=== PATIENT | male | born 1960 | race Caucasian/White ===

== ENCOUNTER 2020-10-07 09:35 | Outpatient (REF) | payer MEDICARE, SELFPAY ==
[2020-10-07 10:18] LABS: Eosinophils Absolute Auto 0.2 X10*3/uL (0.0-0.4); MANUAL DIFF FLAG SCAN; Mean Platelet Volume 11.5 fL (9.4-12.4); PLT CLUMP 1; SCAN SMEAR FLAG 1
[2020-10-07 10:20] LABS: Basophils Percent Auto 0.7 % (0-2); Eosinophils Percent Auto 5.6 % (0-4); Hematocrit 48.4 % (42-52); Hemoglobin 16.1 g/dl (14.0-18.0); Imm Gran Abs Auto 0.03 X10*3/uL (0.00-0.03); Imm Gran Pct Auto 0.7 % (0.0-0.4); Lymphocytes Absolute Auto 0.6 X10*3/uL (1.2-4.9); Lymphocytes Percent Auto 14.7 % (20-40); Mean Corpuscular HGB Conc 33.3 g/dl (31.0-36.0); Mean Corpuscular Hemoglobin 33.5 pg (27.0-33.0); Mean Corpuscular Volume 100.8 fL (80-98); Monocytes Absolute Auto 0.5 X10*3/uL (0.1-1.2); Monocytes Percent Auto 10.7 % (2-11); Neutrophils Absolute Auto 2.9 X10*3/uL (2.0-8.3); Neutrophils Percent Auto 67.6 % (45-73); Platelet Count 125 X10*3/uL (160-400); Red Cell Distribution Width 12.4 % (11.0-16.0); White Blood Count 4.3 X10*3/uL (4.8-10.8)
[2020-10-07 11:10] LABS: Alanine Aminotransferase 75 U/L (0-40); Albumin Level 4.3 g/dL (3.5-5.0); Alkaline Phosphatase 202 U/L (39-117); Anion Gap 15 (12-20); Aspartate Amino Transferase 62 U/L (5-37); Bilirubin Total 1.2 mg/dL (0.0-1.0); Blood Urea Nitrogen 9 mg/dL (9-16); Calcium 9.1 mg/dL (8.4-10.2); Carbon Dioxide 30 mmol/L (22-29); Chloride 95 mmol/L (96-108); Estimated Glomerular Filt Rate > 60; Glucose Random 303 mg/dL (60-115); Potassium 4.2 mmol/l (3.3-5.1); Sodium 136 mmol/L (135-145); Total Protein 7.3 g/dL (6.5-8.0)
[2020-10-07 11:29] LABS: Creatinine Urine 19.54 mg/dL; Microalbum/Creatinine Ratio Ur 235.4 ug/mg cr
[2020-10-07 11:35] LABS: SLIDE REVIEW VERIFIED
[2020-10-07 11:36] LABS: Prostate Specific Antigen Scr 0.27 ng/mL (<0.05-4.0)
[2020-10-07 12:11] LABS: Estimated Average Glucose 249 mg/dL; Hemoglobin A1c % 10.3 %
== END 2020-10-07 09:36 | disposition home or self-care (01) ==
LOC: HO.LAB 09:35
PROVIDERS: PCP Internal Medicine; Visit Provider Internal Medicine
DX: E11.9 Type 2 diabetes mellitus without complications (principal); I10 Essential (primary) hypertension; J44.9 Chronic obstructive pulmonary disease, unspecified; R35.1 Nocturia
CPT/HCPCS: 36415; 80053; 82043; 83036; 84153; 85025

== ENCOUNTER 2021-03-15 12:33 | Outpatient (REF) | payer MEDICARE, SELFPAY ==
[2021-03-15 13:31] LABS: Eosinophils Absolute Auto 0.2 X10*3/uL (0.0-0.4); Eosinophils Percent Auto 3.5 % (0-4); Hemoglobin 16.4 g/dl (14.0-18.0); MANUAL DIFF FLAG SCAN; PLT CLUMP 1; SCAN SMEAR FLAG 1
[2021-03-15 13:33] LABS: Basophils Percent Auto 0.6 % (0-2); Hematocrit 48.7 % (42-52); Imm Gran Abs Auto 0.02 X10*3/uL (0.00-0.03); Imm Gran Pct Auto 0.4 % (0.0-0.4); Lymphocytes Absolute Auto 0.7 X10*3/uL (1.2-4.9); Lymphocytes Percent Auto 12.6 % (20-40); Mean Corpuscular HGB Conc 33.7 g/dl (31.0-36.0); Mean Corpuscular Hemoglobin 33.9 pg (27.0-33.0); Mean Corpuscular Volume 100.6 fL (80-98); Mean Platelet Volume 11.3 fL (9.4-12.4); Monocytes Absolute Auto 0.5 X10*3/uL (0.1-1.2); Monocytes Percent Auto 9.6 % (2-11); Neutrophils Percent Auto 73.3 % (45-73); Platelet Count 135 X10*3/uL (160-400); Red Blood Count 4.84 X10*6/uL (4.60-5.80); Red Cell Distribution Width 12.7 % (11.0-16.0); White Blood Count 5.4 X10*3/uL (4.8-10.8)
[2021-03-15 13:38] LABS: Glucose Urine UA 500 MG/DL (NEG); Leukocyte Esterase Urine NEG (NEG); Nitrite Urine NEG (NEG); PH 7.5 (5.0-8.0); Specific Gravity - Urine 1.015 (1.005-1.025); Urine Blood NEG (NEG); Urine Ketones 5 MG/DL (NEG); Urine Protein 1+ MG/DL (NEG-TRACE)
[2021-03-15 13:39] LABS: Appearance Urine CLEAR; Color Urine DARK YELLOW
[2021-03-15 13:46] LABS: RBC Urine 0-2 /HPF (0); Squamous Epithelial Cell Urine TRACE /LPF; WBC Urine 0-2 /HPF (0-4)
[2021-03-15 13:47] LABS: Amorphous Sediment Urine TRACE /LPF
[2021-03-15 13:52] LABS: Estimated Average Glucose 235 mg/dL; Hemoglobin A1c % 9.8 %
[2021-03-15 13:56] LABS: SLIDE REVIEW VERIFIED
[2021-03-15 14:17] LABS: Creatinine Urine 95.66 mg/dL; Microalbum/Creatinine Ratio Ur 313.6 ug/mg cr
[2021-03-15 14:23] LABS: Alanine Aminotransferase 68 U/L (0-40); Albumin Level 4.3 g/dL (3.5-5.0); Alkaline Phosphatase 270 U/L (39-117); Anion Gap 17 (12-20); Aspartate Amino Transferase 68 U/L (5-37); Bilirubin Total 1.6 mg/dL (0.0-1.0); Blood Urea Nitrogen 10 mg/dL (9-16); Calcium 9.3 mg/dL (8.4-10.2); Carbon Dioxide 26 mmol/L (22-29); Chloride 97 mmol/L (96-108); Estimated Glomerular Filt Rate > 60; Glucose Random 287 mg/dL (60-115); Potassium 4.1 mmol/L (3.3-5.1); Sodium 136 mmol/L (135-145); Total Protein 7.5 g/dL (6.5-8.0)
== END 2021-03-15 12:34 | disposition home or self-care (01) ==
LOC: HO.WFDLDS 12:33
PROVIDERS: Visit Provider Internal Medicine
DX: E11.9 Type 2 diabetes mellitus without complications (principal); I10 Essential (primary) hypertension; J44.9 Chronic obstructive pulmonary disease, unspecified
CPT/HCPCS: 36415; 80053; 81001; 82043; 83036; 85025

== ENCOUNTER 2021-09-23 09:52 | Outpatient (REF) | payer MEDICARE, SELFPAY ==
[2021-09-23 10:47] LABS: MANUAL DIFF FLAG NO
[2021-09-23 10:52] LABS: Basophils Percent Auto 0.6 % (0-2); Eosinophils Absolute Auto 0.3 X10*3/uL (0.0-0.4); Eosinophils Percent Auto 4.6 % (0-4); Hematocrit 49.1 % (42-52); Hemoglobin 16.4 g/dl (14.0-18.0); Imm Gran Abs Auto 0.07 X10*3/uL (0.00-0.03); Lymphocytes Absolute Auto 0.6 X10*3/uL (1.2-4.9); Lymphocytes Percent Auto 9.2 % (20-40); Mean Corpuscular HGB Conc 33.4 g/dl (31.0-36.0); Mean Corpuscular Hemoglobin 33.3 pg (27.0-33.0); Mean Corpuscular Volume 99.8 fL (80-98); Mean Platelet Volume 10.9 fL (9.4-12.4); Monocytes Absolute Auto 0.6 X10*3/uL (0.1-1.2); Monocytes Percent Auto 9.3 % (2-11); Neutrophils Absolute Auto 5.1 X10*3/uL (2.0-8.3); Neutrophils Percent Auto 75.3 % (45-73); Platelet Count 160 X10*3/uL (160-400); Red Blood Count 4.92 X10*6/uL (4.60-5.80); Red Cell Distribution Width 12.4 % (11.0-16.0); White Blood Count 6.8 X10*3/uL (4.8-10.8)
[2021-09-23 10:58] LABS: Estimated Average Glucose 260 mg/dL; Hemoglobin A1c % 10.7 %
[2021-09-23 11:29] LABS: Alanine Aminotransferase 44 U/L (0-40); Albumin Level 4.1 g/dL (3.5-5.0); Alkaline Phosphatase 314 U/L (39-117); Anion Gap 15 (12-20); Aspartate Amino Transferase 49 U/L (5-37); Bilirubin Total 1.1 mg/dL (0.0-1.0); Blood Urea Nitrogen 11 mg/dL (9-16); Calcium 9.5 mg/dL (8.4-10.2); Carbon Dioxide 30 mmol/L (22-29); Chloride 96 mmol/L (96-108); Cholesterol 177 mg/dL; Creatinine Urine 64.67 mg/dL; Estimated Glomerular Filt Rate > 60; Glucose Fasting 306 mg/dL (60-99); HDL Cholesterol 62 mg/dL; LDL Cholesterol Calculated 84 mg/dl; Microalbum/Creatinine Ratio Ur 338.6 ug/mg cr; Potassium 4.5 mmol/L (3.3-5.1); Sodium 136 mmol/L (135-145); Total Protein 7.4 g/dL (6.5-8.0); Triglycerides 159 mg/dL
[2021-09-23 11:56] LABS: Vitamin B12 782 pg/mL (200-900)
== END 2021-09-23 09:53 | disposition home or self-care (01) ==
LOC: HO.WFDLDS 09:52
PROVIDERS: Visit Provider Internal Medicine
DX: E11.9 Type 2 diabetes mellitus without complications (principal); I10 Essential (primary) hypertension; D69.6 Thrombocytopenia, unspecified; K74.60 Unspecified cirrhosis of liver
CPT/HCPCS: 36415; 80053; 80061; 82043; 82607; 83036; 85025

== ENCOUNTER 2022-04-13 11:46 | Outpatient (REF) | payer MEDICARE, SELFPAY ==
[2022-04-13 14:02] LABS: MANUAL DIFF FLAG NO
[2022-04-13 14:06] LABS: Basophils Percent Auto 0.6 % (0-2); Eosinophils Absolute Auto 0.1 X10*3/uL (0.0-0.4); Eosinophils Percent Auto 2.1 % (0-4); Hematocrit 43.7 % (42.0-52.0); Hemoglobin 14.5 g/dl (14.0-18.0); Imm Gran Abs Auto 0.03 X10*3/uL (0.00-0.03); Imm Gran Pct Auto 0.4 % (0.0-0.4); Lymphocytes Absolute Auto 0.6 X10*3/uL (1.2-4.9); Lymphocytes Percent Auto 9.1 % (20-40); Mean Corpuscular HGB Conc 33.2 g/dl (31.0-36.0); Mean Corpuscular Hemoglobin 32.6 pg (27.0-33.0); Mean Corpuscular Volume 98.2 fL (80.0-98.0); Mean Platelet Volume 10.4 fL (9.4-12.4); Monocytes Absolute Auto 0.6 X10*3/uL (0.1-1.2); Monocytes Percent Auto 8.5 % (2-11); Neutrophils Absolute Auto 5.4 x10*3/uL (2.0-8.3); Neutrophils Percent Auto 79.3 % (45-73); Platelet Count 208 X10*3/uL (160-400); Red Blood Count 4.45 X10*6/uL (4.60-5.80); White Blood Count 6.8 X10*3/uL (4.8-10.8)
[2022-04-13 14:13] LABS: Estimated Average Glucose 157 mg/dL; Hemoglobin A1c % 7.1 %
[2022-04-13 14:26] LABS: Alanine Aminotransferase 31 U/L (0-40); Albumin Level 3.9 g/dL (3.5-5.0); Alkaline Phosphatase 371 U/L (39-117); Anion Gap 11 (12-20); Aspartate Amino Transferase 41 U/L (5-37); Bilirubin Total 0.9 mg/dL (0.0-1.0); Blood Urea Nitrogen 10 mg/dL (9-16); Calcium 9.8 mg/dL (8.4-10.2); Carbon Dioxide 30 mmol/L (22-29); Chloride 98 mmol/L (96-108); Estimated Glomerular Filt Rate > 60; Glucose Random 145 mg/dL (60-115); Potassium 4.3 mmol/L (3.3-5.1); Sodium 135 mmol/L (135-145); Total Protein 7.5 g/dL (6.5-8.0)
== END 2022-04-13 11:47 | disposition home or self-care (01) ==
LOC: HO.WFDLDS 11:46
PROVIDERS: Visit Provider Internal Medicine
DX: E11.9 Type 2 diabetes mellitus without complications (principal); I10 Essential (primary) hypertension; J44.9 Chronic obstructive pulmonary disease, unspecified; K74.60 Unspecified cirrhosis of liver
CPT/HCPCS: 36415; 80053; 83036; 85025

== ENCOUNTER 2022-07-14 12:21 | Outpatient (REF) | payer MEDICARE, SELFPAY ==
[2022-07-14 13:31] LABS: MANUAL DIFF FLAG NO
[2022-07-14 13:37] LABS: Basophils Absolute Auto 0.1 X10*3/uL (0.0-0.2); Basophils Percent Auto 0.9 % (0-2); Eosinophils Absolute Auto 0.1 X10*3/uL (0.0-0.4); Eosinophils Percent Auto 2.1 % (0-4); Hematocrit 42.1 % (42.0-52.0); Hemoglobin 13.9 g/dl (14.0-18.0); Imm Gran Abs Auto 0.03 X10*3/uL (0.00-0.03); Imm Gran Pct Auto 0.5 % (0.0-0.4); Lymphocytes Absolute Auto 0.5 X10*3/uL (1.2-4.9); Lymphocytes Percent Auto 8.7 % (20-40); Mean Corpuscular Hemoglobin 32.7 pg (27.0-33.0); Mean Corpuscular Volume 99.1 fL (80.0-98.0); Mean Platelet Volume 10.1 fL (9.4-12.4); Monocytes Absolute Auto 0.5 X10*3/uL (0.1-1.2); Monocytes Percent Auto 9.2 % (2-11); Neutrophils Absolute Auto 4.4 x10*3/uL (2.0-8.3); Neutrophils Percent Auto 78.6 % (45-73); Platelet Count 244 X10*3/uL (160-400); Red Blood Count 4.25 X10*6/uL (4.60-5.80); Red Cell Distribution Width 12.8 % (11.0-16.0); White Blood Count 5.7 X10*3/uL (4.8-10.8)
[2022-07-14 13:52] LABS: Estimated Average Glucose 126 mg/dL
[2022-07-14 14:00] LABS: Alanine Aminotransferase 39 U/L (0-40); Alkaline Phosphatase 475 U/L (39-117); Anion Gap 17 (12-20); Aspartate Amino Transferase 56 U/L (5-37); Bilirubin Total 1.2 mg/dL (0.0-1.0); Blood Urea Nitrogen 9 mg/dL (9-16); Calcium 9.8 mg/dL (8.4-10.2); Carbon Dioxide 26 mmol/L (22-29); Chloride 99 mmol/L (96-108); Estimated Glomerular Filt Rate > 60; Glucose Random 72 mg/dL (60-115); Potassium 4.3 mmol/L (3.3-5.1); Sodium 138 mmol/L (135-145); Total Protein 7.6 g/dL (6.5-8.0)
== END 2022-07-14 12:22 | disposition home or self-care (01) ==
LOC: HO.WFDLDS 12:21
PROVIDERS: Visit Provider Internal Medicine
DX: E11.9 Type 2 diabetes mellitus without complications (principal); J44.9 Chronic obstructive pulmonary disease, unspecified; K74.60 Unspecified cirrhosis of liver
CPT/HCPCS: 36415; 80053; 83036; 85025

== ENCOUNTER 2022-07-17 08:57 | Outpatient (REF) | payer MEDICARE, SELFPAY ==
[2022-07-17 12:26] LABS: Creatinine Urine 213.87 mg/dL; Microalbum/Creatinine Ratio Ur 40.6 ug/mg cr
== END 2022-07-17 08:58 | disposition home or self-care (01) ==
LOC: HO.WFDLNP 08:57
PROVIDERS: Visit Provider Internal Medicine
DX: R10.2 Pelvic and perineal pain (principal); E11.9 Type 2 diabetes mellitus without complications; J44.9 Chronic obstructive pulmonary disease, unspecified; K74.60 Unspecified cirrhosis of liver
CPT/HCPCS: 82043

== ENCOUNTER 2022-07-18 09:44 | Outpatient (REF) | payer MEDICARE, SELFPAY ==
[2022-07-18 10:18] LABS: MANUAL DIFF FLAG NO
[2022-07-18 10:54] LABS: Basophils Percent Auto 0.8 % (0-2); Eosinophils Absolute Auto 0.1 X10*3/uL (0.0-0.4); Eosinophils Percent Auto 2.2 % (0-4); Hematocrit 41.8 % (42.0-52.0); Hemoglobin 13.7 g/dl (14.0-18.0); Imm Gran Abs Auto 0.02 X10*3/uL (0.00-0.03); Imm Gran Pct Auto 0.4 % (0.0-0.4); Lymphocytes Absolute Auto 0.4 X10*3/uL (1.2-4.9); Lymphocytes Percent Auto 8.8 % (20-40); Mean Corpuscular HGB Conc 32.8 g/dl (31.0-36.0); Mean Corpuscular Hemoglobin 32.5 pg (27.0-33.0); Mean Corpuscular Volume 99.1 fL (80.0-98.0); Mean Platelet Volume 10.1 fL (9.4-12.4); Monocytes Absolute Auto 0.5 X10*3/uL (0.1-1.2); Monocytes Percent Auto 9.2 % (2-11); Neutrophils Absolute Auto 3.9 x10*3/uL (2.0-8.3); Neutrophils Percent Auto 78.6 % (45-73); Platelet Count 225 X10*3/uL (160-400); Red Blood Count 4.22 X10*6/uL (4.60-5.80); Red Cell Distribution Width 12.8 % (11.0-16.0)
[2022-07-18 10:56] LABS: INTERNATIONAL NORM RATIO 1.2 (0.9-1.1); Prothrombin Time 13.4 SEC (10.0-13.1)
[2022-07-18 10:58] LABS: Partial Thromboplastin Time 38.1 SEC (26.0-36.4)
[2022-07-18 15:00] LABS: Ammonia 30 umol/L (13-55)
== END 2022-07-18 09:45 | disposition home or self-care (01) ==
LOC: HO.LAB 09:44
PROVIDERS: PCP Internal Medicine; Visit Provider Internal Medicine
DX: K74.60 Unspecified cirrhosis of liver (principal); E11.9 Type 2 diabetes mellitus without complications; R18.8 Other ascites
CPT/HCPCS: 36415; 82140; 85025; 85610; 85730

== ENCOUNTER 2022-07-20 11:00 | Outpatient (REF) | payer MEDICARE, SELFPAY ==
--- NOTE | ~2022-07-20 | US_ITS ---
EXAMINATION: US ABDOMEN LIMITED CLINICAL INFORMATION: Ascites check. COMPARISON: Abdominal ultrasound dated 01/06/2014. TECHNIQUE: Real-time ultrasound imaging of the abdominal quadrants were obtained. US/US abdomen limited FINDINGS/IMPRESSION: Moderate to large peritoneal ascites is seen in all 4 quadrants. Limited images of the demonstrates chronic appearance.
== END 2022-07-20 11:01 | disposition home or self-care (01) ==
LOC: HO.US 11:00
PROVIDERS: Visit Provider Internal Medicine
DX: R18.8 Other ascites (principal)
CPT/HCPCS: 76705

== ENCOUNTER 2022-07-24 11:23 | Day surgery (SDC) | payer MEDICARE, OTHER, SELFPAY ==
--- NOTE | 2022-07-21 17:50 | HP_ITS ---
DATE OF SERVICE: 07/24/2022 HISTORY OF PRESENT ILLNESS: The patient is a 61-year-old male scheduled for paracentesis on Sunday at noon time. Patient has a history of cirrhosis and alcohol abuse, COPD. He was seen in the office last week and was referred for paracentesis, but an ultrasound was required first which confirmed ascites, so now he is going to have the procedure done on Sunday the . He continues to smoke, but has been cutting down. PRESENT MEDICATIONS: Lisinopril 5 mg, vitamin D 5000 units a day, folate 1 mg a day, metformin a 1000 twice a day, glipizide 5 mg to 10 mg once a day, Lasix 20 mg a day, Lorazepam 0.5 mg p.o. t.i.d., albuterol updraft and a ProAir inhaler as needed, Symbicort 2 puffs twice a day. PHYSICAL EXAMINATION: GENERAL: He is awake, alert, uncomfortable because of the fluid collection. VITAL SIGNS: Temperature is 98.4, pulse 80, respiration 16, blood pressure 122/88, oxygen 98% on room air. Weight is 212, up 8 pounds from last time. HEART: Sounds are regular. LUNGS: Distant. ABDOMEN: Distended with positive fluid wave. EXTREMITIES: No clubbing, cyanosis, or edema in the extremities. He is medically stable for the proposed procedure. I will be available if there are any medical issues. Labs are in [employer]. MD LUIS FERNANDO Peres/JORGE / [phone]
--- NOTE | ~2022-07-24 | US_ITS ---
EXAMINATION: ULTRASOUND GUIDED PARACENTESIS CLINICAL INFORMATION: Ascites COMPARISON: Previous ultrasound 07/20/2022 TECHNIQUE: Procedure and risks and benefits including bleeding, infection and low blood pressure were discussed with the patient and informed consent was obtained. Left lower quadrant was prepped and draped in the usual sterile fashion. The skin and soft tissues were anesthetized with 1% lidocaine plain. Using ultrasound guidance and a 4 Ukrainian rapid catheter, access to the ascitic fluid was obtained. 13.8 L of clear yellow fluid was removed. Diagnostic specimen was sent. FINDINGS: There is a large amount of ascites. US/US paracentesis abd w/image IMPRESSION: Ultrasound-guided paracentesis.
[2022-07-24 12:01] VITALS: BMI 29.8
[2022-07-24 12:05] LABS: Glucose, Whole Blood 85 mg/dL (60-115)
--- NOTE | 2022-07-24 13:37 | HO.RADPN ---
RADIOLOGY Narrative Narrative: LLQ paracentesis using 4 fr catheter. L clear yellow fluid removed. Specimen sent.
[2022-07-24] MEDS: Lidocaine HCl 1 % MPF 5 ML VIAL 4 ML SUBCUT (14:44)
[2022-07-24 14:45] VITALS: BP 122/65; PULSE 74; RESP 16; TEMP 36.9; O2SAT 96
[2022-07-24 15:00] VITALS: BP 122/66; PULSE 68; RESP 16; O2SAT 96
[2022-07-24 15:15] VITALS: BP 119/68; PULSE 64; RESP 18; O2SAT 95
[2022-07-24 15:30] VITALS: BP 113/59; PULSE 67; RESP 18; O2SAT 96
[2022-07-24 15:34] LABS: MN% 95.2 %; PMN% 4.8 %; WBC Peritoneal Fluid 0.503 X10*3/uL
[2022-07-24 15:36] LABS: RBC Peritoneal Fluid < 0.002 X10*6/uL
[2022-07-24 15:45] VITALS: BP 114/65; PULSE 75; RESP 20; TEMP 36.8; O2SAT 95
[2022-07-24 16:22] LABS: BF Shift QC OK YES
[2022-07-24 16:23] LABS: Lymphocyte Peritoneal Fl 29 %; Monocytes Peritoneal Fl 14 %; Neutrophils Peritoneal Fluid 6 %; Other Peritioneal Fl 51 %
[2022-07-25 06:27] LABS: Glucose Peritoneal Fluid 86 MG/DL; LDH Peritoneal Fluid 140 U/L; Total Protein Peritoneal Fluid 4.2 GM/DL
== END 2022-07-24 15:53 | disposition home or self-care (01) ==
LOC: HO.SSS 11:24
PROVIDERS: PCP Internal Medicine; Visit Provider Radiology Diagnostic Radiology
DX: R18.8 Other ascites (principal); K74.60 Unspecified cirrhosis of liver; J44.9 Chronic obstructive pulmonary disease, unspecified; I10 Essential (primary) hypertension; E11.9 Type 2 diabetes mellitus without complications; Z79.51 Long term (current) use of inhaled steroids; Z79.84 Long term (current) use of oral hypoglycemic drugs; Z79.899 Other long term (current) drug therapy
CPT/HCPCS: 49083; 82945; 82947; 83615; 84157; 87071; 87073; 87205; 88112; 89051

== ENCOUNTER 2022-08-21 11:25 | Day surgery (SDC) | payer MEDICARE, OTHER, SELFPAY ==
[2022-08-21] VITALS (7 sets, daily range): BP systolic 111–127; BP diastolic 57–75; PULSE 71–87; RESP 16–22; TEMP 36.1–36.4; O2SAT 95–96; BMI 30.1
--- NOTE | ~2022-08-21 | US_ITS ---
EXAMINATION: ULTRASOUND-GUIDED PARACENTESIS CLINICAL INFORMATION: Ascites COMPARISON: None TECHNIQUE: Procedure and risks and benefits including bleeding, infection and low blood pressure were discussed with the patient and informed consent was obtained. The right lower quadrant was prepped and draped in the usual sterile fashion. The skin and soft tissues were anesthetized with 1% lidocaine plain. Using ultrasound guidance and a 5 Indian rapid centesis catheter, access to the ascitic fluid was obtained. 15.2 L of clear yellow fluid was removed. No diagnostic specimen was sent. Patient received 3 bottles of intravenous albumin during the procedure. FINDINGS: There is a large amount of ascites. US/US paracentesis abd w/image IMPRESSION: Ultrasound-guided paracentesis.
[2022-08-21 12:44] LABS: Glucose, Whole Blood 84 mg/dL (60-115)
[2022-08-21 12:52] LABS: MANUAL DIFF FLAG NO
[2022-08-21 12:54] LABS: Basophils Percent Auto 0.6 % (0-2); Eosinophils Absolute Auto 0.1 X10*3/uL (0.0-0.4); Eosinophils Percent Auto 1.8 % (0-4); Hematocrit 40.5 % (42.0-52.0); Hemoglobin 13.2 g/dl (14.0-18.0); Imm Gran Abs Auto 0.02 X10*3/uL (0.00-0.03); Imm Gran Pct Auto 0.4 % (0.0-0.4); Lymphocytes Absolute Auto 0.5 X10*3/uL (1.2-4.9); Lymphocytes Percent Auto 9.1 % (20-40); Mean Corpuscular HGB Conc 32.6 g/dl (31.0-36.0); Mean Corpuscular Hemoglobin 32.1 pg (27.0-33.0); Mean Corpuscular Volume 98.5 fL (80.0-98.0); Mean Platelet Volume 9.2 fL (9.4-12.4); Monocytes Absolute Auto 0.5 X10*3/uL (0.1-1.2); Monocytes Percent Auto 9.7 % (2-11); Neutrophils Absolute Auto 3.9 x10*3/uL (2.0-8.3); Neutrophils Percent Auto 78.4 % (45-73); Platelet Count 204 X10*3/uL (160-400); Red Blood Count 4.11 X10*6/uL (4.60-5.80); Red Cell Distribution Width 13.2 % (11.0-16.0); White Blood Count 4.9 X10*3/uL (4.8-10.8)
[2022-08-21 12:59] LABS: INTERNATIONAL NORM RATIO 1.2 (0.9-1.1); Prothrombin Time 13.7 SEC (10.0-13.1)
[2022-08-21 13:01] LABS: Partial Thromboplastin Time 37.7 SEC (26.0-36.4)
--- NOTE | 2022-08-21 14:39 | HO.RADPN ---
RADIOLOGY Narrative Narrative: RLQ paracentesis. 15 L clear yellow fluid removed. Albumin given.
[2022-08-21] MEDS: Lidocaine HCl 1 % MPF 5 ML VIAL 4 ML SUBCUT (14:47)
[2022-08-21] MEDS: traMADoL HCL 50 MG TABLET PO (15:20)
[2022-08-21] MEDS: Albumin Human 25 % 100 ML IV (15:20)
== END 2022-08-21 16:24 | disposition home or self-care (01) ==
PROVIDERS: Radiology Diagnostic Radiology; PCP Internal Medicine; Visit Provider Radiology Diagnostic Radiology
DX: R18.8 Other ascites (principal); K74.60 Unspecified cirrhosis of liver; F10.10 Alcohol abuse, uncomplicated; J44.9 Chronic obstructive pulmonary disease, unspecified; I10 Essential (primary) hypertension; E11.9 Type 2 diabetes mellitus without complications; Z79.51 Long term (current) use of inhaled steroids; Z79.84 Long term (current) use of oral hypoglycemic drugs; Z79.899 Other long term (current) drug therapy; F17.210 Nicotine dependence, cigarettes, uncomplicated
CPT/HCPCS: 36415; 49083; 82947; 85025; 85610; 85730; P9047

== ENCOUNTER 2022-09-08 11:12 | Day surgery (SDC) | payer MEDICARE, OTHER, SELFPAY ==
--- NOTE | ~2022-09-08 | US_ITS ---
EXAMINATION: ULTRASOUND-GUIDED PARACENTESIS CLINICAL INFORMATION: Ascites. COMPARISON: Ultrasound-guided paracentesis 08/21/2022. TECHNIQUE: Following explaining ultrasound-guided paracentesis procedure, benefits and risks, a written consent was obtained. Patient was placed supine on ultrasound stretcher and preliminary ultrasound imaging was obtained. An optimal site was selected along the left lower quadrant and marked. The marked site was cleaned and draped in the usual sterile manner. 1% lidocaine was injected at the puncture site. Through a small skin incision a 4 [place] catheter was advanced into the left peritoneal cavity. After observing fluid return, stylet was withdrawn and catheter connected to vacuum bottle. After obtaining all fluid and observing no more fluid return, catheter was withdrawn and complete hemostasis was achieved at the puncture site. Sterile dressing applied at the puncture site. Patient tolerated the procedure extremely well. FINDINGS: On preliminary ultrasound imaging there is a large amount of free fluid. Approximately 12.3 L of clear yellowish fluid was drained. None of this fluid was sent to lab. IV albumin was administered during the exam. US/US paracentesis abd w/image IMPRESSION: Successful ultrasound-guided paracentesis performed without immediate complications.
[2022-09-08 11:12] LABS: MANUAL DIFF FLAG NO
[2022-09-08 11:47] LABS: Basophils Percent Auto 0.7 % (0-2); Eosinophils Absolute Auto 0.2 X10*3/uL (0.0-0.4); Hematocrit 41.6 % (42.0-52.0); Imm Gran Abs Auto 0.03 X10*3/uL (0.00-0.03); Imm Gran Pct Auto 0.5 % (0.0-0.4); Lymphocytes Absolute Auto 0.6 X10*3/uL (1.2-4.9); Mean Corpuscular HGB Conc 33.7 g/dl (31.0-36.0); Mean Corpuscular Hemoglobin 32.9 pg (27.0-33.0); Mean Corpuscular Volume 97.7 fL (80.0-98.0); Mean Platelet Volume 9.9 fL (9.4-12.4); Monocytes Absolute Auto 0.6 X10*3/uL (0.1-1.2); Neutrophils Absolute Auto 4.2 x10*3/uL (2.0-8.3); Neutrophils Percent Auto 75.8 % (45-73); Platelet Count 227 X10*3/uL (160-400); Red Blood Count 4.26 X10*6/uL (4.60-5.80); Red Cell Distribution Width 13.3 % (11.0-16.0); White Blood Count 5.6 X10*3/uL (4.8-10.8)
[2022-09-08 11:55] LABS: Estimated Average Glucose 117 mg/dL; Hemoglobin A1c % 5.7 %
[2022-09-08 12:03] LABS: Alanine Aminotransferase 29 U/L (0-40); Albumin Level 3.7 g/dL (3.5-5.0); Alkaline Phosphatase 439 U/L (39-117); Anion Gap 15 (12-20); Aspartate Amino Transferase 41 U/L (5-37); Bilirubin Total 1.2 mg/dL (0.0-1.0); Blood Urea Nitrogen 7 mg/dL (9-16); Calcium 9.4 mg/dL (8.4-10.2); Carbon Dioxide 29 mmol/L (22-29); Chloride 97 mmol/L (96-108); Estimated Glomerular Filt Rate > 60; Glucose Random 68 mg/dL (60-115); Potassium 4.3 mmol/L (3.3-5.1); Sodium 137 mmol/L (135-145); Total Protein 6.8 g/dL (6.5-8.0)
[2022-09-08 12:43] LABS: Glucose, Whole Blood 71 mg/dL (60-115)
[2022-09-08 14:16] LABS: Glucose, Whole Blood 92 mg/dL (60-115)
[2022-09-08] MEDS: Lidocaine HCl 1 % MPF 5 ML VIAL 4 ML SUBCUT (15:01)
[2022-09-08 16:16] VITALS: BP 104/47; PULSE 60; RESP 16; TEMP 37.3; O2SAT 98
[2022-09-08 16:31] VITALS: BP 114/60; PULSE 83; RESP 18; O2SAT 96
[2022-09-08 16:46] VITALS: BP 114/60; PULSE 86; RESP 18; TEMP 37.1; O2SAT 95
[2022-09-08 16:58] VITALS: BP 105/62; PULSE 81; RESP 18; O2SAT 96
== END 2022-09-08 17:04 | disposition home or self-care (01) ==
PROVIDERS: Absent Provider Internal Medicine; PCP Internal Medicine; Visit Provider Radiology Diagnostic Radiology
DX: R18.8 Other ascites (principal); K74.60 Unspecified cirrhosis of liver; E11.9 Type 2 diabetes mellitus without complications; J44.9 Chronic obstructive pulmonary disease, unspecified; Z79.899 Other long term (current) drug therapy; Z79.84 Long term (current) use of oral hypoglycemic drugs; F17.210 Nicotine dependence, cigarettes, uncomplicated
CPT/HCPCS: 36415; 49083; 80053; 82947; 83036; 85025; C1729

== ENCOUNTER 2022-09-25 06:52 | Day surgery (SDC) | payer MEDICARE, OTHER, SELFPAY ==
--- NOTE | ~2022-09-25 | US_ITS ---
PROCEDURE: US-GUIDED PARACENTESIS CLINICAL INFORMATION: Ascites. COMPARISON: Previous exams most recent 09/08/2022. TECHNIQUE: Procedure and recent benefits including bleeding, infection and low blood pressure were discussed with the patient and informed consent was obtained. The right lower quadrant was prepped and draped in the usual sterile fashion. The skin and soft tissues were anesthetized with 1% lidocaine plain. Using ultrasound guidance and a 5-Togolese Yueh needle, access to the ascitic fluid was obtained. 11.3 L of clear yellow fluid was removed. No diagnostic specimen was sent. Patient received 2 bottles of 25 grams of albumin. FINDINGS: There is a large amount of ascites. US/US paracentesis abd w/image IMPRESSION: Ultrasound-guided paracentesis.
[2022-09-25 07:19] VITALS: BMI 28.6
[2022-09-25 07:40] LABS: Glucose, Whole Blood 96 mg/dL (60-115)
[2022-09-25] MEDS: Lidocaine HCl 1 % MPF 5 ML VIAL 10 ML SUBCUT (10:04)
[2022-09-25 10:08] VITALS: BP 101/66; PULSE 75; RESP 16; TEMP 36.1; O2SAT 99
[2022-09-25 10:22] VITALS: BP 92/55; PULSE 60; RESP 16; O2SAT 99
[2022-09-25] MEDS: traMADoL HCL 50 MG TABLET PO (10:31)
[2022-09-25 10:37] VITALS: BP 91/55; PULSE 80; RESP 16; O2SAT 99
[2022-09-25 10:52] VITALS: BP 101/55; PULSE 76; RESP 16; TEMP 36.1; O2SAT 99
--- NOTE | 2022-09-25 11:25 | HO.RADPN ---
RADIOLOGY Narrative Narrative: RLQ paracentesis using 5 fr catheter. 11L clear yellow fluid removed. No specimen sent. Patient received 2 bottles of albumin.
== END 2022-09-25 10:56 | disposition home or self-care (01) ==
PROVIDERS: Radiology Diagnostic Radiology; PCP Internal Medicine; Visit Provider Internal Medicine
DX: R18.8 Other ascites (principal); K74.60 Unspecified cirrhosis of liver; E11.9 Type 2 diabetes mellitus without complications; I10 Essential (primary) hypertension; J44.9 Chronic obstructive pulmonary disease, unspecified; F41.1 Generalized anxiety disorder; Z79.84 Long term (current) use of oral hypoglycemic drugs; Z79.899 Other long term (current) drug therapy
CPT/HCPCS: 49083; 82947; P9047

== ENCOUNTER 2022-10-13 07:15 | Outpatient (REF) | payer MEDICARE, OTHER, SELFPAY ==
[2022-10-13 07:25] LABS: MANUAL DIFF FLAG NO
[2022-10-13 07:39] LABS: Basophils Percent Auto 0.7 % (0-2); Eosinophils Absolute Auto 0.2 X10*3/uL (0.0-0.4); Eosinophils Percent Auto 3.2 % (0-4); Hematocrit 44.3 % (42.0-52.0); Hemoglobin 14.5 g/dl (14.0-18.0); Imm Gran Abs Auto 0.03 X10*3/uL (0.00-0.03); Imm Gran Pct Auto 0.5 % (0.0-0.4); Lymphocytes Absolute Auto 0.6 X10*3/uL (1.2-4.9); Lymphocytes Percent Auto 9.5 % (20-40); Mean Corpuscular HGB Conc 32.7 g/dl (31.0-36.0); Mean Corpuscular Hemoglobin 31.7 pg (27.0-33.0); Mean Corpuscular Volume 96.7 fL (80.0-98.0); Mean Platelet Volume 9.7 fL (9.4-12.4); Monocytes Absolute Auto 0.7 X10*3/uL (0.1-1.2); Monocytes Percent Auto 11.4 % (2-11); Neutrophils Absolute Auto 4.4 x10*3/uL (2.0-8.3); Neutrophils Percent Auto 74.7 % (45-73); Platelet Count 220 X10*3/uL (160-400); Red Blood Count 4.58 X10*6/uL (4.60-5.80); Red Cell Distribution Width 13.4 % (11.0-16.0); White Blood Count 5.9 X10*3/uL (4.8-10.8)
[2022-10-13 07:43] LABS: Ammonia 25 umol/L (13-55); INTERNATIONAL NORM RATIO 1.2 (0.9-1.1); Prothrombin Time 13.7 SEC (10.0-13.1)
[2022-10-13 08:17] LABS: Estimated Average Glucose 117 mg/dL; Hemoglobin A1C 152.3414 umol/L; Hemoglobin A1c % 5.7 %
[2022-10-13 08:22] LABS: Alanine Aminotransferase 41 U/L (0-40); Alkaline Phosphatase 455 U/L (39-117); Anion Gap 16 (12-20); Aspartate Amino Transferase 45 U/L (5-37); Bilirubin Total 0.7 mg/dL (0.0-1.0); Blood Urea Nitrogen 9 mg/dL (9-16); Calcium 9.7 mg/dL (8.4-10.2); Carbon Dioxide 29 mmol/L (22-29); Chloride 98 mmol/L (96-108); Estimated Glomerular Filt Rate > 60; Glucose Random 67 mg/dL (60-115); Potassium 4.7 mmol/L (3.3-5.1); Sodium 138 mmol/L (135-145); Total Protein 6.8 g/dL (6.5-8.0)
[2022-10-13 10:01] LABS: Appearance Urine Clear; Color Urine Yellow; Glucose Urine UA Negative (Negative); Leukocyte Esterase Urine Negative (Negative); Nitrite Urine Negative (Negative); PH 6.5 (5.0-9.0); Urine Blood Negative (Negative); Urine Ketones Negative (Negative); Urine Protein Negative (Neg-Trace)
[2022-10-13 10:20] LABS: Creatinine Urine 48.31 mg/dL; Microalbum/Creatinine Ratio Ur 14.4 ug/mg cr
[2022-10-13 11:15] LABS: Albumin Level 3.6 g/dL (3.5-5.0)
== END 2022-10-13 07:16 | disposition home or self-care (01) ==
LOC: HO.LAB 07:15
PROVIDERS: PCP Internal Medicine; Visit Provider Internal Medicine
DX: K74.60 Unspecified cirrhosis of liver (principal); E11.9 Type 2 diabetes mellitus without complications; D64.9 Anemia, unspecified; R18.8 Other ascites
CPT/HCPCS: 36415; 80053; 81003; 82043; 82140; 83036; 85025; 85610

== ENCOUNTER 2022-10-16 11:25 | Day surgery (SDC) | payer MEDICARE, OTHER, SELFPAY ==
--- NOTE | ~2022-10-16 | US_ITS ---
EXAMINATION: ULTRASOUND GUIDED PARACENTESIS CLINICAL INFORMATION: Cirrhosis and ascites. COMPARISON: None TECHNIQUE: Following explaining ultrasound-guided paracentesis procedure, benefits and risk, a written consent was obtained. Patient was placed supine on ultrasound stretcher and preliminary ultrasound imaging was obtained. An optimal site was selected along the right mid quadrant laterally and marked. The marked site was cleaned and draped in the usual sterile manner with 2% chlorhexidine solution. 1% lidocaine was injected at the marked site. Through a small skin incision a 5 Russian [employer] catheter was advanced into the peritoneal space. After observing fluid return, stylet was withdrawn and catheter connected to vacuum bottle via connecting cannula. After obtaining all fluid and observing normal fluid draining and ultrasound confirming no fluid remaining, the catheter was removed and complete hemostasis achieved at puncture site. Patient tolerated procedure very well without immediate complications. FINDINGS: Sterile dressing applied postprocedure. On preliminary ultrasound imaging there is some moderate to large ascites seen. Approximately 12.4 L of clear yellowish fluid was drained from the right lower quadrant. None of this fluid was sent to lab. US/US paracentesis abd w/image IMPRESSION: Successful ultrasound-guided therapeutic paracentesis performed without immediate complications.
[2022-10-16 12:25] VITALS: BMI 27.1
[2022-10-16 14:25] VITALS: BP 99/60; PULSE 63; RESP 18; TEMP 36.6; O2SAT 98
[2022-10-16 14:40] VITALS: BP 102/60; PULSE 75; RESP 18; O2SAT 98
[2022-10-16] MEDS: Lidocaine HCl 1 % MPF 5 ML VIAL 10 ML SUBCUT (14:47)
[2022-10-16 14:55] VITALS: BP 110/56; PULSE 79; RESP 18; O2SAT 98
[2022-10-16 15:10] VITALS: BP 114/65; PULSE 66; RESP 18; O2SAT 98
[2022-10-16 15:25] VITALS: BP 95/54; PULSE 75; RESP 18; O2SAT 98
[2022-10-16 15:40] VITALS: BP 106/42; PULSE 78; RESP 18; TEMP 36.8; O2SAT 98
== END 2022-10-16 15:45 | disposition home or self-care (01) ==
PROVIDERS: PCP Internal Medicine; Visit Provider Radiology Diagnostic Radiology
DX: R18.8 Other ascites (principal); K74.60 Unspecified cirrhosis of liver
CPT/HCPCS: 49083

== ENCOUNTER 2022-11-06 11:09 | Day surgery (SDC) | payer MEDICARE, OTHER, SELFPAY ==
--- NOTE | ~2022-11-06 | US_ITS ---
EXAMINATION: ULTRASOUND-GUIDED PARACENTESIS CLINICAL INFORMATION: Ascites COMPARISON: Previous exam most recent 10/16/2022 TECHNIQUE: Procedure and risks and benefits including bleeding, infection and low blood pressure were discussed with the patient and informed consent was obtained. The right lower quadrant was prepped and draped in the usual sterile fashion. The skin and soft tissues were anesthetized with 1% lidocaine plain. Using ultrasound guidance and a 5 [place] one-step catheter, access to the ascitic fluid was obtained. 13.7 L of clear yellow fluid was removed. No diagnostic specimen was sent. Patient received 50 g of intravenous albumin during the procedure. FINDINGS: There is a large amount of ascites. US/US paracentesis abd w/image IMPRESSION: Ultrasound-guided paracentesis.
[2022-11-06 11:30] VITALS: BMI 27.4
[2022-11-06 11:49] LABS: Glucose, Whole Blood 95 mg/dL (60-115)
--- NOTE | 2022-11-06 13:17 | HO.RADPN ---
RADIOLOGY Narrative Narrative: RLQ large volume paracentesis. 13.7 L clear yellow fluid removed. Albumin given. No specimen sent.
[2022-11-06] MEDS: Lidocaine HCl 1 % MPF 5 ML VIAL 10 ML SUBCUT (14:21)
[2022-11-06 14:25] VITALS: BP 96/67; PULSE 64; RESP 14; TEMP 36.4; O2SAT 97
[2022-11-06] MEDS: traMADoL HCL 50 MG TABLET PO (14:34)
[2022-11-06 14:55] VITALS: BP 106/66; PULSE 66; RESP 16; TEMP 36.9; O2SAT 100
== END 2022-11-06 15:32 | disposition home or self-care (01) ==
PROVIDERS: PCP Internal Medicine; Visit Provider Radiology Diagnostic Radiology
DX: R18.8 Other ascites (principal); K74.60 Unspecified cirrhosis of liver; E11.9 Type 2 diabetes mellitus without complications; J44.9 Chronic obstructive pulmonary disease, unspecified; Z79.4 Long term (current) use of insulin; Z79.51 Long term (current) use of inhaled steroids; Z79.899 Other long term (current) drug therapy; Z87.891 Personal history of nicotine dependence
CPT/HCPCS: 49083; 82947; P9047

== ENCOUNTER 2022-11-06 17:56 | Inpatient (IN) | payer MEDICARE, OTHER, SELFPAY ==
--- NOTE | ~2022-11-06 | CT_ITS ---
EXAMINATION: CT ABDOMEN AND PELVIS WITHOUT CONTRAST CLINICAL INFORMATION: Liver cirrhosis. Status post paracentesis. Severe abdominal pain. COMPARISON: CT abdomen and pelvis 12/12/2012 TECHNIQUE: Multidetector volumetric imaging was performed from the superior aspect of the liver through the pubic symphysis. Sagittal and coronal reformatted images were obtained on the technologist's workstation. This CT examination was performed using dose optimization techniques as appropriate, variously including the following: *Automated exposure control *Adjustment of mA and/or kV according to patient size (this includes techniques or standardized protocols for targeted exams where dose is matched to indication/reason for exam; i.e. extremities or head) *Use of iterative reconstruction technique DLP: 569 mGy-cm FINDINGS: LUNG BASES: Normal aeration of lung bases. LIVER, GALLBLADDER, AND BILIARY TREE: Cirrhotic liver. No focal liver lesion or intrahepatic bile duct dilatation. The gallbladder is unremarkable with no evidence of radiopaque gallstones, gallbladder wall thickening, or obvious pericholecystic inflammatory changes. PANCREAS: Unremarkable. SPLEEN: Splenomegaly. Spleen measures 14 cm superior inferior. ADRENAL GLANDS: Unremarkable. KIDNEYS AND URETERS: The kidneys are normal in size, shape, and attenuation. No hydronephrosis, hydroureter, or calculi seen. No perinephric stranding. BLADDER: Unremarkable. ABDOMINAL WALL./ GASTROINTESTINAL TRACT: There is a large ventral wall hernia. This measures about 11 cm transverse by 7 cm AP. There is a small bowel loop and mesenteric fat and ascitic fluid within the hernia sac. The small bowel loops proximal to this hernia are mildly dilated. The small bowel loops distal to this hernia are decompressed. Bowel pattern suggests a mild small bowel obstruction at the level of the central hernia. There are numerous diverticula of the sigmoid and descending colon. Scattered diverticula in the right colon There is no diverticulitis. Moderate volume of stool in the colon. The appendix is normal. Stomach is unremarkable. Mesentery: Moderate to large volume of abdominal ascites. LYMPH NODES: Normal. VASCULAR: Gastritis spine ligament varices in the upper abdomen consistent with portal hypertension. Vascular calcifications of the wall of aorta without aneurysm. PELVIC VISCERA: Prostate measures 5 cm transverse. OSSEOUS STRUCTURES: No acute osseous abnormality. Multilevel degenerative spondylosis spine. CT/CT abdomen pelvis wo IV con IMPRESSION: 1. Cirrhosis of liver. Splenomegaly. Abdominal ascites. 2. Large ventral wall hernia containing a small bowel loop. Mild dilatation of small bowel loops proximal to the hernia suggesting a mild small bowel obstruction. 3. Diverticulosis of colon. No acute change of the bowel. Fleischner guidelines were followed.
--- NOTE | ~2022-11-06 | XR_ITS ---
EXAMINATION: XR ABDOMEN KUB CLINICAL INDICATION: Abdominal pain. COMPARISON: CT abdomen/pelvis 11/06/2022. TECHNIQUE: AP view of the abdomen. 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 There is air in the colon and rectum. No acute osseous abnormalities. No significant soft tissue finding. XR/XR KUB IMPRESSION: No significant change compared to 11/06/2022 with similar degree of small bowel dilatation suggesting a partial small bowel obstruction.
[2022-11-06 18:16] VITALS: BP 135/84; BP 140/80; PULSE 80; PULSE 89; RESP 20; O2SAT 100; O2SAT 98; BMI 25.1
--- NOTE | 2022-11-06 19:04 | ED.ABDPAIN ---
HPI - Abdominal Pain General Chief Complaint: Abdominal Pain Stated Complaint: ABD PAIN AND DISTENTION, DRAINED TODAY PER EMS Time Seen by Provider: 11/06/22 18:34 Source: patient and EMS Mode of arrival: EMS Limitations: no limitations History of Present Illness HPI narrative: 61-year-old male with history of alcoholic cirrhosis patient require abdominal paracentesis regularly last paracentesis was today, patient status post 14 L removed from the abdominal cavity today patient been experiencing abdominal pain after the procedure which is very unusual for the patient to feel, no fever, no chills. No abdominal distension patient stated his abdominal distention is better After the paracentesis just generalized intra-abdominal aching pain. Related Data Home Medications Medication Instructions Recorded Confirmed albuterol sulfate 2.5 mg/3 mL 1 amp inhalation Q6H PRN wheezing 07/24/22 07/24/22 (0.083 %) solution for nebulization albuterol sulfate 90 mcg/actuation inhalation 07/24/22 07/24/22 aerosol inhaler (Ventolin HFA) budesonide-formoterol HFA 160 inhalation 07/24/22 mcg-4.5 mcg/actuation aerosol inhaler (Symbicort) cholecalciferol (vitamin D3) 125 1 cap PO DAILY 07/24/22 07/24/22 mcg (5,000 unit) capsule duloxetine 30 mg capsule,delayed 1 cap PO DAILY 07/24/22 07/24/22 release folic acid 1 mg tablet 07/24/22 furosemide 20 mg tablet mg 07/24/22 gabapentin 300 mg capsule mg 07/24/22 glipizide 5 mg tablet mg 07/24/22 lisinopril 5 mg tablet mg 07/24/22 lorazepam 0.5 mg tablet 1 tab PO TID PRN Anxiety 07/24/22 07/24/22 lorazepam 1 mg tablet mg 07/24/22 metformin 1,000 mg tablet 1 tab PO BID 07/24/22 10/16/22 tramadol 50 mg disintegrating 50 mg PO 10/16/22 tablet Allergies Allergy/AdvReac Type Severity Reaction Status Date / Time No Known Allergies Allergy Unverified 08/12/20 16:01 Review of Systems Review of Systems All other systems are reviewed and are negative Constitutional: Reports as per HPI and Reports no additional constitutional complaints Eyes: Reports as per HPI and Reports no additional eye complaints Reports system reviewed and no additional complaints, except as documented Cardiovascular: Reports as per HPI and Reports no additional cardiovascular complaints Respiratory: Reports as per HPI and Reports no additional respiratory complaints Gastrointestinal: Reports as per HPI and Reports no additional gastrointestinal complaints Genitourinary: Reports no additional female genitourinary complaints Musculoskeletal: Reports no additional musculoskeletal complaints Skin/Breast: Reports system reviewed and no additional complaints, except as docu Psychiatric: Reports no additional psychiatric complaints Endocrine: Reports no additional endocrine complaints Hematologic/Lymphatic: Reports no additional hematologic/lymphatic complaints Allergic/Immunologic: Reports no additional allergic/immunologic complaints Reports system reviewed and no additional complaints, except as documented and Reports Abnormal speech present [facility] Social History Social History Advance Directives: No Advance Directives Information Provided: Yes Physical Exam ED Vital Signs: Vital Signs - 24 hr 11/06/22 18:16 11/06/22 20:00 11/06/22 20:18 Temperature 98.2 F Pulse Rate 89 60 Respiratory Rate 20 16 16 Blood Pressure 135/84 116/65 Pulse Oximetry 100 95 Oxygen Delivery Method Room Air Room Air BMI result Body Mass Index 25.1 vital signs have been reviewed as appeared to be correct. Blood pressure normal. Heart rate normal. Respiration rate normal. Temperature normal. Oxygen saturation normal. Appearance: Alert. Oriented X3. No acute distress. Head: Normal external exam. Normocephalic. Atraumatic. No Marquez signs noted. No raccoon eyes noted Eyes: PERRLA. EOMI. Conjunctiva and sclera normal. Eyelids normal. ENT: TM's Normal. Pharynx normal. Uvula midline. Moist mucous membranes. No trismus noted. No drooling noted. No muffled voice noted. Neck: Normal inspection. Neck supple. FROM. No adenopathy. Thyroid Normal. No meningeal signs. No neck mass noted. CVS: Normal heart rate and rhythm. Heart sound normal. No murmurs noted. Pulses normal throughout. Respiratory: No respiratory distress. Painless inspiration. Breath sounds normal. No wheezes/rales/rhonchi noted. Chest nontender. No accessory muscle usage noted or decreased air movement noted. Abdomen: Soft , diffuse abdominal tenderness, no guarding, no rebound tenderness. Umbilical hernia with tenderness over the hernia with a mild redness on the skin . Bowel sounds normal in all 4 quadrants. No distention noted. No organomegaly noted. No visible injury noted. Back: No CVA tenderness. Full range of motion noted. Skin: Skin warm and dry. Normal skin color. Normal skin turgor. No rashes/lesions/lacerations noted. Extremities: No lower extremity edema. Extremities exhibit normal range of motion. Extremities nontender. Neuro: Oriented X 3. Cranial nerve exam: II-XII are grossly intact No motor deficit. No sensory deficit. Reflexes normal. Course Course Course Narrative: 61-year-old male status post therapeutic paracentesis today with 14 L ascitic fluid removed as reported by the patient presented today with diffuse abdominal pain no nausea, no vomiting, no fever, no chills, had a normal bowel movement, no wbc's, normal lactic acid, CT is raising a concern of umbilical hernia with mild small-bowel obstruction the case discussed with Dr. Reeves who recommended to admit the patient to medical service and he will see him in the morning. Patient also at risk for SBP using the ultrasound on the patient abdomen no intra-abdominal fluid that can be drained at this point after he was drained 14 L today patient will receive empirical ceftriaxone IV to cover for possible SBP and will admit the patient for further evaluation. Patient overall feels better with less abdominal pain patient received Dilaudid for pain in the emergency department. Medical Decision Making Differential Diagnosis Differential Diagnoses: The differential diagnosis associated with the presentation includes SBP / incarcerated hernia / abdominal pain after paracentesis. Admission/Observation Consideration of admission/observation: Escalation of care including admission/observation considered Consult Healthcare Provider Management of the patient was discussed with: Hospitalist ( Dr. Lutz) and Dining Server (Dr. Reeves ( surgery)) Lab Data MDM Lab Attestation statement: I reviewed the patient's lab results. Result Diagrams: 11/06/22 19:46 11/06/22 19:46 Labs: Lab Results 11/06/22 11/06/22 11/06/22 Range/Units 19:46 19:46 19:46 WBC 7.6 (4.8-10.8) X10*3/uL RBC 4.75 (4.60-5.80) X10*6/uL Hgb 15.1 (14.0-18.0) g/dl Hct 44.2 (42.0-52.0) % MCV 93.1 (80.0-98.0) fL MCH 31.8 (27.0-33.0) pg MCHC 34.2 (31.0-36.0) g/dl RDW 13.2 (11.0-16.0) % Plt Count 193 (160-400) X10*3/uL MPV 9.6 (9.4-12.4) fL Immature Gran % (Auto) 0.7 H (0.0-0.4) % Neut % (Auto) 87.3 H (45-73) % Lymph % (Auto) 4.1 L (20-40) % Cook % (Auto) 7.1 (2-11) % Eos % (Auto) 0.5 (0-4) % Baso % (Auto) 0.3 (0-2) % Lymph # (Auto) 0.3 L (1.2-4.9) X10*3/uL Cook # (Auto) 0.5 (0.1-1.2) X10*3/uL Eos # (Auto) 0.0 (0.0-0.4) X10*3/uL Baso # (Auto) 0.0 (0.0-0.2) X10*3/uL Abs Immat Gran (auto) 0.05 H (0.00-0.03) X10*3/uL Absolute Neuts (auto) 6.7 (2.0-8.3) x10*3/uL Absolute Nucleated RBC 0.000 (0.0-0.012) X10*3/uL Nucleated RBC % (auto) 0.0 (0.0-0.2) /100WBC Sodium 135 (135-145) mmol/L Potassium 3.4 D (3.3-5.1) mmol/L Chloride 99 (96-108) mmol/L Carbon Dioxide 25 (22-29) mmol/L Anion Gap 14 (12-20) BUN 6 L (9-16) mg/dL Creatinine 0.57 (0.5-1.4) mg/dL Estim Creat Clear Calc 134.3 Estimated GFR > 60 Random Glucose 133 H (60-115) mg/dL Lactic Acid 1.1 (0.5-2.0) mmol/L Calcium 8.9 D (8.4-10.2) mg/dL Total Bilirubin 1.3 H (0.0-1.0) mg/dL Direct Bilirubin 0.7 H (0.0-0.5) mg/dL AST 40 H (5-37) U/L ALT 31 (0-40) U/L Alkaline Phosphatase 368 H (39-117) U/L Total Protein 6.2 L (6.5-8.0) g/dL Albumin 3.6 (3.5-5.0) g/dL Lipase 30 (8-78) U/L Radiology Impression Discussion of test interpretation with radiology: I have reviewed the radiologist's reading. Radiologist Impression: abdominal CT:.? Cirrhosis of liver. Splenomegaly. Abdominal ascites. 2.? Large ventral wall hernia containing a small bowel loop. Mild dilatation of small bowel loops proximal to the hernia suggesting a mild small bowel obstruction. 3.? Diverticulosis of colon. No acute change of the bowel. ? Medications Administered Discontinued Medications Generic Name Dose Route Start Last Admin Trade Name Freq PRN Reason Stop Dose Admin Hydromorphone HCl 1 mg 11/06/22 19:58 11/06/22 20:18 Hydromorphone Hcl 1 Mg/Ml Syringe IVPUSH 11/06/22 19:59 1 mg ONCE ONE Administration Protocol Albumin Human 100 mls @ 100 mls/hr 11/06/22 19:03 11/06/22 19:57 Kedbumin 25 % IV 11/06/22 20:02 100 mls/hr ONCE ONE Administration Ceftriaxone Sodium 1 gm/ 50 mls @ 100 mls/hr 11/06/22 20:00 11/06/22 20:18 Sodium Chloride IV 11/06/22 20:29 100 mls/hr ONCE ONE Administration Discharge Plan Discharge Clinical Impression: Abdominal pain, SBP (spontaneous bacterial peritonitis), Umbilical hernia Patient Disposition: Admitted As Inpatient Prescriptions: No Action albuterol sulfate 2.5 mg /3 mL (0.083 %) solution for nebulization 1 amp inhalation Q6H PRN (Reason: wheezing) lorazepam 0.5 mg tablet 1 tab PO TID PRN (Reason: Anxiety) metformin 1,000 mg tablet 1 tab PO BID gabapentin 300 mg capsule folic acid 1 mg tablet lisinopril 5 mg tablet furosemide 20 mg tablet lorazepam 1 mg tablet albuterol sulfate [Ventolin HFA] 90 mcg/actuation HFA aerosol inhaler inhalation cholecalciferol (vitamin D3) 125 mcg (5,000 unit) capsule 1 cap PO DAILY glipizide 5 mg tablet duloxetine 30 mg capsule,delayed release(DR/EC) 1 cap PO DAILY budesonide-formoterol [Symbicort] 160-4.5 mcg/actuation HFA aerosol inhaler inhalation tramadol 50 mg Tablet,Disintegrating 50 mg PO
[2022-11-06] MEDS: Albumin Human 25 % 100 ML IV (19:57)
[2022-11-06 19:58] LABS: Basophils Percent Auto 0.3 % (0-2); Imm Gran Abs Auto 0.05 X10*3/uL (0.00-0.03); Imm Gran Pct Auto 0.7 % (0.0-0.4); Mean Platelet Volume 9.6 fL (9.4-12.4); Neutrophils Absolute Auto 6.7 x10*3/uL (2.0-8.3); PLT CLUMP 1; SCAN SMEAR FLAG 1
[2022-11-06 20:00] VITALS: BP 116/65; PULSE 60; RESP 16; TEMP 36.8; O2SAT 95
[2022-11-06 20:00] LABS: Eosinophils Percent Auto 0.5 % (0-4); Hematocrit 44.2 % (42.0-52.0); Hemoglobin 15.1 g/dl (14.0-18.0); Lymphocytes Absolute Auto 0.3 X10*3/uL (1.2-4.9); Lymphocytes Percent Auto 4.1 % (20-40); Mean Corpuscular HGB Conc 34.2 g/dl (31.0-36.0); Mean Corpuscular Hemoglobin 31.8 pg (27.0-33.0); Mean Corpuscular Volume 93.1 fL (80.0-98.0); Monocytes Absolute Auto 0.5 X10*3/uL (0.1-1.2); Monocytes Percent Auto 7.1 % (2-11); Neutrophils Percent Auto 87.3 % (45-73); Red Blood Count 4.75 X10*6/uL (4.60-5.80); Red Cell Distribution Width 13.2 % (11.0-16.0)
[2022-11-06 20:06] LABS: Lactic Acid 1.1 mmol/L (0.5-2.0)
[2022-11-06 20:08] LABS: MANUAL DIFF FLAG NO; Platelet Count 193 X10*3/uL (160-400); White Blood Count 7.6 X10*3/uL (4.8-10.8)
[2022-11-06 20:12] LABS: Alanine Aminotransferase 31 U/L (0-40); Albumin Level 3.6 g/dL (3.5-5.0); Alkaline Phosphatase 368 U/L (39-117); Anion Gap 14 (12-20); Aspartate Amino Transferase 40 U/L (5-37); Bilirubin Direct 0.7 mg/dL (0.0-0.5); Bilirubin Total 1.3 mg/dL (0.0-1.0); Blood Urea Nitrogen 6 mg/dL (9-16); Calcium 8.9 mg/dL (8.4-10.2); Carbon Dioxide 25 mmol/L (22-29); Chloride 99 mmol/L (96-108); Creatinine Clr Calc Pharmacy 134.3; Estimated Glomerular Filt Rate > 60; Glucose Random 133 mg/dL (60-115); Lipase 30 U/L (8-78); Potassium 3.4 mmol/L (3.3-5.1); Sodium 135 mmol/L (135-145); Total Protein 6.2 g/dL (6.5-8.0)
[2022-11-06 20:18] VITALS: RESP 16
[2022-11-06] MEDS: HYDROmorphone HCl 1 MG/ML SYRINGE IVPUSH (20:18)
[2022-11-06] MEDS: cefTRIAXone sodium 1 GM in 0.9 % Sodium Chloride 50 ML IV (20:18)
[2022-11-06 22:00] VITALS: BP 105/61; PULSE 61; RESP 16; TEMP 36.9; O2SAT 97
--- NOTE | 2022-11-06 22:51 | PM.IMHP ---
History of Present Illness Date of Service: 11/06/22 Chief Complaint: abd pain This is a 61-year-old male with past medical history of liver cirrhosis secondary to alcohol abuse, diabetes, COPD presents the hospital with complaints of abdominal pain. Patient reports that he usually undergoes paracentesis for his ascites every 3 weeks. He underwent paracentesis this a.m., 14 L of fluid was drawn which is very typical for him, few hours later he developed significant 10/10 pain mostly in the lower abdomen , constant, nonradiating, gradually worsening. Reports that this is his 6th paracentesis and no complications previously. Associated with nausea with no vomiting. His last bowel movement was a day presentation in the a.m.. He is not passing gas at this time. He reports no fever or chills, no urinary symptoms and no lower extremity edema. He reports no weakness numbness or tingling. patient denies any new cough, no increased shortness of breath, and no worsening sputum production. No chest pain. On arrival to the ED patient hemodynamically stable with no significant abnormal vitals Labs are significant for WBC count of 7.6 sodium of 133, total bili of 1.3, AST of 40 which is around his baseline, alk-phos of 368, Abdomen pelvic CT shows cirrhosis of the liver, large ventral wall hernia containing a small bowel loop, mild dilatation of small-bowel loops proximal to the hernia suggesting a small bowel obstruction. Case was discussed with surgery, they will consult in a.m.. Patient will be admitted further management Review of Systems Review of Systems: Yes all other systems are reviewed and are negative [facility] Medical History (Updated 11/07/22 @ 05:13 by Anamaria Lutz MD) COPD (chronic obstructive pulmonary disease) Diabetes Liver cirrhosis Family History (Updated 11/07/22 @ 05:13 by Anamaria Lutz MD) Other No family history of coronary artery disease Surgical History (Updated 11/07/22 @ 05:13 by Anamaria Lutz MD) History of appendectomy Social History Household Members: None Housing: Other Housing Other:: mobile home Do you presently have visiting nurse or other home services: No Alcohol intake: former Patient Tobacco Use Status: Former Tobacco user Quit Date: 2010 Tobacco use type: Cigarette Smoked in Last 30 Days: Yes Patient Interested in Nicotine Replacement: No Patient Given Instructions on How to Stop Smoking: No Second Hand Smoke Exposure: Yes Use of substances other than those prescribed or required for medical reasons: No Have you been hit, kicked, punched, or otherwise hurt by someone within the past year? If so, by whom?: No Do you feel safe in your current relationship?: No Current Relationship Is there a partner from a previous relationship who is making you feel unsafe now?: No Are you made to feel afraid or neglected: No Advance Directives: No Advance Directives Information Provided: Yes Do you have thoughts of harming others: None Do you have a plan to hurt others: No Plan Recently lost weight without trying: No How much weight loss: Not applicable Eating poorly because of decreased appetite: No Nutrition screen score: 0 Nutrition Risks: No Nutritional Risk Poor oral hygiene: No Meds Allergies Allergy/AdvReac Type Severity Reaction Status Date / Time No Known Allergies Allergy Unverified 08/12/20 16:01 Home Medications Medication Instructions Recorded Confirmed Last Taken Type albuterol sulfate 90 mcg/actuation 2 inh inhalation NEEDED 11/07/22 11/07/22 Unknown History aerosol inhaler (Ventolin HFA) budesonide-formoterol HFA 160 1 inh inhalation BID 11/07/22 11/07/22 Unknown History mcg-4.5 mcg/actuation aerosol inhaler (Symbicort) folic acid 1 mg tablet 1 tab PO DAILY 11/07/22 11/07/22 Unknown History furosemide 20 mg tablet 20 mg PO BID 11/07/22 11/07/22 Unknown History glipizide 5 mg tablet 2 tab PO BID 11/07/22 11/07/22 Unknown History lisinopril 5 mg tablet 5 mg PO DAILY 11/07/22 11/07/22 Unknown History lorazepam 1 mg tablet 1 tab PO NEEDED PRN Anxiety 11/07/22 11/07/22 Unknown History metformin 1,000 mg tablet 1,000 mg PO BID 11/07/22 11/07/22 Unknown History tramadol 50 mg tablet 1 tab PO TID PRN pain 11/07/22 11/07/22 Unknown History Physical Exam Vital Signs and Narrative: Vital Signs: Last Vital Signs Temp 98.4 F 11/06/22 22:00 Pulse 61 11/06/22 22:00 Resp 16 11/06/22 22:00 BP 105/61 11/06/22 22:00 Pulse Ox 97 11/06/22 22:00 O2 Del Method 11/06/22 22:00 O2 Flow Rate 1 11/06/22 22:00 BMI result Body Mass Index 25.1 Const: General: cooperative and no acute distress Orientation/consciousness: patient oriented x3 Eyes: General: appearance normal, both eyes and all related structures Resp: Effort & Inspection: normal respiratory effort Auscultation: clear to auscultation bilaterally Cardio: Rate: regular rate Rhythm: regular rhythm GI: Other: abdomen is soft, tender to palpation in the lower abdomen, guarding, Palpation (GI): Soft to palpation Auscultation: normal bowel sounds Skin: General skin exam: no rashes or lesions noted Neuro: General: patient oriented x3 Cognition (Neuro): normal cognition Extrem: General: Yes normal to inspection and Yes no pedal edema Results Labs CBC and Chem 7: 11/06/22 19:46 11/06/22 19:46 Labs: Laboratory Results - last 24 hr 11/06/22 11/06/22 11/06/22 19:46 19:46 19:46 MCV 93.1 MCH 31.8 MCHC 34.2 RDW 13.2 Plt Count 193 MPV 9.6 Immature Gran % (Auto) 0.7 H Neut % (Auto) 87.3 H Lymph % (Auto) 4.1 L [place] % (Auto) 7.1 Eos % (Auto) 0.5 Baso % (Auto) 0.3 Lymph # (Auto) 0.3 L [place] # (Auto) 0.5 Eos # (Auto) 0.0 Baso # (Auto) 0.0 Abs Immat Gran (auto) 0.05 H Absolute Neuts (auto) 6.7 Absolute Nucleated RBC 0.000 Nucleated RBC % (auto) 0.0 Anion Gap 14 Estim Creat Clear Calc 134.3 Estimated GFR > 60 Random Glucose 133 H Lactic Acid 1.1 Calcium 8.9 D Total Bilirubin 1.3 H Direct Bilirubin 0.7 H AST 40 H ALT 31 Alkaline Phosphatase 368 H Total Protein 6.2 L Albumin 3.6 Lipase 30 Imaging Radiologist's Impressions: Impressions Abdomen/Pelvis CT 11/06/22 19:20 IMPRESSION: 1. Cirrhosis of liver. Splenomegaly. Abdominal ascites. 2. Large ventral wall hernia containing a small bowel loop. Mild dilatation of small bowel loops proximal to the hernia suggesting a mild small bowel obstruction. 3. Diverticulosis of colon. No acute change of the bowel. Fleischner guidelines were followed. Assessment and Plan (1) Abdominal hernia: Status: Acute (2) Small bowel obstruction: Status: Acute (3) Abdominal pain: Status: Acute Plan this is a 61-year-old male with past medical history of liver cirrhosis secondary to alcohol abuse presents to the hospital with complaints of abdominal pain post paracentesis found to have small-bowel obstruction # ABDOMINAL PAIN - likely secondary to small-bowel obstruction versus SBP less likely - evidence of small-bowel obstruction on CT abdomen - has history of appendectomy, as well as frequent therapeutic paracentesis - will keep NPO - pain control # small-bowel obstruction - in the setting of history of appendectomy, and frequent paracentesis - will make patient NPO - general surgery consulted - bowel rest, Pain control # abdominal wall hernia - no evidence of small-bowel strangulation - general surgery consulted # diabetes - hold oral anti hyperglycemics - will start low-dose sliding scale insulin - diabetic diet # COPD - not in exacerbation - continue home inhalers DVT prophylaxis: Lovenox given patient's small-bowel obstruction and need for observation for resolution of small-bowel obstruction patient will require minimum 2 night inpatient hospital stay for further management and monitoring Time Spent With Patient Time: Total time managing care of this patient today ____ minutes. Quality Stroke Does the patient have a stroke diagnosis?: No VTE Prior VTE?: No VTE Risk Level:: Medical - moderate - high VTE Device Contraindication: Treatment Not Indicated VTE Drug Contraindication: N/A - Med Ordered
[2022-11-06 23:29] VITALS: BP 105/68; PULSE 63; RESP 16; TEMP 36.6; O2SAT 97
[2022-11-06 23:46] VITALS: RESP 16
[2022-11-06] MEDS: Morphine Sulfate 4 MG/ML CARTRIDGE IVPUSH (23:46)
[2022-11-06] MEDS: Lactated Ringers 1,000 ML 100 ML IVCONT (23:46)
[2022-11-06] MEDS: 0.9 % Sodium Chloride Flush 3 ML SYRINGE IVFLUSH (23:48)
[2022-11-07] VITALS (14 sets, daily range): BP systolic 103–143; BP diastolic 61–80; PULSE 53–89; RESP 14–20; TEMP 36.3–37.1; O2SAT 90–100; BMI 23.0
--- NOTE | 2022-11-07 02:08 | PC.NURSE ---
Pt complaining that his hernia feels like it is increasing in size with increased pain. Provider made aware. Plan to order KUB to evaluate hernia.
[2022-11-07] MEDS: HYDROmorphone HCl 0.5 MG/0.5 ML SYRINGE IVPUSH ×3 (02:16→13:34)
[2022-11-07 03:47] LABS: Glucose, Whole Blood 129 mg/dL (60-115)
[2022-11-07] MEDS: Morphine Sulfate 4 MG/ML CARTRIDGE IVPUSH ×4 (03:48→22:44)
[2022-11-07 06:02] LABS: MANUAL DIFF FLAG NO
[2022-11-07 06:12] LABS: Influenza A PCR NEGATIVE (Negative); Influenza B PCR NEGATIVE (Negative); Resp Syncy Virus RNA Qual PCR NEGATIVE (Negative); SARS COV2 PCR INHOUSE POSITIVE (Negative)
[2022-11-07 06:13] LABS: Basophils Percent Auto 0.1 % (0-2); Eosinophils Percent Auto 0.4 % (0-4); Hematocrit 40.6 % (42.0-52.0); Hemoglobin 13.7 g/dl (14.0-18.0); Imm Gran Abs Auto 0.04 X10*3/uL (0.00-0.03); Imm Gran Pct Auto 0.6 % (0.0-0.4); Lymphocytes Absolute Auto 0.4 X10*3/uL (1.2-4.9); Mean Corpuscular HGB Conc 33.7 g/dl (31.0-36.0); Mean Corpuscular Hemoglobin 31.4 pg (27.0-33.0); Mean Corpuscular Volume 93.1 fL (80.0-98.0); Monocytes Absolute Auto 0.6 X10*3/uL (0.1-1.2); Monocytes Percent Auto 8.5 % (2-11); Neutrophils Absolute Auto 5.9 x10*3/uL (2.0-8.3); Neutrophils Percent Auto 85.4 % (45-73); Platelet Count 184 X10*3/uL (160-400); Red Blood Count 4.36 X10*6/uL (4.60-5.80); Red Cell Distribution Width 13.2 % (11.0-16.0)
[2022-11-07 06:32] LABS: Appearance Urine Clear; Color Urine DK YELLOW; Glucose Urine UA Negative (Negative); Leukocyte Esterase Urine Negative (Negative); Nitrite Urine Negative (Negative); Specific Gravity - Urine 1.025 (1.005-1.025); Urine Blood Negative (Negative); Urine Ketones 40 mg/dL (Negative); Urine Protein Negative (Neg-Trace)
[2022-11-07 06:41] LABS: Anion Gap 14 (12-20); Blood Urea Nitrogen 6 mg/dL (9-16); Calcium 8.5 mg/dL (8.4-10.2); Carbon Dioxide 23 mmol/L (22-29); Chloride 104 mmol/L (96-108); Creatinine Clr Calc Pharmacy 156.3; Estimated Glomerular Filt Rate > 60; Glucose Random 129 mg/dL (60-115); Potassium 3.8 mmol/L (3.3-5.1); Sodium 137 mmol/L (135-145)
--- NOTE | 2022-11-07 07:16 | PHA.MEDREC ---
Pharmacy Consult ? Medication Reconciliation Pharmacy has reviewed the medication reconciliation completed by Wood. There are no remarkable issues for provider's attention. Veronica Cordero, RosendoD
--- NOTE | 2022-11-07 07:43 | P.CONGS_ITS ---
History of Present Illness Consult details Consult date: 11/07/22 Narrative: 61M admitted last night in the ED for abdominal pain. He has a long hx of cirrhosis with ascites and undergoes paracentesis every few weeks or so. Yesterday, he underwent paracentesis again, with 14L removed. He says he seemed to have a different kind of pain after that. He says the pain involved mostly the right side of his abdomen and his umbilical hernia. He therefore went to the ER and was admitted. He denies any nausea or vomitting. He has had a chronic umbilical hernia for many years as well. He says that this usually would be much softer after paracentesis, but he says last night this seems to be firm. Review of Systems Constitutional: Constitutional: Denies chills and Denies fever(s) Cardiovascular: Cardiovascular: Denies chest pain, Denies dyspnea and Denies dyspnea on exertion Respiratory: Respiratory: Denies cough, Denies dyspnea and Denies dyspnea on exertion Gastrointestinal: Gastrointestinal: Denies hematochezia and Denies change in bowel habits Genitourinary: Genitourinary: Denies hematuria and Denies difficulty urinating Musculoskeletal: Musculoskeletal: Denies back pain and Denies limited range of motion Neurologic: Denies focal weakness and Denies convulsions Psychiatric: Psychiatric: Denies depression and Denies mood swings PMFSH Past Medical History Medical History (Updated 11/08/22 @ 15:08 by Rm Burrows DO) COPD (chronic obstructive pulmonary disease) Diabetes Incarcerated umbilical hernia Liver cirrhosis Family History Family History (Updated 11/07/22 @ 05:13 by Anamaria Lutz MD) Other No family history of coronary artery disease Surgical History Surgical History (Updated 11/07/22 @ 05:13 by Anamaria Lutz MD) History of appendectomy Social History Social History Household Members: None Housing: Other Housing Other:: mobile home Do you presently have visiting nurse or other home services: No Alcohol intake: former Patient Tobacco Use Status: Former Tobacco user Quit Date: 2010 Tobacco use type: Cigarette Smoked in Last 30 Days: Yes Patient Interested in Nicotine Replacement: No Patient Given Instructions on How to Stop Smoking: No Second Hand Smoke Exposure: Yes Use of substances other than those prescribed or required for medical reasons: No Currently Displaying Signs/Symptoms of Drug Intoxication Withdrawal: No Have you been hit, kicked, punched, or otherwise hurt by someone within the past year? If so, by whom?: No Do you feel safe in your current relationship?: No Current Relationship Is there a partner from a previous relationship who is making you feel unsafe now?: No Are you made to feel afraid or neglected: No Advance Directives: No Advance Directives Information Provided: Yes Do you have thoughts of harming others: None Do you have a plan to hurt others: No Plan Recently lost weight without trying: No How much weight loss: Not applicable Eating poorly because of decreased appetite: No Nutrition screen score: 0 Nutrition Risks: No Nutritional Risk Poor oral hygiene: No service: No 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 Enoxaparin Sodium (Enoxaparin Sodium 40 Mg/0.4 Ml Syringe) 40 mg SUBCUT Q24H [facility] Fluticasone/Vilanterol (Fluticasone/Vilanterol 200/25 Blst.W.Dev) 1 puff INHALE RDAILY [facility] Folic Acid (Folic Acid 1 Mg Tablet) 1 mg PO DAILY [facility] Furosemide (Furosemide 20 Mg Tablet) 20 mg PO BID@0800,1700 [facility]; Protocol Glucose (Glucose Gel 15 Gm Gel..Gram.) 15 gm PO Q15M PRN; Protocol PRN Reason: per Hypoglycemia Standing Ord. Hydromorphone HCl (Hydromorphone Hcl 0.5 Mg/0.5 Ml Syringe) 0.5 mg IVPUSH Q4H PRN; Protocol PRN Reason: Pain, Severe (Pain Scale 7-10) Last Admin: 11/07/22 06:15 Dose: 0.5 mg Lactated Ringer's (Lr) 1,000 mls @ 100 mls/hr IVCONT .Q10H [facility] Last Admin: 11/06/22 23:46 Dose: 100 mls/hr Insulin Human Lispro (Insulin Lispro 100 Unit/Ml 3 Ml Vial) 0 unit SUBCUT QIDACHS [facility]; Protocol Lisinopril (Lisinopril 5 Mg Tablet) 5 mg PO DAILY [facility]; Protocol Lorazepam (Lorazepam 0.5 Mg Tablet) 0.5 mg PO Q8H PRN PRN Reason: Anxiety Morphine Sulfate (Morphine Sulfate 4 Mg/Ml Cartridge) 4 mg IVPUSH Q4H PRN; Protocol PRN Reason: Pain, Moderate (Pain Scale 4-6 Last Admin: 11/07/22 03:48 Dose: 4 mg Ondansetron HCl (Ondansetron Hcl 4 Mg/2 Ml Vial) 4 mg IVPUSH Q8H PRN PRN Reason: Nausea and Vomiting Sodium Chloride (0.9 % Sodium Chloride Flush 3 Ml Syringe) 3 ml IVFLUSH QSHIFT [facility] Last Admin: 11/06/22 23:48 Dose: 3 ml Home Medications Medication Instructions Recorded Confirmed Last Taken Type albuterol sulfate 90 mcg/actuation 2 inh inhalation NEEDED 11/07/22 11/07/22 Unknown History aerosol inhaler (Ventolin HFA) budesonide-formoterol HFA 160 1 inh inhalation BID 11/07/22 11/07/22 Unknown History mcg-4.5 mcg/actuation aerosol inhaler (Symbicort) cholecalciferol (vitamin D3) 125 1 cap PO DAILY 11/07/22 11/07/22 Unknown Histo ry mcg (5,000 unit) capsule folic acid 1 mg tablet 1 tab PO DAILY 11/07/22 11/07/22 Unknown History furosemide 20 mg tablet 20 mg PO BID 11/07/22 11/07/22 Unknown History glipizide 5 mg tablet 2 tab PO BID 11/07/22 11/07/22 Unknown History lisinopril 5 mg tablet 5 mg PO DAILY 11/07/22 11/07/22 Unknown History lorazepam 1 mg tablet 1 tab PO NEEDED PRN Anxiety 11/07/22 11/07/22 Unknown History metformin 1,000 mg tablet 1,000 mg PO BID 11/07/22 11/07/22 Unknown History tramadol 50 mg tablet 1 tab PO TID PRN pain 11/07/22 11/07/22 Unknown History Physical Exam Vital Signs: Vital Signs: Last Vital Signs Temp 97.9 F 11/07/22 03:35 Pulse 56 11/07/22 03:35 Resp 16 11/07/22 03:35 BP 131/72 11/07/22 03:35 Pulse Ox 97 11/07/22 03:35 O2 Del Method 11/07/22 03:35 O2 Flow Rate 1 11/07/22 03:35 BMI result Body Mass Index 23.0 Const: General: comfortable and no acute distress Orientation/consciousness: patient oriented x3 Neck: Neck: Yes no lymphadenopathy Resp: Auscultation: clear to auscultation bilaterally Cardio: Rhythm: regular rhythm GI: Other: umbilical hernia, large, some tenderness, Palpation (GI): Soft to palpation, nontender and no guarding Neuro: General: patient oriented x3 Results Labs Result diagrams: 11/08/22 06:05 11/08/22 06:05 Labs: Abnormal lab results 11/06/22 11/06/22 11/07/22 Range/Units 19:46 19:46 03:42 RBC (4.60-5.80) X10*6/uL Hgb (14.0-18.0) g/dl Hct (42.0-52.0) % Immature Gran % (Auto) 0.7 H (0.0-0.4) % Neut % (Auto) 87.3 H (45-73) % Lymph % (Auto) 4.1 L (20-40) % Lymph # (Auto) 0.3 L (1.2-4.9) X10*3/uL Abs Immat Gran (auto) 0.05 H (0.00-0.03) X10*3/uL BUN 6 L (9-16) mg/dL Creatinine (0.5-1.4) mg/dL POC Glucose 129 H (60-115) mg/dL Random Glucose 133 H (60-115) mg/dL Total Bilirubin 1.3 H (0.0-1.0) mg/dL Direct Bilirubin 0.7 H (0.0-0.5) mg/dL AST 40 H (5-37) U/L Alkaline Phosphatase 368 H (39-117) U/L Total Protein 6.2 L (6.5-8.0) g/dL SARS-CoV-2 RNA (RT-PCR) (Negative) 11/07/22 11/07/22 11/07/22 Range/Units 05:20 05:53 05:53 RBC 4.36 L (4.60-5.80) X10*6/uL Hgb 13.7 L (14.0-18.0) g/dl Hct 40.6 L (42.0-52.0) % Immature Gran % (Auto) 0.6 H (0.0-0.4) % Neut % (Auto) 85.4 H (45-73) % Lymph % (Auto) 5.0 L (20-40) % Lymph # (Auto) 0.4 L (1.2-4.9) X10*3/uL Abs Immat Gran (auto) 0.04 H (0.00-0.03) X10*3/uL BUN 6 L (9-16) mg/dL Creatinine 0.49 L (0.5-1.4) mg/dL POC Glucose (60-115) mg/dL Random Glucose 129 H D (60-115) mg/dL Total Bilirubin (0.0-1.0) mg/dL Direct Bilirubin (0.0-0.5) mg/dL AST (5-37) U/L Alkaline Phosphatase (39-117) U/L Total Protein (6.5-8.0) g/dL SARS-CoV-2 RNA (RT-PCR) POSITIVE A (Negative) Short CBC 11/06/22 11/07/22 Range/Units 19:46 05:53 WBC 7.6 7.0 (4.8-10.8) X10*3/uL Hgb 15.1 13.7 L (14.0-18.0) g/dl Hct 44.2 40.6 L (42.0-52.0) % Plt Count 193 184 (160-400) X10*3/uL BMP 11/06/22 11/07/22 19:46 05:53 Sodium 135 137 Potassium 3.4 D 3.8 Chloride 99 104 Carbon Dioxide 25 23 BUN 6 L 6 L Creatinine 0.57 0.49 L Calcium 8.9 D 8.5 Liver Function 12/12/22 Range/Units 19:46 Total Bilirubin 1.3 H (0.0-1.0) mg/dL Direct Bilirubin 0.7 H (0.0-0.5) mg/dL AST 40 H (5-37) U/L ALT 31 (0-40) U/L Alkaline Phosphatase 368 H (39-117) U/L Albumin 3.6 (3.5-5.0) g/dL Urine 11/07/22 Range/Units 06:21 Urine Color DK YELLOW Urine Appearance Clear Urine pH 6.0 (5.0-9.0) Ur Specific [place] 1.025 (1.005-1.025) Urine Protein Negative (Neg-Trace) mg/dL Urine Glucose (UA) Negative (Negative) mg/dL All other labs normal. Assessment and Plan (1) Umbilical hernia: Status: Acute Review of his CT shows there are bowel loops within his hernia. He does state he has had a hernia for many years. However, he says that since paracentesis yesterday, he has had some pain mostly on the right side of his abdomen and on the umbilicus. He thinks that the hernia is somewhat firmer than usual, especially after paracentesis. He denies any vomitting. He is passing flatus. He does not have leukocytosis nor lactic acid elevation. However, in view of his persistent tenderness, I explained to him it may be best to proceed with repair and reduction of this hernia. I reviewed with him the technqiue of this procedure. I reviewed the risks including but not limited to bleeding, infections, need for bowel resection, anastomotic leak, bowel injury, recurrent hernia,poor healing, chronic drainage, inherent anesthesia risks, as well as the beneftis and alternatives. He understands that his perioperative risks are higher than average in view of his cirrhosis. His INR is normal. His platelet count is also within normal Time Spent With Patient Time: Total time managing care of this patient today ____ minutes. Procedures Date of Service Date of Service: 11/07/22
[2022-11-07 08:34] LABS: Glucose, Whole Blood 132 mg/dL (60-115)
--- NOTE | 2022-11-07 08:57 | MHC.CM.PN ---
Patient is Covid (+); CM spoke with Patient over the phone at [phone] and addressed IMM verbally with him. Patient lives alone in a mobile/modular home and he required no services nor DME [employer]. Home/self care is the goal and CM has initiated and will follow for dc planning. Patient has received covid vax x2 and his PCP is Dr. Ronnie Mcclellan.
[2022-11-07] MEDS: 0.9 % Sodium Chloride Flush 3 ML SYRINGE IVFLUSH ×2 (09:00→17:43)
[2022-11-07] MEDS: lisinopriL 5 MG TABLET PO (09:01)
[2022-11-07] MEDS: Folic Acid 1 MG TABLET PO (09:01)
[2022-11-07] MEDS: Furosemide 20 MG TABLET PO ×2 (09:01→17:43)
[2022-11-07] MEDS: Lactated Ringers 1,000 ML 100 ML IVCONT ×2 (09:03→17:47)
[2022-11-07] MEDS: LORazepam 0.5 MG TABLET PO (09:05)
--- NOTE | 2022-11-07 10:17 | HO.PM.IMPN ---
Subjective Subjective Date of Service: 11/07/22 Review of Systems Follow-up small bowel obstruction, ascites Status post paracentesis Still with abdominal pain Denies nausea, vomiting, diarrhea, passing flatus Physical Exam Vital Signs: Vital Signs: Last Vital Signs Temp 98.2 F 11/07/22 08:00 Pulse 56 11/07/22 08:00 Resp 20 11/07/22 08:00 BP 127/77 11/07/22 08:00 Pulse Ox 97 11/07/22 08:00 O2 Del Method 11/07/22 08:00 O2 Flow Rate 1 11/07/22 08:00 BMI result Body Mass Index 23.0 Appearing in no acute distress lung sounds are clear to auscultation heart regular rate rhythm, clear S1, S2 positive bowel sounds, diffuse tenderness, large abdomen neuro patient is alert x3, no focal deficits Objective Data Active Medications Acetaminophen (Acetaminophen Supp 650 Mg Supp.Rect) 650 mg [place] Q6H PRN PRN Reason: Pain, Mild (Pain Scale 1-3) Albuterol Sulfate (Albuterol Sulfate 90 Mcg 8 Gm Inhaler) 2 puff INHALE RQ4H PRN PRN Reason: Wheezing Dextrose (Dextrose 50 % 25 Gm/50 Ml Syringe) 25 gm IVPUSH Q15M PRN; Protocol PRN Reason: per Hypoglycemia Standing Ord. Enoxaparin Sodium (Enoxaparin Sodium 40 Mg/0.4 Ml Syringe) 40 mg SUBCUT Q24H [facility] Last Admin: 11/07/22 09:00 Dose: Not Given Documented By: RACHEL Non-Admin Reason: Hold per Dr. navarrete Fluticasone/Vilanterol (Fluticasone/Vilanterol 200/25 Blst.W.Dev) 1 puff INHALE RDAILY [facility] Folic Acid (Folic Acid 1 Mg Tablet) 1 mg PO DAILY [facility] Last Admin: 11/07/22 09:01 Dose: 1 mg Documented By: RACHEL Furosemide (Furosemide 20 Mg Tablet) 20 mg PO BID@0800,1700 [facility]; Protocol Last Admin: 11/07/22 09:01 Dose: 20 mg Documented By: RACHEL Glucose (Glucose Gel 15 Gm Gel..Gram.) 15 gm PO Q15M PRN; Protocol PRN Reason: per Hypoglycemia Standing Ord. Hydromorphone HCl (Hydromorphone Hcl 0.5 Mg/0.5 Ml Syringe) 0.5 mg IVPUSH Q4H PRN; Protocol PRN Reason: Pain, Severe (Pain Scale 7-10) Last Admin: 11/07/22 06:15 Dose: 0.5 mg Documented By: RAFFY Lactated Ringer's (Lr) 1,000 mls @ 100 mls/hr IVCONT .Q10H [facility] Last Admin: 11/07/22 09:03 Dose: 100 mls/hr Documented By: RACHEL Insulin Human Lispro (Insulin Lispro 100 Unit/Ml 3 Ml Vial) 0 unit SUBCUT QIDACHS [facility]; Protocol Last Admin: 11/07/22 08:45 Dose: Not Given Documented By: RACHEL Non-Admin Reason: No Insulin Coverage Lisinopril (Lisinopril 5 Mg Tablet) 5 mg PO DAILY [facility]; Protocol Last Admin: 11/07/22 09:01 Dose: 5 mg Documented By: RACHEL Lorazepam (Lorazepam 0.5 Mg Tablet) 0.5 mg PO Q8H PRN PRN Reason: Anxiety Last Admin: 11/07/22 09:05 Dose: 0.5 mg Documented By: RACHEL Morphine Sulfate (Morphine Sulfate 4 Mg/Ml Cartridge) 4 mg IVPUSH Q4H PRN; Protocol PRN Reason: Pain, Moderate (Pain Scale 4-6 Last Admin: 11/07/22 09:01 Dose: 4 mg Documented By: RACHEL Ondansetron HCl (Ondansetron Hcl 4 Mg/2 Ml Vial) 4 mg IVPUSH Q8H PRN PRN Reason: Nausea and Vomiting Sodium Chloride (0.9 % Sodium Chloride Flush 3 Ml Syringe) [address] [facility] Last Admin: 11/07/22 09:00 Dose: 3 ml Documented By: RACHEL Labs CBC & Chem 7: 11/07/22 05:53 11/07/22 05:53 Labs: Laboratory Results - last 24 hr 11/06/22 11/06/22 11/06/22 19:46 19:46 19:46 MCV 93.1 MCH 31.8 MCHC 34.2 RDW 13.2 Plt Count 193 MPV 9.6 Immature Gran % (Auto) 0.7 H Neut % (Auto) 87.3 H Lymph % (Auto) 4.1 L [place] % (Auto) 7.1 Eos % (Auto) 0.5 Baso % (Auto) 0.3 Lymph # (Auto) 0.3 L [place] # (Auto) 0.5 Eos # (Auto) 0.0 Baso # (Auto) 0.0 Abs Immat Gran (auto) 0.05 H Absolute Neuts (auto) 6.7 Absolute Nucleated RBC 0.000 Nucleated RBC % (auto) 0.0 Anion Gap 14 Estim Creat Clear Calc 134.3 Estimated GFR > 60 POC Glucose Random Glucose 133 H Lactic Acid 1.1 Calcium 8.9 D Total Bilirubin 1.3 H Direct Bilirubin 0.7 H AST 40 H ALT 31 Alkaline Phosphatase 368 H Total Protein 6.2 L Albumin 3.6 Lipase 30 Urine Color Urine Appearance Urine pH Ur Specific [place] Urine Protein Urine Glucose (UA) Urine Ketones Urine Blood Urine Nitrite Ur Leukocyte Esterase Influenza Type A (PCR) Influenza Type B (PCR) RSV RNA Qual (PCR) SARS-CoV-2 RNA (RT-PCR) 11/07/22 11/07/22 11/07/22 03:42 05:20 05:53 MCV 93.1 MCH 31.4 MCHC 33.7 RDW 13.2 Plt Count 184 MPV 10.0 Immature Gran % (Auto) 0.6 H Neut % (Auto) 85.4 H Lymph % (Auto) 5.0 L [place] % (Auto) 8.5 Eos % (Auto) 0.4 Baso % (Auto) 0.1 Lymph # (Auto) 0.4 L [place] # (Auto) 0.6 Eos # (Auto) 0.0 Baso # (Auto) 0.0 Abs Immat Gran (auto) 0.04 H Absolute Neuts (auto) 5.9 Absolute Nucleated RBC 0.000 Nucleated RBC % (auto) 0.0 Anion Gap Estim Creat Clear Calc Estimated GFR POC Glucose 129 H Random Glucose Lactic Acid Calcium Total Bilirubin Direct Bilirubin AST ALT Alkaline Phosphatase Total Protein Albumin Lipase Urine Color Urine Appearance Urine pH Ur Specific [place] Urine Protein Urine Glucose (UA) Urine Ketones Urine Blood Urine Nitrite Ur Leukocyte Esterase Influenza Type A (PCR) NEGATIVE Influenza Type B (PCR) NEGATIVE RSV RNA Qual (PCR) NEGATIVE SARS-CoV-2 RNA (RT-PCR) POSITIVE A 11/07/22 11/07/22 11/07/22 05:53 06:21 08:13 MCV MCH MCHC RDW Plt Count MPV Immature Gran % (Auto) Neut % (Auto) Lymph % (Auto) [place] % (Auto) Eos % (Auto) Baso % (Auto) Lymph # (Auto) [place] # (Auto) Eos # (Auto) Baso # (Auto) Abs Immat Gran (auto) Absolute Neuts (auto) Absolute Nucleated RBC Nucleated RBC % (auto) Anion Gap 14 Estim Creat Clear Calc 156.3 Estimated GFR > 60 POC Glucose 132 H Random Glucose 129 H D Lactic Acid Calcium 8.5 Total Bilirubin Direct Bilirubin AST ALT Alkaline Phosphatase Total Protein Albumin Lipase Urine Color DK YELLOW Urine Appearance Clear Urine pH 6.0 Ur Specific [place] 1.025 Urine Protein Negative Urine Glucose (UA) Negative Urine Ketones 40 Urine Blood Negative Urine Nitrite Negative Ur Leukocyte Esterase Negative Influenza Type A (PCR) Influenza Type B (PCR) RSV RNA Qual (PCR) SARS-CoV-2 RNA (RT-PCR) Assessment and Plan (1) Abdominal hernia: Status: Acute Plan This is a 61-year-old male with past medical history of liver cirrhosis secondary to alcohol abuse presents to the hospital with complaints of abdominal pain post paracentesis found to have small-bowel obstruction Abdominal pain Secondary to small-bowel obstruction, hernia, appendectomy, frequent paracentesis Discussed with general surgery, plan for hernia repair today Keep NPO Pain control COVID positive Essentially asymptomatic Hold off on steroids at this time Alcoholic liver cirrhosis Status post paracentesis with 13.7 L removed patient reports 4 previous paracentesis since June Denies any alcohol intake Chronic transaminitis Diabetes mellitus Sliding scale, ADA diet COPD No exacerbation Albuterol as needed DVT prophylaxis:? Lovenox Attending Dr. Poon Full code Continue hospitalization for treatment of small-bowel obstruction Time Spent With Patient Time: Total time managing care of this patient today ____ minutes. Quality Stroke Does the patient have a stroke diagnosis?: No VTE Prior VTE?: No VTE Risk Level:: Medical - moderate - high VTE Device Contraindication: Treatment Not Indicated VTE Drug Contraindication: N/A - Med Ordered
[2022-11-07 11:27] LABS: Glucose, Whole Blood 132 mg/dL (60-115)
--- NOTE | 2022-11-07 15:36 | P.CONAN_ITS ---
[facility] Active Problems Active Problems: All Active Problems (Updated 11/07/22 @ 05:13 by Anamaria Lutz MD) Abdominal hernia (Acute) Small bowel obstruction (Acute) Abdominal pain (Acute) SBP (spontaneous bacterial peritonitis) (Acute) Umbilical hernia (Acute) Past Medical History Medical History (Updated 11/07/22 @ 05:13 by Anamaria Lutz MD) COPD (chronic obstructive pulmonary disease) Diabetes Liver cirrhosis Family History Family History (Updated 11/07/22 @ 05:13 by Anamaria Lutz MD) Other No family history of coronary artery disease Family history of problems with anesthesia: No Surgical History Surgical History (Updated 11/07/22 @ 05:13 by Anamaria Lutz MD) History of appendectomy History of Problems with Anesthesia: No Social History Social History Household Members: None Housing: Other Housing Other:: mobile home Do you presently have visiting nurse or other home services: No Alcohol intake: former Patient Tobacco Use Status: Former Tobacco user Quit Date: 2010 Tobacco use type: Cigarette Smoked in Last 30 Days: Yes Patient Interested in Nicotine Replacement: No Patient Given Instructions on How to Stop Smoking: No Second Hand Smoke Exposure: Yes Use of substances other than those prescribed or required for medical reasons: No Have you been hit, kicked, punched, or otherwise hurt by someone within the past year? If so, by whom?: No Do you feel safe in your current relationship?: No Current Relationship Is there a partner from a previous relationship who is making you feel unsafe now?: No Are you made to feel afraid or neglected: No Advance Directives: No Advance Directives Information Provided: Yes Do you have thoughts of harming others: None Do you have a plan to hurt others: No Plan Recently lost weight without trying: No How much weight loss: Not applicable Eating poorly because of decreased appetite: No Nutrition screen score: 0 Nutrition Risks: No Nutritional Risk Poor oral hygiene: No service: No Current occupational status: disabled Meds Allergies Allergy/AdvReac Type Severity Reaction Status Date / Time No Known Allergies Allergy Unverified 08/12/20 16:01 Active Medications: Current Medications Acetaminophen (Acetaminophen Supp 650 Mg Supp.Rect) 650 mg [place] Q6H PRN PRN Reason: Pain, Mild (Pain Scale 1-3) Albuterol Sulfate (Albuterol Sulfate 90 Mcg 8 Gm Inhaler) 2 puff INHALE RQ4H P RN PRN Reason: Wheezing Dextrose (Dextrose 50 % 25 Gm/50 Ml Syringe) 25 gm IVPUSH Q15M PRN; Protocol PRN Reason: per Hypoglycemia Standing Ord. Enoxaparin Sodium (Enoxaparin Sodium 40 Mg/0.4 Ml Syringe) 40 mg SUBCUT Q24H [facility] Last Admin: 11/07/22 09:00 Dose: Not Given Fluticasone/Vilanterol (Fluticasone/Vilanterol 200/25 Blst.W.Dev) 1 puff INHALE RDAILY [facility] Folic Acid (Folic Acid 1 Mg Tablet) 1 mg PO DAILY [facility] Last Admin: 11/07/22 09:01 Dose: 1 mg Furosemide (Furosemide 20 Mg Tablet) 20 mg PO BID@0800,1700 [facility]; Protocol Last Admin: 11/07/22 09:01 Dose: 20 mg Glucose (Glucose Gel 15 Gm Gel..Gram.) 15 gm PO Q15M PRN; Protocol PRN Reason: per Hypoglycemia Standing Ord. Hydromorphone HCl (Hydromorphone Hcl 0.5 Mg/0.5 Ml Syringe) 0.5 mg IVPUSH Q4H PRN; Protocol PRN Reason: Pain, Severe (Pain Scale 7-10) Last Admin: 11/07/22 13:34 Dose: 0.5 mg Lactated Ringer's (Lr) 1,000 mls @ 100 mls/hr IVCONT .Q10H [facility] Last Admin: 11/07/22 09:03 Dose: 100 mls/hr Insulin Human Lispro (Insulin Lispro 100 Unit/Ml 3 Ml Vial) 0 unit SUBCUT QIDACHS [facility]; Protocol Last Admin: 11/07/22 11:44 Dose: Not Given Lisinopril (Lisinopril 5 Mg Tablet) 5 mg PO DAILY [facility]; Protocol Last Admin: 11/07/22 09:01 Dose: 5 mg Lorazepam (Lorazepam 0.5 Mg Tablet) 0.5 mg PO Q8H PRN PRN Reason: Anxiety Last Admin: 11/07/22 09:05 Dose: 0.5 mg Morphine Sulfate (Morphine Sulfate 4 Mg/Ml Cartridge) 4 mg IVPUSH Q4H PRN; Protocol PRN Reason: Pain, Moderate (Pain Scale 4-6 Last Admin: 11/07/22 09:01 Dose: 4 mg Ondansetron HCl (Ondansetron Hcl 4 Mg/2 Ml Vial) 4 mg IVPUSH Q8H PRN PRN Reason: Nausea and Vomiting Sodium Chloride (0.9 % Sodium Chloride Flush 3 Ml Syringe) 3 ml IVFLUSH QSHIFT [facility] Last Admin: 11/07/22 09:00 Dose: 3 ml Home Medications Medication Instructions Recorded Confirmed Last Taken Type albuterol sulfate 90 mcg/actuation 2 inh inhalation NEEDED 11/07/22 11/07/22 Unknown History aerosol inhaler (Ventolin HFA) budesonide-formoterol HFA 160 1 inh inhalation BID 11/07/22 11/07/22 Unknown History mcg-4.5 mcg/actuation aerosol inhaler (Symbicort) cholecalciferol (vitamin D3) 125 1 cap PO DAILY 11/07/22 11/07/22 Unknown Hi story mcg (5,000 unit) capsule folic acid 1 mg tablet 1 tab PO DAILY 11/07/22 11/07/22 Unknown History furosemide 20 mg tablet 20 mg PO BID 11/07/22 11/07/22 Unknown History glipizide 5 mg tablet 2 tab PO BID 11/07/22 11/07/22 Unknown History lisinopril 5 mg tablet 5 mg PO DAILY 11/07/22 11/07/22 Unknown History lorazepam 1 mg tablet 1 tab PO NEEDED PRN Anxiety 11/07/22 11/07/22 Unknown History metformin 1,000 mg tablet 1,000 mg PO BID 11/07/22 11/07/22 Unknown History tramadol 50 mg tablet 1 tab PO TID PRN pain 11/07/22 11/07/22 Unknown History Exam Exam Date and Time: November 07, 2022 1536 Height,Weight and Vital Signs: Height 5 ft 9 in Weight 70.7 kg Last Vital Signs Temp 97.4 F 11/07/22 11:26 Pulse 53 11/07/22 11:26 Resp 20 11/07/22 11:26 BP 123/73 11/07/22 11:26 Pulse Ox 96 11/07/22 11:26 O2 Del Method 11/07/22 11:26 O2 Flow Rate 1 11/07/22 11:26 Pertinent Lab Results Pertinent Lab Results: Laboratory Tests 11/06/22 11/06/22 11/06/22 19:46 19:46 19:46 WBC 7.6 RBC 4.75 Hgb 15.1 Hct 44.2 MCV 93.1 MCH 31.8 MCHC 34.2 RDW 13.2 Plt Count 193 MPV 9.6 Immature Gran % (Auto) 0.7 H Neut % (Auto) 87.3 H Lymph % (Auto) 4.1 L [place] % (Auto) 7.1 Eos % (Auto) 0.5 Baso % (Auto) 0.3 Lymph # (Auto) 0.3 L [place] # (Auto) 0.5 Eos # (Auto) 0.0 Baso # (Auto) 0.0 Abs Immat Gran (auto) 0.05 H Absolute Neuts (auto) 6.7 Absolute Nucleated RBC 0.000 Nucleated RBC % (auto) 0.0 Sodium 135 Potassium 3.4 D Chloride 99 Carbon Dioxide 25 Anion Gap 14 BUN 6 L Creatinine 0.57 Estim Creat Clear Calc 134.3 Estimated GFR > 60 POC Glucose Random Glucose 133 H Lactic Acid 1.1 Calcium 8.9 D Total Bilirubin 1.3 H Direct Bilirubin 0.7 H AST 40 H ALT 31 Alkaline Phosphatase 368 H Total Protein 6.2 L Albumin 3.6 Lipase 30 Urine Color Urine Appearance Urine pH Ur Specific [employer] Urine Protein Urine Glucose (UA) Urine Ketones Urine Blood Urine Nitrite Ur Leukocyte Esterase Influenza Type A (PCR) Influenza Type B (PCR) RSV RNA Qual (PCR) SARS-CoV-2 RNA (RT-PCR) 11/07/22 11/07/22 11/07/22 03:42 05:20 05:53 WBC 7.0 RBC 4.36 L Hgb 13.7 L Hct 40.6 L MCV 93.1 MCH 31.4 MCHC 33.7 RDW 13.2 Plt Count 184 MPV 10.0 Immature Gran % (Auto) 0.6 H Neut % (Auto) 85.4 H Lymph % (Auto) 5.0 L [place] % (Auto) 8.5 Eos % (Auto) 0.4 Baso % (Auto) 0.1 Lymph # (Auto) 0.4 L [place] # (Auto) 0.6 Eos # (Auto) 0.0 Baso # (Auto) 0.0 Abs Immat Gran (auto) 0.04 H Absolute Neuts (auto) 5.9 Absolute Nucleated RBC 0.000 Nucleated RBC % (auto) 0.0 Sodium Potassium Chloride Carbon Dioxide Anion Gap BUN Creatinine Estim Creat Clear Calc Estimated GFR POC Glucose 129 H Random Glucose Lactic Acid Calcium Total Bilirubin Direct Bilirubin AST ALT Alkaline Phosphatase Total Protein Albumin Lipase Urine Color Urine Appearance Urine pH Ur Specific [employer] Mdl Urine Protein Urine Glucose (UA) Urine Ketones Urine Blood Urine Nitrite Ur Leukocyte Esterase Influenza Type A (PCR) NEGATIVE Influenza Type B (PCR) NEGATIVE RSV RNA Qual (PCR) NEGATIVE SARS-CoV-2 RNA (RT-PCR) POSITIVE A 11/07/22 11/07/22 11/07/22 05:53 06:21 08:13 WBC RBC Hgb Hct MCV MCH MCHC RDW Plt Count MPV Immature Gran % (Auto) Neut % (Auto) Lymph % (Auto) [place] % (Auto) Eos % (Auto) Baso % (Auto) Lymph # (Auto) [place] # (Auto) Eos # (Auto) Baso # (Auto) Abs Immat Gran (auto) Absolute Neuts (auto) Absolute Nucleated RBC Nucleated RBC % (auto) Sodium 137 Potassium 3.8 Chloride 104 Carbon Dioxide 23 Anion Gap 14 BUN 6 L Creatinine 0.49 L Estim Creat Clear Calc 156.3 Estimated GFR > 60 POC Glucose 132 H Random Glucose 129 H D Lactic Acid Calcium 8.5 Total Bilirubin Direct Bilirubin AST ALT Alkaline Phosphatase Total Protein Albumin Lipase Urine Color DK YELLOW Urine Appearance Clear Urine pH 6.0 Ur Specific [employer] 1.025 Urine Protein Negative Urine Glucose (UA) Negative Urine Ketones 40 Urine Blood Negative Urine Nitrite Negative Ur Leukocyte Esterase Negative Influenza Type A (PCR) Influenza Type B (PCR) RSV RNA Qual (PCR) SARS-CoV-2 RNA (RT-PCR) 11/07/22 11:23 WBC RBC Hgb Hct MCV MCH MCHC RDW Plt Count MPV Immature Gran % (Auto) Neut % (Auto) Lymph % (Auto) [place] % (Auto) Eos % (Auto) Baso % (Auto) Lymph # (Auto) [place] # (Auto) Eos # (Auto) Baso # (Auto) Abs Immat Gran (auto) Absolute Neuts (auto) Absolute Nucleated RBC Nucleated RBC % (auto) Sodium Potassium Chloride Carbon Dioxide Anion Gap BUN Creatinine Estim Creat Clear Calc Estimated GFR POC Glucose 132 H Random Glucose Lactic Acid Calcium Total Bilirubin Direct Bilirubin AST ALT Alkaline Phosphatase Total Protein Albumin Lipase Urine Color Urine Appearance Urine pH Ur Specific [employer] Mdl Urine Protein Urine Glucose (UA) Urine Ketones Urine Blood Urine Nitrite Ur Leukocyte Esterase Influenza Type A (PCR) Influenza Type B (PCR) RSV RNA Qual (PCR) SARS-CoV-2 RNA (RT-PCR) Airway Mallampati Class: II TM Dist: >3cm Heart: rr Lungs: cta Assessment and Plan Assessment Anesthesia Assessment: Anesthesia Plan Discussed Final Anesthetic Review Family History of Problems with Anesthesia: No History of Problems with Anesthesia: No NPO: Yes ASA Class: II Final Preanesthetic Review: No Changes in Pt Med Stat, Consent Obtained/Reviewed and Anes Risks/Benef Reviewed Patient Risk: Intermediate Procedure Risk: Intermediate Anesthetic Plan Anesthetic Plan: GA Disposition: Inp. Admit - Standard Bed
--- NOTE | 2022-11-07 15:52 | P.OP_ITS ---
Operative Note Operative Note Date of Service: 11/07/22 Narrative: Preop diagnosis: Umbilical hernia, incarcerated with cirrhosis Postop diagnosis: Umbilical hernia, incarcerated, with small bowel loops, viable although hyperemic Procedure: Repair and reduction of incarcerated umbilical hernia Surgeon: Ronnie Reeves MD [employer] Tender: CALEB Ellington The patient is a 61-year-old male, with liver cirrhosis from EtOH, who had undergone continues yesterday of 14 years of fluid, had complained of abdominal pain. He had an umbilical hernia which he says is chronic but seemed to be firmer than usual. He complained of tenderness on this area as well which he says was ?different?. I therefore told him it will be best to she had with repair of this umbilical hernia to be certain that there is no vascular compromise all the bowel loops. He understood the technique of the procedure as well as the risks, benefits, and alternatives. Was brought to the operating room. He was placed supine under general anesthesia via endotracheal tube. He had tested COVID prior to admission so COVID precautions were taken. The abdomen is prepped and draped in the usual sterile fashion. A surgical time-out was done. The patient received cefazolin 2 g IV preoperatively The large hernia was seen in the umbilicus next. The but this was about 5 cm in size at least. I made an incision on the skin overlying this hernia using blade 15. And this carried down with electrocautery through the full-thickness of skin and part of subcutaneous fat. I then gently dissected the hernia layer by layer until was able to define the sac. I opened the sac. I extended the incision optimize the length of the skin incision. The hernia contents were visualized. This contained a lot of bowel small bowel loops. I continued to separate the the bowel loops. There was note of a small fascial defect relative to the hernia contents so this did this not allow reduction. I therefore had to lengthen the the defect a little bit. We observed the small bowel loops about 3 minutes. Initially I had questioned the viability of a short segment which was discolored, but this started to pink up despite being her appearing hyperemic. There was note of good to peristalsis. Further observa tion showed that this was actually viable so I did not proceed with any resection. I reduced the hernia completely back into the peritoneal cavity. Large amount of ascites was also drained. This is in line with his chronic liver disease cirrhosis. I defined the fascial defect. I closed the fascial defect with a running Maxon 1 stitch. The incision was about 4 cm in length. I excised redundant skin and subcutaneous fat, along with the hernia sac. I cauterized residual surfaces of the sac within subcutaneous layer. I then reapposed the subcutaneous layer with Dexon 3-0 interrupted sutures. Skin closure was achieved with flynn. The area of incision was infiltrated with Marcaine 0.5% for postop analgesia. Dressings were applied and the procedure was completed The patient tolerated procedure well. There were no immediate complications. Initial final counts of sponges and instruments were correct. Estimated blood loss about 5 cc Large amount of ascites was also Patient was then extubated without difficulty and transferred to the recovery room with stable vital signs.
--- NOTE | 2022-11-07 15:56 | PM.GICN ---
History of Present Illness Data of Consult Service Date: 11/07/22 Requesting physician: Keisha Millan Primary Care Provider: Ronnie Mcclellan MD HPI Reason for consult: cirrhosis ?61-year-old male with hx of liver cirrhosis secondary to alcohol abuse, diabetes, COPD who I am seeing for assessment He had paracentesis (therapeutic) arranged by PCP, and usu he is OK, but afterwards he noted a non radiating, dull aching pain, 10/10 in severity, in the mid abdoemn over the umbilical hernia he has had for a while since ysterday. Also he is usu able push his umbilical hernia down this time he couldn;t. Associated with nausea with no vomiting.?Has been ubale to pass stool or gas. No fever. He has been sen by surgery and plan for urgent surgery due to imaging revealing bowel loops in the hernia and SBO He has been a life long alcoholic and has known about liver damage for a 'while'. He stopped drinking June this year. He denies cocaine, heroin or other drug use. Labs: WBC count of 7.6 sodium of 133, total bili of 1.3, AST of 40 which is around his baseline, alk-phos of 368, INR- 1.2-- COVID POSITIVE Ascitic fluid 06/2022--neg for SBP, no albumin so SAAG unable to be calculated. No hep serologies or other liver serologies on file. Child Murri[place] score 7 (B---with 30% felipa op mortality) MELD-NA: 15 (<2% 3 month mortality) Review of Systems Review of Systems: Constitutional : No Weight loss, No Fever, No Chills ENT/Mouth : No sore throat, No Rhinorrhea Eyes: No Swelling, No Redness Cardiovascular : No Chest Pain, No SOB, No Edema Respiratory : No Cough, No Sputum, No Wheezing Gastrointestinal : see HPI Genitourinary : NO Dysuria, No Urinary Frequency, No Hematuria, No Urgency Musculoskeletal : No joint pain, No Myalgias, No Joint Swelling Skin : No Skin Lesions, No rash Neuro : No Weakness, No Numbness, No Dizziness, No Headache Psych : No Anxiety/Panic, No Depression Heme/Lymph: No Bruising, No Lymphadenopathy Endocrine : No Polyuria, No Polydipsia All other systems reviewed and are negative. [facility] Past Medical History Medical History (Updated 11/07/22 @ 16:32 by Sherine Arreola MD) COPD (chronic obstructive pulmonary disease) Diabetes Liver cirrhosis Family History Family History (Updated 11/07/22 @ 05:13 by Anamaria Lutz MD) Other No family history of coronary artery disease Pertinent family history: no FH of liver disease Surgical History Surgical History (Updated 11/07/22 @ 05:13 by Anamaria Lutz MD) History of appendectomy Social History Social History Household Members: None Housing: Other Housing Other:: mobile home Do you presently have visiting nurse or other home services: No Alcohol intake: former Patient Tobacco Use Status: Former Tobacco user Quit Date: 2010 Tobacco use type: Cigarette Smoked in Last 30 Days: Yes Patient Interested in Nicotine Replacement: No Patient Given Instructions on How to Stop Smoking: No Second Hand Smoke Exposure: Yes Use of substances other than those prescribed or required for medical reasons: No Have you been hit, kicked, punched, or otherwise hurt by someone within the past year? If so, by whom?: No Do you feel safe in your current relationship?: No Current Relationship Is there a partner from a previous relationship who is making you feel unsafe now?: No Are you made to feel afraid or neglected: No Advance Directives: No Advance Directives Information Provided: Yes Do you have thoughts of harming others: None Do you have a plan to hurt others: No Plan Recently lost weight without trying: No How much weight loss: Not applicable Eating poorly because of decreased appetite: No Nutrition screen score: 0 Nutrition Risks: No Nutritional Risk Poor oral hygiene: No service: No Current occupational status: disabled Meds Allergies Allergy/AdvReac Type Severity Reaction Status Date / Time No Known Allergies Allergy Unverified 08/12/20 16:01 Active Medications: Current Medications Acetaminophen (Acetaminophen Supp 650 Mg Supp.Rect) 650 mg [place] Q6H PRN PRN Reason: Pain, Mild (Pain Scale 1-3) Albuterol Sulfate (Albuterol Sulfate 90 Mcg 8 Gm Inhaler) 2 puff INHALE RQ4H PRN PRN Reason: Wheezing Dextrose (Dextrose 50 % 25 Gm/50 Ml Syringe) 25 gm IVPUSH Q15M PRN; Protocol PRN Reason: per Hypoglycemia Standing Ord. Enoxaparin Sodium (Enoxaparin Sodium 40 Mg/0.4 Ml Syringe) 40 mg SUBCUT Q24H [facility] Last Admin: 11/07/22 09:00 Dose: Not Given Fluticasone/Vilanterol (Fluticasone/Vilanterol 200/25 Blst.W.Dev) 1 puff INHALE RDAILY [facility] Folic Acid (Folic Acid 1 Mg Tablet) 1 mg PO DAILY [facility] Last Admin: 11/07/22 09:01 Dose: 1 mg Furosemide (Furosemide 20 Mg Tablet) 20 mg PO BID@0800,1700 [facility]; Protocol Last Admin: 11/07/22 09:01 Dose: 20 mg Glucose (Glucose Gel 15 Gm Gel..Gram.) 15 gm PO Q15M PRN; Protocol PRN Reason: per Hypoglycemia Standing Ord. Hydromorphone HCl (Hydromorphone Hcl 0.5 Mg/0.5 Ml Syringe) 0.5 mg IVPUSH Q4H PRN; Protocol PRN Reason: Pain, Severe (Pain Scale 7-10) Last Admin: 11/07/22 13:34 Dose: 0.5 mg Lactated Ringer's (Lr) 1,000 mls @ 100 mls/hr IVCONT .Q10H [facility] Last Admin: 11/07/22 09:03 Dose: 100 mls/hr Insulin Human Lispro (Insulin Lispro 100 Unit/Ml 3 Ml Vial) 0 unit SUBCUT QIDACHS [facility]; Protocol Last Admin: 11/07/22 11:44 Dose: Not Given Lisinopril (Lisinopril 5 Mg Tablet) 5 mg PO DAILY [facility]; Protocol Last Admin: 11/07/22 09:01 Dose: 5 mg Lorazepam (Lorazepam 0.5 Mg Tablet) 0.5 mg PO Q8H PRN PRN Reason: Anxiety Last Admin: 11/07/22 09:05 Dose: 0.5 mg Morphine Sulfate (Morphine Sulfate 4 Mg/Ml Cartridge) 4 mg IVPUSH Q4H PRN; Protocol PRN Reason: Pain, Moderate (Pain Scale 4-6 Last Admin: 11/07/22 09:01 Dose: 4 mg Ondansetron HCl (Ondansetron Hcl 4 Mg/2 Ml Vial) 4 mg IVPUSH Q8H PRN PRN Reason: Nausea and Vomiting Sodium Chloride (0.9 % Sodium Chloride Flush 3 Ml Syringe) 3 ml IVFLUSH QSHIFT [facility] Last Admin: 11/07/22 09:00 Dose: 3 ml Home Medications Medication Instructions Recorded Confirmed Last Taken Type albuterol sulfate 90 mcg/actuation 2 inh inhalation NEEDED 11/07/22 11/07/22 Unknown History aerosol inhaler (Ventolin HFA) budesonide-formoterol HFA 160 1 inh inhalation BID 11/07/22 11/07/22 Unknown History mcg-4.5 mcg/actuation aerosol inhaler (Symbicort) cholecalciferol (vitamin D3) 125 1 cap PO DAILY 11/07/22 11/07/22 Unknown History mcg (5,000 unit) capsule folic acid 1 mg tablet 1 tab PO DAILY 11/07/22 11/07/22 Unknown History furosemide 20 mg tablet 20 mg PO BID 11/07/22 11/07/22 Unknown History glipizide 5 mg tablet 2 tab PO BID 11/07/22 11/07/22 Unknown History lisinopril 5 mg tablet 5 mg PO DAILY 11/07/22 11/07/22 Unknown History lorazepam 1 mg tablet 1 tab PO NEEDED PRN Anxiety 11/07/22 11/07/22 Unknown History metformin 1,000 mg tablet 1,000 mg PO BID 11/07/22 11/07/22 Unknown History tramadol 50 mg tablet 1 tab PO TID PRN pain 11/07/22 11/07/22 Unknown History Physical Exam Vital Signs: Vital Signs: Last Vital Signs Temp 97.4 F 11/07/22 11:26 Pulse 53 11/07/22 11:26 Resp 20 11/07/22 11:26 BP 123/73 11/07/22 11:26 Pulse Ox 96 11/07/22 11:26 O2 Del Method 11/07/22 11:26 O2 Flow Rate 1 11/07/22 11:26 BMI result Body Mass Index 23.0 Const: Orientation/consciousness: patient oriented x3 Eyes: General: appearance normal, both eyes and all related structures Neck: Neck: Yes no lymphadenopathy Resp: Effort & Inspection: normal respiratory effort Auscultation: clear to auscultation bilaterally Cardio: Rate: regular rate Rhythm: regular rhythm GI: Other: umbilical hernia, large, very tender and appears incarcerated with husky hue to the skin Palpation (GI): Soft to palpation, Tenderness to palpation present (GI) and no guarding Auscultation: normal bowel sounds Skin: General skin exam: no rashes or lesions noted Neuro: General: patient oriented x3 Cognition (Neuro): normal cognition Extrem: General: Yes normal to inspection and Yes no pedal edema Psych: Appearance: grossly normal and disheveled Results Labs CBC & Chem 7: 11/07/22 05:53 11/07/22 05:53 Labs: Short CBC 11/06/22 11/07/22 Range/Units 19:46 05:53 WBC 7.6 7.0 (4.8-10.8) X10*3/uL Hgb 15.1 13.7 L (14.0-18.0) g/dl Hct 44.2 40.6 L (42.0-52.0) % Plt Count 193 184 (160-400) X10*3/uL BMP 11/06/22 11/07/22 19:46 05:53 Sodium 135 137 Potassium 3.4 D 3.8 Chloride 99 104 Carbon Dioxide 25 23 BUN 6 L 6 L Creatinine 0.57 0.49 L Calcium 8.9 D 8.5 Liver Function 11/06/22 Range/Units 19:46 Total Bilirubin 1.3 H (0.0-1.0) mg/dL Direct Bilirubin 0.7 H (0.0-0.5) mg/dL AST 40 H (5-37) U/L ALT 31 (0-40) U/L Alkaline Phosphatase 368 H (39-117) U/L Albumin 3.6 (3.5-5.0) g/dL Urine 11/07/22 Range/Units 06:21 Urine Color DK YELLOW Urine Appearance Clear Urine pH 6.0 (5.0-9.0) Ur Specific [place] 1.025 (1.005-1.025) Urine Protein Negative (Neg-Trace) mg/dL Urine Glucose (UA) Negative (Negative) mg/dL Imaging CT scan - abdomen: Attestation: I personally reviewed and interpreted this imaging study as follows: (cirrhotic liver, incarcerated loop of small bowel in umbilical hernia, mod ascitic fluid, and stranding, atherosclerosis, ) Assessment and Plan (1) Abdominal hernia: Qualifiers: Hernia type: umbilical Obstruction and gangrene presence: with obstruction but without gangrene Qualified Code(s): K42.0 - Umbilical hernia with obstruction, without gangrene Status: Acute (2) Small bowel obstruction: Status: Acute (3) Cirrhosis of liver: Qualifiers: Hepatic cirrhosis type: alcoholic cirrhosis Ascites presence: with ascites Qualified Code(s): K70.31 - Alcoholic cirrhosis of liver with ascites Status: Acute Plan 1/ Decompensated alcohol related liver cirrhosis with ascites, now complicated by incarcerated umbilical hernia, moderate risk with CP score B7. 2/ malnutrition related to 1/ above with sarcopenia PLAN: 1/ Surgery is high risk but is emergent 2/ plts are normal, INR only mildly elevated, can give Vit K 10 mg IV daily for 3 days if needed 3/ avoid nsaids, OFELIA-i post recovery, can resume diuretics if needed, lower doses intitially and titrate up as needed, 4/ diet; High protein with 1.2 g/kg protien daily, Low salt< 2 g 5/o/p will need EGD< liver serologies incl for Hep B,C and autoimmune, hemochromatosi markers, 6/ not encephalopathic at this time, but risk for HE after surgery, limit opiates and sedatives as able, and laxatives post op either miralax or lactulose aiming for 2-3 soft stools daily, optimize lytes, fransico Mag, K, Ca, PO4, 7/ check b12, folate, b1, and zinc, replace as needed Time Spent With Patient Time: Total time managing care of this patient today __40__ minutes. Procedures Date of Service Date of Service: 11/07/22
--- NOTE | 2022-11-07 16:47 | PM.EVENT ---
Event Note Date of Service: 11/07/22 Event Note: seen postop underwent reduction and repair of incarcerated umb hernia appears comfortable awake and conversant stable dressings dry continue pain mgt ok for clear liquids, advance diet as tolerated doing well postop Time Spent With Patient Time: Total time managing care of this patient today ____ minutes.
[2022-11-07 17:32] LABS: Glucose, Whole Blood 132 mg/dL (60-115)
--- NOTE | 2022-11-07 19:19 | PC.NURSE ---
Alert and oriented. C/O abd pain, prn dilaudid and morphine given with good effect. VSS, afebrile, no acute resp. distress noted. NPO for hernia repair. Procedure completed without any complications. ABD incision dressing CDI. Medicated for post procedure with good effect. Tolerated clear liquid diet well. Will continue to monitor and treat per plan of care.
[2022-11-07] MEDS: oxyCODONE HCl Immed Release 5 MG TABLET 10 MG PO (20:08)
[2022-11-07 22:35] LABS: Glucose, Whole Blood 120 mg/dL (60-115)
[2022-11-08] VITALS (8 sets, daily range): BP systolic 84–128; BP diastolic 52–89; PULSE 71–89; RESP 12–18; TEMP 36.6–37.3; O2SAT 91–97
[2022-11-08] MEDS: oxyCODONE HCl Immed Release 5 MG TABLET 10 MG PO ×3 (03:15→22:09)
[2022-11-08] MEDS: Lactated Ringers 1,000 ML 100 ML IVCONT ×2 (03:17→15:01)
[2022-11-08 06:21] LABS: MANUAL DIFF FLAG NO
[2022-11-08 06:28] LABS: Basophils Percent Auto 0.4 % (0-2); Eosinophils Absolute Auto 0.2 X10*3/uL (0.0-0.4); Eosinophils Percent Auto 1.5 % (0-4); Hematocrit 41.5 % (42.0-52.0); Hemoglobin 13.8 g/dl (14.0-18.0); Imm Gran Abs Auto 0.06 X10*3/uL (0.00-0.03); Imm Gran Pct Auto 0.6 % (0.0-0.4); Lymphocytes Absolute Auto 0.6 X10*3/uL (1.2-4.9); Lymphocytes Percent Auto 5.5 % (20-40); Mean Corpuscular HGB Conc 33.3 g/dl (31.0-36.0); Mean Corpuscular Volume 96.3 fL (80.0-98.0); Mean Platelet Volume 10.1 fL (9.4-12.4); Neutrophils Absolute Auto 8.3 x10*3/uL (2.0-8.3); Platelet Count 208 X10*3/uL (160-400); Red Blood Count 4.31 X10*6/uL (4.60-5.80); Red Cell Distribution Width 13.6 % (11.0-16.0); White Blood Count 10.1 X10*3/uL (4.8-10.8)
[2022-11-08 06:41] LABS: INTERNATIONAL NORM RATIO 1.3 (0.9-1.1); Prothrombin Time 14.7 SEC (10.0-13.1)
[2022-11-08 06:59] LABS: Anion Gap 15 (12-20); Blood Urea Nitrogen 7 mg/dL (9-16); Calcium 8.3 mg/dL (8.4-10.2); Carbon Dioxide 24 mmol/L (22-29); Chloride 101 mmol/L (96-108); Creatinine Clr Calc Pharmacy 144.5; Estimated Glomerular Filt Rate > 60; Glucose Random 113 mg/dL (60-115); Potassium 3.9 mmol/L (3.3-5.1); Sodium 136 mmol/L (135-145)
[2022-11-08 07:31] LABS: Magnesium 1.2 mg/dL (1.6-2.6)
[2022-11-08 07:51] LABS: Glucose, Whole Blood 190 mg/dL (60-115)
[2022-11-08] MEDS: 0.9 % Sodium Chloride Flush 3 ML SYRINGE IVFLUSH (07:58)
[2022-11-08] MEDS: Insulin Lispro 100 UNIT/ML 3 ML VIAL SUBCUT ×2 (07:58→11:59)
[2022-11-08] MEDS: lisinopriL 5 MG TABLET PO (07:59)
[2022-11-08] MEDS: Furosemide 20 MG TABLET PO ×2 (07:59→16:28)
[2022-11-08] MEDS: Folic Acid 1 MG TABLET PO (07:59)
[2022-11-08] MEDS: HYDROmorphone HCl 0.5 MG/0.5 ML SYRINGE IVPUSH ×3 (08:08→19:47)
--- NOTE | 2022-11-08 08:10 | P.PNGS_ITS ---
Subjective Subjective Date of Service: 11/08/22 Interval history: says he is sore but otherwise feels well night uneventful Physical Exam Vital Signs: Vital Signs: Last Vital Signs Temp 99.1 F 11/08/22 07:00 Pulse 80 11/08/22 07:00 Resp 12 11/08/22 07:00 BP 108/61 11/08/22 07:00 Pulse Ox 92 11/08/22 07:00 O2 Del Method 11/08/22 07:00 O2 Flow Rate 2 11/07/22 17:31 Oxygen Flow Rate 2 11/07/22 16:13 BMI result Body Mass Index 23.0 Const: General: comfortable and no acute distress Resp: Effort & Inspection: normal respiratory effort Cardio: Rate: regular rate GI: Other: dressings dry Palpation (GI): not soft and not firm Objective Data Active Medications Acetaminophen (Acetaminophen Supp 650 Mg Supp.Rect) 650 mg [place] Q6H PRN PRN Reason: Pain, Mild (Pain Scale 1-3) Albuterol Sulfate (Albuterol Sulfate 90 Mcg 8 Gm Inhaler) 2 puff INHALE RQ4H PRN PRN Reason: Wheezing Dextrose (Dextrose 50 % 25 Gm/50 Ml Syringe) 25 gm IVPUSH Q15M PRN; Protocol PRN Reason: per Hypoglycemia Standing Ord. Enoxaparin Sodium (Enoxaparin Sodium 40 Mg/0.4 Ml Syringe) 40 mg SUBCUT Q24H [facility] Last Admin: 11/07/22 09:00 Dose: Not Given Documented By: RACHEL Non-Admin Reason: Hold per Dr. navarrete Fentanyl (Fentanyl Citrate/Pf 100 Mcg/2 Ml Vial) 50 mcg IVPUSH Q5M PRN; Protocol PRN Reason: Pain, Severe (Pain Scale 7-10) Fluticasone/Vilanterol (Fluticasone/Vilanterol 200/25 Blst.W.Dev) 1 puff INHALE RDAILY [facility] Last Admin: 11/07/22 21:23 Dose: Not Given Documented By: NAREN Non-Admin Reason: Not In Room Folic Acid (Folic Acid 1 Mg Tablet) 1 mg PO DAILY [facility] Last Admin: 11/08/22 07:59 Dose: 1 mg Documented By: CTORRChi Furosemide (Furosemide 20 Mg Tablet) 20 mg PO BID@0800,1700 [facility]; Protocol Last Admin: 11/08/22 07:59 Dose: 20 mg Documented By: SAWYER Glucose (Glucose Gel 15 Gm Gel..Gram.) 15 gm PO Q15M PRN; Protocol PRN Reason: per Hypoglycemia Standing Ord. Hydromorphone HCl (Hydromorphone Hcl 0.5 Mg/0.5 Ml Syringe) 0.5 mg IVPUSH Q4H PRN; Protocol PRN Reason: Pain, Severe (Pain Scale 7-10) Last Admin: 11/08/22 08:08 Dose: 0.5 mg Documented By: SAWYER Lactated Ringer's (Lr) 1,000 mls @ 100 mls/hr IVCONT .Q10H [facility] Last Admin: 11/08/22 03:17 Dose: 100 mls/hr Documented By: NAREN Insulin Human Lispro (Insulin Lispro 100 Unit/Ml 3 Ml Vial) 0 unit SUBCUT QIDACHS [facility]; Protocol Last Admin: 11/08/22 07:58 Dose: 2 unit Documented By: SAWYER Lisinopril (Lisinopril 5 Mg Tablet) 5 mg PO DAILY [facility]; Protocol Last Admin: 11/08/22 07:59 Dose: 5 mg Documented By: SAWYER Lorazepam (Lorazepam 0.5 Mg Tablet) 0.5 mg PO Q8H PRN PRN Reason: Anxiety Last Admin: 11/07/22 09:05 Dose: 0.5 mg Documented By: RACHEL Morphine Sulfate (Morphine Sulfate 4 Mg/Ml Cartridge) 4 mg IVPUSH Q4H PRN; Protocol PRN Reason: Pain, Moderate (Pain Scale 4-6 Last Admin: 11/07/22 22:44 Dose: 4 mg Documented By: NAREN Ondansetron HCl (Ondansetron Hcl 4 Mg/2 Ml Vial) 4 mg IVPUSH Q8H PRN PRN Reason: Nausea and Vomiting Ondansetron HCl (Ondansetron Hcl 4 Mg/2 Ml Vial) 4 mg IVPUSH ONCE PRN PRN Reason: Nausea and Vomiting Oxycodone HCl (Oxycodone Hcl Immed Release 5 Mg Tablet) 10 mg PO Q4H PRN PRN Reason: Pain, Moderate (Pain Scale 4-6 Last Admin: 11/08/22 03:15 Dose: 10 mg Documented By: NAREN Sodium Chloride (0.9 % Sodium Chloride Flush 3 Ml Syringe) 3 ml IVFLUSH QSHIFT [facility] Last Admin: 11/08/22 07:58 Dose: 3 ml Documented By: SAWYER Labs CBC & Chem 7: 11/08/22 06:05 11/08/22 06:05 Labs: Laboratory Results - last 24 hr 11/07/22 11/07/22 11/07/22 08:13 11:23 17:25 MCV MCH MCHC RDW Plt Count MPV Immature Gran % (Auto) Neut % (Auto) Lymph % (Auto) Hill % (Auto) Eos % (Auto) Baso % (Auto) Lymph # (Auto) Hill # (Auto) Eos # (Auto) Baso # (Auto) Abs Immat Gran (auto) Absolute Neuts (auto) Absolute Nucleated RBC Nucleated RBC % (auto) PT INR Anion Gap Estim Creat Clear Calc Estimated GFR POC Glucose 132 H 132 H 132 H Random Glucose Calcium Magnesium 11/07/22 11/08/22 11/08/22 19:52 06:05 06:05 MCV 96.3 MCH 32.0 MCHC 33.3 RDW 13.6 Plt Count 208 MPV 10.1 Immature Gran % (Auto) 0.6 H Neut % (Auto) 82.0 H Lymph % (Auto) 5.5 L Hill % (Auto) 10.0 Eos % (Auto) 1.5 Baso % (Auto) 0.4 Lymph # (Auto) 0.6 L Hill # (Auto) 1.0 Eos # (Auto) 0.2 Baso # (Auto) 0.0 Abs Immat Gran (auto) 0.06 H Absolute Neuts (auto) 8.3 Absolute Nucleated RBC 0.000 Nucleated RBC % (auto) 0.0 PT 14.7 H INR 1.3 H Anion Gap Estim Creat Clear Calc Estimated GFR POC Glucose 120 H Random Glucose Calcium Magnesium 11/08/22 11/08/22 11/08/22 06:05 06:05 07:44 MCV MCH MCHC RDW Plt Count MPV Immature Gran % (Auto) Neut % (Auto) Lymph % (Auto) Hill % (Auto) Eos % (Auto) Baso % (Auto) Lymph # (Auto) Hill # (Auto) Eos # (Auto) Baso # (Auto) Abs Immat Gran (auto) Absolute Neuts (auto) Absolute Nucleated RBC Nucleated RBC % (auto) PT INR Anion Gap 15 Estim Creat Clear Calc 144.5 Estimated GFR > 60 POC Glucose 190 H Random Glucose 113 Calcium 8.3 L Magnesium 1.2 L* Microbiology Microbiology Results: Microbiology 11/06/22 19:46 Blood Culture - Preliminary Blood - Venous No growth after 24 hours. 11/06/22 19:46 Blood Culture - Preliminary Blood - Venous No growth after 24 hours. Procedures Date of Service Date of Service: 11/08/22 Progress Note: A&P Assessment and plan (1) Incarcerated umbilical hernia: Status: Acute Assessment and Plan: s/p reduction and repair looks well involved small bowel loops edeamtous but viable pain mgt advance diet as tolerated doing well postop Time Spent With Patient Time: Total time managing care of this patient today ____ minutes. Quality Stroke Does the patient have a stroke diagnosis?: No VTE Prior VTE?: No VTE Risk Level:: Medical - moderate - high VTE Device Contraindication: Treatment Not Indicated VTE Drug Contraindication: N/A - Med Ordered
[2022-11-08] MEDS: Magnesium Sulfate/H2O 2 GM/50 ML PIGGYBACK IV (08:43)
--- NOTE | 2022-11-08 11:25 | MHC.CM.PN ---
Per ROUNDS discussion, Patient is only post op day 1 and not yet medically cleared for dc. Home is the goal and CM will continue to follow.
[2022-11-08 11:31] LABS: Glucose, Whole Blood 181 mg/dL (60-115)
[2022-11-08] MEDS: Enoxaparin Sodium 40 MG/0.4 ML SYRINGE SUBCUT (11:59)
--- NOTE | 2022-11-08 15:05 | HO.PM.IMPN ---
Subjective Subjective Date of Service: 11/08/22 Interval History: Doing well postop Review of Systems Denies chest pain Denies shortness of breath Denies nausea vomiting diarrhea Denies fever chills Physical Exam Vital Signs: Vital Signs: Last Vital Signs Temp 98.5 F 11/08/22 10:00 Pulse 80 11/08/22 10:00 Resp 12 11/08/22 10:00 BP 84/52 L 11/08/22 10:00 Pulse Ox 91 L 11/08/22 10:00 O2 Del Method 11/08/22 10:00 O2 Flow Rate 2 11/07/22 17:31 Oxygen Flow Rate 2 11/07/22 16:13 BMI result Body Mass Index 23.0 Const: Other: No acute issues Resp: Other: Clear to auscultation bilaterally no rales rhonchi wheezes Cardio: Other: No S4; positive S1-S2; no S3 murmurs rubs or gallops GI: Other: Soft minimally tender diffusely Extrem: Other: No edema bilaterally Objective Data Active Medications Acetaminophen (Acetaminophen Supp 650 Mg Supp.Rect) 650 mg SD Q6H PRN PRN Reason: Pain, Mild (Pain Scale 1-3) Albuterol Sulfate (Albuterol Sulfate 90 Mcg 8 Gm Inhaler) 2 puff INHALE RQ4H PRN PRN Reason: Wheezing Dextrose (Dextrose 50 % 25 Gm/50 Ml Syringe) 25 gm IVPUSH Q15M PRN; Protocol PRN Reason: per Hypoglycemia Standing Ord. Enoxaparin Sodium (Enoxaparin Sodium 40 Mg/0.4 Ml Syringe) 40 mg SUBCUT Q24H [facility] Last Admin: 11/08/22 11:59 Dose: 40 mg Documented By: SAWYER Fentanyl (Fentanyl Citrate/Pf 100 Mcg/2 Ml Vial) 50 mcg IVPUSH Q5M PRN; Protocol PRN Reason: Pain, Severe (Pain Scale 7-10) Fluticasone/Vilanterol (Fluticasone/Vilanterol 200/25 Blst.W.Dev) 1 puff INHALE RDAILY [facility] Last Admin: 11/08/22 11:00 Dose: Not Given Documented By: SAWYER Non-Admin Reason: Med Not Available Folic Acid (Folic Acid 1 Mg Tablet) 1 mg PO DAILY [facility] Last Admin: 11/08/22 07:59 Dose: 1 mg Documented By: SAWYER Furosemide (Furosemide 20 Mg Tablet) 20 mg PO BID@0800,1700 [facility]; Protocol Last Admin: 11/08/22 07:59 Dose: 20 mg Documented By: SAWYER Glucose (Glucose Gel 15 Gm Gel..Gram.) 15 gm PO Q15M PRN; Protocol PRN Reason: per Hypoglycemia Standing Ord. Hydromorphone HCl (Hydromorphone Hcl 0.5 Mg/0.5 Ml Syringe) 0.5 mg IVPUSH Q4H PRN; Protocol PRN Reason: Pain, Severe (Pain Scale 7-10) Last Admin: 11/08/22 08:08 Dose: 0.5 mg Documented By: SAWYER Lactated Ringer's (Lr) 1,000 mls @ 100 mls/hr IVCONT .Q10H [facility] Last Admin: 11/08/22 03:17 Dose: 100 mls/hr Documented By: NAREN Insulin Human Lispro (Insulin Lispro 100 Unit/Ml 3 Ml Vial) 0 unit SUBCUT QIDACHS [facility]; Protocol Last Admin: 11/08/22 11:59 Dose: 2 unit Documented By: SAWYER Lisinopril (Lisinopril 5 Mg Tablet) 5 mg PO DAILY [facility]; Protocol Last Admin: 11/08/22 07:59 Dose: 5 mg Documented By: SAWYER Lorazepam (Lorazepam 0.5 Mg Tablet) 0.5 mg PO Q8H PRN PRN Reason: Anxiety Last Admin: 11/07/22 09:05 Dose: 0.5 mg Documented By: RACHEL Morphine Sulfate (Morphine Sulfate 4 Mg/Ml Cartridge) 4 mg IVPUSH Q4H PRN; Protocol PRN Reason: Pain, Moderate (Pain Scale 4-6 Last Admin: 11/07/22 22:44 Dose: 4 mg Documented By: NAREN Ondansetron HCl (Ondansetron Hcl 4 Mg/2 Ml Vial) 4 mg IVPUSH Q8H PRN PRN Reason: Nausea and Vomiting Ondansetron HCl (Ondansetron Hcl 4 Mg/2 Ml Vial) 4 mg IVPUSH ONCE PRN PRN Reason: Nausea and Vomiting Oxycodone HCl (Oxycodone Hcl Immed Release 5 Mg Tablet) 10 mg PO Q4H PRN PRN Reason: Pain, Moderate (Pain Scale 4-6 Last Admin: 11/08/22 03:15 Dose: 10 mg Documented By: NAREN Sodium Chloride (0.9 % Sodium Chloride Flush 3 Ml Sy[facility]) [facility] Admin: 11/08/22 07:58 Dose: 3 ml Documented By: CTORRZ Labs CBC & Chem 7: 11/08/22 06:05 11/08/22 06:05 Labs: Laboratory Results - last 24 hr 11/07/22 11/07/22 11/08/22 17:25 19:52 06:05 MCV 96.3 MCH 32.0 MCHC 33.3 RDW 13.6 Plt Count 208 MPV 10.1 Immature Gran % (Auto) 0.6 H Neut % (Auto) 82.0 H Lymph % (Auto) 5.5 L Schle[place] % (Auto) 10.0 Eos % (Auto) 1.5 Baso % (Auto) 0.4 Lymph # (Auto) 0.6 L [place] # (Auto) 1.0 Eos # (Auto) 0.2 Baso # (Auto) 0.0 Abs Immat Gran (auto) 0.06 H Absolute Neuts (auto) 8.3 Absolute Nucleated RBC 0.000 Nucleated RBC % (auto) 0.0 PT INR Anion Gap Estim Creat Clear Calc Estimated GFR POC Glucose 132 H 120 H Random Glucose Calcium Magnesium 11/08/22 11/08/22 11/08/22 06:05 06:05 06:05 MCV MCH MCHC RDW Plt Count MPV Immature Gran % (Auto) Neut % (Auto) Lymph % (Auto) Schleicher % (Auto) Eos % (Auto) Baso % (Auto) Lymph # (Auto) [place]le[place] # (Auto) Eos # (Auto) Baso # (Auto) Abs Immat Gran (auto) Absolute Neuts (auto) Absolute Nucleated RBC Nucleated RBC % (auto) PT 14.7 H INR 1.3 H Anion Gap 15 Estim Creat Clear Calc 144.5 Estimated GFR > 60 POC Glucose Random Glucose 113 Calcium 8.3 L Magnesium 1.2 L* 11/08/22 11/08/22 07:44 10:57 MCV MCH MCHC RDW Plt Count MPV Immature Gran % (Auto) Neut % (Auto) Lymph % (Auto) Schleicher % (Auto) Eos % (Auto) Baso % (Auto) Lymph # (Auto) Schle[place] # (Auto) Eos # (Auto) Baso # (Auto) Abs Immat Gran (auto) Absolute Neuts (auto) Absolute Nucleated RBC Nucleated RBC % (auto) PT INR Anion Gap Estim Creat Clear Calc Estimated GFR POC Glucose 190 H 181 H Random Glucose Calcium Magnesium Microbiology Microbiology Results: Microbiology 11/06/22 19:46 Blood Culture - Preliminary Blood - Venous No growth after 24 hours. 11/06/22 19:46 Blood Culture - Preliminary Blood - Venous No growth after 24 hours. Assessment and Plan (1) Umbilical hernia: Status: Acute (2) Abdominal hernia: Status: Acute Plan This is a 61-year-old male with past medical history of liver cirrhosis secondary to alcohol abuse presents to the hospital with complaints of abdominal pain post paracentesis found to have small-bowel obstruction secondary to incarcerated umbilical hernia 1. Status post umbilical hernia repair -pain control adequate -as per surgery 2.Alcoholic liver cirrhosis -Status post paracentesis with 13.7 L removed patient reports 4 previous paracentesis since June -well compensated 3.Diabetes mellitus -lispro correctional scale -adjust as indicated DVT prophylaxis:? Lovenox Full code Continue hospitalization for treatment of small-bowel obstruction Time Spent With Patient Time: Total time managing care of this patient today ____ minutes. Quality Stroke Does the patient have a stroke diagnosis?: No VTE Prior VTE?: No VTE Risk Level:: Medical - moderate - high VTE Device Contraindication: Treatment Not Indicated VTE Drug Contraindication: N/A - Med Ordered
[2022-11-08 16:08] LABS: Glucose, Whole Blood 150 mg/dL (60-115)
[2022-11-08 19:40] LABS: Glucose, Whole Blood 142 mg/dL (60-115)
[2022-11-09] VITALS (9 sets, daily range): BP systolic 90–108; BP diastolic 51–66; PULSE 71–84; RESP 15–18; TEMP 36–37; O2SAT 92–97
[2022-11-09] MEDS: HYDROmorphone HCl 0.5 MG/0.5 ML SYRINGE IVPUSH ×4 (00:26→15:49)
[2022-11-09 07:58] LABS: Glucose, Whole Blood 181 mg/dL (60-115)
[2022-11-09] MEDS: oxyCODONE HCl Immed Release 5 MG TABLET 10 MG PO ×2 (08:03→22:03)
[2022-11-09] MEDS: lisinopriL 5 MG TABLET PO (08:04)
[2022-11-09] MEDS: Folic Acid 1 MG TABLET PO (08:04)
[2022-11-09] MEDS: Furosemide 20 MG TABLET PO ×2 (08:04→18:13)
[2022-11-09] MEDS: Insulin Lispro 100 UNIT/ML 3 ML VIAL SUBCUT ×3 (08:04→21:03)
[2022-11-09] MEDS: 0.9 % Sodium Chloride Flush 3 ML SYRINGE IVFLUSH ×3 (08:05→22:05)
--- NOTE | 2022-11-09 08:08 | P.PNGS_ITS ---
Subjective Subjective Date of Service: 11/09/22 Interval history: Complaints of incisional pain otherwise says he has been doing well good flatus wants to eat Physical Exam Vital Signs: Vital Signs: Last Vital Signs Temp 98.2 F 11/09/22 04:00 Pulse 71 11/09/22 04:00 Resp 15 11/09/22 04:00 BP 90/51 L 11/09/22 04:00 Pulse Ox 93 11/09/22 04:00 O2 Del Method 11/09/22 04:00 O2 Flow Rate 2 11/07/22 17:31 Oxygen Flow Rate 2 11/07/22 16:13 BMI result Body Mass Index 23.0 Const: General: comfortable and no acute distress Resp: Effort & Inspection: normal respiratory effort Cardio: Rate: regular rate GI: Other: incision clean and dry, flynn intact Palpation (GI): Soft to palpation, nontender and not rigid Objective Data Active Medications Acetaminophen (Acetaminophen Supp 650 Mg Supp.Rect) 650 mg [place] Q6H PRN PRN Reason: Pain, Mild (Pain Scale 1-3) Albuterol Sulfate (Albuterol Sulfate 90 Mcg 8 Gm Inhaler) 2 puff INHALE RQ4H PRN PRN Reason: Wheezing Dextrose (Dextrose 50 % 25 Gm/50 Ml Syringe) 25 gm IVPUSH Q15M PRN; Protocol PRN Reason: per Hypoglycemia Standing Ord. Enoxaparin Sodium (Enoxaparin Sodium 40 Mg/0.4 Ml Syringe) 40 mg SUBCUT Q24H [facility] Last Admin: 11/08/22 11:59 Dose: 40 mg Documented By: SAWYER Fentanyl (Fentanyl Citrate/Pf 100 Mcg/2 Ml Vial) 50 mcg IVPUSH Q5M PRN; Protocol PRN Reason: Pain, Severe (Pain Scale 7-10) Fluticasone/Vilanterol (Fluticasone/Vilanterol 200/25 Blst.W.Dev) 1 puff INHALE RDAILY [facility] Last Admin: 11/08/22 11:00 Dose: Not Given Documented By: SAWYER Non-Admin Reason: Med Not Available Folic Acid (Folic Acid 1 Mg Tablet) 1 mg PO DAILY [facility] Last Admin: 11/08/22 07:59 Dose: 1 mg Documented By: SAWYER Furosemide (Furosemide 20 Mg Tablet) 20 mg PO BID@0800,1700 [facility]; Protocol Last Admin: 11/08/22 16:28 Dose: 20 mg Documented By: SAWYER Glucose (Glucose Gel 15 Gm Gel..Gram.) 15 gm PO Q15M PRN; Protocol PRN Reason: per Hypoglycemia Standing Ord. Hydromorphone HCl (Hydromorphone Hcl 0.5 Mg/0.5 Ml Syringe) 0.5 mg IVPUSH Q4H PRN; Protocol PRN Reason: Pain, Severe (Pain Scale 7-10) Last Admin: 11/09/22 05:47 Dose: 0.5 mg Documented By: NAREN Insulin Human Lispro (Insulin Lispro 100 Unit/Ml 3 Ml Vial) 0 unit SUBCUT QIDACHS [facility]; Protocol Last Admin: 11/08/22 20:26 Dose: Not Given Documented By: NAREN Non-Admin Reason: No Insulin Coverage Lisinopril (Lisinopril 5 Mg Tablet) 5 mg PO DAILY [facility]; Protocol Last Admin: 11/08/22 07:59 Dose: 5 mg Documented By: SAWYER Lorazepam (Lorazepam 0.5 Mg Tablet) 0.5 mg PO Q8H PRN PRN Reason: Anxiety Last Admin: 11/07/22 09:05 Dose: 0.5 mg Documented By: RACHEL Morphine Sulfate (Morphine Sulfate 4 Mg/Ml Cartridge) 4 mg IVPUSH Q4H PRN; Protocol PRN Reason: Pain, Moderate (Pain Scale 4-6 Last Admin: 11/07/22 22:44 Dose: 4 mg Documented By: NAREN Ondansetron HCl (Ondansetron Hcl 4 Mg/2 Ml Vial) 4 mg IVPUSH Q8H PRN PRN Reason: Nausea and Vomiting Ondansetron HCl (Ondansetron Hcl 4 Mg/2 Ml Vial) 4 mg IVPUSH ONCE PRN PRN Reason: Nausea and Vomiting Oxycodone HCl (Oxycodone Hcl Immed Release 5 Mg Tablet) 10 mg PO Q4H PRN PRN Reason: Pain, Moderate (Pain Scale 4-6 Last Admin: 11/08/22 22:09 Dose: 10 mg Documented By: NAREN Sodium Chloride (0.9 % Sodium Chloride Flush 3 Ml Syringe) 3 ml IVFLUSH QSHIFT [facility] Last Admin: 11/08/22 23:46 Dose: Not Given Documented By: NAREN Non-Admin Reason: IV Running Labs CBC & Chem 7: 11/08/22 06:05 11/08/22 06:05 Labs: Laboratory Results - last 24 hr 11/08/22 11/08/22 11/08/22 10:57 16:05 19:18 POC Glucose 181 H 150 H 142 H 11/09/22 07:51 POC Glucose 181 H Microbiology Microbiology Results: Microbiology 11/06/22 19:46 Blood Culture - Preliminary Blood - Venous No growth after 48 hours. 11/06/22 19:46 Blood Culture - Preliminary Blood - Venous No growth after 48 hours. Procedures Date of Service Date of Service: 11/09/22 Progress Note: A&P Assessment and plan (1) Incarcerated umbilical hernia: Status: Acute Assessment and Plan: status post repair with mesh doing well diet as tolerated pain management no lifting allowed, no strenuous activities rest of management as per the hospitalist service Time Spent With Patient Time: Total time managing care of this patient today ____ minutes. Quality Stroke Does the patient have a stroke diagnosis?: No VTE Prior VTE?: No VTE Risk Level:: Medical - moderate - high VTE Device Contraindication: Treatment Not Indicated VTE Drug Contraindication: N/A - Med Ordered
[2022-11-09] MEDS: Fluticasone/Vilanterol 200/25 BLST.W.DEV 1 PUFF INHALE (08:18)
--- NOTE | 2022-11-09 09:16 | HO.POSTANES ---
Post Anesthesia Evaluation Post Anesthesia Evaluation Vital Signs: Vital Signs Temp Pulse Resp BP Pulse Ox O2 Del Method 11/09/22 08:19 75 18 11/09/22 08:00 98.6 F 75 18 108/66 95 Room Air 11/09/22 04:00 98.2 F 71 15 90/51 L 93 Room Air 11/09/22 00:00 98.2 F 84 16 92/63 95 Room Air Anesthesia: General Mental Status: Awake Pain Control: Satisfactory Nausea/Vomiting: None Hydration: Adequate Anesthesia-Related Issues: No Anes. Related Issues
[2022-11-09] MEDS: Enoxaparin Sodium 40 MG/0.4 ML SYRINGE SUBCUT (10:44)
[2022-11-09 11:36] LABS: Glucose, Whole Blood 270 mg/dL (60-115)
--- NOTE | 2022-11-09 12:05 | HO.PM.IMPN ---
Subjective Subjective Date of Service: 11/09/22 Interval History: Postop day 2 umbilical hernia repair. Mild pain but otherwise doing well. Tolerating diet Review of Systems Denies chest pain Denies shortness of breath Denies nausea vomiting diarrhea Denies fever chills Physical Exam Vital Signs: Vital Signs: Last Vital Signs Temp 97.6 F 11/09/22 11:57 Pulse 80 11/09/22 11:57 Resp 18 11/09/22 11:57 BP 100/58 L 11/09/22 11:57 Pulse Ox 94 11/09/22 11:57 O2 Del Method 11/09/22 11:57 O2 Flow Rate 2 11/07/22 17:31 Oxygen Flow Rate 2 11/07/22 16:13 BMI result Body Mass Index 23.0 Const: Other: No acute issues Resp: Other: Clear to auscultation bilaterally no rales rhonchi wheezes Cardio: Other: No S4; positive S1-S2; no S3 murmurs rubs or gallops GI: Other: Soft minimally tender diffusely Extrem: Other: No edema bilaterally Objective Data Active Medications Acetaminophen (Acetaminophen Supp 650 Mg Supp.Rect) 650 mg [place] Q6H PRN PRN Reason: Pain, Mild (Pain Scale 1-3) Albuterol Sulfate (Albuterol Sulfate 90 Mcg 8 Gm Inhaler) 2 puff INHALE RQ4H PRN PRN Reason: Wheezing Dextrose (Dextrose 50 % 25 Gm/50 Ml Syringe) 25 gm IVPUSH Q15M PRN; Protocol PRN Reason: per Hypoglycemia Standing Ord. Enoxaparin Sodium (Enoxaparin Sodium 40 Mg/0.4 Ml Syringe) 40 mg SUBCUT Q24H [facility] Last Admin: 11/09/22 10:44 Dose: 40 mg Documented By: MECHELLE Fentanyl (Fentanyl Citrate/Pf 100 Mcg/2 Ml Vial) 50 mcg IVPUSH Q5M PRN; Protocol PRN Reason: Pain, Severe (Pain Scale 7-10) Fluticasone/Vilanterol (Fluticasone/Vilanterol 200/25 Blst.W.Dev) 1 puff INHALE RDAILY [facility] Last Admin: 11/09/22 08:18 Dose: 1 puff Documented By: CAMERON Folic Acid (Folic Acid 1 Mg Tablet) 1 mg PO DAILY [facility] Last Admin: 11/09/22 08:04 Dose: 1 mg Documented By: MECHELLE Furosemide (Furosemide 20 Mg Tablet) 20 mg PO BID@0800,1700 [facility]; Protocol Last Admin: 11/09/22 08:04 Dose: 20 mg Documented By: MECHELLE Glucose (Glucose Gel 15 Gm Gel..Gram.) 15 gm PO Q15M PRN; Protocol PRN Reason: per Hypoglycemia Standing Ord. Hydromorphone HCl (Hydromorphone Hcl 0.5 Mg/0.5 Ml Syringe) 0.5 mg IVPUSH Q4H PRN; Protocol PRN Reason: Pain, Severe (Pain Scale 7-10) Last Admin: 11/09/22 11:36 Dose: 0.5 mg Documented By: MECHELLE Insulin Human Lispro (Insulin Lispro 100 Unit/Ml 3 Ml Vial) 0 unit SUBCUT QIDACHS [facility]; Protocol Last Admin: 11/09/22 11:50 Dose: 6 unit Documented By: MECHELLE Lisinopril (Lisinopril 5 Mg Tablet) 5 mg PO DAILY [facility]; Protocol Last Admin: 11/09/22 08:04 Dose: 5 mg Documented By: MECHELLE Lorazepam (Lorazepam 0.5 Mg Tablet) 0.5 mg PO Q8H PRN PRN Reason: Anxiety Last Admin: 11/07/22 09:05 Dose: 0.5 mg Documented By: RACHEL Morphine Sulfate (Morphine Sulfate 4 Mg/Ml Cartridge) 4 mg IVPUSH Q4H PRN; Protocol PRN Reason: Pain, Moderate (Pain Scale 4-6 Last Admin: 11/07/22 22:44 Dose: 4 mg Documented By: NAREN Ondansetron HCl (Ondansetron Hcl 4 Mg/2 Ml Vial) 4 mg IVPUSH Q8H PRN PRN Reason: Nausea and Vomiting Ondansetron HCl (Ondansetron Hcl 4 Mg/2 Ml Vial) 4 mg IVPUSH ONCE PRN PRN Reason: Nausea and Vomiting Oxycodone HCl (Oxycodone Hcl Immed Release 5 Mg Tablet) 10 mg PO Q4H PRN PRN Reason: Pain, Moderate (Pain Scale 4-6 Last Admin: 11/09/22 08:03 Dose: 10 mg Documented By: MECHELLE Sodium Chloride (0.9 % Sodium Chloride Flush 3 Ml Syringe) 3 ml IVFLUSH QSHIFT [facility] Last Admin: 11/09/22 08:05 Dose: 3 ml Documented By: MECHELLE Labs CBC & Chem 7: 11/08/22 06:05 11/08/22 06:05 Labs: Laboratory Results - last 24 hr 11/08/22 11/08/22 11/09/22 16:05 19:18 07:51 POC Glucose 150 H 142 H 181 H 11/09/22 11:27 POC Glucose 270 H Microbiology Microbiology Results: Microbiology 11/06/22 19:46 Blood Culture - Preliminary Blood - Venous No growth after 48 hours. 11/06/22 19:46 Blood Culture - Preliminary Blood - Venous No growth after 48 hours. Assessment and Plan (1) Incarcerated umbilical hernia: Status: Acute (2) Cirrhosis of liver: Status: Acute (3) SBP (spontaneous bacterial peritonitis): Status: Acute Plan This is a 61-year-old male with past medical history of liver cirrhosis secondary to alcohol abuse presents to the hospital with complaints of abdominal pain post paracentesis found to have small-bowel obstruction secondary to incarcerated umbilical hernia 1. Status post umbilical hernia repair(POD2) -pain control adequate -as per surgery;ADAT 2.Alcoholic liver cirrhosis -Status post paracentesis with 13.7 L removed patient reports 4 previous paracentesis since June -well compensated 3.Diabetes mellitus -lispro correctional scale -adjust as indicated DVT prophylaxis:? Lovenox Full code Continue hospitalization for treatment of small-bowel obstruction Time Spent With Patient Time: Total time managing care of this patient today ____ minutes. Quality Stroke Does the patient have a stroke diagnosis?: No VTE Prior VTE?: No VTE Risk Level:: Medical - moderate - high VTE Device Contraindication: Treatment Not Indicated VTE Drug Contraindication: N/A - Med Ordered
[2022-11-09 15:38] LABS: Glucose, Whole Blood 99 mg/dL (60-115)
[2022-11-09] MEDS: Morphine Sulfate 4 MG/ML CARTRIDGE IVPUSH ×2 (18:14→23:57)
[2022-11-09 20:29] LABS: Glucose, Whole Blood 172 mg/dL (60-115)
[2022-11-10 04:00] VITALS: BP 97/58; PULSE 75; RESP 18; TEMP 36.6; O2SAT 95
[2022-11-10] MEDS: HYDROmorphone HCl 0.5 MG/0.5 ML SYRINGE IVPUSH ×4 (05:48→21:44)
[2022-11-10 07:00] LABS: MANUAL DIFF FLAG NO
[2022-11-10 07:03] LABS: Basophils Percent Auto 0.4 % (0-2); Eosinophils Absolute Auto 0.2 X10*3/uL (0.0-0.4); Eosinophils Percent Auto 2.8 % (0-4); Hematocrit 37.3 % (42.0-52.0); Hemoglobin 12.7 g/dl (14.0-18.0); Imm Gran Abs Auto 0.06 X10*3/uL (0.00-0.03); Imm Gran Pct Auto 0.7 % (0.0-0.4); Lymphocytes Absolute Auto 0.5 X10*3/uL (1.2-4.9); Lymphocytes Percent Auto 5.6 % (20-40); Mean Corpuscular Hemoglobin 32.3 pg (27.0-33.0); Mean Corpuscular Volume 94.9 fL (80.0-98.0); Mean Platelet Volume 10.2 fL (9.4-12.4); Monocytes Percent Auto 12.3 % (2-11); Neutrophils Absolute Auto 6.4 x10*3/uL (2.0-8.3); Neutrophils Percent Auto 78.2 % (45-73); Platelet Count 205 X10*3/uL (160-400); Red Blood Count 3.93 X10*6/uL (4.60-5.80); Red Cell Distribution Width 13.6 % (11.0-16.0); White Blood Count 8.2 X10*3/uL (4.8-10.8)
[2022-11-10 07:20] VITALS: BP 88/60; PULSE 68; RESP 12; TEMP 36.4; O2SAT 95
[2022-11-10 07:20] LABS: Alanine Aminotransferase 14 U/L (0-40); Albumin Level 2.5 g/dL (3.5-5.0); Alkaline Phosphatase 208 U/L (39-117); Anion Gap 11 (12-20); Aspartate Amino Transferase 17 U/L (5-37); Bilirubin Total 1.5 mg/dL (0.0-1.0); Blood Urea Nitrogen 13 mg/dL (9-16); Calcium 8.2 mg/dL (8.4-10.2); Carbon Dioxide 28 mmol/L (22-29); Chloride 99 mmol/L (96-108); Creatinine Clr Calc Pharmacy 134.3; Estimated Glomerular Filt Rate > 60; Glucose Fasting 132 mg/dL (60-99); Potassium 3.9 mmol/L (3.3-5.1); Sodium 134 mmol/L (135-145); Total Protein 4.7 g/dL (6.5-8.0)
[2022-11-10 07:31] LABS: Glucose, Whole Blood 142 mg/dL (60-115)
[2022-11-10] MEDS: Enoxaparin Sodium 40 MG/0.4 ML SYRINGE SUBCUT (08:40)
[2022-11-10] MEDS: Folic Acid 1 MG TABLET PO (08:40)
[2022-11-10] MEDS: 0.9 % Sodium Chloride Flush 3 ML SYRINGE IVFLUSH ×3 (08:40→21:44)
[2022-11-10] MEDS: oxyCODONE HCl Immed Release 5 MG TABLET 10 MG PO ×2 (09:32→23:59)
[2022-11-10] MEDS: Fluticasone/Vilanterol 200/25 BLST.W.DEV 1 PUFF INHALE (09:35)
--- NOTE | 2022-11-10 09:43 | P.PNGS_ITS ---
Subjective Subjective Date of Service: 11/10/22 Interval history: feels well has BMs tolerating diet Physical Exam Vital Signs: Vital Signs: Last Vital Signs Temp 97.5 F 11/10/22 07:20 Pulse 68 11/10/22 07:20 Resp 12 11/10/22 07:20 BP 88/60 L 11/10/22 07:20 Pulse Ox 95 11/10/22 07:20 O2 Del Method 11/10/22 07:20 O2 Flow Rate 2 11/07/22 17:31 Oxygen Flow Rate 2 11/07/22 16:13 BMI result Body Mass Index 23.0 Const: General: comfortable and no acute distress Cardio: Rate: regular rate GI: Other: soft, protruberant, incision clean Objective Data Active Medications Acetaminophen (Acetaminophen Supp 650 Mg Supp.Rect) 650 mg [place] Q6H PRN PRN Reason: Pain, Mild (Pain Scale 1-3) Albuterol Sulfate (Albuterol Sulfate 90 Mcg 8 Gm Inhaler) 2 puff INHALE RQ4H PRN PRN Reason: Wheezing Dextrose (Dextrose 50 % 25 Gm/50 Ml Syringe) 25 gm IVPUSH Q15M PRN; Protocol PRN Reason: per Hypoglycemia Standing Ord. Enoxaparin Sodium (Enoxaparin Sodium 40 Mg/0.4 Ml Syringe) 40 mg SUBCUT Q24H [facility] Last Admin: 11/10/22 08:40 Dose: 40 mg Documented By: SAWYER Fentanyl (Fentanyl Citrate/Pf 100 Mcg/2 Ml Vial) 50 mcg IVPUSH Q5M PRN; Protocol PRN Reason: Pain, Severe (Pain Scale 7-10) Fluticasone/Vilanterol (Fluticasone/Vilanterol 200/25 Blst.W.Dev) 1 puff INHALE RDAILY [facility] Last Admin: 11/10/22 09:35 Dose: 1 puff Documented By: SAWYER Folic Acid (Folic Acid 1 Mg Tablet) 1 mg PO DAILY [facility] Last Admin: 11/10/22 08:40 Dose: 1 mg Documented By: SAWYER Furosemide (Furosemide 20 Mg Tablet) 20 mg PO BID@0800,1700 [facility]; Protocol Last Admin: 11/10/22 09:34 Dose: Not Given Documented By: SAWYER Non-Admin Reason: LOW BP Glucose (Glucose Gel 15 Gm Gel..Gram.) 15 gm PO Q15M PRN; Protocol PRN Reason: per Hypoglycemia Standing Ord. Hydromorphone HCl (Hydromorphone Hcl 0.5 Mg/0.5 Ml Syringe) 0.5 mg IVPUSH Q4H PRN; Protocol PRN Reason: Pain, Severe (Pain Scale 7-10) Last Admin: 11/10/22 05:48 Dose: 0.5 mg Documented By: GEMMA Insulin Human Lispro (Insulin Lispro 100 Unit/Ml 3 Ml Vial) 0 unit SUBCUT QIDACHS [facility]; Protocol Last Admin: 11/10/22 09:33 Dose: Not Given Documented By: SAWYER Non-Admin Reason: No Insulin Coverage Lisinopril (Lisinopril 5 Mg Tablet) 5 mg PO DAILY [facility]; Protocol Last Admin: 11/10/22 09:34 Dose: Not Given Documented By: SAWYER Non-Admin Reason: LOW BP Lorazepam (Lorazepam 0.5 Mg Tablet) 0.5 mg PO Q8H PRN PRN Reason: Anxiety Last Admin: 11/07/22 09:05 Dose: 0.5 mg Documented By: RACHEL Morphine Sulfate (Morphine Sulfate 4 Mg/Ml Cartridge) 4 mg IVPUSH Q4H PRN; Protocol PRN Reason: Pain, Moderate (Pain Scale 4-6 Last Admin: 11/09/22 23:57 Dose: 4 mg Documented By: GEMMA Ondansetron HCl (Ondansetron Hcl 4 Mg/2 Ml Vial) 4 mg IVPUSH Q8H PRN PRN Reason: Nausea and Vomiting Ondansetron HCl (Ondansetron Hcl 4 Mg/2 Ml Vial) 4 mg IVPUSH ONCE PRN PRN Reason: Nausea and Vomiting Oxycodone HCl (Oxycodone Hcl Immed Release 5 Mg Tablet) 10 mg PO Q4H PRN PRN Reason: Pain, Moderate (Pain Scale 4-6 Last Admin: 11/10/22 09:32 Dose: 10 mg Documented By: SAWYER Sodium Chloride (0.9 % Sodium Chloride Flush 3 Ml Syringe) 3 ml IVFSH [facility] Last Admin: 11/10/22 08:40 Dose: 3 ml Documented By: HO.[email or web address] Labs CBC & Chem 7: 11/10/22 06:26 11/10/22 06:26 Labs: Laboratory Results - last 24 hr 11/09/22 11/09/22 11/09/22 11:27 15:33 20:23 MCV MCH MCHC RDW Plt Count MPV Immature Gran % (Auto) Neut % (Auto) Lymph % (Auto) [place] % (Auto) Eos % (Auto) Baso % (Auto) Lymph # (Auto) [place] # (Auto) Eos # (Auto) Baso # (Auto) Abs Immat Gran (auto) Absolute Neuts (auto) Absolute Nucleated RBC Nucleated RBC % (auto) Anion Gap Estim Creat Clear Calc Estimated GFR POC Glucose 270 H 99 172 H Fasting Glucose Calcium Total Bilirubin AST ALT Alkaline Phosphatase Total Protein Albumin 11/10/22 11/10/22 11/10/22 06:26 06:26 07:19 MCV 94.9 MCH 32.3 MCHC 34.0 RDW 13.6 Plt Count 205 MPV 10.2 Immature Gran % (Auto) 0.7 H Neut % (Auto) 78.2 H Lymph % (Auto) 5.6 L [place] % (Auto) 12.3 H Eos % (Auto) 2.8 Baso % (Auto) 0.4 Lymph # (Auto) 0.5 L [place] # (Auto) 1.0 Eos # (Auto) 0.2 Baso # (Auto) 0.0 Abs Immat Gran (auto) 0.06 H Absolute Neuts (auto) 6.4 Absolute Nucleated RBC 0.000 Nucleated RBC % (auto) 0.0 Anion Gap 11 L Estim Creat Clear Calc 134.3 Estimated GFR > 60 POC Glucose 142 H Fasting Glucose 132 H Calcium 8.2 L Total Bilirubin 1.5 H AST 17 ALT 14 Alkaline Phosphatase 208 H Total Protein 4.7 L Albumin 2.5 L Procedures Date of Service Date of Service: 11/10/22 Progress Note: A&P Assessment and plan (1) Incarcerated umbilical hernia: Status: Acute Assessment and Plan: S/P repair doing well no lifting pain mgt ok for office ffup after discharge Time Spent With Patient Time: Total time managing care of this patient today ____ minutes. Quality Stroke Does the patient have a stroke diagnosis?: No VTE Prior VTE?: No VTE Risk Level:: Medical - moderate - high VTE Device Contraindication: Treatment Not Indicated VTE Drug Contraindication: N/A - Med Ordered
[2022-11-10 10:56] VITALS: BP 108/69; PULSE 85; RESP 12; TEMP 36.1; O2SAT 97
--- NOTE | 2022-11-10 11:01 | MHC.CM.PN ---
Per ROUNDS discussion, Patient is experiencing some discomfort and fluid accumulation in his belly and therefor not yet medically cleared for dc. Home is the goal and CM will continue to follow.
--- NOTE | 2022-11-10 11:17 | HO.PM.IMPN ---
Subjective Subjective Date of Service: 11/10/22 Interval History: Doing well status post umbilical hernia repair. Feels like ascites is reaccumulating Review of Systems Denies chest pain Denies shortness of breath Denies nausea vomiting diarrhea Denies fever chills Physical Exam Vital Signs: Vital Signs: Last Vital Signs Temp 96.9 F 11/10/22 10:56 Pulse 85 11/10/22 10:56 Resp 12 11/10/22 10:56 BP 108/69 11/10/22 10:56 Pulse Ox 97 11/10/22 10:56 O2 Del Method 11/10/22 10:56 O2 Flow Rate 2 11/07/22 17:31 Oxygen Flow Rate 2 11/07/22 16:13 BMI result Body Mass Index 23.0 Const: Other: No acute issues Resp: Other: Clear to auscultation bilaterally no rales rhonchi wheezes Cardio: Other: No S4; positive S1-S2; no S3 murmurs rubs or gallops GI: Other: Soft minimally tender diffusely Extrem: Other: No edema bilaterally Objective Data Active Medications Acetaminophen (Acetaminophen Supp 650 Mg Supp.Rect) 650 mg NM Q6H PRN PRN Reason: Pain, Mild (Pain Scale 1-3) Albuterol Sulfate (Albuterol Sulfate 90 Mcg 8 Gm Inhaler) 2 puff INHALE RQ4H PRN PRN Reason: Wheezing Dextrose (Dextrose 50 % 25 Gm/50 Ml Syringe) 25 gm IVPUSH Q15M PRN; Protocol PRN Reason: per Hypoglycemia Standing Ord. Enoxaparin Sodium (Enoxaparin Sodium 40 Mg/0.4 Ml Syringe) 40 mg SUBCUT Q24H [facility] Last Admin: 11/10/22 08:40 Dose: 40 mg Documented By: SAWYER Fentanyl (Fentanyl Citrate/Pf 100 Mcg/2 Ml Vial) 50 mcg IVPUSH Q5M PRN; Protocol PRN Reason: Pain, Severe (Pain Scale 7-10) Fluticasone/Vilanterol (Fluticasone/Vilanterol 200/25 Blst.W.Dev) 1 puff INHALE RDAILY [facility] Last Admin: 11/10/22 09:35 Dose: 1 puff Documented By: SAWYER Folic Acid (Folic Acid 1 Mg Tablet) 1 mg PO DAILY [facility] Last Admin: 11/10/22 08:40 Dose: 1 mg Documented By: SAWYER Furosemide (Furosemide 20 Mg Tablet) 20 mg PO BID@0800,1700 [facility]; Protocol Last Admin: 11/10/22 09:34 Dose: Not Given Documented By: SAWYER Non-Admin Reason: LOW BP Glucose (Glucose Gel 15 Gm Gel..Gram.) 15 gm PO Q15M PRN; Protocol PRN Reason: per Hypoglycemia Standing Ord. Hydromorphone HCl (Hydromorphone Hcl 0.5 Mg/0.5 Ml Syringe) 0.5 mg IVPUSH Q4H PRN; Protocol PRN Reason: Pain, Severe (Pain Scale 7-10) Last Admin: 11/10/22 05:48 Dose: 0.5 mg Documented By: GEMMA Insulin Human Lispro (Insulin Lispro 100 Unit/Ml 3 Ml Vial) 0 unit SUBCUT QIDACHS [facility]; Protocol Last Admin: 11/10/22 09:33 Dose: Not Given Documented By: SAWYER Non-Admin Reason: No Insulin Coverage Lisinopril (Lisinopril 5 Mg Tablet) 5 mg PO DAILY [facility]; Protocol Last Admin: 11/10/22 09:34 Dose: Not Given Documented By: SAWYER Non-Admin Reason: LOW BP Lorazepam (Lorazepam 0.5 Mg Tablet) 0.5 mg PO Q8H PRN PRN Reason: Anxiety Last Admin: 11/07/22 09:05 Dose: 0.5 mg Documented By: RACHEL Morphine Sulfate (Morphine Sulfate 4 Mg/Ml Cartridge) 4 mg IVPUSH Q4H PRN; Protocol PRN Reason: Pain, Moderate (Pain Scale 4-6 Last Admin: 11/09/22 23:57 Dose: 4 mg Documented By: GEMMA Ondansetron HCl (Ondansetron Hcl 4 Mg/2 Ml Vial) 4 mg IVPUSH Q8H PRN PRN Reason: Nausea and Vomiting Ondansetron HCl (Ondansetron Hcl 4 Mg/2 Ml Vial) 4 mg IVPUSH ONCE PRN PRN Reason: Nausea and Vomiting Oxycodone HCl (Oxycodone Hcl Immed Release 5 Mg Tablet) 10 mg PO Q4H PRN PRN Reason: Pain, Moderate (Pain Scale 4-6 Last Admin: 11/10/22 09:32 Dose: 10 mg Documented By: SAWYER Sodium Chloride (0.9 % Sodium Chloride Flush 3 Ml Syringe) 3 ml IVFLUSH QSHIFT [facility] Last Admin: 11/10/22 08:40 Dose: 3 ml Documented By: SAWYER Labs CBC & Chem 7: 11/10/22 06:26 11/10/22 06:26 Labs: Laboratory Results - last 24 hr 11/09/22 11/09/22 11/09/22 11:27 15:33 20:23 MCV MCH MCHC RDW Plt Count MPV Immature Gran % (Auto) Neut % (Auto) Lymph % (Auto) Sherman % (Auto) Eos % (Auto) Baso % (Auto) Lymph # (Auto) Sherman # (Auto) Eos # (Auto) Baso # (Auto) Abs Immat Gran (auto) Absolute Neuts (auto) Absolute Nucleated RBC Nucleated RBC % (auto) Anion Gap Estim Creat Clear Calc Estimated GFR POC Glucose 270 H 99 172 H Fasting Glucose Calcium Total Bilirubin AST ALT Alkaline Phosphatase Total Protein Albumin 11/10/22 11/10/22 11/10/22 06:26 06:26 07:19 MCV 94.9 MCH 32.3 MCHC 34.0 RDW 13.6 Plt Count 205 MPV 10.2 Immature Gran % (Auto) 0.7 H Neut % (Auto) 78.2 H Lymph % (Auto) 5.6 L Sherman % (Auto) 12.3 H Eos % (Auto) 2.8 Baso % (Auto) 0.4 Lymph # (Auto) 0.5 L Sherman # (Auto) 1.0 Eos # (Auto) 0.2 Baso # (Auto) 0.0 Abs Immat Gran (auto) 0.06 H Absolute Neuts (auto) 6.4 Absolute Nucleated RBC 0.000 Nucleated RBC % (auto) 0.0 Anion Gap 11 L Estim Creat Clear Calc 134.3 Estimated GFR > 60 POC Glucose 142 H Fasting Glucose 132 H Calcium 8.2 L Total Bilirubin 1.5 H AST 17 ALT 14 Alkaline Phosphatase 208 H Total Protein 4.7 L Albumin 2.5 L Assessment and Plan (1) Incarcerated umbilical hernia: Status: Acute (2) Cirrhosis of liver: Status: Acute (3) Diabetes: Status: Acute Plan This is a 61-year-old male with past medical history of liver cirrhosis secondary to alcohol abuse presents to the hospital with complaints of abdominal pain post paracentesis found to have small-bowel obstruction secondary to incarcerated umbilical hernia 1. Status post umbilical hernia repair(POD3) -pain control adequate -as per surgery;ADAT 2.Alcoholic liver cirrhosis -Status post paracentesis with 13.7 L removed patient reports 4 previous paracentesis since June -feels reaccumulating and by exam -ask GI to re eval 3.Diabetes mellitus -lispro correctional scale -adjust as indicated DVT prophylaxis:? Lovenox Full code Continue hospitalization for treatment of small-bowel obstruction Time Spent With Patient Time: Total time managing care of this patient today ____ minutes. Quality Stroke Does the patient have a stroke diagnosis?: No VTE Prior VTE?: No VTE Risk Level:: Medical - moderate - high VTE Device Contraindication: Treatment Not Indicated VTE Drug Contraindication: N/A - Med Ordered
[2022-11-10 11:25] LABS: Glucose, Whole Blood 196 mg/dL (60-115)
[2022-11-10] MEDS: Insulin Lispro 100 UNIT/ML 3 ML VIAL SUBCUT ×3 (12:27→21:44)
--- NOTE | 2022-11-10 12:46 | MHC.CDI.CONC ---
CDI Concurrent Query Documentation Clarification: PHYSICIAN'S DOCUMENTATION REQUEST Date of Query: 11/10/22 1240 Patient Name: Cruz Meza Admit Date: 11/06/22 Dear Doctor, A review of the medical record indicates additional documentation may be needed. Please review below and update the documentation accordingly. Is there a diagnosis that correlates to the lab findings below: Risk Factors/Clinical Indicators/Treatments LAB FINDINGS: Albumin 2.5 L Based on the above, could you clarify in the Progress Notes the appropriate diagnosis, if significant, that supports the above abnormalities and additional evaluation, monitoring, and/or treatment rendered: Hypoalbuminemia or other etiology Labs indicate a diagnosis of (please specify) Other (please specify) Unable to determine Use of terms such as suspected, likely, concern for, or probable (associated with a specific diagnosis that is being evaluated, monitored, or treated as if it exists) are acceptable and can be coded in the inpatient setting, when documented at the time of discharge. Thank you, Yesenia Cummins [facility], CDIS Extension: [phone] Please use your independent medical judgment in providing your response. 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
[2022-11-10 16:00] VITALS: BP 110/73; PULSE 89; RESP 18; TEMP 37.1; O2SAT 98
[2022-11-10 16:20] LABS: Glucose, Whole Blood 185 mg/dL (60-115)
[2022-11-10] MEDS: Furosemide 20 MG TABLET PO (16:24)
--- NOTE | 2022-11-10 17:38 | P.PNGI_ITS ---
Subjective Subjective Date of Service: 11/10/22 Interval History: asked to see patient, reaccumulation of ascitic fluid he is otherwise recovering well from surgery no confusion no melena appetite is v good, passing stools and gas Critical Care Time (minutes): 0 Physical Exam Vital Signs: Vital Signs: Last Vital Signs Temp 98.7 F 11/10/22 16:00 Pulse 89 11/10/22 16:00 Resp 18 11/10/22 16:00 BP 110/73 11/10/22 16:00 Pulse Ox 98 11/10/22 16:00 O2 Del Method 11/10/22 16:00 O2 Flow Rate 2 11/07/22 17:31 Oxygen Flow Rate 2 11/07/22 16:13 BMI result Body Mass Index 23.0 EXAM: GENERAL: The patient is sarcopenic, disheveled VITAL SIGNS:see workflow HEENT: Nonicteric sclerae, PERRLA, EOMI. Oropharynx clear. Moist mucous membranes. Conjunctivae appear well perfused. No thyroid mass. CHEST: Chest wall is nontender. HEART: Regular rate and rhythm without murmurs. LUNGS: Clear to auscultation bilaterally. ABDOMEN: tense wih pos fluid thrill and dullness, positive bowel sounds, midlyl tender, no organomegaly.no flank tenderness, scar and flynn noted SKIN: No rash, no excessive bruising, petechiae, or purpura. NEUROLOGIC: Cranial nerves II-XII intact without motor/sensory deficit. psych- nml affect Objective Data Labs CBC & Chem 7: 11/10/22 06:26 11/10/22 06:26 Labs: Laboratory Results - last 24 hr 11/09/22 11/10/22 11/10/22 20:23 06:26 06:26 WBC 8.2 RBC 3.93 L Hgb 12.7 L Hct 37.3 L MCV 94.9 MCH 32.3 MCHC 34.0 RDW 13.6 Plt Count 205 MPV 10.2 Immature Gran % (Auto) 0.7 H Neut % (Auto) 78.2 H Lymph % (Auto) 5.6 L [place]ombs % (Auto) 12.3 H Eos % (Auto) 2.8 Baso % (Auto) 0.4 Lymph # (Auto) 0.5 L [place] # (Auto) 1.0 Eos # (Auto) 0.2 Baso # (Auto) 0.0 Abs Immat Gran (auto) 0.06 H Absolute Neuts (auto) 6.4 Absolute Nucleated RBC 0.000 Nucleated RBC % (auto) 0.0 Sodium 134 L Potassium 3.9 Chloride 99 Carbon Dioxide 28 Anion Gap 11 L BUN 13 Creatinine 0.57 Estim Creat Clear Calc 134.3 Estimated GFR > 60 POC Glucose 172 H Fasting Glucose 132 H Calcium 8.2 L Total Bilirubin 1.5 H AST 17 ALT 14 Alkaline Phosphatase 208 H Total Protein 4.7 L Albumin 2.5 L 11/10/22 11/10/22 11/10/22 07:19 10:55 16:03 WBC RBC Hgb Hct MCV MCH MCHC RDW Plt Count MPV Immature Gran % (Auto) Neut % (Auto) Lymph % (Auto) [place] % (Auto) Eos % (Auto) Baso % (Auto) Lymph # (Auto) [place] # (Auto) Eos # (Auto) Baso # (Auto) Abs Immat Gran (auto) Absolute Neuts (auto) Absolute Nucleated RBC Nucleated RBC % (auto) Sodium Potassium Chloride Carbon Dioxide Anion Gap BUN Creatinine Estim Creat Clear Calc Estimated GFR POC Glucose 142 H 196 H 185 H Fasting Glucose Calcium Total Bilirubin AST ALT Alkaline Phosphatase Total Protein Albumin Microbiology Microbiology Results: Microbiology 11/06/22 19:46 Blood - Venous Blood Culture - Preliminary No growth after 48 hours. 11/06/22 19:46 Blood - Venous Blood Culture - Preliminary No growth after 48 hours. Procedures Date of Service Date of Service: 11/10/22 Progress Note: A&P Assessment and plan (1) Incarcerated umbilical hernia: Status: Acute (2) Cirrhosis of liver: Status: Acute Plan 1/ Ascites; can commence and gradually uptitrate diuretics, already on lasxi 20 mg bid, can add aldactone 50 mg keep on lo salt diet ok to repeat therapeutic paracentesis avoid nsaids, limit sedatives and opiates as able, ok to use tylenol 2 g in 24 hr and no more can give albumin 25% 1g/kg to reduced intravascular leakage watch out for HE--if constipation develops then add lactulose 10 ml BID high protein diet Time Spent With Patient Time: Total time managing care of this patient today ____ minutes. Quality Stroke Does the patient have a stroke diagnosis?: No VTE Prior VTE?: No VTE Risk Level:: Medical - moderate - high VTE Device Contraindication: Treatment Not Indicated VTE Drug Contraindication: N/A - Med Ordered
[2022-11-10 19:21] VITALS: BP 110/86; PULSE 78; RESP 17; TEMP 37; O2SAT 98
[2022-11-10 19:43] LABS: Glucose, Whole Blood 220 mg/dL (60-115)
[2022-11-10 23:31] VITALS: BP 106/66; PULSE 73; RESP 16; TEMP 36.4; O2SAT 96
--- NOTE | 2022-11-11 | PM.EVENT ---
Event Note Date of Service: 11/11/22 Event Note: pt complaining of worsening redness at the surgical site. has pictures to compare. surgical region appears erythmatous and warm and slightly more swollen as compared to rest of abdomen,. \ Otherwise HDS will start pt on Cefazolin Time Spent With Patient Time: Total time managing care of this patient today ____ minutes.
[2022-11-11] MEDS: ceFAZolin Sodium/Dextrose,Iso 2 GM/50 ML PIGGYBACK IV ×3 (00:24→16:17)
[2022-11-11] MEDS: HYDROmorphone HCl 0.5 MG/0.5 ML SYRINGE IVPUSH ×2 (02:13→16:17)
[2022-11-11 03:13] VITALS: BP 102/67; PULSE 74; RESP 16; TEMP 36.4; O2SAT 96
--- NOTE | 2022-11-11 04:28 | PC.NURSE ---
Pt mid abd incision looked red and inflamed. I let Dr. Lutz know and she ordered antibiotics for him.
[2022-11-11] MEDS: Morphine Sulfate 4 MG/ML CARTRIDGE IVPUSH (05:50)
[2022-11-11 07:28] LABS: MANUAL DIFF FLAG NO
[2022-11-11 07:34] LABS: Basophils Percent Auto 0.2 % (0-2); Eosinophils Absolute Auto 0.2 X10*3/uL (0.0-0.4); Eosinophils Percent Auto 4.2 % (0-4); Hematocrit 39.1 % (42.0-52.0); Hemoglobin 13.5 g/dl (14.0-18.0); Imm Gran Abs Auto 0.03 X10*3/uL (0.00-0.03); Imm Gran Pct Auto 0.5 % (0.0-0.4); Lymphocytes Absolute Auto 0.5 X10*3/uL (1.2-4.9); Lymphocytes Percent Auto 8.3 % (20-40); Mean Corpuscular HGB Conc 34.5 g/dl (31.0-36.0); Mean Corpuscular Hemoglobin 32.4 pg (27.0-33.0); Mean Corpuscular Volume 93.8 fL (80.0-98.0); Mean Platelet Volume 9.9 fL (9.4-12.4); Monocytes Absolute Auto 0.7 X10*3/uL (0.1-1.2); Monocytes Percent Auto 12.1 % (2-11); Neutrophils Absolute Auto 4.3 x10*3/uL (2.0-8.3); Neutrophils Percent Auto 74.7 % (45-73); Platelet Count 206 X10*3/uL (160-400); Red Blood Count 4.17 X10*6/uL (4.60-5.80); Red Cell Distribution Width 13.5 % (11.0-16.0); White Blood Count 5.8 X10*3/uL (4.8-10.8)
[2022-11-11 07:40] VITALS: BP 97/65; PULSE 66; RESP 20; TEMP 36.8; O2SAT 96
[2022-11-11 07:54] LABS: Alanine Aminotransferase 26 U/L (0-40); Albumin Level 2.7 g/dL (3.5-5.0); Alkaline Phosphatase 436 U/L (39-117); Anion Gap 12 (12-20); Aspartate Amino Transferase 37 U/L (5-37); Bilirubin Total 1.4 mg/dL (0.0-1.0); Blood Urea Nitrogen 10 mg/dL (9-16); Calcium 8.3 mg/dL (8.4-10.2); Carbon Dioxide 29 mmol/L (22-29); Chloride 98 mmol/L (96-108); Creatinine Clr Calc Pharmacy 144.5; Estimated Glomerular Filt Rate > 60; Glucose Fasting 131 mg/dL (60-99); Potassium 3.8 mmol/L (3.3-5.1); Sodium 135 mmol/L (135-145); Total Protein 5.1 g/dL (6.5-8.0)
[2022-11-11] MEDS: Spironolactone 25 MG TABLET PO (07:54)
[2022-11-11] MEDS: Folic Acid 1 MG TABLET PO (07:54)
[2022-11-11] MEDS: 0.9 % Sodium Chloride Flush 3 ML SYRINGE IVFLUSH ×3 (07:54→21:08)
[2022-11-11] MEDS: Furosemide 20 MG TABLET PO ×2 (07:54→16:16)
[2022-11-11] MEDS: oxyCODONE HCl Immed Release 5 MG TABLET 10 MG PO ×3 (07:55→21:04)
[2022-11-11] MEDS: Fluticasone/Vilanterol 200/25 BLST.W.DEV 1 PUFF INHALE (07:56)
[2022-11-11 08:18] LABS: Glucose, Whole Blood 123 mg/dL (60-115)
[2022-11-11] MEDS: Enoxaparin Sodium 40 MG/0.4 ML SYRINGE SUBCUT (08:52)
[2022-11-11] MEDS: Albumin Human 25 % 100 ML IV ×3 (08:53→21:07)
--- NOTE | 2022-11-11 10:44 | PM.EVENT ---
Event Note Date of Service: 11/11/22 Event Note: feels well says he might undergo paracentesis good PO intake abd soft doing postop ffup in office after discharge Time Spent With Patient Time: Total time managing care of this patient today ____ minutes.
[2022-11-11 11:59] LABS: Glucose, Whole Blood 201 mg/dL (60-115)
[2022-11-11 12:00] VITALS: BP 105/71; PULSE 91; RESP 20; TEMP 36.7; O2SAT 98
[2022-11-11] MEDS: Insulin Lispro 100 UNIT/ML 3 ML VIAL SUBCUT ×2 (12:05→21:08)
--- NOTE | 2022-11-11 13:19 | P.PNIM_ITS ---
Subjective Subjective Date of Service: 11/11/22 Interval History: Admitted for umbilical hernia repair; uneventful postop. Feels ascites is reaccumulating. No acute issues overnight Review of Systems Denies chest pain Denies shortness of breath Denies nausea vomiting diarrhea Denies fever chills Physical Exam Vital Signs: Vital Signs: Last Vital Signs Temp 98.0 F 11/11/22 12:00 Pulse 91 11/11/22 12:00 Resp 20 11/11/22 12:00 BP 105/71 11/11/22 12:00 Pulse Ox 98 11/11/22 12:00 O2 Del Method 11/11/22 12:00 O2 Flow Rate 2 11/07/22 17:31 Oxygen Flow Rate 2 11/07/22 16:13 BMI result Body Mass Index 23.0 Const: Other: No acute issues Resp: Other: Clear to auscultation bilaterally no rales rhonchi wheezes Cardio: Other: No S4; positive S1-S2; no S3 murmurs rubs or gallops GI: Other: Soft minimally tender diffusely; moderate fluid wave Extrem: Other: No edema bilaterally Objective Data Active Medications Acetaminophen (Acetaminophen Supp 650 Mg Supp.Rect) 650 mg NC Q6H PRN PRN Reason: Pain, Mild (Pain Scale 1-3) Albuterol Sulfate (Albuterol Sulfate 90 Mcg 8 Gm Inhaler) 2 puff INHALE RQ4H PRN PRN Reason: Wheezing Dextrose (Dextrose 50 % 25 Gm/50 Ml Syringe) 25 gm IVPUSH Q15M PRN; Protocol PRN Reason: per Hypoglycemia Standing Ord. Enoxaparin Sodium (Enoxaparin Sodium 40 Mg/0.4 Ml Syringe) 40 mg SUBCUT Q24H [facility] Last Admin: 11/11/22 08:52 Dose: 40 mg Documented By: SAWYER Fentanyl (Fentanyl Citrate/Pf 100 Mcg/2 Ml Vial) 50 mcg IVPUSH Q5M PRN; Protocol PRN Reason: Pain, Severe (Pain Scale 7-10) Fluticasone/Vilanterol (Fluticasone/Vilanterol 200/25 Blst.W.Dev) 1 puff INHALE RDAILY [facility] Last Admin: 11/11/22 07:56 Dose: 1 puff Documented By: SAWYER Folic Acid (Folic Acid 1 Mg Tablet) 1 mg PO DAILY [facility] Last Admin: 11/11/22 07:54 Dose: 1 mg Documented By: SAWYER Furosemide (Furosemide 20 Mg Tablet) 20 mg PO BID@0800,1700 [facility]; Protocol Last Admin: 11/11/22 07:54 Dose: 20 mg Documented By: SAWYER Glucose (Glucose Gel 15 Gm Gel..Gram.) 15 gm PO Q15M PRN; Protocol PRN Reason: per Hypoglycemia Standing Ord. Hydromorphone HCl (Hydromorphone Hcl 0.5 Mg/0.5 Ml Syringe) 0.5 mg IVPUSH Q4H PRN; Protocol PRN Reason: Pain, Severe (Pain Scale 7-10) Last Admin: 11/11/22 02:13 Dose: 0.5 mg Documented By: MANISH Cefazolin Sodium/Dextrose (Ancef) 2 gm in 50 mls @ 100 mls/hr IV Q8H [facility] Last Infusion: 11/11/22 09:03 Dose: 0 mls/hr Documented By: SAWYER Albumin Human (Kedbumin 25 %) 100 mls @ 100 mls/hr IV Q6H [facility] Stop: 11/12/22 02:59 Last Infusion: 11/11/22 11:53 Dose: 0 mls/hr Documented By: SAWYER Insulin Human Lispro (Insulin Lispro 100 Unit/Ml 3 Ml Vial) 0 unit SUBCUT QIDAC [facility]; Protocol Last Admin: 11/11/22 12:05 Dose: 4 unit Documented By: SAWYER Lisinopril (Lisinopril 5 Mg Tablet) 5 mg PO DAILY [facility]; Protocol Last Admin: 11/11/22 09:19 Dose: Not Given Documented By: SAWYER Non-Admin Reason: Physician Held Med Lorazepam (Lorazepam 0.5 Mg Tablet) 0.5 mg PO Q8H PRN PRN Reason: Anxiety Last Admin: 11/07/22 09:05 Dose: 0.5 mg Documented By: RACHEL Morphine Sulfate (Morphine Sulfate 4 Mg/Ml Cartridge) 4 mg IVPUSH Q4H PRN; Protocol PRN Reason: Pain, Moderate (Pain Scale 4-6 Last Admin: 11/11/22 05:50 Dose: 4 mg Documented By: MANISH Ondansetron HCl (Ondansetron Hcl 4 Mg/2 Ml Vial) 4 mg IVPUSH Q8H PRN PRN Reason: Nausea and Vomiting Ondansetron HCl (Ondansetron Hcl 4 Mg/2 Ml Vial) 4 mg IVPUSH ONCE PRN PRN Reason: Nausea and Vomiting Oxycodone HCl (Oxycodone Hcl Immed Release 5 Mg Tablet) 10 mg PO Q4H PRN PRN Reason: Pain, Moderate (Pain Scale 4-6 Last Admin: 11/11/22 12:04 Dose: 10 mg Documented By: SAWYER Sodium Chloride (0.9 % Sodium Chloride Flush 3 Ml Syringe) [facility] Last Admin: 11/11/22 07:54 Dose: 3 ml Documented By: SAWYER Spironolactone (Spironolactone 25 Mg Tablet) 25 mg PO DAILY [facility]; Protocol Last Admin: 11/11/22 07:54 Dose: 25 mg Documented By: SAWYER Labs CBC & Chem 7: 11/11/22 07:16 11/11/22 07:16 Labs: Laboratory Results - last 24 hr 11/10/22 11/10/22 11/11/22 16:03 19:37 07:16 MCV 93.8 MCH 32.4 MCHC 34.5 RDW 13.5 Plt Count 206 MPV 9.9 Immature Gran % (Auto) 0.5 H Neut % (Auto) 74.7 H Lymph % (Auto) 8.3 L Harris % (Auto) 12.1 H Eos % (Auto) 4.2 H Baso % (Auto) 0.2 Lymph # (Auto) 0.5 L Harris # (Auto) 0.7 Eos # (Auto) 0.2 Baso # (Auto) 0.0 Abs Immat Gran (auto) 0.03 Absolute Neuts (auto) 4.3 Absolute Nucleated RBC 0.000 Nucleated RBC % (auto) 0.0 Anion Gap Estim Creat Clear Calc Estimated GFR POC Glucose 185 H 220 H Fasting Glucose Calcium Total Bilirubin AST ALT Alkaline Phosphatase Total Protein Albumin 11/11/22 11/11/22 11/11/22 07:16 07:39 11:54 MCV MCH MCHC RDW Plt Count MPV Immature Gran % (Auto) Neut % (Auto) Lymph % (Auto) Harris % (Auto) Eos % (Auto) Baso % (Auto) Lymph # (Auto) Harris # (Auto) Eos # (Auto) Baso # (Auto) Abs Immat Gran (auto) Absolute Neuts (auto) Absolute Nucleated RBC Nucleated RBC % (auto) Anion Gap 12 Estim Creat Clear Calc 144.5 Estimated GFR > 60 POC Glucose 123 H 201 H Fasting Glucose 131 H Calcium 8.3 L Total Bilirubin 1.4 H AST 37 ALT 26 Alkaline Phosphatase 436 H Total Protein 5.1 L Albumin 2.7 L Assessment and Plan (1) Incarcerated umbilical hernia: Status: Acute (2) Cirrhosis of liver: Status: Acute Plan This is a 61-year-old male with past medical history of liver cirrhosis secondary to alcohol abuse presents to the hospital with complaints of abdominal pain post paracentesis found to have small-bowel obstruction secondary to incarcerated umbilical hernia 1. Status post umbilical hernia repair(POD4) -pain control adequate -as per surgery;ADAT 2.Alcoholic liver cirrhosis -Status post paracentesis with 13.7 L removed -resume Lasix and Aldactone. Albumin x4 bottles. Follow clinically -hope to avoid additional paracentesis 3.Diabetes mellitus -lispro correctional scale -adjust as indicated DVT prophylaxis:? Lovenox Full code Continue hospitalization for treatment of small-bowel obstruction Time Spent With Patient Time: Total time managing care of this patient today ____ minutes. Quality Stroke Does the patient have a stroke diagnosis?: No VTE Prior VTE?: No VTE Risk Level:: Medical - moderate - high VTE Device Contraindication: Treatment Not Indicated VTE Drug Contraindication: N/A - Med Ordered
[2022-11-11 15:44] VITALS: BP 122/76; PULSE 94; RESP 18; TEMP 37.1; O2SAT 97
[2022-11-11 15:59] LABS: Glucose, Whole Blood 129 mg/dL (60-115)
[2022-11-11 19:43] VITALS: BP 120/75; PULSE 81; RESP 18; TEMP 36.6; O2SAT 97
[2022-11-11 19:49] LABS: Glucose, Whole Blood 181 mg/dL (60-115)
[2022-11-11 23:22] VITALS: BP 115/61; PULSE 77; RESP 18; TEMP 36.5; O2SAT 97
[2022-11-12] MEDS: ceFAZolin Sodium/Dextrose,Iso 2 GM/50 ML PIGGYBACK IV ×2 (00:18→07:39)
[2022-11-12] MEDS: HYDROmorphone HCl 0.5 MG/0.5 ML SYRINGE IVPUSH ×2 (00:18→12:03)
[2022-11-12] MEDS: Albumin Human 25 % 100 ML IV (02:06)
[2022-11-12 03:08] VITALS: BP 111/67; PULSE 65; RESP 14; TEMP 36.7; O2SAT 94
[2022-11-12 07:19] LABS: MANUAL DIFF FLAG NO
[2022-11-12 07:20] VITALS: BP 108/72; PULSE 72; RESP 20; TEMP 36.3; O2SAT 96
[2022-11-12 07:24] LABS: Basophils Percent Auto 0.2 % (0-2); Eosinophils Absolute Auto 0.2 X10*3/uL (0.0-0.4); Eosinophils Percent Auto 3.6 % (0-4); Hematocrit 36.4 % (42.0-52.0); Hemoglobin 12.4 g/dl (14.0-18.0); Imm Gran Abs Auto 0.04 X10*3/uL (0.00-0.03); Imm Gran Pct Auto 0.7 % (0.0-0.4); Lymphocytes Absolute Auto 0.4 X10*3/uL (1.2-4.9); Lymphocytes Percent Auto 6.9 % (20-40); Mean Corpuscular HGB Conc 34.1 g/dl (31.0-36.0); Mean Corpuscular Hemoglobin 31.7 pg (27.0-33.0); Mean Corpuscular Volume 93.1 fL (80.0-98.0); Mean Platelet Volume 9.7 fL (9.4-12.4); Monocytes Absolute Auto 0.7 X10*3/uL (0.1-1.2); Monocytes Percent Auto 12.3 % (2-11); Neutrophils Absolute Auto 4.2 x10*3/uL (2.0-8.3); Neutrophils Percent Auto 76.3 % (45-73); Platelet Count 189 X10*3/uL (160-400); Red Blood Count 3.91 X10*6/uL (4.60-5.80); Red Cell Distribution Width 13.6 % (11.0-16.0); White Blood Count 5.5 X10*3/uL (4.8-10.8)
[2022-11-12] MEDS: Folic Acid 1 MG TABLET PO (07:39)
[2022-11-12] MEDS: Furosemide 20 MG TABLET PO (07:39)
[2022-11-12] MEDS: 0.9 % Sodium Chloride Flush 3 ML SYRINGE IVFLUSH (07:39)
[2022-11-12] MEDS: Spironolactone 25 MG TABLET PO (07:39)
[2022-11-12] MEDS: oxyCODONE HCl Immed Release 5 MG TABLET 10 MG PO (07:39)
[2022-11-12 07:46] LABS: Glucose, Whole Blood 140 mg/dL (60-115)
[2022-11-12 07:49] LABS: Alanine Aminotransferase 17 U/L (0-40); Albumin Level 3.3 g/dL (3.5-5.0); Alkaline Phosphatase 385 U/L (39-117); Anion Gap 12 (12-20); Aspartate Amino Transferase 24 U/L (5-37); Bilirubin Total 1.3 mg/dL (0.0-1.0); Blood Urea Nitrogen 8 mg/dL (9-16); Calcium 8.7 mg/dL (8.4-10.2); Carbon Dioxide 29 mmol/L (22-29); Chloride 98 mmol/L (96-108); Creatinine Clr Calc Pharmacy 144.5; Estimated Glomerular Filt Rate > 60; Glucose Fasting 145 mg/dL (60-99); Potassium 4.3 mmol/L (3.3-5.1); Sodium 135 mmol/L (135-145); Total Protein 5.3 g/dL (6.5-8.0)
[2022-11-12] MEDS: Fluticasone/Vilanterol 200/25 BLST.W.DEV 1 PUFF INHALE (07:49)
--- NOTE | 2022-11-12 10:17 | P.DS_ITS ---
DS: Providers Provider Date of Service: 11/12/22 Date of admission: 11/06/22 22:48 Date of discharge: 11/12/22 Primary care physician: Ronnie Mcclellan MD Consults: 11/07/22 13:17 Consult to Gastroenterology Routine Consulting Provider: Sherine Arreola Reason for consultation: etoh cirrhosis Consult to General Surgery Routine Consulting Provider: Ronnie Reeves Reason for consultation: hernia DS: Diagnosis Discharge Diagnosis (1) Incarcerated umbilical hernia: Status: Acute (2) Cirrhosis of liver: Status: Acute DS: Summary Hospital Course Hospital Course: 61-year-old male with past medical history of liver cirrhosis secondary to alcohol abuse, diabetes, COPD presents the hospital with complaints of abdominal pain.? Patient reports that he usually undergoes paracentesis for his ascites every 3 weeks.? He underwent paracentesis this a.m., 14 L of fluid was drawn which is very typical for him, few hours later he developed significant 10/10 pain mostly in the lower abdomen , constant, nonradiating,? gradually worsening.? Reports that this is his 6th paracentesis and no complications previously.? Associated with nausea with no vomiting.? His last bowel movement was a day presentation in the a.m..? He is not passing gas at this time.? He reports no fever or chills, no urinary symptoms and no lower extremity edema.? He reports no weakness numbness or tingling.? ?patient denies any new cough, no increased shortness of breath, and no worsening sputum production.? No chest pain. On arrival to the ED patient hemodynamically stable with no significant abnormal vitals Labs are significant for WBC count of 7.6 sodium of 133, total bili of 1.3, AST of 40 which is around his baseline, alk-phos of 368, Abdomen pelvic CT shows cirrhosis of the liver, large ventral wall hernia containing a small bowel loop, mild dilatation of small-bowel loops proximal to the hernia suggesting a small bowel obstruction. Hospital Course Admitted to general medical floor. Was seen in consultation by General surgery and on 11/07/22 underwent repair reduction of incarcerated umbilical hernia without issue. His postoperative course was uncomplicated save a minor incisional infection for which he was placed on Keflex. He was seen in consultation by GI as he felt his ascites was returning despite large volume paracentesis earlier this month. GI felt that a medical regimen would be appropriate at this time postoperatively and he was continued on Lasix 20 b.i.d. and Aldactone 50 was added. Given his propensity to low blood pressures postoperatively his lisinopril was DCd. This can be added back at the discretion of his primary care. Time Spent with Patient Time attestation: Total time managing care of this patient today ____ minutes. Discharge coordination time: Greater than 30 minutes Quality: Safe Use of Opioids Does Pt have an Active Cancer Diagnosis on the Problem List?: No Quality: Stroke Does the patient have a stroke diagnosis?: No Physical Exam Vital Signs: Vital Signs: Last Vital Signs Temp 97.4 F 11/12/22 07:20 Pulse 72 11/12/22 07:20 Resp 20 11/12/22 07:20 BP 108/72 11/12/22 07:20 Pulse Ox 96 11/12/22 07:20 O2 Del Method 11/12/22 07:20 O2 Flow Rate 2 11/07/22 17:31 Oxygen Flow Rate 2 11/07/22 16:13 BMI result Body Mass Index 23.0 Const: Other: No acute issues Resp: Other: Clear to auscultation bilaterally no rales rhonchi wheezes Cardio: Other: No S4; positive S1-S2; no S3 murmurs rubs or gallops GI: Other: Soft minimally tender diffusely; moderate fluid wave Extrem: Other: No edema bilaterally DS: Data Data Completed and Pending Completed studies during hospitalization [Text1]: Pending at discharge 11/07/22 15:46 Surgical [PTH] Routine Labs on day of discharge: Laboratory Results - last 24 hr 11/11/22 11/11/22 11/11/22 11:54 15:43 19:41 WBC RBC Hgb Hct MCV MCH MCHC RDW Plt Count MPV Immature Gran % (Auto) Neut % (Auto) Lymph % (Auto) [place] % (Auto) Eos % (Auto) Baso % (Auto) Lymph # (Auto) [place] # (Auto) Eos # (Auto) Baso # (Auto) Abs Immat Gran (auto) Absolute Neuts (auto) Absolute Nucleated RBC Nucleated RBC % (auto) Sodium Potassium Chloride Carbon Dioxide Anion Gap BUN Creatinine Estim Creat Clear Calc Estimated GFR POC Glucose 201 H 129 H 181 H Fasting Glucose Calcium Total Bilirubin AST ALT Alkaline Phosphatase Total Protein Albumin 1211/12/22 11/12/22 07:02 07:02 07:22 WBC 5.5 RBC 3.91 L Hgb 12.4 L Hct 36.4 L MCV 93.1 MCH 31.7 MCHC 34.1 RDW 13.6 Plt Count 189 MPV 9.7 Immature Gran % (Auto) 0.7 H Neut % (Auto) 76.3 H Lymph % (Auto) 6.9 L [place] % (Auto) 12.3 H Eos % (Auto) 3.6 Baso % (Auto) 0.2 Lymph # (Auto) 0.4 L [place] # (Auto) 0.7 Eos # (Auto) 0.2 Baso # (Auto) 0.0 Abs Immat Gran (auto) 0.04 H Absolute Neuts (auto) 4.2 Absolute Nucleated RBC 0.000 Nucleated RBC % (auto) 0.0 Sodium 135 Potassium 4.3 Chloride 98 Carbon Dioxide 29 Anion Gap 12 BUN 8 L Creatinine 0.53 Estim Creat Clear Calc 144.5 Estimated GFR > 60 POC Glucose 140 H Fasting Glucose 145 H Calcium 8.7 Total Bilirubin 1.3 H AST 24 ALT 17 Alkaline Phosphatase 385 H Total Protein 5.3 L Albumin 3.3 L Discharge Plan Discharge Anticipated Discharge Date/Time: 11/12/22 10:08 Patient Disposition: Home, Self-Care Discharge Diagnosis: Incarcerated umbilical hernia Referrals: Ronnie Mcclellan MD [Primary Care Provider] - 1 Week Discharge Medications: New spironolactone 25 mg Tablet 50 mg PO DAILY Qty: 30 0RF Protocol: Hold for SBP< HOLD for SBP < : 90 oxycodone 5 mg tablet 5 mg PO Q6H PRN (Reason: pain) Qty: 10 0RF Rx Instructions: Partial Fill upon patient request. cephalexin 500 mg capsule 500 mg PO QID 7 Days Qty: 28 0RF Continued tramadol 50 mg tablet 1 tab PO TID PRN (Reason: pain) budesonide-formoterol [Symbicort] 160-4.5 mcg/actuation HFA aerosol inhaler 1 inh INHALATION BID metformin 1,000 mg tablet 1,000 mg PO BID folic acid 1 mg tablet 1 tab PO DAILY furosemide 20 mg tablet 20 mg PO BID lorazepam 1 mg tablet 1 tab PO NEEDED PRN (Reason: Anxiety) Rx Instructions: No more than 4 a day albuterol sulfate [Ventolin HFA] 90 mcg/actuation HFA aerosol inhaler 2 inh inhalation NEEDED glipizide 5 mg tablet 2 tab PO BID cholecalciferol (vitamin D3) 125 mcg (5,000 unit) capsule 1 cap PO DAILY Discontinued lisinopril 5 mg tablet 5 mg PO DAILY Discharge Orders: Discharge Order (Routine); Ordered 11/12/22 Ordered By: Rm Burrows Diet: Advance to usual diet Activity on Discharge: As tolerated Stand Alone Forms: Patient Portal Discharge page Care Plan Goals: Continue with Lasix 20 mg twice daily and add Aldactone 50 mg daily to your regimen. Stop lisinopril until seen by PCP Health Concerns: Complete course of Keflex for your incisional infection Plan of Treatment: Oxycodone p.r.n. for breakthrough pain 10. Given Assessment: See discharge plan
--- NOTE | 2022-11-12 10:22 | MHC.CM.PN ---
Patient has been medically cleared for dc to home today, self care. Patient is Covid (+); CM spoke with Patient over the phone at his listed cell # and verbally addressed IMM with him. Patient expressed his agreement with the dc plan and he is very pleased to be returning home today. IMM form placed on chart.
[2022-11-12 10:56] VITALS: BP 101/68; PULSE 88; RESP 20; TEMP 36.8; O2SAT 95
[2022-11-12 11:14] LABS: Glucose, Whole Blood 201 mg/dL (60-115)
[2022-11-12] MEDS: Enoxaparin Sodium 40 MG/0.4 ML SYRINGE SUBCUT (12:03)
[2022-11-12] MEDS: Insulin Lispro 100 UNIT/ML 3 ML VIAL SUBCUT (12:06)
== END 2022-11-12 14:03 | disposition home or self-care (01) | DRG 353 ==
LOC: HO.ED 22:21 → HO.EDOVER 22:53 → HO.IMC 11-07 01:52
PROVIDERS: Nurse Practitioner Acute Care; Surgery; Admitting Provider Internal Medicine; Emergency Provider Emergency Medicine; PCP Internal Medicine; Visit Provider Hospitalist
PROC: 0WQF0ZZ Repair Abdominal Wall, Open Approach (ICD-10-PCS; principal; 2022-11-07 14:40)
DX: K42.0 Umbilical hernia with obstruction, without gangrene (principal); U07.1 COVID-19; T81.41XA Infection following a procedure, superficial incisional surgical site, initial encounter; K70.31 Alcoholic cirrhosis of liver with ascites; E88.09 Other disorders of plasma-protein metabolism, not elsewhere classified; E11.9 Type 2 diabetes mellitus without complications; J44.9 Chronic obstructive pulmonary disease, unspecified; Z87.891 Personal history of nicotine dependence; Z79.84 Long term (current) use of oral hypoglycemic drugs; Z79.899 Other long term (current) drug therapy
CPT/HCPCS: 0241U; 36415; 49083; 74018; 74176; 80048; 80053; 80076; 81003; 82947; 83605; 83690; 83735; 85025; 85610; 87040; 88302; 94640; 96365; 96375; 99285; J0330; J0690; J0696; J1170; J1650; J2250; J2270; J2405; J2795; J3010; J3475; P9047

== ENCOUNTER → 2022-11-16 08:47 | Outpatient (BNVA) | payer MEDICARE, SELFPAY | PROVIDERS: PCP Internal Medicine; Visit Provider Physician Assistant Surgical | DX: Z48.02 Encounter for removal of sutures (principal); K46.0 Unspecified abdominal hernia with obstruction, without gangrene; L53.8 Other specified erythematous conditions; Z87.891 Personal history of nicotine dependence; Z77.22 Contact with and (suspected) exposure to environmental tobacco smoke (acute) (chronic) | CPT/HCPCS: 99212 ==

== ENCOUNTER 2022-11-23 13:09 | Day surgery (SDC) | payer MEDICARE, OTHER, SELFPAY ==
--- NOTE | ~2022-11-23 | US_ITS ---
EXAMINATION: ULTRASOUND-GUIDED PARACENTESIS PERFORMED. CLINICAL INFORMATION: Ascites. COMPARISON: Previous ultrasound guided paracentesis 11/06/2022. TECHNIQUE: Following explaining ultrasound-guided paracentesis procedure, benefits and risk, a written consent was obtained. Patient was placed supine on ultrasound stretcher and pulmonary ultrasound imaging was obtained. An optimal site was selected along the mid abdomen and marked. The marked site was cleaned and draped in usual sterile manner. 1% lidocaine was injected puncture site. Through a small skin incision a 5 Latvian [employer] catheter was advanced into the peritoneal space. After observing fluid return the catheter was withdrawn and complete hemostasis achieved at puncture site. Sterile dressing applied postprocedure. Patient tolerated procedure extremely well. FINDINGS: On preliminary ultrasound imaging there is moderate ascites seen. Approximately 8.4 L of dark yellowish fluid was drained. None of this fluid was sent to lab. US/US paracentesis abd w/image IMPRESSION: Successful ultrasound-guided therapeutic paracentesis performed with 8.4 L of fluid drained. On the last ultrasound exam 13.7 L of fluid was drained.
[2022-11-23 13:16] VITALS: BMI 24.6
[2022-11-23 13:45] LABS: Glucose, Whole Blood 125 mg/dL (60-115)
[2022-11-23 15:24] VITALS: BP 93/58; PULSE 58; RESP 15; TEMP 37; O2SAT 95
[2022-11-23] MEDS: Lidocaine HCl 1 % MPF 5 ML VIAL 10 ML SUBCUT (15:36)
[2022-11-23 15:39] VITALS: BP 105/62; PULSE 59; RESP 17; O2SAT 97
[2022-11-23 15:54] VITALS: BP 109/69; PULSE 55; RESP 16; O2SAT 98
[2022-11-23 16:09] VITALS: BP 92/53; PULSE 67; RESP 16; TEMP 36.6; O2SAT 98
== END 2022-11-23 16:24 | disposition home or self-care (01) ==
PROVIDERS: PCP Internal Medicine; Visit Provider Radiology Diagnostic Radiology
DX: R18.8 Other ascites (principal); K74.60 Unspecified cirrhosis of liver; Z98.890 Other specified postprocedural states
CPT/HCPCS: 49083; 82947

== ENCOUNTER → 2022-11-30 09:50 | Outpatient (BNVA) | payer MEDICARE, OTHER, SELFPAY | PROVIDERS: PCP Internal Medicine; Visit Provider Physician Assistant Surgical | DX: K42.0 Umbilical hernia with obstruction, without gangrene (principal); E11.9 Type 2 diabetes mellitus without complications; K74.60 Unspecified cirrhosis of liver; Z09 Encounter for follow-up examination after completed treatment for conditions other than malignant neoplasm | CPT/HCPCS: 99212 ==

== ENCOUNTER 2022-12-04 09:00 | Outpatient (REF) | payer MEDICARE, OTHER, SELFPAY ==
[2022-12-04 11:16] LABS: MANUAL DIFF FLAG NO
[2022-12-04 11:28] LABS: Basophils Percent Auto 0.8 % (0-2); Eosinophils Absolute Auto 0.4 X10*3/uL (0.0-0.4); Eosinophils Percent Auto 7.7 % (0-4); Hematocrit 40.2 % (42.0-52.0); Hemoglobin 13.2 g/dl (14.0-18.0); Imm Gran Abs Auto 0.02 X10*3/uL (0.00-0.03); Imm Gran Pct Auto 0.4 % (0.0-0.4); Lymphocytes Absolute Auto 0.5 X10*3/uL (1.2-4.9); Lymphocytes Percent Auto 10.2 % (20-40); Mean Corpuscular HGB Conc 32.8 g/dl (31.0-36.0); Mean Corpuscular Hemoglobin 31.5 pg (27.0-33.0); Mean Corpuscular Volume 95.9 fL (80.0-98.0); Mean Platelet Volume 10.3 fL (9.4-12.4); Monocytes Absolute Auto 0.5 X10*3/uL (0.1-1.2); Monocytes Percent Auto 10.2 % (2-11); Neutrophils Absolute Auto 3.7 x10*3/uL (2.0-8.3); Neutrophils Percent Auto 70.7 % (45-73); Platelet Count 210 X10*3/uL (160-400); Red Blood Count 4.19 X10*6/uL (4.60-5.80); Red Cell Distribution Width 13.7 % (11.0-16.0); White Blood Count 5.2 X10*3/uL (4.8-10.8)
[2022-12-04 11:41] LABS: Estimated Average Glucose 114 mg/dL; Hemoglobin A1c % 5.6 %
[2022-12-04 11:52] LABS: Alanine Aminotransferase 34 U/L (0-40); Albumin Level 3.5 g/dL (3.5-5.0); Alkaline Phosphatase 386 U/L (39-117); Anion Gap 12 (12-20); Aspartate Amino Transferase 44 U/L (5-37); Bilirubin Total 0.7 mg/dL (0.0-1.0); Blood Urea Nitrogen 14 mg/dL (9-16); Calcium 8.8 mg/dL (8.4-10.2); Carbon Dioxide 29 mmol/L (22-29); Chloride 98 mmol/L (96-108); Estimated Glomerular Filt Rate > 60; Glucose Random 95 mg/dL (60-115); Potassium 3.4 mmol/L (3.3-5.1); Sodium 136 mmol/L (135-145); Total Protein 6.2 g/dL (6.5-8.0)
== END 2022-12-04 09:01 | disposition home or self-care (01) ==
LOC: HO.WFDLDS 09:00
PROVIDERS: Visit Provider Internal Medicine
DX: E11.9 Type 2 diabetes mellitus without complications (principal); J44.9 Chronic obstructive pulmonary disease, unspecified; K74.60 Unspecified cirrhosis of liver
CPT/HCPCS: 36415; 80053; 83036; 85025

== ENCOUNTER → 2022-12-07 14:37 | Outpatient (BNVA) | payer MEDICARE, OTHER, SELFPAY | PROVIDERS: PCP Internal Medicine; Visit Provider Surgery | DX: Z13.89 Encounter for screening for other disorder (principal) | CPT/HCPCS: 99212 ==

== ENCOUNTER 2022-12-13 11:07 | Day surgery (SDC) | payer MEDICARE, OTHER, SELFPAY ==
--- NOTE | ~2022-12-13 | US_ITS ---
EXAMINATION: ULTRASOUND-GUIDED PARACENTESIS CLINICAL INFORMATION: Ascites COMPARISON: None TECHNIQUE: Following explaining ultrasound-guided paracentesis procedure, benefits and risk, a written consent was obtained. Patient was placed supine on ultrasound stretcher and preliminary ultrasound imaging was obtained through the abdomen. An optimal site was selected along the right lower quadrant and marked. The marked site was cleaned and draped in usual sterile manner. 1% lidocaine was administered at puncture site. Through a small skin incision a 5 Solomon Islander [employer] catheter was advanced into the peritoneal space. After observing fluid return, stylet was withdrawn and catheter connected to vacuum bottle via connecting cannula. After obtaining all fluid and observing normal fluid return, catheter was withdrawn and complete hemostasis achieved at puncture site. Simple Band-Aid applied postprocedure Patient tolerated procedure extremely well. FINDINGS: On preliminary ultrasound imaging there is [id number] amount of free fluid in the pelvis. Approximately 11.5 Liters of cloudy brownish/orange fluid was drained. None of this fluid was sent to lab. US/US paracentesis abd w/image IMPRESSION: Successful ultrasound-guided therapeutic paracentesis performed without immediate complications.
[2022-12-13 11:53] VITALS: BMI 25.4
[2022-12-13 12:14] LABS: Glucose, Whole Blood 82 mg/dL (60-115)
[2022-12-13 12:31] LABS: MANUAL DIFF FLAG NO
[2022-12-13 12:34] LABS: Basophils Percent Auto 0.8 % (0-2); Eosinophils Absolute Auto 0.1 X10*3/uL (0.0-0.4); Eosinophils Percent Auto 2.8 % (0-4); Hematocrit 39.2 % (42.0-52.0); Hemoglobin 13.2 g/dl (14.0-18.0); Imm Gran Abs Auto 0.02 X10*3/uL (0.00-0.03); Imm Gran Pct Auto 0.4 % (0.0-0.4); Lymphocytes Absolute Auto 0.4 X10*3/uL (1.2-4.9); Lymphocytes Percent Auto 8.4 % (20-40); Mean Corpuscular HGB Conc 33.7 g/dl (31.0-36.0); Mean Corpuscular Hemoglobin 31.7 pg (27.0-33.0); Mean Corpuscular Volume 94.2 fL (80.0-98.0); Mean Platelet Volume 9.9 fL (9.4-12.4); Monocytes Absolute Auto 0.6 X10*3/uL (0.1-1.2); Monocytes Percent Auto 12.7 % (2-11); Neutrophils Absolute Auto 3.8 x10*3/uL (2.0-8.3); Neutrophils Percent Auto 74.9 % (45-73); Platelet Count 191 X10*3/uL (160-400); Red Blood Count 4.16 X10*6/uL (4.60-5.80); Red Cell Distribution Width 14.4 % (11.0-16.0)
[2022-12-13 12:42] LABS: INTERNATIONAL NORM RATIO 1.1 (0.9-1.1); Prothrombin Time 12.9 SEC (10.0-13.1)
[2022-12-13 12:44] LABS: Partial Thromboplastin Time 35.9 SEC (26.0-36.4)
[2022-12-13 12:53] LABS: Anion Gap 15 (12-20); Blood Urea Nitrogen 11 mg/dL (9-16); Carbon Dioxide 24 mmol/L (22-29); Chloride 101 mmol/L (96-108); Estimated Glomerular Filt Rate > 60; Potassium 3.7 mmol/L (3.3-5.1); Sodium 136 mmol/L (135-145)
[2022-12-13 14:31] VITALS: BP 99/57; PULSE 65; RESP 16; TEMP 36.4; O2SAT 98
[2022-12-13] MEDS: Lidocaine HCl 1 % MPF 5 ML VIAL 10 ML SUBCUT (14:36)
[2022-12-13 14:51] VITALS: BP 104/67; PULSE 76; RESP 16; O2SAT 98
== END 2022-12-13 15:03 | disposition home or self-care (01) ==
PROVIDERS: PCP Internal Medicine; Visit Provider Radiology Diagnostic Radiology
DX: R18.8 Other ascites (principal); K74.60 Unspecified cirrhosis of liver; J44.9 Chronic obstructive pulmonary disease, unspecified; E11.40 Type 2 diabetes mellitus with diabetic neuropathy, unspecified; Z79.84 Long term (current) use of oral hypoglycemic drugs; Z87.891 Personal history of nicotine dependence
CPT/HCPCS: 36415; 49083; 80051; 82565; 82947; 84520; 85025; 85610; 85730

== ENCOUNTER 2022-12-21 12:38 | Day surgery (SDC) | payer MEDICARE, OTHER, SELFPAY ==
--- NOTE | ~2022-12-21 | US_ITS ---
EXAMINATION: ULTRASOUND-GUIDED PARACENTESIS CLINICAL INFORMATION: Ascites. COMPARISON: Ultrasound-guided paracentesis 12/21/2022. TECHNIQUE: Following explaining ultrasound-guided paracentesis procedure, benefits and risks, a written consent was obtained. Patient was placed supine on ultrasound stretcher and preliminary ultrasound imaging was obtained. An optimal site was selected along the right lower quadrant and marked. The marked site was cleaned and draped in usual sterile manner. 1% lidocaine was injected at puncture site. Through a small skin incision, a 5 Burkinan [employer] catheter was advanced into the peritoneal space. After observing fluid return, stylet was withdrawn and catheter connected to vacuum bottle via connecting cannula. After obtaining all fluid and observing normal fluid return, catheter was withdrawn and complete hemostasis achieved at puncture site. Sterile Band-Aid applied postprocedure. Patient tolerated procedure extremely well. None of this fluid was sent to lab. FINDINGS: On preliminary ultrasound imaging there is moderate fluid seen in the abdomen. Approximately 8.4 L of cloudy miguelito-colored fluid was drained from the right lower quadrant. US/US paracentesis abd w/image IMPRESSION: Successful ultrasound-guided therapeutic paracentesis performed with approximately 8.4 L of fluid removed.
--- NOTE | ~2022-12-21 | CT_ITS ---
EXAMINATION: CT ABDOMEN AND PELVIS WITHOUT CONTRAST CLINICAL INFORMATION: Ascites, intra-abdominal and pelvic swelling with mass and lump. COMPARISON: None TECHNIQUE: Multidetector volumetric imaging was performed from the superior aspect of the liver through the pubic symphysis. Sagittal and coronal reformatted images were obtained on the technologist's workstation. This CT examination was performed using dose optimization techniques as appropriate, variously including the following: *Automated exposure control *Adjustment of mA and/or kV according to patient size (this includes techniques or standardized protocols for targeted exams where dose is matched to indication/reason for exam; i.e. extremities or head) *Use of iterative reconstruction technique DLP: 533 mGy-cm FINDINGS: LUNG BASES: The lung bases are clear. Heart size is normal. LIVER, GALLBLADDER, AND BILIARY TREE: The liver is small in size with lobulated contour and slightly heterogeneous density. On this nonenhanced CT no focal lesion or intrahepatic ductal dilatation seen. There are numerous varicose vessels seen in the splenic hilum and the gastrohepatic space. The gallbladder is unremarkable with no evidence of radiopaque gallstones, gallbladder wall thickening, or obvious pericholecystic inflammatory changes. PANCREAS: Unremarkable. SPLEEN: 4 mm splenic calcification is seen. The spleen is otherwise unremarkable. ADRENAL GLANDS: Unremarkable. KIDNEYS AND URETERS: The kidneys are normal in size, shape, and attenuation. There is a 3 mm midpole and a 1 mm lower pole calculus left kidney without caliectasis. No radiopaque calculi seen in the right kidney. There is no hydronephrosis. BLADDER: Unremarkable. GASTROINTESTINAL TRACT: There is scattered stool, gas and diverticula seen throughout the colon without any mural thickening or obstruction. The small bowel loops are normal caliber. ABDOMINAL WALL: There is small umbilical hernia containing ascitic fluid. LYMPH NODES: No abnormal retroperitoneal or mesenteric lymph nodes seen. VASCULAR: The abdominal aorta is of normal caliber. PELVIC VISCERA: Unremarkable. OSSEOUS STRUCTURES: Unremarkable. CT/CT abdomen pelvis wo IV con IMPRESSION: Cirrhosis with portal hypertension and varices. Diffuse ascites. Small umbilical hernia containing ascitic fluid. Colonic diverticulosis with mild constipation. No diverticulitis. Fleischner guidelines were followed.
[2022-12-21 13:05] VITALS: BP 103/69; PULSE 71; RESP 18; TEMP 36.8; O2SAT 96
[2022-12-21 13:38] LABS: Glucose, Whole Blood 87 mg/dL (60-115)
[2022-12-21 13:44] VITALS: BMI 24.3
[2022-12-21] MEDS: Lidocaine HCl 1 % MPF 5 ML VIAL 10 ML SUBCUT (15:19)
[2022-12-21 15:23] VITALS: BP 106/51; PULSE 85; RESP 18; TEMP 37; O2SAT 95
[2022-12-21 15:38] VITALS: BP 100/60; PULSE 60; RESP 18; TEMP 36.7; O2SAT 97
== END 2022-12-21 16:00 | disposition home or self-care (01) ==
PROVIDERS: PCP Internal Medicine; Visit Provider Radiology Diagnostic Radiology
DX: R18.8 Other ascites (principal); K74.60 Unspecified cirrhosis of liver; K76.6 Portal hypertension; I85.10 Secondary esophageal varices without bleeding; K57.30 Diverticulosis of large intestine without perforation or abscess without bleeding; K59.00 Constipation, unspecified; K42.9 Umbilical hernia without obstruction or gangrene; J44.9 Chronic obstructive pulmonary disease, unspecified; E11.9 Type 2 diabetes mellitus without complications; Z79.84 Long term (current) use of oral hypoglycemic drugs; Z79.899 Other long term (current) drug therapy
CPT/HCPCS: 49083; 74176; 82947

== ENCOUNTER → 2022-12-27 09:34 | Outpatient (BNVA) | payer MEDICARE, OTHER, SELFPAY | PROVIDERS: PCP Internal Medicine; Visit Provider Surgery | DX: R22.2 Localized swelling, mass and lump, trunk (principal) | CPT/HCPCS: 99212 ==

== ENCOUNTER 2023-01-02 12:29 | Day surgery (SDC) | payer MEDICARE, OTHER, SELFPAY ==
--- NOTE | ~2023-01-02 | US_ITS ---
EXAMINATION: ULTRASOUND-GUIDED PARACENTESIS CLINICAL INFORMATION: Ascites. COMPARISON: None. TECHNIQUE: Following explaining ultrasound-guided paracentesis procedure, benefits and risk, a written consent was obtained. Patient was placed supine on ultrasound table and preliminary ultrasound imaging was obtained. An optimal site was selected in right lower quadrant and marked. The marked site was cleaned and draped in usual sterile manner. 1% lidocaine was administered at puncture site. Through a small skin incision a 5 Guinean [employer] catheter was advanced into the peritoneal space in the right lower quadrant. After observing fluid return, stylet was withdrawn and catheter connected to vacuum bottle via connecting cannula. After obtaining all fluid and observing normal fluid return, the catheter was removed and complete hemostasis achieved at puncture site. Sterile Band-Aid applied postprocedure. Patient tolerated procedure extremely well. FINDINGS: On preliminary ultrasound imaging, there is a large amount of ascites. Approximately 10.2 L of cloudy yellowish fluid was drained. None of this fluid was sent to lab. US/US paracentesis abd w/image IMPRESSION: Successful ultrasound-guided therapeutic paracentesis performed. None of this fluid was sent to lab.
[2023-01-02 13:00] LABS: MANUAL DIFF FLAG NO
[2023-01-02 13:08] VITALS: BMI 25.8
[2023-01-02 13:09] LABS: Basophils Percent Auto 0.6 % (0-2); Eosinophils Absolute Auto 0.1 X10*3/uL (0.0-0.4); Eosinophils Percent Auto 2.7 % (0-4); Hematocrit 40.2 % (42.0-52.0); Hemoglobin 13.6 g/dl (14.0-18.0); Imm Gran Abs Auto 0.02 X10*3/uL (0.00-0.03); Imm Gran Pct Auto 0.4 % (0.0-0.4); Lymphocytes Absolute Auto 0.5 X10*3/uL (1.2-4.9); Lymphocytes Percent Auto 8.7 % (20-40); Mean Corpuscular HGB Conc 33.8 g/dl (31.0-36.0); Mean Corpuscular Hemoglobin 31.6 pg (27.0-33.0); Mean Corpuscular Volume 93.5 fL (80.0-98.0); Mean Platelet Volume 9.7 fL (9.4-12.4); Monocytes Absolute Auto 0.4 X10*3/uL (0.1-1.2); Monocytes Percent Auto 7.6 % (2-11); Neutrophils Absolute Auto 4.2 x10*3/uL (2.0-8.3); Platelet Count 183 X10*3/uL (160-400); Red Cell Distribution Width 14.5 % (11.0-16.0); White Blood Count 5.3 X10*3/uL (4.8-10.8)
[2023-01-02 13:10] LABS: INTERNATIONAL NORM RATIO 1.1 (0.9-1.1); Prothrombin Time 12.8 SEC (10.0-13.1)
[2023-01-02 13:12] LABS: Partial Thromboplastin Time 36.3 SEC (26.0-36.4)
[2023-01-02 13:17] LABS: Glucose, Whole Blood 131 mg/dL (60-115)
[2023-01-02 13:32] LABS: Anion Gap 17 (12-20); Blood Urea Nitrogen 9 mg/dL (9-16); Carbon Dioxide 23 mmol/L (22-29); Chloride 103 mmol/L (96-108); Creatinine Clr Calc Pharmacy 119.9; Estimated Glomerular Filt Rate > 60; Potassium 3.8 mmol/L (3.3-5.1); Sodium 139 mmol/L (135-145)
[2023-01-02] MEDS: Lidocaine HCl 1 % MPF 5 ML VIAL SUBCUT (14:22)
[2023-01-02 15:08] VITALS: BP 105/55; O2SAT 97
[2023-01-02 15:23] VITALS: BP 95/57; O2SAT 98
[2023-01-02 15:53] VITALS: BP 97/62; TEMP 36.4; O2SAT 99
== END 2023-01-02 16:10 | disposition home or self-care (01) ==
PROVIDERS: PCP Internal Medicine; Visit Provider Radiology Diagnostic Radiology
DX: R18.8 Other ascites (principal); K74.60 Unspecified cirrhosis of liver; J44.9 Chronic obstructive pulmonary disease, unspecified; E11.40 Type 2 diabetes mellitus with diabetic neuropathy, unspecified; D69.6 Thrombocytopenia, unspecified; Z79.84 Long term (current) use of oral hypoglycemic drugs; Z79.899 Other long term (current) drug therapy; Z87.891 Personal history of nicotine dependence
CPT/HCPCS: 36415; 49083; 80051; 82565; 82947; 84520; 85025; 85610; 85730

== ENCOUNTER 2023-01-17 11:29 | Day surgery (SDC) | payer MEDICARE, OTHER, SELFPAY ==
--- NOTE | ~2023-01-17 | US_ITS ---
EXAMINATION: ULTRASOUND-GUIDED PARACENTESIS CLINICAL INFORMATION: Ascites COMPARISON: Previous exams most recent 01/02/2023 TECHNIQUE: Procedure, risks and benefits including bleeding, infection and low blood pressure were discussed with the patient and informed consent was obtained. The right lower quadrant was prepped and draped in the usual sterile fashion. The skin and soft tissues were anesthetized with 1% lidocaine plain. Using ultrasound guidance and a 5 Amharic catheter, access to the ascitic fluid was obtained. 11 L of matthew-colored slightly cloudy fluid was removed. No diagnostic specimen was sent. FINDINGS: Large amount of ascites. US/US paracentesis abd w/image IMPRESSION: Ultrasound-guided paracentesis.
[2023-01-17 12:06] VITALS: BP 102/61; PULSE 75; RESP 18; TEMP 36.1; O2SAT 97; BMI 25.8
--- NOTE | 2023-01-17 13:34 | HO.RADPN ---
RADIOLOGY Narrative Narrative: Large volume RLQ paracentesis using 5 fr catheter. 11 L turbid matthew colored fluid removed. No specimen sent.
[2023-01-17 15:00] VITALS: BP 96/59; PULSE 57; RESP 20; TEMP 36.1; O2SAT 99
[2023-01-17] MEDS: Lidocaine HCl 1 % MPF 5 ML VIAL SUBCUT (15:00)
[2023-01-17 15:15] VITALS: BP 96/59; PULSE 50; RESP 20; O2SAT 99
[2023-01-17 15:30] VITALS: BP 109/61; PULSE 74; RESP 20; O2SAT 99
[2023-01-17 15:45] VITALS: BP 98/63; PULSE 79; RESP 20; TEMP 36.1; O2SAT 100
== END 2023-01-17 16:06 | disposition home or self-care (01) ==
PROVIDERS: Radiology Diagnostic Radiology; PCP Internal Medicine; Visit Provider Internal Medicine
DX: R18.8 Other ascites (principal); K74.60 Unspecified cirrhosis of liver; J44.9 Chronic obstructive pulmonary disease, unspecified; E11.9 Type 2 diabetes mellitus without complications; Z79.84 Long term (current) use of oral hypoglycemic drugs; Z79.899 Other long term (current) drug therapy; Z87.891 Personal history of nicotine dependence
CPT/HCPCS: 49083

== ENCOUNTER 2023-01-25 08:41 | Outpatient (REF) | payer MEDICARE, OTHER, SELFPAY ==
[2023-01-25 08:58] LABS: MANUAL DIFF FLAG NO
[2023-01-25 09:10] LABS: Ammonia 44 umol/L (13-55)
[2023-01-25 09:58] LABS: Basophils Absolute Auto 0.1 X10*3/uL (0.0-0.2); Eosinophils Absolute Auto 0.2 X10*3/uL (0.0-0.4); Eosinophils Percent Auto 3.3 % (0-4); Hematocrit 43.1 % (42.0-52.0); Hemoglobin 14.4 g/dl (14.0-18.0); Imm Gran Abs Auto 0.03 X10*3/uL (0.00-0.03); Imm Gran Pct Auto 0.5 % (0.0-0.4); Lymphocytes Absolute Auto 0.5 X10*3/uL (1.2-4.9); Mean Corpuscular HGB Conc 33.4 g/dl (31.0-36.0); Mean Corpuscular Hemoglobin 31.8 pg (27.0-33.0); Mean Corpuscular Volume 95.1 fL (80.0-98.0); Mean Platelet Volume 10.2 fL (9.4-12.4); Monocytes Absolute Auto 0.5 X10*3/uL (0.1-1.2); Monocytes Percent Auto 8.6 % (2-11); Neutrophils Absolute Auto 4.8 x10*3/uL (2.0-8.3); Neutrophils Percent Auto 78.6 % (45-73); Platelet Count 243 X10*3/uL (160-400); Red Blood Count 4.53 X10*6/uL (4.60-5.80); Red Cell Distribution Width 13.9 % (11.0-16.0); White Blood Count 6.2 X10*3/uL (4.8-10.8)
[2023-01-25 10:05] LABS: INTERNATIONAL NORM RATIO 1.1 (0.9-1.1); Prothrombin Time 12.8 SEC (10.0-13.1)
[2023-01-25 11:13] LABS: Alanine Aminotransferase 23 U/L (0-40); Albumin Level 2.9 g/dL (3.5-5.0); Alkaline Phosphatase 343 U/L (39-117); Anion Gap 15 (12-20); Aspartate Amino Transferase 31 U/L (5-37); Bilirubin Direct 0.3 mg/dL (0.0-0.5); Bilirubin Total 0.8 mg/dL (0.0-1.0); Blood Urea Nitrogen 13 mg/dL (9-16); Carbon Dioxide 27 mmol/L (22-29); Chloride 99 mmol/L (96-108); Estimated Glomerular Filt Rate > 60; Iron 57 mcg/dL (45-160); Percent Iron Saturation 25 % (15-50); Potassium 3.5 mmol/L (3.3-5.1); Sodium 137 mmol/L (135-145); Total Iron Binding Capacity 225 mcg/dL (228-428); Total Protein 5.7 g/dL (6.5-8.0); Unsaturated Iron Binding 168 ug/dL
[2023-01-25 11:19] LABS: Ferritin 474 ng/mL (20-250)
[2023-01-26 09:22] LABS: ~HepC Num1 0.41 S/CO (0.00-0.79); ~Hepatitis C Antibody Nonreactive (Nonreactive)
[2023-01-26 09:34] LABS: Hepatitis A Antibody IgG Nonreactive (Nonreactive); ~Hepatitis A Antibody IgG 0.46 S/CO (0.00-0.99)
[2023-01-27 15:53] LABS: Anti Nuclear Antibody Screen NEGATIVE (NEGATIVE)
[2023-01-29 13:58] LABS: Smooth Muscle Antibody <20 U (<20)
[2023-01-29 14:02] LABS: Alpha Fetoprotein 1.9 ng/mL (<6.1)
[2023-01-30 13:19] LABS: Mitochondrial Antibodies NEGATIVE (NEGATIVE)
== END 2023-01-25 08:42 | disposition home or self-care (01) ==
LOC: HO.LAB 08:41
PROVIDERS: PCP Internal Medicine; Referring Provider Internal Medicine; Visit Provider Internal Medicine
DX: K70.31 Alcoholic cirrhosis of liver with ascites (principal)
CPT/HCPCS: 36415; 80051; 80076; 82105; 82140; 82565; 82728; 83540; 84520; 85025; 85610; 86015; 86038; 86039; 86255; 86256; 86708; 86803

== ENCOUNTER 2023-01-30 09:06 | Day surgery (SDC) | payer MEDICARE, OTHER, SELFPAY ==
--- NOTE | ~2023-01-30 | US_ITS ---
EXAMINATION: ULTRASOUND-GUIDED PARACENTESIS CLINICAL INFORMATION: Ascites. COMPARISON: None TECHNIQUE: Following explaining ultrasound-guided paracentesis procedure, benefits and risk, consent was obtained. Patient was placed supine on ultrasound stretcher and preliminary ultrasound imaging was obtained through the abdomen. An optimal site was selected, marked on skin and cleaned and draped in usual sterile manner. 1% lidocaine was injected at puncture site. Through a small skin incision a 5 Arabic Yueh catheter was advanced into the peritoneal space. After observing fluid return, stylet was withdrawn and catheter connected to vacuum bottle. After obtaining all fluid and observing normal fluid return, catheter was withdrawn and complete hemostasis achieved at puncture site. Sterile Band-Aid applied postprocedure. Patient tolerated procedure extremely well. FINDINGS: On preliminary ultrasound imaging there is a large amount of free fluid seen. Approximately 10.6 L of cloudy yellowish fluid was drained from the right lower quadrant. Patient refused anymore drainage. US/US paracentesis abd w/image IMPRESSION: Successful diagnostic paracentesis performed without immediate complications.
[2023-01-30 08:51] VITALS: BP 94/64; PULSE 74; RESP 20; TEMP 36.1; O2SAT 97; BMI 25.8
[2023-01-30 09:30] LABS: Glucose, Whole Blood 117 mg/dL (60-115)
[2023-01-30] MEDS: Lidocaine HCl 1 % MPF 5 ML VIAL SUBCUT (11:49)
[2023-01-30 11:52] VITALS: BP 97/60; PULSE 67; RESP 13; TEMP 36.8; O2SAT 94
[2023-01-30 12:05] VITALS: BP 89/50; PULSE 57; RESP 18; O2SAT 96
[2023-01-30 12:20] VITALS: BP 85/57; PULSE 74; RESP 18; TEMP 36.8; O2SAT 96
[2023-01-30 12:35] VITALS: BP 81/49; PULSE 82; RESP 18; O2SAT 96
[2023-01-30 12:50] VITALS: BP 85/55; PULSE 87; RESP 18; O2SAT 96
== END 2023-01-30 13:12 | disposition home or self-care (01) ==
PROVIDERS: PCP Internal Medicine; Visit Provider Radiology Diagnostic Radiology
DX: R18.8 Other ascites (principal); E11.9 Type 2 diabetes mellitus without complications
CPT/HCPCS: 49083; 82947

== ENCOUNTER 2023-02-14 08:05 | Outpatient (REF) | payer MEDICARE, OTHER, SELFPAY ==
[2023-02-14 08:23] LABS: MANUAL DIFF FLAG NO
[2023-02-14 08:39] LABS: Basophils Absolute Auto 0.1 X10*3/uL (0.0-0.2); Eosinophils Absolute Auto 0.2 X10*3/uL (0.0-0.4); Eosinophils Percent Auto 4.8 % (0-4); Hematocrit 41.4 % (42.0-52.0); Hemoglobin 13.6 g/dl (14.0-18.0); Imm Gran Abs Auto 0.01 X10*3/uL (0.00-0.03); Imm Gran Pct Auto 0.2 % (0.0-0.4); Lymphocytes Absolute Auto 0.5 X10*3/uL (1.2-4.9); Lymphocytes Percent Auto 9.4 % (20-40); Mean Corpuscular HGB Conc 32.9 g/dl (31.0-36.0); Mean Corpuscular Hemoglobin 31.6 pg (27.0-33.0); Mean Corpuscular Volume 96.3 fL (80.0-98.0); Monocytes Absolute Auto 0.6 X10*3/uL (0.1-1.2); Monocytes Percent Auto 13.2 % (2-11); Neutrophils Absolute Auto 3.4 x10*3/uL (2.0-8.3); Neutrophils Percent Auto 71.4 % (45-73); Platelet Count 197 X10*3/uL (160-400); Red Cell Distribution Width 13.6 % (11.0-16.0); White Blood Count 4.8 X10*3/uL (4.8-10.8)
[2023-02-14 08:47] LABS: Estimated Average Glucose 126 mg/dL
[2023-02-14 09:11] LABS: Alanine Aminotransferase 30 U/L (0-40); Albumin Level 2.9 g/dL (3.5-5.0); Alkaline Phosphatase 351 U/L (39-117); Anion Gap 13 (12-20); Aspartate Amino Transferase 44 U/L (5-37); Bilirubin Total 0.7 mg/dL (0.0-1.0); Blood Urea Nitrogen 10 mg/dL (9-16); Calcium 8.3 mg/dL (8.4-10.2); Carbon Dioxide 33 mmol/L (22-29); Chloride 97 mmol/L (96-108); Estimated Glomerular Filt Rate > 60; Glucose Random 106 mg/dL (60-115); Potassium 3.2 mmol/L (3.3-5.1); Sodium 140 mmol/L (135-145); Total Protein 5.8 g/dL (6.5-8.0)
== END 2023-02-14 08:06 | disposition home or self-care (01) ==
LOC: HO.LAB 08:05
PROVIDERS: Absent Provider Internal Medicine; PCP Internal Medicine; Visit Provider Internal Medicine
DX: E11.9 Type 2 diabetes mellitus without complications (principal); J44.9 Chronic obstructive pulmonary disease, unspecified; R60.0 Localized edema
CPT/HCPCS: 36415; 80053; 83036; 85025

== ENCOUNTER 2023-02-15 12:51 | Day surgery (SDC) | payer MEDICARE, OTHER, SELFPAY ==
--- NOTE | ~2023-02-15 | US_ITS ---
EXAMINATION: Complete duplex ultrasound of the abdomen CLINICAL INDICATION: Alcoholic cirrhosis with ascites; question portal vein thrombosis. COMPARISON: Abdominal ultrasound dated to 1114; CT abdomen and pelvis dated 12/21/2022. TECHNIQUE: Real-time abdominal ultrasound performed. Duplex Doppler ultrasound and pulse wave Doppler with spectral analysis were also performed. FINDINGS: There is mild to moderate ascites. The liver is enlarged, with minimal a longitudinal span of 18.6 cm. The liver shows increased echotexture and a nodular contour. No focal liver lesions are seen. No evidence for intrahepatic biliary ductal dilatation. The main, right, and left portal veins demonstrate normal corrected hepato-petal venous waveforms. The main portal vein measures 1.8 cm. The right, middle, and left hepatic veins demonstrates normal hepatofugal venous waveforms. The splenic vein demonstrates normal direction of flow. No evidence for venous thrombosis. The hepatic artery demonstrates normal arterial waveforms. There is gallbladder wall thickening to 1.0 cm, consistent with ascites. The gallbladder appears unremarkable without stones or cholecystitis. The common bile duct is of normal size, measuring 0.8 cm. The visualized portion of the pancreas appear within normal limits, although the tail of the pancreas is poorly visualized secondary to bowel gas. Both kidneys are visualized and are normal in size, echogenicity, and cortical thickness. The right kidney measures 12.6 cm in the sagittal plane, the left kidney measures 10.6 cm in sagittal plane. At the interpolar aspect, a 5 mm nonobstructing calculus is seen. There is no mass or hydronephrosis seen. The spleen appears unremarkable and measures 14.1 cm. The proximal abdominal aorta and IVC are normal in appearance. US/US duplex arterial venous comp IMPRESSION: 1. There are ultrasound features consistent with hepatosplenomegaly, cirrhosis and ascites. 2. There is hepatopedal portal venous flow.
--- NOTE | ~2023-02-15 | US_ITS ---
EXAMINATION: Complete duplex ultrasound of the abdomen CLINICAL INDICATION: Alcoholic cirrhosis with ascites; question portal vein thrombosis. COMPARISON: Abdominal ultrasound dated to 1114; CT abdomen and pelvis dated 12/21/2022. TECHNIQUE: Real-time abdominal ultrasound performed. Duplex Doppler ultrasound and pulse wave Doppler with spectral analysis were also performed. FINDINGS: There is mild to moderate ascites. The liver is enlarged, with minimal a longitudinal span of 18.6 cm. The liver shows increased echotexture and a nodular contour. No focal liver lesions are seen. No evidence for intrahepatic biliary ductal dilatation. The main, right, and left portal veins demonstrate normal corrected hepato-petal venous waveforms. The main portal vein measures 1.8 cm. The right, middle, and left hepatic veins demonstrates normal hepatofugal venous waveforms. The splenic vein demonstrates normal direction of flow. No evidence for venous thrombosis. The hepatic artery demonstrates normal arterial waveforms. There is gallbladder wall thickening to 1.0 cm, consistent with ascites. The gallbladder appears unremarkable without stones or cholecystitis. The common bile duct is of normal size, measuring 0.8 cm. The visualized portion of the pancreas appear within normal limits, although the tail of the pancreas is poorly visualized secondary to bowel gas. Both kidneys are visualized and are normal in size, echogenicity, and cortical thickness. The right kidney measures 12.6 cm in the sagittal plane, the left kidney measures 10.6 cm in sagittal plane. At the interpolar aspect, a 5 mm nonobstructing calculus is seen. There is no mass or hydronephrosis seen. The spleen appears unremarkable and measures 14.1 cm. The proximal abdominal aorta and IVC are normal in appearance. US/US abdomen complete IMPRESSION: 1. There are ultrasound features consistent with hepatosplenomegaly, cirrhosis and ascites. 2. There is hepatopedal portal venous flow.
--- NOTE | ~2023-02-15 | US_ITS ---
EXAMINATION: ULTRASOUND-GUIDED PARACENTESIS CLINICAL INFORMATION: Ascites. COMPARISON: 04/01/2023. TECHNIQUE: Ultrasound-guided paracentesis. FINDINGS: Informed consent was obtained from the patient prior to the procedure. During this process, the procedure and potential alternatives were explained, along with the intended outcome and benefits. The risks of the procedure, as well as the risk of not doing the procedure, were discussed. The patient was given the opportunity to ask questions regarding the procedure and appeared competent to make medical decisions. A signed consent form which documents this discussion was placed in the medical record. Using sterile technique and ultrasound guidance a 5 Sami Yueh needle was directed into the right peritoneal cavity with removal of approximately 12 L of cloudy yellow fluid. Patient tolerated procedure without difficulty. US/US paracentesis abd w/image IMPRESSION: Ultrasound-guided paracentesis with removal of 12 L of cloudy yellow fluid.
[2023-02-15 13:00] VITALS: BMI 26.3
[2023-02-15 13:07] LABS: Glucose, Whole Blood 140 mg/dL (60-115)
[2023-02-15 15:45] VITALS: BP 98/65; PULSE 62; RESP 17; TEMP 37.1; O2SAT 95
[2023-02-15] MEDS: Lidocaine HCl 1 % MPF 5 ML VIAL SUBCUT (15:53)
[2023-02-15 16:00] VITALS: BP 97/72; PULSE 66; RESP 18; O2SAT 94
[2023-02-15 16:14] VITALS: BP 97/56; PULSE 67; RESP 18; O2SAT 95
[2023-02-15 16:29] VITALS: BP 103/65; PULSE 66; RESP 18; O2SAT 96
== END 2023-02-15 17:00 | disposition home or self-care (01) ==
PROVIDERS: Radiology Diagnostic Radiology; PCP Internal Medicine; Visit Provider Internal Medicine
DX: R18.8 Other ascites (principal); K74.60 Unspecified cirrhosis of liver; J44.9 Chronic obstructive pulmonary disease, unspecified; E11.9 Type 2 diabetes mellitus without complications
CPT/HCPCS: 49083; 76700; 82947; 93975; P9047

== ENCOUNTER 2023-03-02 07:19 | Day surgery (SDC) | payer MEDICARE, OTHER, SELFPAY ==
--- NOTE | ~2023-03-02 | US_ITS ---
EXAMINATION: US ULTRASOUND-GUIDED PARACENTESIS CLINICAL INDICATION: Cirrhosis and ascites. COMPARISON: Ultrasound guided paracentesis 02/15/2023. TECHNIQUE: Following explaining ultrasound-guided paracentesis procedure, benefits and risks, a written consent was obtained. Patient was placed supine on ultrasound fluoroscopy table and preliminary ultrasound imaging was obtained through the abdomen. An optimal site was selected and marked on the skin in the right lower quadrant. The marked site was cleaned and draped in usual sterile manner. 1% lidocaine was injected at puncture site. Through a small skin incision a 5 [place] Islander [employer] catheter was advanced into the peritoneal space. After observing fluid return, the stylet was withdrawn and catheter connected to vacuum bottle via connecting cannula. After obtaining 11.7 L of fluid, patient asked the paracentesis procedure to be stopped. The catheter was removed and complete hemostasis achieved at puncture site. Sterile dressing applied postprocedure. FINDINGS: There is moderate to large ascites seen on the preliminary ultrasound imaging. Approximately 11.7 L of cloudy yellowish fluid was drained from the right lower quadrant. None of this fluid was sent to lab. US/US paracentesis abd w/image IMPRESSION: Successful ultrasound-guided therapeutic paracentesis performed.
[2023-03-02 07:26] VITALS: BMI 26.1
[2023-03-02 07:37] LABS: MANUAL DIFF FLAG NO
[2023-03-02 07:39] LABS: Basophils Absolute Auto 0.1 X10*3/uL (0.0-0.2); Basophils Percent Auto 0.9 % (0-2); Eosinophils Absolute Auto 0.3 X10*3/uL (0.0-0.4); Eosinophils Percent Auto 5.2 % (0-4); Hematocrit 40.9 % (42.0-52.0); Hemoglobin 13.5 g/dl (14.0-18.0); Imm Gran Abs Auto 0.03 X10*3/uL (0.00-0.03); Imm Gran Pct Auto 0.5 % (0.0-0.4); Lymphocytes Absolute Auto 0.5 X10*3/uL (1.2-4.9); Lymphocytes Percent Auto 8.2 % (20-40); Mean Corpuscular Hemoglobin 31.5 pg (27.0-33.0); Mean Corpuscular Volume 95.3 fL (80.0-98.0); Mean Platelet Volume 9.6 fL (9.4-12.4); Monocytes Absolute Auto 0.5 X10*3/uL (0.1-1.2); Monocytes Percent Auto 9.5 % (2-11); Neutrophils Absolute Auto 4.2 x10*3/uL (2.0-8.3); Neutrophils Percent Auto 75.7 % (45-73); Platelet Count 208 X10*3/uL (160-400); Red Blood Count 4.29 X10*6/uL (4.60-5.80); Red Cell Distribution Width 13.4 % (11.0-16.0); White Blood Count 5.6 X10*3/uL (4.8-10.8)
[2023-03-02 07:44] LABS: INTERNATIONAL NORM RATIO 1.2 (0.9-1.1); Prothrombin Time 13.6 SEC (10.0-13.1)
[2023-03-02 07:47] LABS: Partial Thromboplastin Time 37.2 SEC (26.0-36.4)
[2023-03-02 07:58] LABS: Glucose, Whole Blood 110 mg/dL (60-115)
[2023-03-02] MEDS: Lidocaine HCl 1 % MPF 5 ML VIAL SUBCUT (10:00)
[2023-03-02 10:32] VITALS: BP 100/62; PULSE 69; RESP 13; TEMP 36.6; O2SAT 98
[2023-03-02 11:05] VITALS: BP 102/64; PULSE 66; RESP 13; O2SAT 98
[2023-03-02 11:20] VITALS: BP 102/64; PULSE 65; RESP 14; O2SAT 90
== END 2023-03-02 11:34 | disposition home or self-care (01) ==
PROVIDERS: Radiology Diagnostic Radiology; PCP Internal Medicine; Visit Provider Radiology Diagnostic Radiology
DX: R18.8 Other ascites (principal); K74.60 Unspecified cirrhosis of liver; J44.9 Chronic obstructive pulmonary disease, unspecified; E11.40 Type 2 diabetes mellitus with diabetic neuropathy, unspecified; Z79.84 Long term (current) use of oral hypoglycemic drugs; Z79.899 Other long term (current) drug therapy; Z87.891 Personal history of nicotine dependence
CPT/HCPCS: 36415; 49083; 82947; 85025; 85610; 85730; P9047

== ENCOUNTER 2023-03-16 11:41 | Day surgery (SDC) | payer MEDICARE, OTHER, SELFPAY ==
--- NOTE | ~2023-03-16 | US_ITS ---
EXAMINATION: Ultrasound-guided paracentesis CLINICAL INFORMATION: Ascites COMPARISON: Previous exam 03/02/2023 TECHNIQUE: Procedure and risks and benefits including bleeding, infection and low blood pressure were discussed with the patient and informed consent was obtained. The right lower quadrant was prepped and draped in the usual sterile fashion. The skin and soft tissues were anesthetized with 1% lidocaine plain. Using ultrasound guidance and a 5 Danish one-step catheter, access to the ascitic fluid was obtained. 10.1 L of yellow fluid was removed. No diagnostic specimen was sent. FINDINGS: There is a large amount of ascites. US/US paracentesis abd w/image IMPRESSION: Ultrasound-guided paracentesis.
[2023-03-16 12:17] VITALS: BMI 25.8
[2023-03-16 12:18] LABS: MANUAL DIFF FLAG NO
[2023-03-16 12:20] LABS: Basophils Percent Auto 0.5 % (0-2); Eosinophils Absolute Auto 0.3 X10*3/uL (0.0-0.4); Eosinophils Percent Auto 4.2 % (0-4); Hematocrit 37.2 % (42.0-52.0); Hemoglobin 12.5 g/dl (14.0-18.0); Imm Gran Abs Auto 0.02 X10*3/uL (0.00-0.03); Imm Gran Pct Auto 0.3 % (0.0-0.4); Lymphocytes Absolute Auto 0.4 X10*3/uL (1.2-4.9); Lymphocytes Percent Auto 6.8 % (20-40); Mean Corpuscular HGB Conc 33.6 g/dl (31.0-36.0); Mean Corpuscular Volume 95.1 fL (80.0-98.0); Mean Platelet Volume 9.4 fL (9.4-12.4); Monocytes Absolute Auto 0.6 X10*3/uL (0.1-1.2); Neutrophils Absolute Auto 4.8 x10*3/uL (2.0-8.3); Neutrophils Percent Auto 78.2 % (45-73); Platelet Count 182 X10*3/uL (160-400); Red Blood Count 3.91 X10*6/uL (4.60-5.80); Red Cell Distribution Width 13.7 % (11.0-16.0); White Blood Count 6.2 X10*3/uL (4.8-10.8)
[2023-03-16 14:15] VITALS: BP 100/64; PULSE 60; RESP 16; TEMP 37.2; O2SAT 97
[2023-03-16] MEDS: Lidocaine HCl 1 % MPF 5 ML VIAL 10 ML SUBCUT (14:16)
[2023-03-16 14:30] VITALS: BP 103/63; PULSE 66; RESP 17; O2SAT 99
[2023-03-16 14:45] VITALS: BP 94/57; PULSE 74; RESP 15; O2SAT 95
[2023-03-16 15:00] VITALS: BP 103/54; PULSE 84; RESP 16; O2SAT 98
--- NOTE | 2023-03-16 15:07 | HO.RADPN ---
RADIOLOGY Narrative Narrative: RLQ paracentesis using 5 fr catheter. Large volume 10 L clear yellow fluid removed. No specimen sent.
[2023-03-16 15:11] VITALS: BP 107/66; PULSE 78; RESP 14; TEMP 36.6; O2SAT 98
== END 2023-03-16 15:20 | disposition home or self-care (01) ==
PROVIDERS: PCP Internal Medicine; Visit Provider Radiology Diagnostic Radiology
DX: R18.8 Other ascites (principal); K74.60 Unspecified cirrhosis of liver; Z79.899 Other long term (current) drug therapy; Z87.891 Personal history of nicotine dependence
CPT/HCPCS: 36415; 49083; 85025; 85730; P9047

== ENCOUNTER 2023-03-26 08:29 | Day surgery (SDC) | payer MEDICARE, OTHER, SELFPAY ==
--- NOTE | ~2023-03-26 | US_ITS ---
EXAMINATION: Ultrasound-guided paracentesis CLINICAL INFORMATION: Ascites COMPARISON: Previous exam February 2023 TECHNIQUE: Procedure and risks and benefits including bleeding, infection and low blood pressure were discussed with the patient and informed consent was obtained. The left lower quadrant was prepped and draped in usual sterile fashion. The skin and soft tissues were anesthetized with 1% lidocaine plain. Using ultrasound guidance and a 5 Amharic one-step system, access to the ascitic fluid was obtained. 7.5 L of slightly cloudy yellow fluid was removed. No diagnostic specimen was sent. The patient received 50 g of intravenous albumin. FINDINGS: There is a large amount of ascites. US/US paracentesis abd w/image IMPRESSION: Ultrasound-guided paracentesis.
[2023-03-26 09:09] LABS: Glucose, Whole Blood 100 mg/dL (60-115)
[2023-03-26 09:11] VITALS: BMI 24.6
[2023-03-26 11:15] VITALS: BP 99/81; PULSE 60; RESP 16; TEMP 36.2; O2SAT 94
[2023-03-26] MEDS: Lidocaine HCl 1 % MPF 5 ML VIAL 10 ML SUBCUT (11:17)
[2023-03-26 11:30] VITALS: BP 93/58; PULSE 60; RESP 16; O2SAT 97
[2023-03-26 11:45] VITALS: BP 99/51; PULSE 60; RESP 16; O2SAT 97
[2023-03-26 12:00] VITALS: BP 92/59; PULSE 69; RESP 16; O2SAT 93
[2023-03-26 12:15] VITALS: BP 100/61; PULSE 78; RESP 16; TEMP 36.6; O2SAT 95
== END 2023-03-26 12:20 | disposition home or self-care (01) ==
PROVIDERS: PCP Internal Medicine; Visit Provider Radiology Diagnostic Radiology
DX: R18.8 Other ascites (principal)
CPT/HCPCS: 49083; 82947; P9047

== ENCOUNTER 2023-04-05 12:48 | Day surgery (SDC) | payer MEDICARE, OTHER, SELFPAY ==
--- NOTE | ~2023-04-05 | US_ITS ---
PROCEDURE: ULTRASOUND-GUIDED PARACENTESIS CLINICAL HISTORY: Ascites. COMPARISON: Ultrasound-guided paracentesis 03/26/2023. TECHNIQUE: Following explaining ultrasound-guided paracentesis procedure, benefits and risk, a written consent was obtained. Patient was placed supine on ultrasound stretcher and preliminary ultrasound imaging was obtained. An optimal site was selected in left lower quadrant, marked, cleaned and draped in the usual sterile manner. 1% lidocaine was injected at puncture site. Through a small skin incision a 5 [employer] catheter was advanced into the peritoneal space. After observing fluid return the stylet was withdrawn and catheter connected to vacuum bottle via connecting cannula. After obtaining all fluid and observing normal fluid return, catheter was withdrawn and complete hemostasis achieved at puncture site. Sterile dressing applied postprocedure. US/US paracentesis abd w/image FINDINGS/IMPRESSION: Successful ultrasound-guided therapeutic paracentesis performed with approximately 9.9 L of cloudy yellowish fluid was drained. None of this fluid was sent to lab.
[2023-04-05 13:04] VITALS: BMI 26.0
[2023-04-05 13:20] LABS: MANUAL DIFF FLAG NO
[2023-04-05 13:26] LABS: Basophils Absolute Auto 0.1 X10*3/uL (0.0-0.2); Eosinophils Absolute Auto 0.1 X10*3/uL (0.0-0.4); Eosinophils Percent Auto 1.6 % (0-4); Hematocrit 34.5 % (42.0-52.0); Hemoglobin 11.5 g/dl (14.0-18.0); Imm Gran Abs Auto 0.04 X10*3/uL (0.00-0.03); Imm Gran Pct Auto 0.6 % (0.0-0.4); Lymphocytes Absolute Auto 0.4 X10*3/uL (1.2-4.9); Lymphocytes Percent Auto 6.4 % (20-40); Mean Corpuscular HGB Conc 33.3 g/dl (31.0-36.0); Mean Corpuscular Hemoglobin 32.1 pg (27.0-33.0); Mean Corpuscular Volume 96.4 fL (80.0-98.0); Mean Platelet Volume 9.6 fL (9.4-12.4); Monocytes Absolute Auto 0.5 X10*3/uL (0.1-1.2); Monocytes Percent Auto 7.9 % (2-11); Neutrophils Absolute Auto 5.2 x10*3/uL (2.0-8.3); Neutrophils Percent Auto 82.5 % (45-73); Platelet Count 187 X10*3/uL (160-400); Red Blood Count 3.58 X10*6/uL (4.60-5.80); Red Cell Distribution Width 14.3 % (11.0-16.0); White Blood Count 6.3 X10*3/uL (4.8-10.8)
[2023-04-05 13:34] LABS: INTERNATIONAL NORM RATIO 1.2 (0.9-1.1); Prothrombin Time 13.5 SEC (10.0-13.1)
[2023-04-05 13:35] LABS: Glucose, Whole Blood 168 mg/dL (60-115)
[2023-04-05 13:37] LABS: Partial Thromboplastin Time 34.5 SEC (26.0-36.4)
[2023-04-05 14:55] VITALS: BP 94/57; PULSE 60; RESP 15; TEMP 37.1; O2SAT 98
[2023-04-05] MEDS: Lidocaine HCl 1 % MPF 5 ML VIAL 10 ML SUBCUT (14:57)
[2023-04-05 15:10] VITALS: BP 107/56; PULSE 63; RESP 14; O2SAT 98
--- NOTE | 2023-04-05 15:17 | PC.NURSE ---
Patient can leave at 3:[address] Miller
[2023-04-05 15:25] VITALS: BP 109/86; PULSE 64; RESP 17; TEMP 37.1; O2SAT 97
--- NOTE | 2023-04-06 11:06 | HP_ITS ---
DATE OF SERVICE: 04/05/2023 ADDENDUM: The patient is scheduled for paracentesis. The patient has ongoing cirrhosis and accumulation of ascites and has continued need for paracentesis every 10 days. If additional information is needed, please contact my office. MD LUIS FERNANDO Peres/JORGE / [phone]
== END 2023-04-05 15:30 | disposition home or self-care (01) ==
PROVIDERS: Radiology Diagnostic Radiology; PCP Internal Medicine; Visit Provider Radiology Diagnostic Radiology
DX: R18.8 Other ascites (principal); K74.60 Unspecified cirrhosis of liver; J44.9 Chronic obstructive pulmonary disease, unspecified; Z99.81 Dependence on supplemental oxygen; R26.9 Unspecified abnormalities of gait and mobility; Z87.891 Personal history of nicotine dependence
CPT/HCPCS: 36415; 49083; 82947; 85025; 85610; 85730

== ENCOUNTER 2023-04-16 09:24 | Day surgery (SDC) | payer MEDICARE, OTHER, SELFPAY ==
--- NOTE | ~2023-04-16 | US_ITS ---
EXAMINATION: Ultrasound-guided paracentesis CLINICAL INFORMATION: Ascites COMPARISON: Previous exam most recent 04/05/2023 TECHNIQUE: Procedure and risk and benefits including bleeding, infection and low blood pressure were discussed with the patient and informed consent was obtained. The left lower quadrant was prepped and draped in the usual sterile fashion. The skin and soft tissues were anesthetized with 1% lidocaine plain. Using a 5 Faroese one-step system, access to the ascitic fluid was obtained. 8.8 L of cloudy yellow fluid was removed. The patient requested to stop after 8 bottles. No diagnostic specimen was sent. FINDINGS: There is a large amount of ascites. US/US paracentesis abd w/image IMPRESSION: Ultrasound-guided paracentesis.
[2023-04-16 09:27] VITALS: BMI 25.8
[2023-04-16 10:12] LABS: Glucose, Whole Blood 121 mg/dL (60-115)
[2023-04-16 11:30] VITALS: BP 92/59; PULSE 57; RESP 16; TEMP 36.8; O2SAT 98
[2023-04-16] MEDS: Lidocaine HCl 1 % MPF 5 ML VIAL SUBCUT (11:38)
[2023-04-16 11:45] VITALS: BP 99/60; PULSE 70; RESP 20; O2SAT 100
[2023-04-16 12:00] VITALS: BP 93/46; PULSE 71; RESP 18; O2SAT 100
[2023-04-16 12:20] VITALS: BP 91/52; PULSE 71; RESP 18; TEMP 36.7; O2SAT 100
== END 2023-04-16 12:23 | disposition home or self-care (01) ==
LOC: HO.SSS 09:24
PROVIDERS: PCP Internal Medicine; Visit Provider Radiology Diagnostic Radiology
DX: R18.8 Other ascites (principal); J44.9 Chronic obstructive pulmonary disease, unspecified; E11.9 Type 2 diabetes mellitus without complications; Z79.84 Long term (current) use of oral hypoglycemic drugs; Z79.899 Other long term (current) drug therapy
CPT/HCPCS: 49083; 82947

== ENCOUNTER 2023-04-27 08:58 | Day surgery (SDC) | payer MEDICARE, OTHER, SELFPAY ==
--- NOTE | ~2023-04-27 | US_ITS ---
EXAMINATION: Ultrasound-guided paracentesis CLINICAL INFORMATION: Ascites COMPARISON: Previous exam most recent 04/16/2023 TECHNIQUE: Procedure and risks and benefits including bleeding, infection and low blood pressure were discussed with the patient and informed consent was obtained. The right lower quadrant was prepped and draped in the usual sterile fashion. The skin and soft tissues were anesthetized with 1% lidocaine plain. Using ultrasound guidance and a 5 Ghanaian one-step system, access to the ascitic fluid was obtained. 10 L of slightly cloudy yellow fluid was removed. No diagnostic specimen was sent. The patient received 2 bottles of albumin. FINDINGS: There is a large amount of ascites. US/US paracentesis abd w/image IMPRESSION: Ultrasound-guided paracentesis.
[2023-04-27 09:16] LABS: MANUAL DIFF FLAG NO
[2023-04-27 09:22] LABS: Basophils Absolute Auto 0.1 X10*3/uL (0.0-0.2); Basophils Percent Auto 0.8 % (0-2); Eosinophils Absolute Auto 0.1 X10*3/uL (0.0-0.4); Hematocrit 36.1 % (42.0-52.0); Hemoglobin 11.9 g/dl (14.0-18.0); Imm Gran Abs Auto 0.04 X10*3/uL (0.00-0.03); Imm Gran Pct Auto 0.6 % (0.0-0.4); Lymphocytes Absolute Auto 0.5 X10*3/uL (1.2-4.9); Mean Corpuscular Hemoglobin 31.7 pg (27.0-33.0); Mean Corpuscular Volume 96.3 fL (80.0-98.0); Mean Platelet Volume 9.7 fL (9.4-12.4); Monocytes Absolute Auto 0.7 X10*3/uL (0.1-1.2); Monocytes Percent Auto 10.2 % (2-11); Neutrophils Absolute Auto 5.2 x10*3/uL (2.0-8.3); Neutrophils Percent Auto 79.4 % (45-73); Platelet Count 202 X10*3/uL (160-400); Red Blood Count 3.75 X10*6/uL (4.60-5.80); Red Cell Distribution Width 14.2 % (11.0-16.0); White Blood Count 6.6 X10*3/uL (4.8-10.8)
[2023-04-27 09:31] LABS: INTERNATIONAL NORM RATIO 1.2 (0.9-1.1); Prothrombin Time 13.6 SEC (10.0-13.1)
[2023-04-27 09:34] LABS: Partial Thromboplastin Time 35.7 SEC (26.0-36.4)
[2023-04-27 09:42] LABS: Glucose, Whole Blood 163 mg/dL (60-115)
[2023-04-27 09:53] VITALS: BMI 25.7
[2023-04-27 11:50] VITALS: BP 94/62; PULSE 66; RESP 13; TEMP 36.8; O2SAT 99
[2023-04-27 12:05] VITALS: BP 91/56; PULSE 65; RESP 14; O2SAT 99
[2023-04-27 12:20] VITALS: BP 102/59; PULSE 70; RESP 12; O2SAT 97
[2023-04-27 12:35] VITALS: BP 85/51; PULSE 68; RESP 15; O2SAT 96
[2023-04-27 12:50] VITALS: BP 94/60; PULSE 74; RESP 14; TEMP 36.6; O2SAT 98
[2023-04-27] MEDS: Lidocaine HCl 1 % MPF 5 ML VIAL SUBCUT (14:54)
== END 2023-04-27 12:55 | disposition home or self-care (01) ==
PROVIDERS: Radiology Diagnostic Radiology; PCP Internal Medicine; Visit Provider Radiology Diagnostic Radiology
DX: R18.8 Other ascites (principal); R10.9 Unspecified abdominal pain; E11.9 Type 2 diabetes mellitus without complications; R06.00 Dyspnea, unspecified; Z99.81 Dependence on supplemental oxygen; K21.9 Gastro-esophageal reflux disease without esophagitis; Z79.51 Long term (current) use of inhaled steroids; Z79.899 Other long term (current) drug therapy; Z87.891 Personal history of nicotine dependence
CPT/HCPCS: 36415; 49083; 82947; 85025; 85610; 85730; P9047

== ENCOUNTER 2023-04-30 11:05 | Outpatient (REF) | payer MEDICARE, OTHER, SELFPAY ==
[2023-04-30 13:54] LABS: MANUAL DIFF FLAG NO
[2023-04-30 14:08] LABS: Basophils Absolute Auto 0.1 X10*3/uL (0.0-0.2); Basophils Percent Auto 0.9 % (0-2); Eosinophils Absolute Auto 0.1 X10*3/uL (0.0-0.4); Eosinophils Percent Auto 1.9 % (0-4); Hematocrit 36.9 % (42.0-52.0); Hemoglobin 12.1 g/dl (14.0-18.0); Imm Gran Abs Auto 0.05 X10*3/uL (0.00-0.03); Imm Gran Pct Auto 0.9 % (0.0-0.4); Lymphocytes Absolute Auto 0.4 X10*3/uL (1.2-4.9); Lymphocytes Percent Auto 6.5 % (20-40); Mean Corpuscular HGB Conc 32.8 g/dl (31.0-36.0); Mean Corpuscular Hemoglobin 31.3 pg (27.0-33.0); Mean Corpuscular Volume 95.6 fL (80.0-98.0); Mean Platelet Volume 10.1 fL (9.4-12.4); Monocytes Absolute Auto 0.6 X10*3/uL (0.1-1.2); Monocytes Percent Auto 10.1 % (2-11); Neutrophils Absolute Auto 4.7 x10*3/uL (2.0-8.3); Neutrophils Percent Auto 79.7 % (45-73); Platelet Count 250 X10*3/uL (160-400); Red Blood Count 3.86 X10*6/uL (4.60-5.80); Red Cell Distribution Width 14.5 % (11.0-16.0); White Blood Count 5.8 X10*3/uL (4.8-10.8)
[2023-04-30 14:31] LABS: Estimated Average Glucose 123 mg/dL; Hemoglobin A1c % 5.9 %
[2023-04-30 14:36] LABS: Alanine Aminotransferase 18 U/L (0-40); Albumin Level 2.7 g/dL (3.5-5.0); Alkaline Phosphatase 357 U/L (39-117); Anion Gap 13 (12-20); Aspartate Amino Transferase 26 U/L (5-37); Bilirubin Total 0.7 mg/dL (0.0-1.0); Blood Urea Nitrogen 13 mg/dL (9-16); Calcium 8.1 mg/dL (8.4-10.2); Carbon Dioxide 32 mmol/L (22-29); Chloride 96 mmol/L (96-108); Estimated Glomerular Filt Rate > 60; Glucose Random 121 mg/dL (60-115); Potassium 3.7 mmol/L (3.3-5.1); Sodium 137 mmol/L (135-145); Total Protein 5.5 g/dL (6.5-8.0)
== END 2023-04-30 11:06 | disposition home or self-care (01) ==
LOC: HO.WFDLDS 11:05
PROVIDERS: Absent Provider Internal Medicine; PCP Internal Medicine; Visit Provider Internal Medicine
DX: R60.9 Edema, unspecified (principal); E11.9 Type 2 diabetes mellitus without complications; D64.9 Anemia, unspecified; K74.60 Unspecified cirrhosis of liver
CPT/HCPCS: 36415; 80053; 83036; 85025

== ENCOUNTER 2023-05-01 15:00 | Outpatient (REF) | payer MEDICARE, OTHER, SELFPAY ==
[2023-05-01 15:32] LABS: Ammonia 35 umol/L (13-55)
[2023-05-01 17:50] LABS: Creatinine Urine 20.45 mg/dL; Microalbum/Creatinine Ratio Ur 34.2 ug/mg cr
== END 2023-05-01 15:01 | disposition home or self-care (01) ==
LOC: HO.LAB 15:00
PROVIDERS: PCP Internal Medicine; Visit Provider Internal Medicine
DX: Z13.89 Encounter for screening for other disorder (principal)
CPT/HCPCS: 36415; 82043; 82140

== ENCOUNTER 2023-05-07 09:03 | Day surgery (SDC) | payer MEDICARE, OTHER, SELFPAY ==
--- NOTE | ~2023-05-07 | US_ITS ---
EXAMINATION: Ultrasound-guided paracentesis CLINICAL INFORMATION: Ascites COMPARISON: Previous exam most recent 04/27/2023 TECHNIQUE: Procedure and risks and benefits including bleeding, infection and low blood pressure were discussed with the patient and informed consent was obtained. The right lower quadrant was prepped and draped in the usual sterile fashion. The skin and soft tissues were anesthetized with 1% lidocaine plain. Using ultrasound guidance and a 5 Kenyan one-step system, access to the ascitic fluid was obtained. 8 L of slightly cloudy yellow fluid was removed. No diagnostic specimen was sent. FINDINGS: There is a large amount of ascites. US/US paracentesis abd w/image IMPRESSION: Ultrasound-guided paracentesis.
[2023-05-07 09:24] VITALS: BP 97/68; PULSE 68; RESP 22; TEMP 36.1; O2SAT 98; BMI 25.4
[2023-05-07 09:43] LABS: Glucose, Whole Blood 109 mg/dL (60-115)
[2023-05-07] MEDS: Lidocaine HCl 1 % MPF 5 ML VIAL SUBCUT (12:04)
[2023-05-07 12:10] VITALS: BP 88/58; PULSE 58; RESP 16; TEMP 36.8; O2SAT 98
[2023-05-07 12:25] VITALS: BP 100/61; PULSE 66; RESP 17; TEMP 36.9; O2SAT 96
== END 2023-05-07 12:34 | disposition home or self-care (01) ==
LOC: HO.SSS 09:03
PROVIDERS: PCP Internal Medicine; Visit Provider Radiology Diagnostic Radiology
DX: R18.8 Other ascites (principal); K74.60 Unspecified cirrhosis of liver; E11.9 Type 2 diabetes mellitus without complications; J45.909 Unspecified asthma, uncomplicated
CPT/HCPCS: 49083; 82947

== ENCOUNTER 2023-05-18 09:03 | Day surgery (SDC) | payer MEDICARE, OTHER, SELFPAY ==
--- NOTE | ~2023-05-18 | US_ITS ---
EXAMINATION: Ultrasound-guided paracentesis CLINICAL INFORMATION: Ascites COMPARISON: Previous exam most recent 05/07/2023 TECHNIQUE: Procedure and recent benefits including bleeding, infection and low blood pressure were discussed with the patient and informed consent was obtained. Left lower quadrant was prepped and draped in the usual sterile fashion. The skin and soft tissues were anesthetized with 1% lidocaine plain. Using ultrasound guidance and a 5 Latvian system, access to the ascitic fluid was obtained. 9.1 L of yellow fluid was removed. No diagnostic specimen was sent. Patient received 25 g of IV albumin during the procedure. FINDINGS: There is a large amount of ascites. US/US paracentesis abd w/image IMPRESSION: Ultrasound-guided paracentesis.
[2023-05-18 09:28] VITALS: BMI 24.8
[2023-05-18 09:29] LABS: MANUAL DIFF FLAG NO
[2023-05-18 09:31] LABS: Basophils Absolute Auto 0.1 X10*3/uL (0.0-0.2); Eosinophils Absolute Auto 0.2 X10*3/uL (0.0-0.4); Eosinophils Percent Auto 3.1 % (0-4); Hematocrit 34.5 % (42.0-52.0); Hemoglobin 11.5 g/dl (14.0-18.0); Imm Gran Abs Auto 0.05 X10*3/uL (0.00-0.03); Lymphocytes Absolute Auto 0.4 X10*3/uL (1.2-4.9); Lymphocytes Percent Auto 7.3 % (20-40); Mean Corpuscular HGB Conc 33.3 g/dl (31.0-36.0); Mean Corpuscular Hemoglobin 32.2 pg (27.0-33.0); Mean Corpuscular Volume 96.6 fL (80.0-98.0); Mean Platelet Volume 9.2 fL (9.4-12.4); Monocytes Absolute Auto 0.6 X10*3/uL (0.1-1.2); Monocytes Percent Auto 12.2 % (2-11); Neutrophils Percent Auto 75.4 % (45-73); Platelet Count 186 X10*3/uL (160-400); Red Blood Count 3.57 X10*6/uL (4.60-5.80); Red Cell Distribution Width 14.4 % (11.0-16.0); White Blood Count 5.2 X10*3/uL (4.8-10.8)
[2023-05-18 09:36] LABS: INTERNATIONAL NORM RATIO 1.2 (0.9-1.1); Prothrombin Time 13.5 SEC (10.0-13.1)
[2023-05-18 09:38] LABS: Partial Thromboplastin Time 36.3 SEC (26.0-36.4)
[2023-05-18 09:40] LABS: Anion Gap 11 (12-20); Carbon Dioxide 31 mmol/L (22-29); Chloride 97 mmol/L (96-108); Potassium 3.4 mmol/L (3.3-5.1); Sodium 136 mmol/L (135-145)
[2023-05-18 09:48] LABS: Glucose, Whole Blood 107 mg/dL (60-115)
[2023-05-18] MEDS: Lidocaine HCl 1 % MPF 5 ML VIAL SUBCUT (11:41)
[2023-05-18 12:06] VITALS: BP 97/59; PULSE 54; RESP 18; TEMP 37.2; O2SAT 96
[2023-05-18 12:21] VITALS: BP 93/59; PULSE 64; RESP 18; O2SAT 99
[2023-05-18 12:40] VITALS: BP 96/52; PULSE 79; RESP 18; TEMP 36.1; O2SAT 97
== END 2023-05-18 12:43 | disposition home or self-care (01) ==
PROVIDERS: Radiology Diagnostic Radiology; PCP Internal Medicine; Visit Provider Radiology Diagnostic Radiology
DX: R18.8 Other ascites (principal); K74.60 Unspecified cirrhosis of liver; E11.9 Type 2 diabetes mellitus without complications
CPT/HCPCS: 36415; 49083; 80051; 82947; 85025; 85610; 85730; P9047

== ENCOUNTER 2023-05-28 10:19 | Day surgery (SDC) | payer MEDICARE, OTHER, SELFPAY ==
[2023-05-28 10:19] VITALS: BMI 24.3
[2023-05-28 13:05] VITALS: BP 99/56; PULSE 57; RESP 14; TEMP 37.1; O2SAT 98
[2023-05-28 13:20] VITALS: BP 96/64; PULSE 56; RESP 14; O2SAT 98
[2023-05-28 13:45] VITALS: BP 93/62; PULSE 70; RESP 16; TEMP 36.4; O2SAT 98
[2023-05-28 13:56] VITALS: BP 93/58; PULSE 66; RESP 16; O2SAT 98
[2023-05-28 14:03] VITALS: BP 115/45; PULSE 67; RESP 16; TEMP 36.2; O2SAT 98
== END 2023-05-28 14:05 | disposition home or self-care (01) ==
LOC: HO.SSS 10:19
PROVIDERS: PCP Internal Medicine; Visit Provider Radiology Diagnostic Radiology
DX: R18.8 Other ascites (principal); K74.60 Unspecified cirrhosis of liver; E11.9 Type 2 diabetes mellitus without complications; D64.9 Anemia, unspecified
CPT/HCPCS: 49083; 82947

== ENCOUNTER 2023-06-04 09:09 | Outpatient (REF) | payer MEDICARE, OTHER, SELFPAY ==
[2023-06-04 13:05] LABS: Alanine Aminotransferase 17 U/L (0-40); Albumin Level 2.8 g/dL (3.5-5.0); Alkaline Phosphatase 308 U/L (39-117); Anion Gap 14 (12-20); Aspartate Amino Transferase 27 U/L (5-37); Bilirubin Direct 0.4 mg/dL (0.0-0.5); Bilirubin Total 0.8 mg/dL (0.0-1.0); Blood Urea Nitrogen 14 mg/dL (9-16); Carbon Dioxide 28 mmol/L (22-29); Chloride 96 mmol/L (96-108); Estimated Glomerular Filt Rate > 60; Potassium 3.1 mmol/L (3.3-5.1); Sodium 135 mmol/L (135-145); Total Protein 6.4 g/dL (6.5-8.0)
== END 2023-06-04 09:10 | disposition home or self-care (01) ==
LOC: HO.WFDLDS 09:09
PROVIDERS: Visit Provider Internal Medicine
DX: K42.9 Umbilical hernia without obstruction or gangrene (principal); K70.31 Alcoholic cirrhosis of liver with ascites
CPT/HCPCS: 36415; 80051; 80076; 82565; 84520; 99212

== ENCOUNTER 2023-06-04 14:47 | Outpatient (AMB) | payer MEDICARE, SELFPAY ==
--- NOTE | 2023-06-04 14:54 | MHC.OFFVIS ---
Intake Vital Signs 06/04/23 14:56 Weight 161 lb BP 102/62 Blood Pressure Location Rt brachial Position Sitting Pulse 62 Intake Visit Reasons: ? hernia Intake Note: This patient presents for an assessment for question of a hernia. Patient c/o; bulge, denies loss of appetite, denies changes in bowel movements, Hx paracentesis. Hydro Operator Required: No Accompanied by: Self / Same As Patient Allergies No Known Allergies Allergy (Verified 06/04/23 14:56) Medication List - Last Reconciled 06/04/23 by Ronnie Reeves MD albuterol sulfate 90 mcg/actuation (Ventolin HFA) 2 inhalations inhalation NEEDED budesonide-formoterol 160-4.5 mcg/actuation (Symbicort) 1 inh inhalation BID cholecalciferol (vitamin D3) 1 cap PO DAILY folic acid 1 tab PO DAILY furosemide 40 mg PO BID lorazepam 1 tab PO NEEDED PRN metformin 1,000 mg PO BID tramadol 1 tab PO QID PRN HPI ? hernia HPI Details He is here for follow-up because of his umbilical hernia. He has known chronic liver disease with cirrhosis, and has large volume ascites. He undergoes paracentesis every 2 weeks now. I had done an urgent repair of an incarcerated umbilical hernia last October, and he has a recurrence. He wants to discuss his options with regards to this. He does state that the hernia itself seems to be last whenever he has paracenteses. He denies GI complaints. He states that he used to go to [facility] a transplant program but he says he stopped going there. [facility] Medical History (Updated 06/04/23 @ 15:30 by Ronnie Reeves MD) Abdominal wall mass COPD (chronic obstructive pulmonary disease) Diabetes Incarcerated umbilical hernia Liver cirrhosis Recurrent umbilical hernia Surgical History History of appendectomy History of umbilical hernia repair (11/07/22) Family History Other No family history of coronary artery disease Social History Household Members: None Housing: Other Housing Other:: mobile home Do you presently have visiting nurse or other home services: No Alcohol intake: former Patient Tobacco Use Status: Former Tobacco user Quit Date: 2010 Tobacco use type: Cigarette Second Hand Smoke Exposure: Yes service: No Current occupational status: disabled Review of Systems Const Denies chills and Denies fever(s) Card Denies chest pain, Reports dyspnea and Reports dyspnea on exertion Resp Denies cough, Reports dyspnea and Reports dyspnea on exertion GI Denies hematochezia and Denies change in bowel habits Denies hematuria and Denies difficulty urinating Musc Denies back pain and Denies limited range of motion Neuro Denies focal weakness and Denies convulsions Psych Denies depression and Denies mood swings Physical Exam Vital Signs: Last Vital Signs Pulse 62 06/04/23 14:56 BP 102/62 06/04/23 14:56 Const Other: Appears cachectic, has O2 by nasal cannula General: comfortable and no acute distress Resp Other: Has O2 by nasal cannula Effort & Inspection: normal respiratory effort Cardio Rate: regular rate GI Other: Protuberant with ascites, with note of fluid-filled umbilical hernia, difficult to palpate the hernia defect itself but this seems reducible; Multiple large spider angiomas on the abdominal wall consistent with his liver disease/cirrhosis Assessment & Plan Assessment & Plan (1) Recurrent umbilical hernia: Code(s): K42.9 - Umbilical hernia without obstruction or gangrene Plan: He has large volume ascites with a recurrent umbilical hernia. I explained to him that in view of the status of his liver, he is at risk for perioperative problems including recurrent hernia, bleeding, anesthesia risks including respiratory failure. He has poor baseline level of function as well. I told him that ideally, control of his ascites is an important step. This may require him being re-evaluated by a liver transplant program. In the meantime, I will order for a CAT scan to find the hernia defect itself. I will see him in the office thereafter. (2) Cirrhosis of liver: Code(s): K74.60 - Unspecified cirrhosis of liver Qualifiers: Hepatic cirrhosis type: alcoholic cirrhosis Ascites presence: with ascites Qualified Code(s): K70.31 - Alcoholic cirrhosis of liver with ascites Plan: He has large volume ascites and requires paracentesis every 2 weeks. He has more prominent spider angiomas on his abdominal wall as well suggestive of worsening liver function. Orders: Orders CT abdomen pelvis wo IV con Today K42.9 - Umbilical hernia without obstruction or gangrene Coding Level of Care Code Est Pt Level 4 (98162) Diagnoses Recurrent umbilical hernia K42.9 Cirrhosis of liver K70.31 Hepatic cirrhosis type: alcoholic cirrhosis Ascites presence: with ascites
[2023-06-04 14:56] VITALS: BP 102/62; PULSE 62
== END 2023-06-04 15:14 | disposition home or self-care (01) ==
PROVIDERS: PCP Internal Medicine; Visit Provider Surgery
DX: K42.9 Umbilical hernia without obstruction or gangrene (principal); K70.31 Alcoholic cirrhosis of liver with ascites
CPT/HCPCS: 99214

== ENCOUNTER 2023-06-08 09:36 | Day surgery (SDC) | payer MEDICARE, OTHER, SELFPAY ==
--- NOTE | ~2023-06-08 | US_ITS ---
Examination: Ultrasound-guided paracentesis clinical indication: Ascites. COMPARISON: Ultrasound-guided paracentesis 05/28/2023. TECHNIQUE: Following explaining ultrasound-guided paracentesis procedure, benefits and risk, a written consent was obtained. Patient was placed supine on ultrasound stretcher and preliminary ultrasound imaging was obtained through the abdomen. An optimal site was selected, marked, cleaned and draped along the right mid abdomen. 2% chlorhexidine solution was used during cleaning for antisepsis. 1% lidocaine was injected puncture site. Through a small skin incision a 5 Norwegian Marblar catheter was advanced into the peritoneal space. After observing fluid return, stylet was withdrawn and catheter connected to vacuum bottle via connecting cannula. After obtaining all fluid and observing no more fluid return, catheter was withdrawn and complete hemostasis achieved at puncture site. Sterile dressing applied postprocedure. FINDINGS:: On preliminary ultrasound imaging 8.8 L of cloudy yellowish fluid was drained from the right lower quadrant. None of this fluid was sent to lab. US/US paracentesis abd w/image IMPRESSION: Successful ultrasound-guided therapeutic paracentesis performed with approximately 8.8 L of cloudy yellowish fluid drained from the right lower quadrant.
[2023-06-08 09:50] VITALS: BMI 23.3
[2023-06-08 10:02] LABS: Glucose, Whole Blood 171 mg/dL (60-115)
[2023-06-08 12:52] VITALS: BP 99/52; PULSE 61; RESP 18; TEMP 36.4; O2SAT 97
[2023-06-08] MEDS: Lidocaine HCl 1 % MPF 5 ML VIAL SUBCUT (12:58)
[2023-06-08 13:22] VITALS: BP 100/61; PULSE 60; RESP 18; O2SAT 97
[2023-06-08 13:52] VITALS: BP 97/59; PULSE 58; RESP 14; O2SAT 97
[2023-06-08 14:10] VITALS: BP 96/60; PULSE 64; RESP 16; TEMP 36.4; O2SAT 94
== END 2023-06-08 14:13 | disposition home or self-care (01) ==
LOC: HO.SSS 09:37
PROVIDERS: PCP Internal Medicine; Visit Provider Radiology Diagnostic Radiology
DX: R18.8 Other ascites (principal); K74.60 Unspecified cirrhosis of liver; J44.9 Chronic obstructive pulmonary disease, unspecified; E11.9 Type 2 diabetes mellitus without complications; D64.9 Anemia, unspecified
CPT/HCPCS: 49083; 82947; P9047

== ENCOUNTER → 2023-06-08 11:20 | Outpatient (BNV) | payer MEDICARE, SELFPAY | PROVIDERS: PCP Internal Medicine; Visit Provider Radiology Diagnostic Radiology | DX: R18.8 Other ascites (principal) | CPT/HCPCS: 49083 ==

== ENCOUNTER 2023-06-19 07:59 | Outpatient (REF) | payer MEDICARE, SELFPAY ==
[2023-06-19 13:19] LABS: Anion Gap 9 (12-20); Blood Urea Nitrogen 9 mg/dL (9-16); Carbon Dioxide 30 mmol/L (22-29); Chloride 101 mmol/L (96-108); Estimated Glomerular Filt Rate > 60; Potassium 3.2 mmol/L (3.3-5.1); Sodium 137 mmol/L (135-145)
== END 2023-06-19 08:00 | disposition home or self-care (01) ==
LOC: HO.WFDLDS 07:59
PROVIDERS: Visit Provider Internal Medicine
DX: K70.31 Alcoholic cirrhosis of liver with ascites (principal)
CPT/HCPCS: 36415; 80051; 82565; 84520

== ENCOUNTER → 2023-06-22 13:00 | Day surgery (SDC) | payer MEDICARE, OTHER, SELFPAY ==
[2023-06-22 13:34] LABS: MANUAL DIFF FLAG NO
[2023-06-22 13:38] LABS: Basophils Percent Auto 0.8 % (0-2); Eosinophils Absolute Auto 0.1 X10*3/uL (0.0-0.4); Eosinophils Percent Auto 2.6 % (0-4); Hemoglobin 11.4 g/dl (14.0-18.0); Imm Gran Abs Auto 0.03 X10*3/uL (0.00-0.03); Imm Gran Pct Auto 0.6 % (0.0-0.4); Lymphocytes Absolute Auto 0.4 X10*3/uL (1.2-4.9); Lymphocytes Percent Auto 8.6 % (20-40); Mean Corpuscular HGB Conc 32.6 g/dl (31.0-36.0); Mean Corpuscular Hemoglobin 31.7 pg (27.0-33.0); Mean Corpuscular Volume 97.2 fL (80.0-98.0); Mean Platelet Volume 9.1 fL (9.4-12.4); Monocytes Absolute Auto 0.5 X10*3/uL (0.1-1.2); Monocytes Percent Auto 9.8 % (2-11); Neutrophils Absolute Auto 3.8 x10*3/uL (2.0-8.3); Neutrophils Percent Auto 77.6 % (45-73); Platelet Count 175 X10*3/uL (160-400); Red Cell Distribution Width 13.4 % (11.0-16.0); White Blood Count 4.9 X10*3/uL (4.8-10.8)
[2023-06-22 13:46] LABS: INTERNATIONAL NORM RATIO 1.2 (0.9-1.1); Prothrombin Time 14.4 SEC (11.1-13.3)
[2023-06-22 13:48] LABS: Partial Thromboplastin Time 37.6 SEC (26.0-36.4)
[2023-06-22 13:50] LABS: Anion Gap 18 (12-20); Carbon Dioxide 26 mmol/L (22-29); Chloride 97 mmol/L (96-108); Estimated Glomerular Filt Rate > 60; Potassium 3.8 mmol/L (3.3-5.1); Sodium 137 mmol/L (135-145)
[2023-06-22 13:52] LABS: Glucose, Whole Blood 129 mg/dL (60-115)
[2023-06-22 14:03] VITALS: BMI 24.1
== END ==
PROVIDERS: Radiology Diagnostic Radiology; PCP Internal Medicine; Visit Provider Internal Medicine
DX: K70.31 Alcoholic cirrhosis of liver with ascites (principal); Z53.29 Procedure and treatment not carried out because of patient's decision for other reasons; J44.9 Chronic obstructive pulmonary disease, unspecified; E11.9 Type 2 diabetes mellitus without complications; K42.9 Umbilical hernia without obstruction or gangrene; Z79.84 Long term (current) use of oral hypoglycemic drugs; Z79.899 Other long term (current) drug therapy; Z87.891 Personal history of nicotine dependence
CPT/HCPCS: 36415; 80051; 82565; 82947; 85025; 85610; 85730

== ENCOUNTER 2023-06-26 08:13 | Day surgery (SDC) | payer MEDICARE, MEDICAID, SELFPAY ==
--- NOTE | ~2023-06-26 | US_ITS ---
Examination: Ultrasound-guided paracentesis INDICATIONS: Ascites TECHNIQUE: After informed written consent was obtained an official timeout was performed immediately prior to the procedure. The patient was placed in a supine position. Initial ultrasound examination demonstrated a large amount of ascites. The skin was then prepped and draped in usual fashion in the right lower quadrant. 1% lidocaine was utilized. A 5 Tamazight Yueh catheter was then placed into the fluid in the right lower quadrant. A total of 8500 mL of clear yellow fluid was drained. The patient tolerated the procedure well. The catheter was then removed and a sterile dressing applied. US/US paracentesis abd w/image IMPRESSION: Paracentesis with 8500 mL of fluid drained.
[2023-06-26 08:42] VITALS: BMI 25.7
[2023-06-26 08:42] LABS: Glucose, Whole Blood 101 mg/dL (60-115)
[2023-06-26 09:01] VITALS: BP 103/69; PULSE 71; RESP 18; TEMP 36.4; O2SAT 99
[2023-06-26] MEDS: Lidocaine HCl 1 % MPF 5 ML VIAL SUBCUT (10:33)
[2023-06-26 10:45] VITALS: BP 107/60; PULSE 64; RESP 20; TEMP 36.3; O2SAT 95
[2023-06-26 10:50] VITALS: BP 85/49; PULSE 70; RESP 20; O2SAT 95
[2023-06-26 11:05] VITALS: BP 83/49; PULSE 72; RESP 20; O2SAT 94
[2023-06-26 11:20] VITALS: BP 86/54; PULSE 73; RESP 20; TEMP 36.2; O2SAT 95
== END 2023-06-26 11:37 | disposition home or self-care (01) ==
PROVIDERS: Radiology Diagnostic Radiology; PCP Internal Medicine; Visit Provider Internal Medicine
DX: K70.31 Alcoholic cirrhosis of liver with ascites (principal); E11.9 Type 2 diabetes mellitus without complications; K42.9 Umbilical hernia without obstruction or gangrene; J44.9 Chronic obstructive pulmonary disease, unspecified; Z79.84 Long term (current) use of oral hypoglycemic drugs; Z79.899 Other long term (current) drug therapy; Z98.890 Other specified postprocedural states; Z87.891 Personal history of nicotine dependence
CPT/HCPCS: 49083; 82947

== ENCOUNTER → 2023-06-26 09:30 | Outpatient (BNV) | payer MEDICARE, MEDICAID, SELFPAY | PROVIDERS: PCP Internal Medicine; Visit Provider Radiology Vascular & Interventional Radiology | DX: K42.9 Umbilical hernia without obstruction or gangrene (principal) | CPT/HCPCS: 49083 ==

== ENCOUNTER 2023-06-27 09:03 | Outpatient (REF) | payer MEDICARE, MEDICAID, SELFPAY ==
--- NOTE | ~2023-06-27 | CT_ITS ---
EXAMINATION: CT ABDOMEN AND PELVIS WITHOUT CONTRAST CLINICAL INFORMATION: Evaluation of umbilical hernia without obstruction or gangrene. COMPARISON: CT abdomen and pelvis from 12/21/2022. TECHNIQUE: Multidetector volumetric imaging was performed from the superior aspect of the liver through the pubic symphysis. Sagittal and coronal reformatted images were obtained on the technologist's workstation. This CT examination was performed using dose optimization techniques as appropriate, variously including the following: *Automated exposure control *Adjustment of mA and/or kV according to patient size (this includes techniques or standardized protocols for targeted exams where dose is matched to indication/reason for exam; i.e. extremities or head) *Use of iterative reconstruction technique DLP: 504 mGy-cm FINDINGS: LUNG BASES: Bronchial unger are diffusely thickened and secretions are present within some of the bronchi. Moderate centrilobular emphysema. An old small calcified granuloma is present in the right lower lobe. LIVER: The cirrhotic liver has nodular surface contour and is not optimally evaluated on this noncontrast examination. No evidence of hepatic mass or intrahepatic ductal dilatation. GALLBLADDER AND BILIARY TREE: Gallbladder is physiologically distended and without radiopaque stones. No dilated bile ducts. PANCREAS: Normal. No edema, pancreatic ductal dilatation or mass. SPLEEN: Splenomegaly (14.2 cm maximum dimension). ADRENAL GLANDS: Normal. KIDNEYS AND URETERS: Kidneys are normal in size. 0.2 cm calyceal stone within the upper pole of the left kidney. No large calculi or hydronephrosis. The ureters are unremarkable. BLADDER: Normal. No calculi or wall thickening. BOWEL AND PERITONEUM: No dilated bowel loops. Loops of bowel are centrally displaced by [id number] volume ascites. Multiple diverticula of the colon without overt diverticulitis. ABDOMINAL WALL: There is edema in subcutaneous tissues. Again noted is the umbilical region hernia containing ascitic fluid. At the site of the hernia, there is at least 5 cm diastases of rectus abdominis muscles. The hernia sac measures up to approximately 6.5 cm wide, up to 2.3 cm AP and 7 cm craniocaudal. A small left inguinal hernia contains fat and ascitic fluid. VASCULATURE: Atherosclerosis of the abdominal aorta without aneurysm. Pulmonary veins and SMV are chronically enlarged, compatible with portal venous hypertension. LYMPH NODES: No pathologic sized lymph nodes in the abdomen or pelvis. No inguinal lymphadenopathy. PELVIC VISCERA: Unremarkable. MUSCULOSKELETAL: No acute or suspicious osseous abnormality. CT/CT abdomen pelvis wo IV con IMPRESSION: The current imaging abnormalities are similar to those seen on 12/21/2022. There is liver cirrhosis with findings of portal hypertension, splenomegaly and ascites. The umbilical region hernia contains ascitic fluid. There is no herniation of bowel into the abdominal wall. Colonic diverticulosis.
[2023-06-27] MEDS: Barium Sulfate Oral (Vanilla) 450 ML ORAL.SUSP 900 ML PO (11:47)
== END 2023-06-27 09:04 | disposition home or self-care (01) ==
LOC: HO.CT 09:03
PROVIDERS: PCP Internal Medicine; Visit Provider Surgery
DX: K42.9 Umbilical hernia without obstruction or gangrene (principal)
CPT/HCPCS: 74176

== ENCOUNTER 2023-07-05 09:00 | Day surgery (SDC) | payer MEDICARE, MEDICAID, SELFPAY ==
--- NOTE | ~2023-07-05 | US_ITS ---
Paracentesis INDICATIONS: Recurrent ascites After informed and written consent was obtained an official timeout was performed immediately prior to the procedure. PROCEDURE: Initial ultrasound surveillance demonstrates a large amount of fluid throughout the abdomen. A large pocket of fluid was identified in the right mid abdomen. The skin was prepped and draped in usual fashion overlying this area. 1% lidocaine was used for local anesthetic. A 5 Romanian Yueh catheter was then placed under ultrasound guidance into the right mid abdomen. 8.8 L of clear yellow fluid was drained. The catheter was removed and hemostasis obtained. US/US paracentesis abd w/image IMPRESSION: Paracentesis with 8.8 L of fluid drained
[2023-07-05 09:10] VITALS: BMI 24.7
[2023-07-05 09:31] LABS: Glucose, Whole Blood 133 mg/dL (60-115)
[2023-07-05] MEDS: Lidocaine HCl 1 % MPF 5 ML VIAL SUBCUT (11:46)
[2023-07-05 12:12] VITALS: BP 92/60; PULSE 51; RESP 18; TEMP 36.1; O2SAT 99
[2023-07-05 12:27] VITALS: BP 97/60; PULSE 55; RESP 16; TEMP 36.1; O2SAT 98
== END 2023-07-05 12:35 | disposition home or self-care (01) ==
LOC: HO.SSS 09:00
PROVIDERS: PCP Internal Medicine; Visit Provider Radiology Vascular & Interventional Radiology
DX: R18.8 Other ascites (principal); K74.60 Unspecified cirrhosis of liver; J44.9 Chronic obstructive pulmonary disease, unspecified; E11.9 Type 2 diabetes mellitus without complications; Z79.899 Other long term (current) drug therapy
CPT/HCPCS: 49083; 82947

== ENCOUNTER → 2023-07-05 11:11 | Outpatient (BNV) | payer MEDICARE, MEDICAID, SELFPAY | PROVIDERS: PCP Internal Medicine; Visit Provider Radiology Vascular & Interventional Radiology | DX: R18.8 Other ascites (principal) | CPT/HCPCS: 49083 ==

== ENCOUNTER 2023-07-09 09:15 | Outpatient (AMB) | payer MEDICARE, MEDICAID, SELFPAY ==
--- NOTE | 2023-07-09 09:22 | A.OFFVIS_ITS ---
Intake Vital Signs 07/09/23 09:34 Height 5 ft 9 in Weight 153 lb BMI 22.6 BP 94/60 Blood Pressure Location Rt brachial Position Sitting Pulse 63 Pulse Oximetry (%) 96 Oxygen Delivery Method Room Air Intake Visit Reasons: CT scan results Intake Note: This patient presents for a follow-up assessment for Ct-Scan results. Patient c/o; reports no changes or concerns at this time. Technical Services Assistant Required: No Accompanied by: Self / Same As Patient Allergies No Known Allergies Allergy (Verified 07/09/23 09:23) Medication List - Last Reconciled 07/09/23 by Ronnie Reeves MD albuterol sulfate 90 mcg/actuation (Ventolin HFA) 2 inhalations inhalation NEEDED budesonide-formoterol 160-4.5 mcg/actuation (Symbicort) 1 inh inhalation BID cholecalciferol (vitamin D3) 1 cap PO DAILY folic acid 1 tab PO DAILY furosemide 40 mg PO BID lorazepam 1 tab PO NEEDED PRN metformin 1,000 mg PO BID tramadol 1 tab PO QID PRN HPI CT scan results HPI Details He is here for follow-up for a CT scan. I had sent him for this because of his recurrent umbilical hernia. He has cirrhosis and advanced liver disease, and has had this hernia for a long time although I did have to do a repair last year because of obstructed bowel loops He continues to require paracentesis every 2 weeks because of his large amount of ascites. [facility] Medical History Abdominal wall mass COPD (chronic obstructive pulmonary disease) Diabetes Incarcerated umbilical hernia Liver cirrhosis Recurrent umbilical hernia Surgical History History of appendectomy History of umbilical hernia repair (11/07/22) Family History Other No family history of coronary artery disease Social History Household Members: None Housing: Other Housing Other:: mobile home Do you presently have visiting nurse or other home services: No Alcohol intake: former Patient Tobacco Use Status: Former Tobacco user Quit Date: 2010 Tobacco use type: Cigarette Second Hand Smoke Exposure: Yes service: No Current occupational status: disabled Review of Systems Const Denies chills and Denies fever(s) Card Denies chest pain, Denies dyspnea and Reports dyspnea on exertion Resp Denies cough, Denies dyspnea and Reports dyspnea on exertion GI Denies hematochezia and Denies change in bowel habits Denies hematuria and Denies difficulty urinating Musc Denies back pain and Denies limited range of motion Neuro Denies focal weakness and Denies convulsions Psych Denies depression and Denies mood swings Physical Exam Vital Signs: Last Vital Signs Pulse 63 07/09/23 09:34 BP 94/60 07/09/23 09:34 Pulse Ox 96 07/09/23 09:34 Oxygen Delivery Method Room Air 07/09/23 09:34 BMI result Body Mass Index 22.6 Const Other: Frail looking, appears malnourished and cachectic General: no acute distress Resp Effort & Inspection: normal respiratory effort Cardio Rate: regular rate GI Other: Very protuberant with ascites, umbilical hernia fluid containing, nontender Assessment & Plan Assessment & Plan (1) Recurrent umbilical hernia: Code(s): K42.9 - Umbilical hernia without obstruction or gangrene Plan: His CAT scan shows large amount of ascites. His hernia contains ascitic fluid and there are no bowel loops. I told him that control of his ascites will help with this fluid containing hernia. I would not recommend any surgery at this time. He was invited to continue to undergo regular paracenteses. (2) Cirrhosis of liver: Code(s): K74.60 - Unspecified cirrhosis of liver Qualifiers: Hepatic cirrhosis type: alcoholic cirrhosis Ascites presence: with ascites Qualified Code(s): K70.31 - Alcoholic cirrhosis of liver with ascites Plan: He says that he is interested in a TIPS procedure as mention by his interventional radiologist for his recent he sees. I told him that he should set up a consult with Dr. Morris to discuss this. Coding Level of Care Code Est Pt Level 3 (78854) Diagnoses Recurrent umbilical hernia K42.9 Cirrhosis of liver K70.31 Hepatic cirrhosis type: alcoholic cirrhosis Ascites presence: with ascites
[2023-07-09 09:34] VITALS: BP 94/60; PULSE 63; O2SAT 96; BMI 22.6
== END 2023-07-09 09:48 | disposition home or self-care (01) ==
PROVIDERS: PCP Internal Medicine; Visit Provider Surgery
DX: K42.9 Umbilical hernia without obstruction or gangrene (principal); K70.31 Alcoholic cirrhosis of liver with ascites
CPT/HCPCS: 99213

== ENCOUNTER → 2023-07-09 09:15 | Outpatient (BNVA) | payer MEDICARE, MEDICAID, SELFPAY | PROVIDERS: PCP Internal Medicine; Visit Provider Surgery | DX: K42.0 Umbilical hernia with obstruction, without gangrene (principal); K70.31 Alcoholic cirrhosis of liver with ascites | CPT/HCPCS: 99212 ==

== ENCOUNTER 2023-07-17 13:04 | Day surgery (SDC) | payer MEDICARE, MEDICAID, SELFPAY ==
--- NOTE | ~2023-07-17 | US_ITS ---
Paracentesis INDICATIONS: Recurrent ascites After informed and written consent was obtained an official timeout was performed immediately prior to the procedure. PROCEDURE: Initial ultrasound surveillance of the abdomen demonstrates a moderate amount of fluid throughout the abdomen. Under ultrasound guidance the skin was prepped and draped in the usual fashion in the right lower quadrant. 1% Xylocaine was used for local anesthetic. A 5 Wallisian Yueh catheter was placed. 4.3 L of daily cloudy but clear fluid was drained. US/US paracentesis abd w/image IMPRESSION: Paracentesis with 4.3 L of fluid drained
[2023-07-17 13:31] VITALS: BMI 22.9
[2023-07-17 13:51] LABS: Glucose, Whole Blood 195 mg/dL (60-115)
[2023-07-17 13:51] LABS: MANUAL DIFF FLAG NO
[2023-07-17 13:54] LABS: Basophils Absolute Auto 0.1 X10*3/uL (0.0-0.2); Eosinophils Absolute Auto 0.1 X10*3/uL (0.0-0.4); Eosinophils Percent Auto 2.7 % (0-4); Hematocrit 32.6 % (42.0-52.0); Hemoglobin 10.6 g/dl (14.0-18.0); Imm Gran Abs Auto 0.03 X10*3/uL (0.00-0.03); Imm Gran Pct Auto 0.6 % (0.0-0.4); Lymphocytes Absolute Auto 0.4 X10*3/uL (1.2-4.9); Lymphocytes Percent Auto 6.9 % (20-40); Mean Corpuscular HGB Conc 32.5 g/dl (31.0-36.0); Mean Corpuscular Hemoglobin 31.5 pg (27.0-33.0); Mean Platelet Volume 9.3 fL (9.4-12.4); Monocytes Absolute Auto 0.5 X10*3/uL (0.1-1.2); Neutrophils Absolute Auto 4.2 x10*3/uL (2.0-8.3); Neutrophils Percent Auto 79.8 % (45-73); Platelet Count 142 X10*3/uL (160-400); Red Blood Count 3.36 X10*6/uL (4.60-5.80); Red Cell Distribution Width 13.7 % (11.0-16.0); White Blood Count 5.2 X10*3/uL (4.8-10.8)
[2023-07-17 13:59] LABS: INTERNATIONAL NORM RATIO 1.2 (0.9-1.1); Prothrombin Time 14.1 SEC (11.1-13.3)
[2023-07-17 14:01] LABS: Partial Thromboplastin Time 35.1 SEC (26.0-36.4)
[2023-07-17] MEDS: Lidocaine HCl 1 % MPF 5 ML VIAL SUBCUT (15:17)
[2023-07-17 15:25] VITALS: BP 99/56; PULSE 53; RESP 12; TEMP 37; O2SAT 97
[2023-07-17 15:40] VITALS: BP 103/67; PULSE 61; RESP 14; O2SAT 98
[2023-07-17 15:55] VITALS: BP 105/83; PULSE 57; RESP 14; O2SAT 98
== END 2023-07-17 16:13 | disposition home or self-care (01) ==
PROVIDERS: Radiology Diagnostic Radiology; PCP Internal Medicine; Visit Provider Radiology Vascular & Interventional Radiology
DX: R18.8 Other ascites (principal); K74.60 Unspecified cirrhosis of liver; J44.9 Chronic obstructive pulmonary disease, unspecified; E11.9 Type 2 diabetes mellitus without complications; Z79.899 Other long term (current) drug therapy; Z79.84 Long term (current) use of oral hypoglycemic drugs
CPT/HCPCS: 36415; 49083; 82947; 85025; 85610; 85730; P9047

== ENCOUNTER → 2023-07-17 14:36 | Outpatient (BNV) | payer MEDICARE, MEDICAID, SELFPAY | PROVIDERS: PCP Internal Medicine; Visit Provider Radiology Vascular & Interventional Radiology | DX: R18.8 Other ascites (principal) | CPT/HCPCS: 49083 ==

== ENCOUNTER 2023-07-27 12:31 | Day surgery (SDC) | payer MEDICARE, MEDICAID, SELFPAY ==
--- NOTE | ~2023-07-27 | US_ITS ---
EXAMINATION: PARACENTESIS CLINICAL INFORMATION: Ascites. COMPARISON: 07/17/2023. TECHNIQUE: Ultrasound-guided paracentesis. FINDINGS: Informed consent was obtained from the patient prior to the procedure. During this process, the procedure and potential alternatives were explained, along with the intended outcome and benefits. The risks of the procedure, as well as the risk of not doing the procedure, were discussed. The patient was given the opportunity to ask questions regarding the procedure and appeared competent to make medical decisions. A signed consent form, which documents this discussion was placed in the medical record. Using sterile technique a 5 Bermudian Yueh needle was directed into the peritoneal cavity from a right lower quadrant approach. A total of 5.1 L of cloudy yellow fluid was removed. Patient tolerated the procedure without difficulty. US/US paracentesis abd w/image IMPRESSION: Paracentesis with removal of 5.1 L of fluid.
[2023-07-27 12:46] LABS: Glucose, Whole Blood 125 mg/dL (60-115)
[2023-07-27 13:00] VITALS: BMI 23.6
[2023-07-27 13:01] VITALS: BP 100/65; PULSE 65; RESP 18; TEMP 36.4; O2SAT 98
[2023-07-27 15:00] VITALS: BP 106/65; PULSE 63; RESP 18; TEMP 36.6; O2SAT 96
[2023-07-27] MEDS: Lidocaine HCl 1 % MPF 5 ML VIAL SUBCUT (15:05)
--- NOTE | 2023-08-01 14:18 | HP_ITS ---
DATE OF SERVICE: 07/27/2023 ADDENDUM: The patient is a 62-year-old male scheduled for a paracentesis for ascites secondary to cirrhosis. Last procedure was mid June and he had about 8 L removed. The patient has abdominal distention and ascites. Large umbilical hernia. Distant lung sounds. Some COPD. Regular heart rate and some peripheral edema. He is medically stable for the proposed procedure. I will be available if there are any medical issues. William Mcclellan MD FC/JORGE / [phone]
== END 2023-07-27 15:19 | disposition home or self-care (01) ==
LOC: HO.SSS 12:31
PROVIDERS: PCP Internal Medicine; Visit Provider Radiology Diagnostic Radiology
DX: K70.31 Alcoholic cirrhosis of liver with ascites (principal); R19.09 Other intra-abdominal and pelvic swelling, mass and lump; J44.9 Chronic obstructive pulmonary disease, unspecified; E11.9 Type 2 diabetes mellitus without complications; K42.9 Umbilical hernia without obstruction or gangrene; Z79.84 Long term (current) use of oral hypoglycemic drugs; Z79.899 Other long term (current) drug therapy; Z98.890 Other specified postprocedural states; Z87.891 Personal history of nicotine dependence
CPT/HCPCS: 49083; 82947

== ENCOUNTER → 2023-07-27 14:20 | Outpatient (BNV) | payer MEDICARE, MEDICAID, SELFPAY | PROVIDERS: PCP Internal Medicine; Visit Provider Radiology Diagnostic Radiology | DX: R18.8 Other ascites (principal) | CPT/HCPCS: 49083 ==

== ENCOUNTER 2023-08-07 12:10 | Day surgery (SDC) | payer MEDICARE, MEDICAID, SELFPAY ==
--- NOTE | ~2023-08-07 | US_ITS ---
Paracentesis INDICATIONS: Recurrent ascites After informed and written consent was obtained an official timeout was performed immediately prior to the procedure. PROCEDURE: Initial ultrasound surveillance demonstrates a moderate amount of fluid throughout the abdomen. The right lower quadrant was prepped and draped in the usual fashion. 1% Xylocaine was used for local anesthetic. Utilizing a 5 Swedish Yueh catheter 5.5 L of slightly cloudy fluid was drained. US/US paracentesis abd w/image IMPRESSION: Paracentesis with 5.5 L of fluid drained
[2023-08-07 12:33] LABS: Glucose, Whole Blood 149 mg/dL (60-115)
[2023-08-07 12:34] VITALS: BMI 23.5
[2023-08-07] MEDS: Lidocaine HCl 1 % MPF 5 ML VIAL SUBCUT (14:06)
[2023-08-07 14:10] VITALS: BP 104/53; PULSE 69; RESP 16; TEMP 37.1; O2SAT 94
== END 2023-08-07 14:30 | disposition home or self-care (01) ==
PROVIDERS: PCP Internal Medicine; Visit Provider Radiology Diagnostic Radiology
DX: R18.8 Other ascites (principal); K74.60 Unspecified cirrhosis of liver; K42.9 Umbilical hernia without obstruction or gangrene; E11.9 Type 2 diabetes mellitus without complications; J44.9 Chronic obstructive pulmonary disease, unspecified
CPT/HCPCS: 49083; 82947

== ENCOUNTER → 2023-08-07 13:20 | Outpatient (BNV) | payer MEDICARE, MEDICAID, SELFPAY | PROVIDERS: PCP Internal Medicine; Visit Provider Radiology Vascular & Interventional Radiology | DX: R18.8 Other ascites (principal) | CPT/HCPCS: 49083 ==

== ENCOUNTER 2023-08-17 13:08 | Day surgery (SDC) | payer MEDICARE, MEDICAID, SELFPAY ==
--- NOTE | ~2023-08-17 | US_ITS ---
EXAMINATION: ULTRASOUND-GUIDED PARACENTESIS CLINICAL INFORMATION: Cirrhosis and ascites. COMPARISON: Ultrasound paracentesis 08/07/2023. PROCEDURE: Following the explanation of the ultrasound-guided paracentesis procedure, as well as the risks and benefits of the procedure, a written informed consent was obtained. Patient was placed supine on ultrasound stretcher and ultrasound imaging was obtained. An optimal site was selected along the right lower quadrant and marked. Marked site was cleaned and draped in the usual sterile manner. 1% lidocaine was injected at the puncture site. Through a small skin incision, a 5-[place] [employer] catheter was advanced into the peritoneal space. After observing fluid return, stylet was withdrawn and catheter connected to vacuum bottle via connecting cannula. After obtaining 5.5 L of fluid, catheter was withdrawn and complete hemostasis achieved at the puncture site. Sterile dressing was applied post procedure. Patient tolerated the procedure extremely well. FINDINGS: On preliminary examination, there is moderate amount of free fluid seen in the abdominal cavity. Approximately 5.5 L of cloudy yellowish fluid was drained from the right lower quadrant. None of this fluid was sent to the lab. US/US paracentesis abd w/image IMPRESSION: Successful ultrasound-guided paracentesis performed.
[2023-08-17 13:28] VITALS: BMI 22.6
[2023-08-17 13:43] LABS: MANUAL DIFF FLAG NO
[2023-08-17 13:47] LABS: Glucose, Whole Blood 162 mg/dL (60-115)
[2023-08-17 13:56] LABS: Basophils Percent Auto 0.8 % (0-2); Eosinophils Absolute Auto 0.2 X10*3/uL (0.0-0.4); Hematocrit 32.6 % (42.0-52.0); Hemoglobin 10.7 g/dl (14.0-18.0); Imm Gran Abs Auto 0.02 X10*3/uL (0.00-0.03); Imm Gran Pct Auto 0.4 % (0.0-0.4); Lymphocytes Absolute Auto 0.4 X10*3/uL (1.2-4.9); Lymphocytes Percent Auto 8.8 % (20-40); Mean Corpuscular HGB Conc 32.8 g/dl (31.0-36.0); Mean Corpuscular Hemoglobin 31.8 pg (27.0-33.0); Mean Corpuscular Volume 96.7 fL (80.0-98.0); Mean Platelet Volume 9.6 fL (9.4-12.4); Monocytes Absolute Auto 0.5 X10*3/uL (0.1-1.2); Monocytes Percent Auto 10.2 % (2-11); Neutrophils Absolute Auto 3.9 x10*3/uL (2.0-8.3); Neutrophils Percent Auto 76.8 % (45-73); Platelet Count 164 X10*3/uL (160-400); Red Blood Count 3.37 X10*6/uL (4.60-5.80); Red Cell Distribution Width 13.9 % (11.0-16.0)
[2023-08-17 13:59] LABS: INTERNATIONAL NORM RATIO 1.2 (0.9-1.1); Prothrombin Time 14.7 SEC (11.1-13.3)
[2023-08-17 14:02] LABS: Partial Thromboplastin Time 36.2 SEC (26.0-36.4)
[2023-08-17 14:27] LABS: Anion Gap 14 (12-20); Blood Urea Nitrogen 12 mg/dL (9-16); Carbon Dioxide 28 mmol/L (22-29); Chloride 98 mmol/L (96-108); Creatinine Clr Calc Pharmacy 104.5; Estimated Glomerular Filt Rate > 60; Potassium 2.9 mmol/L (3.3-5.1); Sodium 137 mmol/L (135-145)
--- NOTE | 2023-08-17 15:08 | PC.NURSE ---
Dr Mcclellan's office notified of Potassium being 2.[address] Mcclellan was with a patient and will call new orders directly to PACU. FLARE BREAKER Moe Yan notified.
[2023-08-17 15:40] VITALS: BP 102/58; PULSE 50; RESP 18; TEMP 36.4; O2SAT 98
[2023-08-17 15:55] VITALS: BP 99/57; PULSE 64; RESP 16; O2SAT 98
[2023-08-17 16:10] VITALS: BP 101/64; PULSE 74; RESP 16; O2SAT 98
[2023-08-17] MEDS: Potassium Chloride ER 20 MEQ TAB.ER.PRT PO ×2 (16:14→16:48)
[2023-08-17 16:25] VITALS: BP 93/57; PULSE 61; RESP 16; O2SAT 98
[2023-08-17 16:40] VITALS: BP 97/64; PULSE 68; RESP 14; TEMP 36.6; O2SAT 98
[2023-08-17 16:55] VITALS: BP 102/65; PULSE 66; RESP 14; TEMP 36.6; O2SAT 97
--- NOTE | 2023-08-19 07:53 | MHC.CM.PN ---
Patient d/c'd home before being seen by case management.
== END 2023-08-17 17:29 | disposition home or self-care (01) ==
PROVIDERS: Radiology Vascular & Interventional Radiology; PCP Internal Medicine; Visit Provider Radiology Diagnostic Radiology
DX: R18.8 Other ascites (principal); K74.60 Unspecified cirrhosis of liver; E11.9 Type 2 diabetes mellitus without complications; J44.9 Chronic obstructive pulmonary disease, unspecified; K42.9 Umbilical hernia without obstruction or gangrene; Z79.84 Long term (current) use of oral hypoglycemic drugs; Z79.899 Other long term (current) drug therapy; Z87.891 Personal history of nicotine dependence
CPT/HCPCS: 36415; 49083; 80051; 82565; 82947; 84520; 85025; 85610; 85730

== ENCOUNTER → 2023-08-17 14:34 | Outpatient (BNV) | payer MEDICARE, MEDICAID, SELFPAY | PROVIDERS: PCP Internal Medicine; Visit Provider Radiology Diagnostic Radiology | DX: K70.31 Alcoholic cirrhosis of liver with ascites (principal) | CPT/HCPCS: 49083 ==

== ENCOUNTER 2023-08-22 10:19 | Outpatient (REF) | payer MEDICARE, MEDICAID, SELFPAY ==
[2023-08-22 15:16] LABS: Anion Gap 13 (12-20); Blood Urea Nitrogen 11 mg/dL (9-16); Calcium 8.8 mg/dL (8.4-10.2); Carbon Dioxide 32 mmol/L (22-29); Chloride 97 mmol/L (96-108); Estimated Glomerular Filt Rate > 60; Glucose Random 134 mg/dL (60-115); Potassium 3.1 mmol/L (3.3-5.1); Sodium 139 mmol/L (135-145)
== END 2023-08-22 10:20 | disposition home or self-care (01) ==
LOC: HO.WFDLDS 10:19
PROVIDERS: Visit Provider Internal Medicine
DX: E87.6 Hypokalemia (principal)
CPT/HCPCS: 36415; 80048

== ENCOUNTER 2023-08-27 11:26 | Outpatient (REF) | payer MEDICARE, MEDICAID, SELFPAY ==
[2023-08-27 15:09] LABS: Alanine Aminotransferase 28 U/L (0-40); Albumin Level 2.9 g/dL (3.5-5.0); Alkaline Phosphatase 340 U/L (39-117); Anion Gap 13 (12-20); Aspartate Amino Transferase 44 U/L (5-37); Bilirubin Total 0.5 mg/dL (0.0-1.0); Blood Urea Nitrogen 15 mg/dL (9-16); Calcium 8.8 mg/dL (8.4-10.2); Carbon Dioxide 29 mmol/L (22-29); Chloride 100 mmol/L (96-108); Estimated Glomerular Filt Rate > 60; Glucose Random 108 mg/dL (60-115); Potassium 3.6 mmol/L (3.3-5.1); Sodium 138 mmol/L (135-145); Total Protein 6.6 g/dL (6.5-8.0)
== END 2023-08-27 11:27 | disposition home or self-care (01) ==
LOC: HO.WFDLDS 11:26
PROVIDERS: Visit Provider Internal Medicine
DX: Z13.89 Encounter for screening for other disorder (principal)
CPT/HCPCS: 36415; 80053

== ENCOUNTER → 2023-08-27 13:14 | Day surgery (SDC) | payer MEDICARE, MEDICAID, SELFPAY ==
[2023-08-27 14:26] LABS: COVID-19 Test Negative (Negative); IDNOW Serial# 08D9AD1C
== END ==
PROVIDERS: Radiology Diagnostic Radiology; PCP Internal Medicine; Visit Provider Internal Medicine
DX: R18.8 Other ascites (principal); Z53.09 Procedure and treatment not carried out because of other contraindication; R69 Illness, unspecified; Z11.52 Encounter for screening for COVID-19
CPT/HCPCS: 36415; 80053; 87635

== ENCOUNTER 2023-09-05 13:15 | Day surgery (SDC) | payer MEDICARE, MEDICAID, SELFPAY ==
--- NOTE | ~2023-09-05 | US_ITS ---
EXAMINATION: ULTRASOUND-GUIDED PARACENTESIS CLINICAL INFORMATION: Ascites. COMPARISON: 08/17/2023 and 08/07/2023 TECHNIQUE: Ultrasound-guided paracentesis. FINDINGS: Informed consent was obtained from the patient prior to the procedure. During this process, the procedure and potential alternatives were explained, along with the intended outcome and benefits. The risks of the procedure, as well as the risk of not doing the procedure, were discussed. The patient was given the opportunity to ask questions regarding the procedure and appeared competent to make medical decisions. A signed consent form which documents this discussion was placed in the medical record. Using sterile technique and ultrasound guidance a 5 [place] Yueh needle was directed into the abdominal cavity from a left lower quadrant approach. A total of 4 L of slightly cloudy miguelito fluid was removed. Patient tolerated procedure without difficulty. US/US paracentesis abd w/image IMPRESSION: Paracentesis with removal of 4 L of slightly cloudy miguelito-colored fluid.
[2023-09-05 13:23] VITALS: BMI 22.8
[2023-09-05 15:57] VITALS: BP 110/63; PULSE 59; RESP 18; TEMP 36.7; O2SAT 98
[2023-09-05 16:12] VITALS: BP 95/55; PULSE 51; RESP 18; O2SAT 98
[2023-09-05 16:27] VITALS: BP 101/57; PULSE 56; RESP 18; O2SAT 98
== END 2023-09-05 16:36 | disposition home or self-care (01) ==
LOC: HO.SSS 13:16
PROVIDERS: Radiology Diagnostic Radiology; PCP Internal Medicine; Visit Provider Radiology Diagnostic Radiology
DX: R18.8 Other ascites (principal); K74.60 Unspecified cirrhosis of liver; J44.9 Chronic obstructive pulmonary disease, unspecified; E11.9 Type 2 diabetes mellitus without complications
CPT/HCPCS: 49083; 82947

== ENCOUNTER → 2023-09-05 15:01 | Outpatient (BNV) | payer MEDICARE, MEDICAID, SELFPAY | PROVIDERS: PCP Internal Medicine; Visit Provider Radiology Diagnostic Radiology | DX: R18.8 Other ascites (principal) | CPT/HCPCS: 49083 ==

== ENCOUNTER 2023-09-07 11:42 | Outpatient (REF) | payer MEDICARE, MEDICAID, SELFPAY ==
[2023-09-07 15:57] LABS: Alanine Aminotransferase 22 U/L (0-40); Albumin Level 2.9 g/dL (3.5-5.0); Alkaline Phosphatase 303 U/L (39-117); Anion Gap 15 (12-20); Aspartate Amino Transferase 30 U/L (5-37); Bilirubin Total 0.6 mg/dL (0.0-1.0); Blood Urea Nitrogen 13 mg/dL (9-16); Calcium 8.7 mg/dL (8.4-10.2); Carbon Dioxide 29 mmol/L (22-29); Chloride 97 mmol/L (96-108); Estimated Glomerular Filt Rate > 60; Glucose Random 219 mg/dL (60-115); Potassium 3.6 mmol/L (3.3-5.1); Sodium 137 mmol/L (135-145); Total Protein 6.5 g/dL (6.5-8.0)
== END 2023-09-07 11:43 | disposition home or self-care (01) ==
LOC: HO.WFDLDS 11:42
PROVIDERS: Visit Provider Internal Medicine
DX: K70.31 Alcoholic cirrhosis of liver with ascites (principal)
CPT/HCPCS: 36415; 80053

== ENCOUNTER 2023-09-19 11:56 | Day surgery (SDC) | payer MEDICARE, MEDICAID, SELFPAY ==
--- NOTE | ~2023-09-19 | US_ITS ---
Ultrasound paracentesis History: Ascites. Risks and benefits and possible complications were discussed with the patient and consent form was signed. A safe pocket of ascitic fluid was identified using ultrasound guidance, and the overlying skin was marked. The abdomen prepped and draped in sterile fashion. 1% lidocaine was used as a local anesthetic. Using ultrasound guidance, a 5 fr catheter was placed into the ascitic pocket. 3.4 liters of miguelito fluid was removed passively. The catheter was then removed. Fluid sent for analysis. A few patient support representative images from before and after the examination were obtained. The procedure was performed by Saulo Cuellar PA-C and supervised by Dr. Dinero. US/US paracentesis abd w/image Impression: Ultrasound-guided paracentesis as described above. No immediate complications
[2023-09-19 12:38] VITALS: BMI 21.7
[2023-09-19 12:53] LABS: Glucose, Whole Blood 150 mg/dL (60-115)
[2023-09-19] MEDS: Lidocaine HCl 1 % MPF 5 ML VIAL SUBCUT (14:06)
[2023-09-19 14:12] VITALS: BP 102/61; PULSE 53; RESP 20; TEMP 36.9; O2SAT 96
[2023-09-19 14:36] LABS: MN% 86.2 %; PMN% 13.8 %; RBC Peritoneal Fluid 0.005 X10*6/uL; WBC Peritoneal Fluid 0.209 X10*3/uL
[2023-09-19 15:03] VITALS: BP 95/62; PULSE 56; RESP 20; TEMP 36.3; O2SAT 98
[2023-09-19 15:16] LABS: BF Shift QC OK YES; Lymphocyte Peritoneal Fl 30 %; Monocytes Peritoneal Fl 21 %; Other Peritioneal Fl 49 %
== END 2023-09-19 15:09 | disposition home or self-care (01) ==
PROVIDERS: Physician Assistant Surgical; PCP Internal Medicine; Visit Provider Radiology Diagnostic Radiology
DX: R18.8 Other ascites (principal); K74.60 Unspecified cirrhosis of liver; J44.9 Chronic obstructive pulmonary disease, unspecified; E11.9 Type 2 diabetes mellitus without complications; Z79.84 Long term (current) use of oral hypoglycemic drugs; Z79.899 Other long term (current) drug therapy
CPT/HCPCS: 49083; 82947; 89051

== ENCOUNTER → 2023-09-19 13:30 | Outpatient (BNV) | payer MEDICARE, MEDICAID, SELFPAY | PROVIDERS: PCP Internal Medicine; Visit Provider Radiology Vascular & Interventional Radiology | DX: R18.8 Other ascites (principal) | CPT/HCPCS: 49083 ==

== ENCOUNTER 2023-09-24 12:33 | Outpatient (REF) | payer MEDICARE, MEDICAID, SELFPAY ==
[2023-09-24 14:01] LABS: MANUAL DIFF FLAG NO
[2023-09-24 14:14] LABS: Basophils Absolute Auto 0.1 X10*3/uL (0.0-0.2); Basophils Percent Auto 1.1 % (0-2); Eosinophils Absolute Auto 0.2 X10*3/uL (0.0-0.4); Eosinophils Percent Auto 3.6 % (0-4); Hematocrit 34.1 % (42.0-52.0); Hemoglobin 11.2 g/dl (14.0-18.0); Imm Gran Abs Auto 0.02 X10*3/uL (0.00-0.03); Imm Gran Pct Auto 0.4 % (0.0-0.4); Lymphocytes Absolute Auto 0.5 X10*3/uL (1.2-4.9); Lymphocytes Percent Auto 9.7 % (20-40); Mean Corpuscular HGB Conc 32.8 g/dl (31.0-36.0); Mean Corpuscular Hemoglobin 31.9 pg (27.0-33.0); Mean Corpuscular Volume 97.2 fL (80.0-98.0); Mean Platelet Volume 9.9 fL (9.4-12.4); Monocytes Absolute Auto 0.5 X10*3/uL (0.1-1.2); Monocytes Percent Auto 9.7 % (2-11); Neutrophils Absolute Auto 3.6 x10*3/uL (2.0-8.3); Neutrophils Percent Auto 75.5 % (45-73); Platelet Count 186 X10*3/uL (160-400); Red Blood Count 3.51 X10*6/uL (4.60-5.80); Red Cell Distribution Width 14.3 % (11.0-16.0); White Blood Count 4.7 X10*3/uL (4.8-10.8)
[2023-09-24 14:23] LABS: Estimated Average Glucose 117 mg/dL; Hemoglobin A1c % 5.7 % (<6.0)
[2023-09-24 14:46] LABS: Alanine Aminotransferase 21 U/L (0-40); Alkaline Phosphatase 323 U/L (39-117); Anion Gap 15 (12-20); Aspartate Amino Transferase 34 U/L (5-37); Bilirubin Total 0.5 mg/dL (0.0-1.0); Blood Urea Nitrogen 15 mg/dL (9-16); Carbon Dioxide 30 mmol/L (22-29); Chloride 97 mmol/L (96-108); Estimated Glomerular Filt Rate > 60; Glucose Random 124 mg/dL (60-115); Potassium 3.3 mmol/L (3.3-5.1); Sodium 139 mmol/L (135-145); Total Protein 6.8 g/dL (6.5-8.0)
== END 2023-09-24 12:34 | disposition home or self-care (01) ==
LOC: HO.WFDLDS 12:33
PROVIDERS: Visit Provider Internal Medicine
DX: R63.4 Abnormal weight loss (principal); E11.9 Type 2 diabetes mellitus without complications; D64.9 Anemia, unspecified
CPT/HCPCS: 36415; 80053; 83036; 85025

== ENCOUNTER 2023-10-01 12:02 | Day surgery (SDC) | payer MEDICARE, MEDICAID, SELFPAY ==
--- NOTE | 2023-09-28 09:07 | HP_ITS ---
DATE OF SERVICE: 10/01/2023 HISTORY OF PRESENT ILLNESS: The patient is a 62-year-old male with history of cirrhosis and ascites. He is undergoing every 2 week paracenteses to remove abdominal fluid due to abdominal distention and discomfort from the cirrhosis. His last procedure was on September 19. He was recently seen in the office for reassessment. He states that he feels better after the procedure. PAST MEDICAL HISTORY: Significant for alcoholism, tobacco use, chronic obstructive pulmonary disease, [id number] diabetes, cirrhosis, hepatomegaly, peripheral edema, venous stasis disease, anemia, diabetic neuropathy, protein malnutrition, oxygen-dependent chronic obstructive pulmonary disease. ALLERGIES: NO REPORTED ALLERGIES TO MEDICINES. REVIEW OF SYSTEMS: No chest pain. He is on oxygen for shortness of breath related to his oxygen. No fevers, chills, or sweats. Weight fluctuates with the paracentesis. No complaints of headaches. No chest pains. Edema fluctuates depending on fluid retention. Abdominal pain is depending upon the degree of distention from the ascites. Some constipation. No urinary complaints. He has chronic back pain and some right shoulder pain. No confusion reported. Sleep and appetite are normal. Some anxiety. No complaints of hay fever. PRESENT MEDICATIONS: Lasix 40 mg twice a day, Symbicort inhaler 1 puff twice a day, tramadol 50 mg every 6 hours as needed for pain, metformin 1000 mg p.o. b.i.d., lorazepam 1 mg p.o. b.i.d. p.r.n., Ventolin inhaler 2 puffs every 4 hours as needed, folate 1 mg a day, vitamin D 1000 units a day, oxygen 2 to 3 L nasal cannula. PHYSICAL EXAMINATION: GENERAL: He is awake and alert, on oxygen. He has temporal wasting. HEENT: Cheeks are withdrawn. Pharynx is clear. NECK: No masses. HEART: Sounds S1 and S2. LUNGS: Distant. ABDOMEN: Distended with large umbilical hernia. Positive fluid. Positive veins visible. EXTREMITIES: Venous stasis disease 1 to 2+ edema. ASSESSMENT AND PLAN: He is medically stable for the proposed procedure. I will be available if there are any medical questions or issues. William Mcclellan MD FC/MODL / [id number]
--- NOTE | ~2023-10-01 | US_ITS ---
ULTRASOUND PARACENTESIS HISTORY: Ascites. Risks and benefits and possible complications were discussed with the patient and consent form was signed. A safe pocket of ascitic fluid was identified left lower quadrant using ultrasound guidance, and the overlying skin marked, prepped and draped in sterile fashion. 1% lidocaine was used to anesthetize skin, subcutaneous tissues, and the peritoneal lining. Using ultrasound guidance, a 5 fr catheter was advanced into the ascitic pocket. 2.7 liters of miguelito fluid was removed passively. The catheter was then removed. A few junior sales representative images from before and after the examination were obtained. The procedure was performed by Saulo Cuellar PA-C and supervised by Dr. Flowers. US/US paracentesis abd w/image IMPRESSION: Ultrasound-guided paracentesis as described above. Removal of 2.7 L of miguelito ascitic fluid. No immediate complications.
[2023-10-01 12:14] VITALS: BMI 22.5
[2023-10-01 12:34] LABS: Glucose, Whole Blood 131 mg/dL (60-115)
[2023-10-01] MEDS: traMADoL HCL 50 MG TABLET 75 MG PO (12:35)
[2023-10-01 12:45] VITALS: BP 101/67; PULSE 68; RESP 18; TEMP 36.1; O2SAT 95
[2023-10-01 13:54] VITALS: BP 104/59; PULSE 50; RESP 16; TEMP 36.2; O2SAT 95
[2023-10-01 14:09] VITALS: BP 107/62; PULSE 69; RESP 16; O2SAT 96
[2023-10-01 14:24] VITALS: BP 102/54; PULSE 50; RESP 16; TEMP 36.2; O2SAT 96
[2023-10-01] MEDS: Lidocaine HCl 1 % MPF 5 ML VIAL SUBCUT (14:28)
== END 2023-10-01 14:29 ==
LOC: HO.SSS 12:03
PROVIDERS: PCP Internal Medicine; Visit Provider Radiology Diagnostic Radiology
DX: R18.8 Other ascites (principal); K74.60 Unspecified cirrhosis of liver; E11.9 Type 2 diabetes mellitus without complications; J44.9 Chronic obstructive pulmonary disease, unspecified; Z99.81 Dependence on supplemental oxygen; Z79.51 Long term (current) use of inhaled steroids; Z79.84 Long term (current) use of oral hypoglycemic drugs; Z79.899 Other long term (current) drug therapy; Z87.891 Personal history of nicotine dependence
CPT/HCPCS: 49083; 82947

== ENCOUNTER → 2023-10-01 13:10 | Outpatient (BNV) | payer MEDICARE, MEDICAID, SELFPAY | PROVIDERS: PCP Internal Medicine; Visit Provider Radiology Diagnostic Radiology | DX: R18.8 Other ascites (principal) | CPT/HCPCS: 49083 ==

== ENCOUNTER 2023-10-10 12:40 | Outpatient (REF) | payer MEDICARE, MEDICAID, SELFPAY ==
[2023-10-10 14:59] LABS: MANUAL DIFF FLAG NO
[2023-10-10 15:09] LABS: Basophils Percent Auto 0.9 % (0-2); Eosinophils Absolute Auto 0.1 X10*3/uL (0.0-0.4); Eosinophils Percent Auto 2.7 % (0-4); Hematocrit 35.3 % (42.0-52.0); Hemoglobin 11.6 g/dl (14.0-18.0); Imm Gran Abs Auto 0.03 X10*3/uL (0.00-0.03); Imm Gran Pct Auto 0.7 % (0.0-0.4); Lymphocytes Absolute Auto 0.4 X10*3/uL (1.2-4.9); Lymphocytes Percent Auto 8.7 % (20-40); Mean Corpuscular HGB Conc 32.9 g/dl (31.0-36.0); Mean Corpuscular Hemoglobin 32.1 pg (27.0-33.0); Mean Corpuscular Volume 97.8 fL (80.0-98.0); Mean Platelet Volume 10.5 fL (9.4-12.4); Monocytes Absolute Auto 0.4 X10*3/uL (0.1-1.2); Monocytes Percent Auto 9.6 % (2-11); Neutrophils Absolute Auto 3.5 x10*3/uL (2.0-8.3); Neutrophils Percent Auto 77.4 % (45-73); Platelet Count 158 X10*3/uL (160-400); Red Blood Count 3.61 X10*6/uL (4.60-5.80); Red Cell Distribution Width 14.5 % (11.0-16.0); White Blood Count 4.5 X10*3/uL (4.8-10.8)
[2023-10-10 15:27] LABS: Estimated Average Glucose 126 mg/dL
[2023-10-10 15:35] LABS: Alanine Aminotransferase 20 U/L (0-40); Albumin Level 3.1 g/dL (3.5-5.0); Alkaline Phosphatase 326 U/L (39-117); Anion Gap 9 (12-20); Aspartate Amino Transferase 31 U/L (5-37); Bilirubin Total 0.5 mg/dL (0.0-1.0); Blood Urea Nitrogen 15 mg/dL (9-16); Calcium 9.3 mg/dL (8.4-10.2); Carbon Dioxide 31 mmol/L (22-29); Chloride 104 mmol/L (96-108); Estimated Glomerular Filt Rate > 60; Glucose Random 169 mg/dL (60-115); Potassium 3.6 mmol/L (3.3-5.1); Sodium 140 mmol/L (135-145); Total Protein 6.9 g/dL (6.5-8.0)
[2023-10-10 16:11] LABS: Folate > 20.0 ng/mL (> or = 4.0); Vitamin B12 485 pg/mL (200-900)
== END 2023-10-10 12:41 | disposition home or self-care (01) ==
LOC: HO.WFDLDS 12:40
PROVIDERS: Visit Provider Internal Medicine
DX: J44.9 Chronic obstructive pulmonary disease, unspecified (principal); D64.9 Anemia, unspecified; E11.9 Type 2 diabetes mellitus without complications
CPT/HCPCS: 36415; 80053; 82607; 82746; 83036; 85025

== ENCOUNTER 2023-10-11 11:58 | Day surgery (SDC) | payer MEDICARE, MEDICAID, SELFPAY ==
--- NOTE | ~2023-10-11 | US_ITS ---
EXAMINATION: US ABDOMEN LIMITED CLINICAL INFORMATION: Cirrhosis, ascites. COMPARISON: Ultrasound abdomen complete 02/15/2023. CT abdomen and pelvis without contrast 12/21/2022. X-ray abdomen KUB 11/07/2022. Ultrasound abdomen limited 07/20/2022. Ultrasound abdomen 12/04/2012. TECHNIQUE: Real-time imaging of the abdomen. Permanent documented images obtained. FINDINGS: Small amount of ascites identified in the bilateral lower quadrants, bilateral flanks and right upper quadrant. Planned paracentesis was canceled with patient in agreement. Liver is small and macronodular in appearance. Spleen is enlarged at 14.8 cm. US/US abdomen limited IMPRESSION: Small/moderate ascites.
[2023-10-11 12:37] VITALS: BMI 21.6
[2023-10-11] MEDS: traMADoL HCL 50 MG TABLET 75 MG PO (12:41)
[2023-10-11 12:42] LABS: Glucose, Whole Blood 105 mg/dL (60-115)
--- NOTE | 2023-10-11 13:31 | PC.NURSE ---
Cruz arrived in pacu procedure not done, no anesthesia. patient dressed and signed belongings sheet and walked to elevator.
== END 2023-10-11 13:35 | disposition home or self-care (01) ==
LOC: HO.SSS 11:59
PROVIDERS: PCP Internal Medicine; Visit Provider Radiology Vascular & Interventional Radiology
DX: R18.8 Other ascites (principal); Z53.8 Procedure and treatment not carried out for other reasons; K74.69 Other cirrhosis of liver; K76.89 Other specified diseases of liver; R16.1 Splenomegaly, not elsewhere classified
CPT/HCPCS: 76705; 82947

== ENCOUNTER → 2023-10-22 13:20 | Day surgery (SDC) | payer MEDICARE, MEDICAID, SELFPAY ==
--- NOTE | ~2023-10-22 | US_ITS ---
EXAMINATION: US ABDOMEN LIMITED CLINICAL INFORMATION: Cirrhosis/ascites. COMPARISON: Ultrasound abdomen limited 10/11/2023. CT abdomen and pelvis 06/27/2023. X-ray KUB 11/07/2022. TECHNIQUE: Real-time imaging of all 4 quadrants FINDINGS: Small volume ascites. US/US abdomen limited IMPRESSION: Small volume ascites.
[2023-10-22 13:28] VITALS: BP 113/63; PULSE 65; RESP 16; TEMP 37.1; O2SAT 97
[2023-10-22] MEDS: traMADoL HCL 50 MG TABLET 75 MG PO (13:44)
[2023-10-22 13:50] VITALS: BMI 21.6
[2023-10-22 13:50] LABS: Glucose, Whole Blood 150 mg/dL (60-115)
== END ==
PROVIDERS: PCP Internal Medicine; Visit Provider Student in an Organized Health Care Education/Training Program
DX: R18.8 Other ascites (principal); Z53.8 Procedure and treatment not carried out for other reasons; K74.60 Unspecified cirrhosis of liver; J44.9 Chronic obstructive pulmonary disease, unspecified; E11.9 Type 2 diabetes mellitus without complications; Z79.4 Long term (current) use of insulin; Z79.51 Long term (current) use of inhaled steroids
CPT/HCPCS: 76705; 82947; P9047

== ENCOUNTER 2023-10-26 10:30 | Outpatient (REF) | payer MEDICARE, MEDICAID, SELFPAY ==
[2023-10-26 14:57] LABS: Anion Gap 11 (12-20); Blood Urea Nitrogen 13 mg/dL (9-16); Calcium 9.4 mg/dL (8.4-10.2); Carbon Dioxide 33 mmol/L (22-29); Chloride 100 mmol/L (96-108); Estimated Glomerular Filt Rate > 60; Glucose Random 92 mg/dL (60-115); Potassium 3.6 mmol/L (3.3-5.1); Sodium 140 mmol/L (135-145)
== END 2023-10-26 10:31 | disposition home or self-care (01) ==
LOC: HO.WFDLDS 10:30
PROVIDERS: PCP Internal Medicine; Visit Provider Internal Medicine
DX: K70.31 Alcoholic cirrhosis of liver with ascites (principal)
CPT/HCPCS: 36415; 80048

== ENCOUNTER 2023-11-01 13:46 | Outpatient (AMB) | payer MEDICARE, MEDICAID, SELFPAY ==
[2023-11-01 13:46] VITALS: BP 128/67; PULSE 69; BMI 21.9
--- NOTE | 2023-11-01 13:46 | MHC.OFFVIS ---
Intake Vital Signs 11/01/23 13:46 Height 5 ft 9 in Weight 148 lb BMI 21.9 BP 128/67 Blood Pressure Location Rt brachial Position Sitting Pulse 69 Intake Visit Reasons: Umbilical Hernia Intake Note: This patient presents for an assessment for a umbilical hernia. Patient c/o;reports no changes. 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 Required: No Accompanied by: Self / Same As Patient Allergies No Known Allergies Allergy (Verified 10/11/23 12:28) Medication List - Last Reconciled 11/01/23 by Ronnie Reeves MD albuterol sulfate 90 mcg/actuation (Ventolin HFA) 2 inhalations inhalation NEEDED budesonide-formoterol 160-4.5 mcg/actuation (Symbicort) 1 inh inhalation BID cholecalciferol (vitamin D3) 1 cap PO DAILY folic acid 1 tab PO DAILY furosemide 60 mg PO QAM furosemide 40 mg PO BEDTIME metformin 1,000 mg PO BID potassium chloride ER 20 mEq PO DAILY tramadol 100 mg PO QID PRN HPI Umbilical Hernia HPI Details He is here for a follow-up for his recurrent umbilical hernia. He last underwent paracentesis for his large volume ascites 6 weeks ago almost. He says that he had undergone repeat ultrasound since then and he was told that there was not much fluid to be aspirated anymore. He says that his umbilical hernia been bothering him more because of this being more protuberant. He says that this is increased in size since his last surgery. He says he has to wear his abdominal binder all the time. [facility] Medical History Recurrent umbilical hernia Abdominal wall mass Incarcerated umbilical hernia COPD (chronic obstructive pulmonary disease) Diabetes Liver cirrhosis Surgical History History of umbilical hernia repair (11/07/22) History of appendectomy Family History Other No family history of coronary artery disease Social History Household Members: None Housing: Other Housing Other:: mobile home Do you presently have visiting nurse or other home services: No Alcohol intake: former Comment: previously medicated with tramadol preop Patient Tobacco Use Status: Former Tobacco user Quit Date: 2010 Tobacco use type: Cigarette Second Hand Smoke Exposure: Yes service: No Current occupational status: disabled Review of Systems Const Denies chills and Denies fever(s) Card Denies chest pain, Denies dyspnea and Reports dyspnea on exertion Resp Denies cough, Denies dyspnea and Reports dyspnea on exertion GI Denies hematochezia and Denies change in bowel habits Denies hematuria and Denies difficulty urinating Musc Denies back pain, Reports myalgias, Reports arthralgias and Denies limited range of motion Neuro Denies focal weakness and Denies convulsions Psych Denies depression and Denies mood swings Physical Exam Const Other: Appears cachectic but ambulating slowly General: comfortable and no acute distress Resp Effort & Inspection: normal respiratory effort Cardio Rate: regular rate GI Other: Large protuberant and distended abdomen with some ascites; fascial defect on the umbilicus about 6 cm in diameter, reducible; multiple collateralization on the skin is seen Assessment & Plan Assessment & Plan (1) Recurrent umbilical hernia: Code(s): K42.9 - Umbilical hernia without obstruction or gangrene Plan: He has a recurrent umbilical hernia as described above. This is reducible. The fascial defect is about 6 cm in diameter . He says that his last in these was almost 6 weeks ago and since then, there has been very little ascitic fluid that is seen on ultrasound studies He states that he would like to proceed with repair of this recurrent umbilical hernia as much as possible because of the discomfort. I did explain to him the elevated perioperative risks in view of his overall medical condition. Furthermore, he has significant collateralization on the abdominal wall was of his cirrhosis. I will need to discuss his case with his database administration associate as well as primary care physician. I will get back to him thereafter. (2) Cirrhosis of liver: Code(s): K74.60 - Unspecified cirrhosis of liver Qualifiers: Hepatic cirrhosis type: alcoholic cirrhosis Ascites presence: with ascites Qualified Code(s): K70.31 - Alcoholic cirrhosis of liver with ascites Plan: He has significant collateralization on the abdominal wall. He says that his ascites seems to have improved significantly and his last paracentesis was over a month ago. Coding Level of Care Code Est Pt Level 4 (12703) Diagnoses Recurrent umbilical hernia K42.9 Alcoholic cirrhosis of liver with ascites K70.31 Hepatic cirrhosis type: alcoholic cirrhosis Ascites presence: with ascites
== END 2023-11-01 14:09 | disposition home or self-care (01) ==
PROVIDERS: PCP Internal Medicine; Referring Provider Internal Medicine; Visit Provider Surgery
DX: K42.9 Umbilical hernia without obstruction or gangrene (principal); K70.31 Alcoholic cirrhosis of liver with ascites
CPT/HCPCS: 99214

== ENCOUNTER → 2023-11-01 13:46 | Outpatient (BNVA) | payer MEDICARE, MEDICAID, SELFPAY | PROVIDERS: PCP Internal Medicine; Referring Provider Internal Medicine; Visit Provider Surgery | DX: K70.31 Alcoholic cirrhosis of liver with ascites (principal); K42.9 Umbilical hernia without obstruction or gangrene | CPT/HCPCS: 99212 ==

== ENCOUNTER 2023-11-09 11:14 | Outpatient (REF) | payer MEDICARE, MEDICAID, SELFPAY ==
[2023-11-09 15:10] LABS: Anion Gap 12 (12-20); Blood Urea Nitrogen 18 mg/dL (9-16); Carbon Dioxide 31 mmol/L (22-29); Chloride 97 mmol/L (96-108); Estimated Glomerular Filt Rate > 60; Potassium 3.5 mmol/L (3.3-5.1); Sodium 136 mmol/L (135-145)
== END 2023-11-09 11:15 | disposition home or self-care (01) ==
LOC: HO.WFDLDS 11:14
PROVIDERS: Visit Provider Internal Medicine
DX: K70.31 Alcoholic cirrhosis of liver with ascites (principal)
CPT/HCPCS: 36415; 80051; 82565; 84520

== ENCOUNTER 2023-11-28 07:41 | Outpatient (REF) | payer MEDICARE, MEDICAID, SELFPAY ==
[2023-11-28 12:42] LABS: Anion Gap 12 (12-20); Blood Urea Nitrogen 19 mg/dL (9-16); Calcium 9.5 mg/dL (8.4-10.2); Carbon Dioxide 28 mmol/L (22-29); Chloride 103 mmol/L (96-108); Estimated Glomerular Filt Rate > 60; Glucose Random 145 mg/dL (60-115); Potassium 3.6 mmol/L (3.3-5.1); Sodium 139 mmol/L (135-145)
== END 2023-11-28 07:42 | disposition home or self-care (01) ==
LOC: HO.WFDLDS 07:41
PROVIDERS: PCP Internal Medicine; Referring Provider Surgery; Visit Provider Internal Medicine
DX: K70.31 Alcoholic cirrhosis of liver with ascites (principal)
CPT/HCPCS: 36415; 80048

== ENCOUNTER 2023-12-18 11:26 | Outpatient (REF) | payer MEDICARE, MEDICAID, SELFPAY ==
[2023-12-18 15:56] LABS: Anion Gap 10 (12-20); Blood Urea Nitrogen 15 mg/dL (9-16); Carbon Dioxide 31 mmol/L (22-29); Chloride 100 mmol/L (96-108); Estimated Glomerular Filt Rate > 60; Potassium 3.5 mmol/L (3.3-5.1); Sodium 137 mmol/L (135-145)
== END 2023-12-18 11:27 | disposition home or self-care (01) ==
LOC: HO.WFDLDS 11:26
PROVIDERS: PCP Internal Medicine; Visit Provider Internal Medicine
DX: K70.31 Alcoholic cirrhosis of liver with ascites (principal)
CPT/HCPCS: 36415; 80051; 82565; 84520

== ENCOUNTER 2023-12-20 08:26 | Day surgery (SDC) | payer MEDICARE, MEDICAID, SELFPAY ==
--- NOTE | ~2023-12-20 | US_ITS ---
ULTRASOUND GUIDED PARACENTESIS HISTORY: Ascites. Risks and benefits and possible complications were discussed with the patient and consent form was signed. A safe pocket of ascitic fluid left lower quadrant was identified using ultrasound guidance, and the overlying skin was marked, prepped and draped in sterile fashion. 1% lidocaine was used as a local anesthetic. Using ultrasound guidance, a 5 fr catheter was placed into the ascitic pocket. 800 ml of miguelito fluid was removed passively. The catheter was then removed. A few circulation representative images from before and after the examination were obtained. The procedure was performed by Saulo Cuellar PA-C and supervised by Dr. Flowers. US/US paracentesis abd w/image IMPRESSION: Ultrasound-guided paracentesis as described above. Removal of 8 L of miguelito fluid. No immediate complications
[2023-12-20 09:21] VITALS: BMI 23.0
[2023-12-20 09:30] LABS: Glucose, Whole Blood 211 mg/dL (60-115)
[2023-12-20 10:10] VITALS: BP 101/66; PULSE 52; RESP 16; TEMP 36.8; O2SAT 98
[2023-12-20] MEDS: Lidocaine HCl 1 % MPF 5 ML VIAL SUBCUT (10:15)
== END 2023-12-20 10:24 | disposition home or self-care (01) ==
PROVIDERS: Physician Assistant Surgical; PCP Internal Medicine; Visit Provider Internal Medicine
DX: R18.8 Other ascites (principal); K74.60 Unspecified cirrhosis of liver; E11.42 Type 2 diabetes mellitus with diabetic polyneuropathy; J44.9 Chronic obstructive pulmonary disease, unspecified; F10.21 Alcohol dependence, in remission; Z79.84 Long term (current) use of oral hypoglycemic drugs; Z79.899 Other long term (current) drug therapy
CPT/HCPCS: 49083; 82947

== ENCOUNTER → 2023-12-20 09:37 | Outpatient (BNV) | payer MEDICARE, MEDICAID, SELFPAY | PROVIDERS: PCP Internal Medicine; Visit Provider Radiology Diagnostic Radiology | DX: R18.8 Other ascites (principal) | CPT/HCPCS: 49083 ==

== ENCOUNTER 2023-12-31 12:39 | Outpatient (REF) | payer MEDICARE, MEDICAID, SELFPAY ==
[2023-12-31 14:48] LABS: MANUAL DIFF FLAG NO
[2023-12-31 14:54] LABS: Basophils Absolute Auto 0.1 X10*3/uL (0.0-0.2); Eosinophils Absolute Auto 0.9 X10*3/uL (0.0-0.4); Eosinophils Percent Auto 17.7 % (0-4); Hemoglobin 11.4 g/dl (14.0-18.0); Imm Gran Abs Auto 0.03 X10*3/uL (0.00-0.03); Imm Gran Pct Auto 0.6 % (0.0-0.4); Lymphocytes Absolute Auto 0.4 X10*3/uL (1.2-4.9); Lymphocytes Percent Auto 8.1 % (20-40); Mean Corpuscular HGB Conc 33.5 g/dl (31.0-36.0); Mean Corpuscular Hemoglobin 32.5 pg (27.0-33.0); Mean Corpuscular Volume 96.9 fL (80.0-98.0); Mean Platelet Volume 10.3 fL (9.4-12.4); Monocytes Absolute Auto 0.5 X10*3/uL (0.1-1.2); Monocytes Percent Auto 10.9 % (2-11); Neutrophils Percent Auto 61.7 % (45-73); Platelet Count 145 X10*3/uL (160-400); Red Blood Count 3.51 X10*6/uL (4.60-5.80); Red Cell Distribution Width 15.5 % (11.0-16.0); White Blood Count 4.8 X10*3/uL (4.8-10.8)
[2023-12-31 15:14] LABS: Estimated Average Glucose 120 mg/dL; Hemoglobin A1C 118.6316 umol/L; Hemoglobin A1c % 5.8 % (<6.0)
[2023-12-31 15:35] LABS: Alanine Aminotransferase 29 U/L (0-40); Albumin Level 3.2 g/dL (3.5-5.0); Alkaline Phosphatase 308 U/L (39-117); Anion Gap 10 (12-20); Aspartate Amino Transferase 35 U/L (5-37); Bilirubin Total 0.6 mg/dL (0.0-1.0); Blood Urea Nitrogen 16 mg/dL (9-16); Calcium 9.1 mg/dL (8.4-10.2); Carbon Dioxide 30 mmol/L (22-29); Chloride 104 mmol/L (96-108); Estimated Glomerular Filt Rate > 60; Glucose Random 202 mg/dL (60-115); Potassium 3.6 mmol/L (3.3-5.1); Sodium 140 mmol/L (135-145); Total Protein 6.7 g/dL (6.5-8.0)
== END 2023-12-31 12:40 | disposition home or self-care (01) ==
LOC: HO.WFDLDS 12:39
PROVIDERS: Referring Provider Internal Medicine; Visit Provider Internal Medicine
DX: E11.9 Type 2 diabetes mellitus without complications (principal); K42.9 Umbilical hernia without obstruction or gangrene; K70.31 Alcoholic cirrhosis of liver with ascites; Z79.899 Other long term (current) drug therapy
CPT/HCPCS: 36415; 80053; 83036; 85025; 99212

== ENCOUNTER 2023-12-31 13:32 | Outpatient (AMB) | payer MEDICARE, MEDICAID, SELFPAY ==
--- NOTE | 2023-12-31 13:57 | MHC.OFFVIS ---
Intake Vital Signs 12/31/23 14:02 Height 5 ft 9 in Weight 153 lb BMI 22.6 BP 108/58 L Blood Pressure Location Rt brachial Position Sitting Pulse 63 Intake Visit Reasons: Umbilical hernia, rediscuss surgery Intake Note: This patient presents for an assessment for an umbilical hernia, re-discuss surgery. Pt c/o; reports no changes or new complaints at this time. 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 Accompanied by: Self / Same As Patient Allergies No Known Allergies Allergy (Verified 12/31/23 14:03) Medication List - Last Reconciled 12/31/23 by Ronnie Reeves MD [abdominal binder As directed] albuterol sulfate 90 mcg/actuation (Ventolin HFA) 2 inhalations inhalation NEEDED budesonide-formoterol 160-4.5 mcg/actuation (Symbicort) 1 inh inhalation BID cholecalciferol (vitamin D3) 1 cap PO DAILY folic acid 1 tab PO DAILY furosemide 60 mg PO QAM furosemide 40 mg PO BEDTIME metformin 1,000 mg PO BID potassium chloride ER 20 mEq PO DAILY tramadol 100 mg PO QID PRN HPI Umbilical hernia, rediscuss surgery HPI Details 63-year-old male, with a long history of liver cirrhosis, with ascites, undergoes paracentesis regularly, here for an umbilical hernia. He had undergone emergency repair of this umbilical hernia in October, because of incarceration with small-bowel. The hernia has recurred. A CT scan done from June, shows that this hernia contains ascitic fluid. He says that he has not had paracentesis for about 3 months until 2 weeks was not much fluid that was aspirated at that time. He is interested in repair of this umbilical hernia again. [facility] Medical History Recurrent umbilical hernia Abdominal wall mass Incarcerated umbilical hernia COPD (chronic obstructive pulmonary disease) Diabetes Liver cirrhosis Surgical History History of umbilical hernia repair (11/07/22) History of appendectomy Family History Other No family history of coronary artery disease Social History Household Members: None Housing: Other Housing Other:: mobile home Do you presently have visiting nurse or other home services: No Alcohol intake: former Comment: previously medicated with tramadol preop Patient Tobacco Use Status: Former Tobacco user Quit Date: 2010 Tobacco use type: Cigarette Second Hand Smoke Exposure: Yes service: No Current occupational status: disabled Review of Systems Const Denies chills and Denies fever(s) Card Denies chest pain, Denies dyspnea and Reports dyspnea on exertion Resp Denies cough, Denies dyspnea and Reports dyspnea on exertion GI Denies hematochezia and Denies change in bowel habits Denies hematuria and Denies difficulty urinating Musc Denies back pain and Denies limited range of motion Neuro Denies focal weakness and Denies convulsions Psych Denies depression and Denies mood swings Physical Exam Const Other: Has oxygen by nasal cannula General: comfortable and no acute distress Resp Effort & Inspection: normal respiratory effort Cardio Rate: regular rate GI Other: Protuberant, soft, rounded, umbilical hernia, about 6.5 cm in diameter, reducible, contains ascitic fluid, prominent veins on the abdominal wall Assessment & Plan Assessment & Plan (1) Recurrent umbilical hernia: Code(s): K42.9 - Umbilical hernia without obstruction or gangrene Plan: He has this large recurrent umbilical hernia. This contains fluid, and is easily reducible. I explained to him that repair of this hernia comes with significant risks of poor wound healing, chronic leakage of ascites in high risk of recurrence. This is doable with associated risks. He does have ascites still although this has improved. He did mentioned that he was supposed to have a TIPS procedure done as well. I told him that this should be explored as this may help reduce his perioperative risks including the risk for recurrence. He will talk to Dr. Morris about the benefits of a tips procedure at this stage. (2) Cirrhosis of liver: Code(s): K74.60 - Unspecified cirrhosis of liver Qualifiers: Hepatic cirrhosis type: alcoholic cirrhosis Ascites presence: with ascites Qualified Code(s): K70.31 - Alcoholic cirrhosis of liver with ascites Plan: His calculated MELD score is 8 at this time. He wants to explore the option of having a tips procedure done to decrease his perioperative risks. He will discuss this with Dr. Morris. Coding Level of Care Code Est Pt Level 3 (59099) Diagnoses Recurrent umbilical hernia K42.9 Alcoholic cirrhosis of liver with ascites K70.31 Hepatic cirrhosis type: alcoholic cirrhosis Ascites presence: with ascites
[2023-12-31 14:02] VITALS: BP 108/58; PULSE 63; BMI 22.6
== END 2023-12-31 14:24 | disposition home or self-care (01) ==
PROVIDERS: PCP Internal Medicine; Referring Provider Internal Medicine; Visit Provider Surgery
DX: K42.9 Umbilical hernia without obstruction or gangrene (principal); K70.31 Alcoholic cirrhosis of liver with ascites
CPT/HCPCS: 99213

== ENCOUNTER 2024-01-25 11:28 | Outpatient (REF) | payer MEDICARE, MEDICAID, SELFPAY ==
[2024-01-25 14:52] LABS: Anion Gap 13 (12-20); Blood Urea Nitrogen 18 mg/dL (9-16); Calcium 9.6 mg/dL (8.4-10.2); Carbon Dioxide 29 mmol/L (22-29); Chloride 98 mmol/L (96-108); Estimated Glomerular Filt Rate > 60; Glucose Random 118 mg/dL (60-115); Potassium 3.6 mmol/L (3.3-5.1); Sodium 136 mmol/L (135-145)
== END 2024-01-25 11:29 | disposition home or self-care (01) ==
LOC: HO.WFDLDS 11:28
PROVIDERS: Referring Provider Internal Medicine; Visit Provider Internal Medicine
DX: K70.31 Alcoholic cirrhosis of liver with ascites (principal)
CPT/HCPCS: 36415; 80048

== ENCOUNTER 2024-02-14 12:12 | Outpatient (REF) | payer MEDICARE, MEDICAID, SELFPAY ==
[2024-02-14 15:18] LABS: INTERNATIONAL NORM RATIO 1.2 (0.9-1.1); Prothrombin Time 14.4 SEC (11.1-13.3)
[2024-02-14 15:31] LABS: Alanine Aminotransferase 28 U/L (0-40); Albumin Level 3.8 g/dL (3.5-5.0); Alkaline Phosphatase 267 U/L (39-117); Anion Gap 14 (12-20); Aspartate Amino Transferase 39 U/L (5-37); Bilirubin Direct 0.3 mg/dL (0.0-0.5); Bilirubin Total 0.6 mg/dL (0.0-1.0); Blood Urea Nitrogen 15 mg/dL (9-16); Carbon Dioxide 30 mmol/L (22-29); Chloride 99 mmol/L (96-108); Estimated Glomerular Filt Rate > 60; Glucose Random 120 mg/dL (60-115); Potassium 3.9 mmol/L (3.3-5.1); Sodium 139 mmol/L (135-145); Total Protein 7.4 g/dL (6.5-8.0)
[2024-02-15 13:03] LABS: Alpha Fetoprotein 127.5 ng/mL (<6.1)
== END 2024-02-14 12:13 | disposition home or self-care (01) ==
LOC: HO.WFDLDS 12:12
PROVIDERS: PCP Internal Medicine; Referring Provider Surgery; Visit Provider Internal Medicine
DX: K70.31 Alcoholic cirrhosis of liver with ascites (principal)
CPT/HCPCS: 36415; 80051; 80076; 82105; 82565; 82947; 84520; 85610

== ENCOUNTER 2024-02-29 06:43 | Outpatient (REF) | payer MEDICARE, MEDICAID, SELFPAY ==
--- NOTE | ~2024-02-29 | XR_ITS ---
EXAMINATION: XR SHOULDER, RIGHT XR SHOULDER, LEFT CLINICAL INFORMATION: Bilateral shoulder pain, right greater than left. COMPARISON: Right humerus radiographs dated 10/12/2017. TECHNIQUE: AP, Grashey, scapular Y, and axillary views of the right and left shoulder. FINDINGS: RIGHT SHOULDER: Severe acromioclavicular osteoarthritis with periarticular erosions, increased when compared to the prior examination. Moderate glenohumeral joint space narrowing with small marginal osteophytes, slightly increased. No acute fracture or dislocation. Small soft tissue calcifications adjacent to the greater tuberosity consistent with distal infraspinatus calcific tendinitis and measuring up to 0.7 cm. LEFT SHOULDER: Moderate acromioclavicular joint space narrowing with marginal osteophytes. Mild glenohumeral joint space narrowing with small marginal osteophytes. No acute fracture or dislocation. Soft tissue calcification adjacent to the greater tuberosity measuring up to 0.4 cm and consistent with calcific tendinitis. No concerning lytic or blastic osseous lesion. XR/XR shoulder LT min 2V IMPRESSION: RIGHT SHOULDER: Severe acromioclavicular osteoarthritis with periarticular erosions, increased when compared to the prior examination. Moderate glenohumeral osteoarthritis, slightly increased. Mild distal infraspinatus calcific tendinitis. LEFT SHOULDER: Moderate acromioclavicular and mild glenohumeral osteoarthritis. Mild distal infraspinatus calcific tendinitis.
--- NOTE | ~2024-02-29 | XR_ITS ---
EXAMINATION: XR BILATERAL HIPS WITH AP PELVIS CLINICAL INFORMATION: Bilateral hip pain. COMPARISON: CT abdomen/pelvis dated 06/27/2023. TECHNIQUE: AP view the pelvis as well as AP and frog-leg lateral views of the right and left hip. FINDINGS: [id number] bilateral hip joint space narrowing with superior acetabular subchondral sclerosis and subchondral cystic change. Small marginal osteophytes. Findings are slightly progressed when compared to the prior CT. Faint bilateral chondrocalcinosis. No acute fracture or dislocation. No concerning lytic or blastic osseous lesion. No evidence of avascular necrosis. No abnormal soft tissue calcification. Moderate stool burden. XR/XR hip BI w PEL1V IMPRESSION: 1. [id number] bilateral hip osteoarthritis, slightly progressed when compared to the prior CT. Bilateral chondrocalcinosis, which can be seen in the setting of CPPD. 2. Moderate stool burden.
--- NOTE | ~2024-02-29 | XR_ITS ---
EXAMINATION: XR SHOULDER, RIGHT XR SHOULDER, LEFT CLINICAL INFORMATION: Bilateral shoulder pain, right greater than left. COMPARISON: Right humerus radiographs dated 10/12/2017. TECHNIQUE: AP, Grashey, scapular Y, and axillary views of the right and left shoulder. FINDINGS: RIGHT SHOULDER: Severe acromioclavicular osteoarthritis with periarticular erosions, increased when compared to the prior examination. Moderate glenohumeral joint space narrowing with small marginal osteophytes, slightly increased. No acute fracture or dislocation. Small soft tissue calcifications adjacent to the greater tuberosity consistent with distal infraspinatus calcific tendinitis and measuring up to 0.7 cm. LEFT SHOULDER: Moderate acromioclavicular joint space narrowing with marginal osteophytes. Mild glenohumeral joint space narrowing with small marginal osteophytes. No acute fracture or dislocation. Soft tissue calcification adjacent to the greater tuberosity measuring up to 0.4 cm and consistent with calcific tendinitis. No concerning lytic or blastic osseous lesion. XR/XR shoulder RT min 2V IMPRESSION: RIGHT SHOULDER: Severe acromioclavicular osteoarthritis with periarticular erosions, increased when compared to the prior examination. Moderate glenohumeral osteoarthritis, slightly increased. Mild distal infraspinatus calcific tendinitis. LEFT SHOULDER: Moderate acromioclavicular and mild glenohumeral osteoarthritis. Mild distal infraspinatus calcific tendinitis.
== END 2024-02-29 06:44 | disposition home or self-care (01) ==
LOC: HO.XRAY 06:43
PROVIDERS: PCP Internal Medicine; Visit Provider Internal Medicine
DX: M16.0 Bilateral primary osteoarthritis of hip (principal); M19.012 Primary osteoarthritis, left shoulder; M19.011 Primary osteoarthritis, right shoulder
CPT/HCPCS: 73030; 73521

== ENCOUNTER 2024-03-05 11:23 | Outpatient (REF) | payer MEDICARE, MEDICAID, SELFPAY ==
--- NOTE | ~2024-03-05 | XR_ITS ---
EXAMINATION: XR PELVIS CLINICAL INFORMATION: Hip pain COMPARISON: Pelvis radiographs 02/29/2024 TECHNIQUE: AP view of the pelvis. FINDINGS: No acute fracture or dislocation. Mild to moderate bilateral hip osteoarthritis unchanged with mineralization in the joint space which can seen in the setting of CPPD. Desiccated stool in the rectum and colon. XR/XR pelvis 1-2V IMPRESSION: 1. Mild to moderate bilateral hip osteoarthritis unchanged with mineralization in the joint space which can't seen in the setting of CPPD.
--- NOTE | ~2024-03-05 | XR_ITS ---
EXAMINATION: XR SHOULDER, RIGHT CLINICAL INFORMATION: Reason for Exam RIGHT SHOULDER PAIN COMPARISON: None TECHNIQUE: Two views of the shoulder. FINDINGS: No acute fracture or dislocation. Advanced degenerative changes of the shoulder involving the acromioclavicular joint with loss of joint space and bulky osteophytes. A few well-corticated osseous fragment in the subacromial joint space may reflect sequelae of hydroxyapatite deposition disease.. Soft tissues are unremarkable. XR/XR shoulder RT min 2V IMPRESSION: Advanced degenerative changes of the shoulder predominantly involving the acromioclavicular joint. A few well-corticated osseous fragment in the subacromial joint space may reflect sequelae of hydroxyapatite deposition disease.
[2024-03-05 11:38] LABS: MANUAL DIFF FLAG NO
[2024-03-05 12:48] LABS: Basophils Percent Auto 0.6 % (0-2); Eosinophils Absolute Auto 0.4 X10*3/uL (0.0-0.4); Eosinophils Percent Auto 7.2 % (0-4); Hematocrit 37.4 % (42.0-52.0); Hemoglobin 12.5 g/dl (14.0-18.0); Imm Gran Abs Auto 0.02 X10*3/uL (0.00-0.03); Imm Gran Pct Auto 0.4 % (0.0-0.4); Lymphocytes Absolute Auto 0.4 X10*3/uL (1.2-4.9); Mean Corpuscular HGB Conc 33.4 g/dl (31.0-36.0); Mean Corpuscular Hemoglobin 32.4 pg (27.0-33.0); Mean Corpuscular Volume 96.9 fL (80.0-98.0); Mean Platelet Volume 10.3 fL (9.4-12.4); Monocytes Absolute Auto 0.5 X10*3/uL (0.1-1.2); Monocytes Percent Auto 9.2 % (2-11); Neutrophils Absolute Auto 3.7 x10*3/uL (2.0-8.3); Neutrophils Percent Auto 74.6 % (45-73); Platelet Count 158 X10*3/uL (160-400); Red Blood Count 3.86 X10*6/uL (4.60-5.80); Red Cell Distribution Width 13.9 % (11.0-16.0); White Blood Count 4.9 X10*3/uL (4.8-10.8)
[2024-03-05 13:25] LABS: Alanine Aminotransferase 27 U/L (0-40); Albumin Level 3.8 g/dL (3.5-5.0); Alkaline Phosphatase 255 U/L (39-117); Anion Gap 13 (12-20); Aspartate Amino Transferase 35 U/L (5-37); Bilirubin Total 0.7 mg/dL (0.0-1.0); Blood Urea Nitrogen 18 mg/dL (9-16); Calcium 9.5 mg/dL (8.4-10.2); Carbon Dioxide 31 mmol/L (22-29); Chloride 100 mmol/L (96-108); Estimated Glomerular Filt Rate > 60; Glucose Random 245 mg/dL (60-115); Potassium 3.7 mmol/L (3.3-5.1); Sodium 140 mmol/L (135-145); Total Protein 7.4 g/dL (6.5-8.0)
== END 2024-03-05 11:24 | disposition home or self-care (01) ==
LOC: HO.LAB 11:23
PROVIDERS: PCP Internal Medicine; Visit Provider Internal Medicine
DX: M25.552 Pain in left hip (principal); M25.551 Pain in right hip; M25.511 Pain in right shoulder; J44.9 Chronic obstructive pulmonary disease, unspecified
CPT/HCPCS: 36415; 72170; 73030; 80053; 85025

== ENCOUNTER 2024-03-11 11:19 | Outpatient (REF) | payer MEDICARE, MEDICAID, SELFPAY ==
--- NOTE | ~2024-03-11 | MR_ITS ---
EXAMINATION: MR ABDOMEN WITHOUT AND WITH CONTRAST CLINICAL INFORMATION: Elevated AFP. Alcoholic cirrhosis. COMPARISON: Abdomen CT from 06/27/2023. TECHNIQUE: MR abdomen was performed on a high-field magnet without and with use of 7 mL intravenous Gadavist. Postcontrast images are performed in multiphase dynamic sequences. Imaging was performed in 3 planes. FINDINGS: LUNG BASES: Normal. No pulmonary consolidation or pleural effusion. LIVER: Cirrhotic liver has nodular contour and reticular parenchymal enhancement from fibrosis. 2.6 x 2.7 x 1.5 cm mass in the subcapsular region of the posterosuperior aspect of hepatic segment 7 is mildly hyperintense on the T2-weighted images. It exhibits arterial phase contrast enhancement with washout and pseudocapsule, LR-5 observation. GALLBLADDER AND BILIARY TREE: Gallbladder is moderately distended and measures 4.8 cm transverse and 10.5 cm in length. No gallbladder wall thickening. Question presence of very small gallstones along the posterior wall of the gallbladder (image 22, series 4). There are no dilated bile ducts. PANCREAS: Normal. SPLEEN: 14.8 cm in maximum dimension. ADRENAL GLANDS: Normal. KIDNEYS: Kidneys are normal in size and enhance symmetrically. No renal mass or hydronephrosis. BOWEL AND PERITONEUM: Stomach is unremarkable. No dilated bowel loops. Small volume of ascites is present. VASCULATURE: Abdominal aorta is normal in caliber. The left gastric artery arises independently from the aorta separate from the celiac trunk. Inferior vena cava is normal. Splenic, portal and hepatic veins are patent; no evidence of venous thrombosis. The main portal vein and splenic vein are mildly dilated and there are perisplenic varices. LYMPH NODES: No pathologic sized lymph nodes in the abdomen. SKELETAL: Unremarkable. MR/MR abdomen wo/w con IMPRESSION: * Liver cirrhosis, splenomegaly and small volume ascites. * There is a 2.6 x 2.7 x 1.5 cm LR-5 observation at the posterior superior aspect of hepatic segment 7 (consistent with hepatocellular carcinoma). * Gallbladder hydrops.
[2024-03-11] MEDS: gadobutroL 7.5 ML VIAL IVPUSH (11:53)
== END 2024-03-11 11:20 | disposition home or self-care (01) ==
LOC: HO.MRI 11:19
PROVIDERS: PCP Internal Medicine; Visit Provider Internal Medicine
DX: R77.2 Abnormality of alphafetoprotein (principal); K70.31 Alcoholic cirrhosis of liver with ascites
CPT/HCPCS: 74183; A9585

== ENCOUNTER 2024-04-10 12:49 | Outpatient (REF) | payer MEDICARE, MEDICAID, SELFPAY ==
[2024-04-10 14:50] LABS: Creatinine Urine 52.71 mg/dL; Microalbum/Creatinine Ratio Ur 28.4 ug/mg cr (<30)
[2024-04-10 15:05] LABS: Estimated Average Glucose 131 mg/dL; Hemoglobin A1c % 6.2 % (<6.0)
[2024-04-10 15:21] LABS: Alanine Aminotransferase 25 U/L (0-40); Albumin Level 3.7 g/dL (3.5-5.0); Alkaline Phosphatase 255 U/L (39-117); Anion Gap 18 (12-20); Aspartate Amino Transferase 32 U/L (5-37); Bilirubin Total 0.6 mg/dL (0.0-1.0); Blood Urea Nitrogen 19 mg/dL (9-16); Calcium 9.7 mg/dL (8.4-10.2); Carbon Dioxide 28 mmol/L (22-29); Chloride 100 mmol/L (96-108); Estimated Glomerular Filt Rate > 60; Glucose Random 158 mg/dL (60-115); Potassium 3.5 mmol/L (3.3-5.1); Sodium 142 mmol/L (135-145); Total Protein 7.2 g/dL (6.5-8.0)
[2024-04-10 15:26] LABS: Anion Gap 17 (12-20); Blood Urea Nitrogen 19 mg/dL (9-16); Calcium 9.8 mg/dL (8.4-10.2); Carbon Dioxide 29 mmol/L (22-29); Chloride 100 mmol/L (96-108); Estimated Glomerular Filt Rate > 60; Glucose Random 157 mg/dL (60-115); Potassium 3.6 mmol/L (3.3-5.1); Sodium 142 mmol/L (135-145)
== END 2024-04-10 12:50 | disposition home or self-care (01) ==
LOC: HO.WFDLDS 12:49
PROVIDERS: Internal Medicine; Visit Provider Internal Medicine
DX: K70.31 Alcoholic cirrhosis of liver with ascites (principal); E11.9 Type 2 diabetes mellitus without complications; J44.9 Chronic obstructive pulmonary disease, unspecified
CPT/HCPCS: 36415; 80048; 80053; 82043; 82570; 83036

== ENCOUNTER 2024-04-24 12:52 | Outpatient (AMB) | payer MEDICARE, MEDICAID, SELFPAY ==
[2024-04-24 12:58] VITALS: BMI 22.6
--- NOTE | 2024-04-24 12:58 | MHC.OFFVIS ---
Vital Signs 04/24/24 12:58 Height 5 ft 9 in Weight 153 lb BMI 22.6 Intake Visit Reasons: New Pt - Right AC Joint OA & Bilateral Hip OA Intake Note: Cruz is a 63 year old right hand dominant male who presents today as a new patient with complaints of bilateral hip pain and right shoulder pain. XR shows advanced OA of the AC joint and Mild-moderate changes of bilateral hips. Patient reports that his right shoulder is significantly more painful than the hips, the shoulder has been painful for years. Denies history of formal therapy, injections. Allergies No Known Allergies Allergy (Verified 12/31/23 14:03) HPI HPI New Pt - Right AC Joint OA & Bilateral Hip OA: Details: Cruz is a 63 year old right hand dominant male who presents today as a new patient with complaints of bilateral hip pain and right shoulder pain. XR shows advanced OA of the AC joint and Mild-moderate changes of bilateral hips. Patient reports that his right shoulder is significantly more painful than the hips, the shoulder has been painful for years. Denies history of formal therapy, injections. [facility] Medical History Recurrent umbilical hernia Abdominal wall mass Incarcerated umbilical hernia COPD (chronic obstructive pulmonary disease) Diabetes Liver cirrhosis Surgical History History of umbilical hernia repair (11/07/22) History of appendectomy Family History Other No family history of coronary artery disease Social History Household Members: None Housing: Other Housing Other:: mobile home Do you presently have visiting nurse or other home services: No Alcohol intake: former Comment: previously medicated with tramadol preop Patient Tobacco Use Status: Former Tobacco user Tobacco use type: Cigarette Second Hand Smoke Exposure: Yes service: No Current occupational status: disabled Physical Exam Vital Signs: BMI result Body Mass Index 22.6 Extrem Other: + de la garza and Neer Negative EC 35/90/130/S1 Prominenet right ACJ with min TTP No pain with XBA Office Procedures Joint Injection/Drain Joint Injection/Drain Details: Injected 1 mL of Decadron and 3 mL 1% lidocaine and 3 mL of 0.25% Marcaine. Site was prepped using aseptic technique. Patient tolerated the procedure well. Primary Site: right shoulder Approach Used: posterolateral Coding - Large joint Procedure code (CPT) selection complete Results Reviewed Results Reviewed: I personally reviewed relevant radiographs. AC joint OA Mild hip OA Assessment & Plan Assessment & Plan (1) Painful arc syndrome of right shoulder: Code(s): M75.101 - Unspecified rotator cuff tear or rupture of right shoulder, not specified as traumatic Category: Medical Plan: Injected right shoulder. ACJ not particualrly tender. PT if pain not improved Coding Level of Care Code New Pt Level 3 (44938) Diagnoses Painful arc syndrome of right shoulder M75.101 CPT Codes Coding - 35118 Large joint: 23464 - Large joint ([id number])
== END 2024-04-24 14:07 | disposition home or self-care (01) ==
PROVIDERS: PCP Internal Medicine; Visit Provider Orthopaedic Surgery
DX: M19.011 Primary osteoarthritis, right shoulder (principal); M75.101 Unspecified rotator cuff tear or rupture of right shoulder, not specified as traumatic
CPT/HCPCS: 20610; 99203

== ENCOUNTER → 2024-04-24 12:52 | Outpatient (BNVA) | payer MEDICARE, MEDICAID, SELFPAY | PROVIDERS: PCP Internal Medicine; Visit Provider Orthopaedic Surgery | DX: M75.101 Unspecified rotator cuff tear or rupture of right shoulder, not specified as traumatic (principal) | CPT/HCPCS: 20610; 99202; J0665; J1100 ==

== ENCOUNTER 2024-05-01 07:26 | Outpatient (REF) | payer MEDICARE, MEDICAID, SELFPAY ==
[2024-05-01 11:21] LABS: MANUAL DIFF FLAG NO
[2024-05-01 11:32] LABS: Basophils Percent Auto 0.5 % (0-2); Eosinophils Absolute Auto 0.5 X10*3/uL (0.0-0.4); Eosinophils Percent Auto 7.3 % (0-4); Hematocrit 37.8 % (42.0-52.0); Hemoglobin 12.7 g/dl (14.0-18.0); Imm Gran Abs Auto 0.03 X10*3/uL (0.00-0.03); Imm Gran Pct Auto 0.5 % (0.0-0.4); Lymphocytes Absolute Auto 0.7 X10*3/uL (1.2-4.9); Lymphocytes Percent Auto 10.8 % (20-40); Mean Corpuscular HGB Conc 33.6 g/dl (31.0-36.0); Mean Corpuscular Hemoglobin 32.2 pg (27.0-33.0); Mean Corpuscular Volume 95.7 fL (80.0-98.0); Mean Platelet Volume 10.4 fL (9.4-12.4); Monocytes Absolute Auto 0.6 X10*3/uL (0.1-1.2); Monocytes Percent Auto 9.8 % (2-11); Neutrophils Absolute Auto 4.4 x10*3/uL (2.0-8.3); Neutrophils Percent Auto 71.1 % (45-73); Platelet Count 186 X10*3/uL (160-400); Red Blood Count 3.95 X10*6/uL (4.60-5.80); Red Cell Distribution Width 14.1 % (11.0-16.0); White Blood Count 6.1 X10*3/uL (4.8-10.8)
[2024-05-01 11:40] LABS: Anion Gap 13 (12-20); Blood Urea Nitrogen 16 mg/dL (9-16); Carbon Dioxide 30 mmol/L (22-29); Chloride 99 mmol/L (96-108); Estimated Glomerular Filt Rate > 60; Glucose Random 114 mg/dL (60-115); Potassium 3.5 mmol/L (3.3-5.1); Sodium 138 mmol/L (135-145)
[2024-05-01 12:41] LABS: Erythrocyte Sedimentation Rate 75 MM/HR (0-15)
== END 2024-05-01 07:27 | disposition home or self-care (01) ==
LOC: HO.WFDLDS 07:26
PROVIDERS: Internal Medicine; Visit Provider Podiatrist
DX: L03.90 Cellulitis, unspecified (principal)
CPT/HCPCS: 36415; 80051; 82565; 82947; 84520; 85025; 85652

== ENCOUNTER 2024-05-02 09:59 | Outpatient (AMB) | payer MEDICARE, MEDICAID, SELFPAY ==
[2024-05-02 10:00] VITALS: BP 119/66; PULSE 55; BMI 21.7
--- NOTE | 2024-05-02 10:00 | MHC.OFFVIS ---
Vital Signs 05/02/24 10:00 Height 5 ft 9 in Weight 147 lb BMI 21.7 BP 119/66 Blood Pressure Location Rt brachial Position Sitting Pulse 55 Intake Visit Reasons: diabetic ulcers Intake Note: This patient was referred by for an assessment for diabetic ulcers. * pt* Patient c/o; reports on abx for the past x3 days and wound has improved, reports tenderness and swelling on the ankle, redness. Warp Changer Required: No Accompanied by: Self / Same As Patient Allergies No Known Allergies Allergy (Verified 05/02/24 10:12) Medication List - Last Reconciled 05/02/24 by Adriel Stearns MD [abdominal binder As directed] albuterol sulfate 90 mcg/actuation (Ventolin HFA) 2 inhalations inhalation NEEDED amoxicillin-pot clavulanate 500-125 mg 1 tab PO BID budesonide-formoterol 160-4.5 mcg/actuation (Symbicort) 1 inh inhalation BID cholecalciferol (vitamin D3) 1 cap PO DAILY folic acid 1 tab PO DAILY furosemide 60 mg PO QAM furosemide 40 mg PO BEDTIME gabapentin 100 mg PO TID metformin 1,000 mg PO BID potassium chloride ER 20 mEq PO DAILY tramadol 100 mg PO QID PRN HPI Comments Details: 63-year-old male patient presenting to the office for evaluation of a right great toe infection. He reports a past history of diabetes, peripheral neuropathy, alcoholic cirrhosis, chronic kidney disease and COPD and has a history of bilateral foot ulcers. He reports probably walking with a stone tissue resulting in a new ulceration in the great toe. He was subsequently evaluated in the emergency department and placed on oral antibiotics. Since starting the antibiotics he reports an improvement in the swelling of his foot and leg. He denies fever or chills. Recent laboratories revealed a normal WBC. He denies any fever or chills. [facility]END[facility] TO [facility] Medical History Recurrent umbilical hernia Abdominal wall mass Incarcerated umbilical hernia COPD (chronic obstructive pulmonary disease) Diabetes Liver cirrhosis Surgical History History of umbilical hernia repair (11/07/22) History of appendectomy Family History Other No family history of coronary artery disease Social History Household Members: None Housing: Other Housing Other:: mobile home Do you presently have visiting nurse or other home services: No Alcohol intake: former Comment: previously medicated with tramadol preop Patient Tobacco Use Status: Former Tobacco user Tobacco use type: Cigarette Second Hand Smoke Exposure: Yes service: No Current occupational status: disabled Review of Systems Const All systems reviewed & are unremarkable except as noted in HPI and below Denies chills, Denies fever(s), Denies headache(s), Denies poor appetite and Denies weakness ENT Denies headache(s) Card Denies chest pain, Denies irregular heart rhythm, Denies palpitations and Denies dyspnea Resp Denies cough, Denies excessive phlegm production and Denies dyspnea GI Denies abdominal pain, Denies bloating, Denies change in bowel habits, Denies constipation, Denies heartburn, Denies diarrhea, Denies nausea and Denies vomiting Denies difficulty urinating and Denies urinary frequency Musc Denies back pain, Denies muscle weakness and Reports numbness Skin/Breast Denies changing lesions and Denies unusual bruising Neuro Denies headache(s), Reports numbness, Denies paresthesias and Denies weakness Psych Denies anxiety and Denies depression Endo Denies palpitations Danielito/Lymph Denies lymphadenopathy Physical Exam Vital Signs: Last Vital Signs Pulse 55 05/02/24 10:00 BP 119/66 05/02/24 10:00 BMI result Body Mass Index 21.7 Const General: cooperative and no acute distress Nutritional Appearance: well nourished Orientation/consciousness: patient oriented x3 Limitations: no limitations HEENT Head: Yes normocephalic and Yes atraumatic Ears: hearing grossly normal bilaterally Resp Effort & Inspection: normal respiratory effort, no audible wheezes, no cough and no respiratory distress Cardio Jugular venous distension: no JVD GI Inspection: Yes normal to inspection Skin Other: Warm, dry, no rash Neuro General: patient oriented x3 Extrem Other: Right great toe with a open wound in the plantar and medial surfaces which is surrounded by small amount of callus. Callus was removed and small hematoma identified. Wounds dressed with dry sterile dressings and paper tape. Slight erythema noted in the right leg up to the knee. Assessment & Plan Assessment & Plan (1) Diabetic foot ulcer: Code(s): E11.621 - Type 2 diabetes mellitus with foot ulcer; L97.509 - Non-pressure chronic ulcer of other part of unspecified foot with unspecified severity Category: Medical Qualifiers: Diabetic foot ulcer location: toe Diabetes mellitus type: type 2 Laterality: right Non-pressure ulcer stage: with fat layer exposed Qualified Code(s): E11.621 - Type 2 diabetes mellitus with foot ulcer; L97.512 - Non-pressure chronic ulcer of other part of right foot with fat layer exposed Plan 63-year-old male patient with a history of diabetes and peripheral neuropathy found to have a new ulceration in the right great toe. He is currently on antibiotics and reports improvement in the symptoms over the past week. I recommended he continue the antibiotics and local wound care daily basis. I have asked him to return in 1 week for follow-up examination. Antibiotics may need to be adjusted based on culture results. Coding Level of Care Code New Pt Level 4 (83638) Diagnoses Diabetic ulcer of toe of right foot associated with type 2 diabetes mellitus, with fat layer exposed E11.621; L97.512 Diabetic foot ulcer location: toe Diabetes mellitus type: type 2 Laterality: right Non-pressure ulcer stage: with fat layer exposed
== END 2024-05-02 10:27 | disposition home or self-care (01) ==
PROVIDERS: PCP Internal Medicine; Referring Provider Internal Medicine; Visit Provider Surgery
DX: E11.621 Type 2 diabetes mellitus with foot ulcer (principal); L97.512 Non-pressure chronic ulcer of other part of right foot with fat layer exposed
CPT/HCPCS: 99204; 99214

== ENCOUNTER → 2024-05-02 09:59 | Outpatient (BNVA) | payer MEDICARE, MEDICAID, SELFPAY | PROVIDERS: PCP Internal Medicine; Referring Provider Internal Medicine; Visit Provider Surgery | DX: E11.621 Type 2 diabetes mellitus with foot ulcer (principal); L97.512 Non-pressure chronic ulcer of other part of right foot with fat layer exposed | CPT/HCPCS: 99202 ==

== ENCOUNTER 2024-06-02 10:44 | Outpatient (REF) | payer MEDICARE, MEDICAID, SELFPAY ==
[2024-06-02 14:58] LABS: Anion Gap 12 (12-20); Blood Urea Nitrogen 21 mg/dL (9-16); Calcium 9.7 mg/dL (8.4-10.2); Carbon Dioxide 29 mmol/L (22-29); Chloride 103 mmol/L (96-108); Estimated Glomerular Filt Rate > 60; Glucose Random 121 mg/dL (60-115); Sodium 140 mmol/L (135-145)
== END 2024-06-02 10:45 | disposition home or self-care (01) ==
LOC: HO.WFDLDS 10:44
PROVIDERS: Visit Provider Internal Medicine
DX: K70.31 Alcoholic cirrhosis of liver with ascites (principal)
CPT/HCPCS: 36415; 80048

== ENCOUNTER 2024-06-27 08:03 | Outpatient (REF) | payer MEDICARE, MEDICAID, SELFPAY ==
[2024-06-27 11:11] LABS: MANUAL DIFF FLAG NO
[2024-06-27 11:15] LABS: Basophils Percent Auto 0.7 % (0-2); Eosinophils Absolute Auto 0.3 X10*3/uL (0.0-0.4); Eosinophils Percent Auto 6.4 % (0-4); Hematocrit 38.7 % (42.0-52.0); Hemoglobin 12.8 g/dl (14.0-18.0); Imm Gran Abs Auto 0.01 X10*3/uL (0.00-0.03); Imm Gran Pct Auto 0.2 % (0.0-0.4); Lymphocytes Absolute Auto 0.5 X10*3/uL (1.2-4.9); Lymphocytes Percent Auto 12.2 % (20-40); Mean Corpuscular HGB Conc 33.1 g/dl (31.0-36.0); Mean Corpuscular Hemoglobin 31.8 pg (27.0-33.0); Mean Platelet Volume 11.1 fL (9.4-12.4); Monocytes Absolute Auto 0.4 X10*3/uL (0.1-1.2); Monocytes Percent Auto 10.1 % (2-11); Neutrophils Percent Auto 70.4 % (45-73); Platelet Count 131 X10*3/uL (160-400); Red Blood Count 4.03 X10*6/uL (4.60-5.80); White Blood Count 4.3 X10*3/uL (4.8-10.8)
[2024-06-27 11:26] LABS: Estimated Average Glucose 126 mg/dL
[2024-06-27 12:01] LABS: Alanine Aminotransferase 43 U/L (0-40); Albumin Level 3.9 g/dL (3.5-5.0); Alkaline Phosphatase 258 U/L (39-117); Anion Gap 13 (12-20); Aspartate Amino Transferase 55 U/L (5-37); Bilirubin Total 0.6 mg/dL (0.0-1.0); Blood Urea Nitrogen 15 mg/dL (9-16); Calcium 10.2 mg/dL (8.4-10.2); Carbon Dioxide 28 mmol/L (22-29); Chloride 101 mmol/L (96-108); Estimated Glomerular Filt Rate > 60; Glucose Random 147 mg/dL (60-115); Potassium 3.6 mmol/L (3.3-5.1); Sodium 138 mmol/L (135-145); Total Protein 7.6 g/dL (6.5-8.0)
[2024-06-27 14:48] LABS: Creatinine Urine 52.34 mg/dL; Microalbum/Creatinine Ratio Ur 517.7 ug/mg cr (<30)
== END 2024-06-27 08:04 | disposition home or self-care (01) ==
LOC: HO.WFDLDS 08:03
PROVIDERS: Visit Provider Internal Medicine
DX: E11.8 Type 2 diabetes mellitus with unspecified complications (principal)
CPT/HCPCS: 36415; 80053; 82043; 82570; 83036; 85025

== ENCOUNTER 2024-07-07 09:32 | Outpatient (AMB) | payer MEDICARE, MEDICAID, SELFPAY ==
--- NOTE | 2024-07-07 09:36 | A.OFFVIS_ITS ---
Vital Signs 07/07/24 09:52 Height 5 ft 9 in Weight 147 lb BMI 21.7 Intake Visit Reasons: Newprob-LT shoulder pain-looking to get injection Intake Note: Cruz is a 63 year old right hand dominant male who presents today for a new problem visit with complaints of left shoulder pain. He recently had his right shoulder injected on 04/24/24 which was helpful and he would like to have both of his shoulders injected today. Allergies No Known Allergies Allergy (Verified 05/02/24 10:12) HPI HPI Newprob-LT shoulder pain-looking to get injection: Details: Cruz is a 63 year old right hand dominant male who presents today for a new problem visit with complaints of left shoulder pain. He recently had his right shoulder injected on 04/24/24 which was helpful and he would like to have both of his shoulders injected today. [facility] Medical History Recurrent umbilical hernia Abdominal wall mass Incarcerated umbilical hernia COPD (chronic obstructive pulmonary disease) Diabetes Liver cirrhosis Surgical History History of umbilical hernia repair (11/07/22) History of appendectomy Family History Other No family history of coronary artery disease Social History Household Members: None Housing: Other Housing Other:: mobile home Do you presently have visiting nurse or other home services: No Alcohol intake: former Comment: previously medicated with tramadol preop Patient Tobacco Use Status: Former Tobacco user Tobacco use type: Cigarette Second Hand Smoke Exposure: Yes service: No Current occupational status: disabled Physical Exam Vital Signs: BMI result Body Mass Index 21.7 Extrem Other: Bilateral shoulder exam: + de la garza and Neer Negative EC 35/90/130/S1 Prominent right ACJ with min TTP No pain with XBA Office Procedures Joint Injection/Aspiration Joint Injection/Aspiration Details: Injected 1 mL of Decadron and 3 mL 1% lidocaine and 3 mL of 0.25% Marcaine. Site was prepped using aseptic technique. Patient tolerated the procedure well. Primary Site: right shoulder Secondary Site: left shoulder Procedure: The patient tolerated the procedure well Coding 71109 - Large joint 39967 - Glenohumeral/Tronchanteric Bursa/Intraarticular Procedure code (CPT) selection complete Assessment & Plan Assessment & Plan (1) Bilateral shoulder bursitis: Code(s): M75.51 - Bursitis of right shoulder; M75.52 - Bursitis of left shoulder Category: Medical Plan: I injected both shoulders. I clearly warned him of the hyperglycemic effects and advise against additional injections if his non healing wounds recur but he states they are healed. (2) Diabetes: Code(s): E11.9 - Type 2 diabetes mellitus without complications Category: Medical Plan I injected bilateral shoulders today, he may return no sooner than four months for repeat cortisone injections. Coding Level of Care Code Est Pt Level 4 (33873) Diagnoses Bilateral shoulder bursitis M75.51; M75.52 Diabetes E11.9 CPT Codes Coding - Large joint: 27244 - Large joint ([id number]) Coding - Joint 7: - Glenohumeral/Tronchanteric Bursa/Intraarticular ( [id number])
[2024-07-07 09:52] VITALS: BMI 21.7
== END 2024-07-07 10:40 | disposition home or self-care (01) ==
PROVIDERS: PCP Internal Medicine; Visit Provider Orthopaedic Surgery
DX: M75.51 Bursitis of right shoulder (principal); M75.52 Bursitis of left shoulder; E11.9 Type 2 diabetes mellitus without complications
CPT/HCPCS: 20610; 99214

== ENCOUNTER → 2024-07-07 09:32 | Outpatient (BNVA) | payer MEDICARE, MEDICAID, SELFPAY | PROVIDERS: PCP Internal Medicine; Visit Provider Orthopaedic Surgery | DX: M75.51 Bursitis of right shoulder (principal); M75.52 Bursitis of left shoulder; E11.9 Type 2 diabetes mellitus without complications | CPT/HCPCS: 20610; 99212; J0665; J1100 ==

== ENCOUNTER 2024-07-10 11:23 | Outpatient (AMB) | payer MEDICARE, SELFPAY ==
--- NOTE | 2024-07-10 11:25 | MHC.OFFVIS ---
Vital Signs 07/10/24 11:26 Height 5 ft 9 in Weight 146 lb BMI 21.6 Intake Visit Reasons: Hernia Intake Note: This patient presents for hernia assessment. Pt c/o; reports no changes. 03/11/2024: Abdomen MRI Enrichment Director Required: No Accompanied by: Self / Same As Patient Allergies No Known Allergies Allergy (Verified 07/10/24 11:30) Medication List - Last Reconciled 07/10/24 by Ronnie Reeves MD [abdominal binder As directed] albuterol sulfate 90 mcg/actuation (Ventolin HFA) 2 inhalations inhalation NEEDED amoxicillin-pot clavulanate 500-125 mg 1 tab PO BID budesonide-formoterol 160-4.5 mcg/actuation (Symbicort) 1 inh inhalation BID cholecalciferol (vitamin D3) 1 cap PO DAILY folic acid 1 tab PO DAILY furosemide 60 mg PO QAM furosemide 40 mg PO BEDTIME gabapentin 100 mg PO TID metformin 1,000 mg PO BID potassium chloride ER 20 mEq PO DAILY tramadol 100 mg PO QID PRN HPI HPI Hernia: Details: He is here for follow-up of his umbilical hernia. He has had this for several months now. I had had an emergency repair in the past for strangulated hernia along with large amounts of ascites. He has known chronic liver disease and cirrhosis. He was told that he would benefit from a liver transplant and was supposed to go to [facility]. However, he says that he is not planning to undergo any liver transplant He had an MRI done last February,. This showed a suspicious mass on the liver consistent with hepatocellular cancer. He is here has he is still interested in having repair of this umbilical hernia. [facility] Medical History Recurrent umbilical hernia Abdominal wall mass Incarcerated umbilical hernia COPD (chronic obstructive pulmonary disease) Diabetes Liver cirrhosis Surgical History History of umbilical hernia repair (11/07/22) History of appendectomy Family History Other No family history of coronary artery disease Social History Household Members: None Housing: Other Housing Other:: mobile home Do you presently have visiting nurse or other home services: No Alcohol intake: former Comment: previously medicated with tramadol preop Patient Tobacco Use Status: Former Tobacco user Tobacco use type: Cigarette Second Hand Smoke Exposure: Yes service: No Current occupational status: disabled Review of Systems Const Denies chills and Denies fever(s) Card Denies chest pain at rest and Reports dyspnea on exertion Resp Denies cough and Reports dyspnea on exertion GI Denies abdominal pain Denies oliguria Physical Exam Vital Signs: BMI result Body Mass Index 21.6 Const Other: Frail looking, cachectic General: comfortable and no acute distress Resp Effort & Inspection: normal respiratory effort Cardio Rate: regular rate GI Other: Very protuberant, soft, reducible umbilical hernia about 7 cm in diameter, with associated surrounding caput medusae Assessment & Plan Assessment & Plan (1) Recurrent umbilical hernia: Code(s): K42.9 - Umbilical hernia without obstruction or gangrene Category: Medical Plan: He has this large,recurrent umbilical hernia with a fascial defect about 7 cm in diameter. The hernia is easily reducible He does have chronic liver disease with cirrhosis. He used to undergo regular paracentesis for ascites He also has prominent caput medusae surrounding the hernia seen on the skin. I explained to him that he is at very high risk for bleeding during the procedure especially with this liver cirrhosis. On top of the, he has this finding of a liver mass consistent with hepatocellular carcinoma on an MRI. I told him that he would have this assessed 1st prior to any surgical repair of his hernia. He said he will reach out again to [facility] for workup for this liver tumor. He will let me know what his decision is after as he is aware that he presents with significant perioperative risks for abdominal surgery. Coding Level of Care Code Est Pt Level 3 (92091) Diagnoses Recurrent umbilical hernia K42.9
[2024-07-10 11:26] VITALS: BMI 21.6
== END 2024-07-10 12:08 | disposition home or self-care (01) ==
PROVIDERS: PCP Internal Medicine; Referring Provider Internal Medicine; Visit Provider Surgery
DX: K42.9 Umbilical hernia without obstruction or gangrene (principal)
CPT/HCPCS: 99214

== ENCOUNTER → 2024-07-10 11:23 | Outpatient (BNVA) | payer MEDICARE, MEDICAID, SELFPAY | PROVIDERS: PCP Internal Medicine; Referring Provider Internal Medicine; Visit Provider Surgery | DX: K42.9 Umbilical hernia without obstruction or gangrene (principal); K74.60 Unspecified cirrhosis of liver | CPT/HCPCS: 99212 ==

== ENCOUNTER 2024-08-06 13:56 | Outpatient (REF) | payer MEDICARE, MEDICAID, SELFPAY ==
[2024-08-06 17:55] LABS: Anion Gap 9 (12-20); Blood Urea Nitrogen 16 mg/dL (9-16); Calcium 9.7 mg/dL (8.4-10.2); Carbon Dioxide 34 mmol/L (22-29); Chloride 97 mmol/L (96-108); Estimated Glomerular Filt Rate > 60; Glucose Random 209 mg/dL (60-115); Potassium 3.8 mmol/L (3.3-5.1); Sodium 136 mmol/L (135-145)
== END 2024-08-06 13:57 | disposition home or self-care (01) ==
LOC: HO.WFDLDS 13:56
PROVIDERS: Visit Provider Internal Medicine
DX: K70.31 Alcoholic cirrhosis of liver with ascites (principal)
CPT/HCPCS: 36415; 80048

== ENCOUNTER 2024-08-22 14:43 | Outpatient (REF) | payer MEDICARE, MEDICAID, SELFPAY ==
[2024-08-22 17:57] LABS: MANUAL DIFF FLAG NO
[2024-08-22 18:06] LABS: Basophils Absolute Auto 0.1 X10*3/uL (0.0-0.2); Basophils Percent Auto 0.8 % (0-2); Eosinophils Absolute Auto 0.6 X10*3/uL (0.0-0.4); Eosinophils Percent Auto 9.2 % (0-4); Hematocrit 39.5 % (42.0-52.0); Hemoglobin 13.3 g/dl (14.0-18.0); Imm Gran Abs Auto 0.02 X10*3/uL (0.00-0.03); Imm Gran Pct Auto 0.3 % (0.0-0.4); Lymphocytes Absolute Auto 0.7 X10*3/uL (1.2-4.9); Lymphocytes Percent Auto 11.4 % (20-40); Mean Corpuscular HGB Conc 33.7 g/dl (31.0-36.0); Mean Corpuscular Hemoglobin 31.4 pg (27.0-33.0); Mean Corpuscular Volume 93.2 fL (80.0-98.0); Mean Platelet Volume 10.8 fL (9.4-12.4); Monocytes Absolute Auto 0.6 X10*3/uL (0.1-1.2); Monocytes Percent Auto 9.2 % (2-11); Neutrophils Absolute Auto 4.1 x10*3/uL (2.0-8.3); Neutrophils Percent Auto 69.1 % (45-73); Platelet Count 157 X10*3/uL (160-400); Red Blood Count 4.24 X10*6/uL (4.60-5.80); Red Cell Distribution Width 14.2 % (11.0-16.0)
[2024-08-22 18:09] LABS: INTERNATIONAL NORM RATIO 1.1 (0.9-1.1)
[2024-08-22 18:19] LABS: Alanine Aminotransferase 27 U/L (0-40); Albumin Level 4.1 g/dL (3.5-5.0); Alkaline Phosphatase 198 U/L (39-117); Anion Gap 13 (12-20); Aspartate Amino Transferase 32 U/L (5-37); Bilirubin Direct 0.4 mg/dL (0.0-0.5); Blood Urea Nitrogen 23 mg/dL (9-16); Calcium 10.1 mg/dL (8.4-10.2); Carbon Dioxide 27 mmol/L (22-29); Chloride 100 mmol/L (96-108); Estimated Glomerular Filt Rate > 60; Glucose Random 100 mg/dL (60-115); Potassium 4.4 mmol/L (3.3-5.1); Sodium 136 mmol/L (135-145); Total Protein 7.7 g/dL (6.5-8.0)
[2024-08-25 13:04] LABS: Alpha Fetoprotein 202.4 ng/mL (<6.1)
== END 2024-08-22 14:44 | disposition home or self-care (01) ==
LOC: HO.WFDLDS 14:43
PROVIDERS: Visit Provider Internal Medicine
DX: R77.2 Abnormality of alphafetoprotein (principal); R16.0 Hepatomegaly, not elsewhere classified; R93.2 Abnormal findings on diagnostic imaging of liver and biliary tract
CPT/HCPCS: 36415; 80053; 82105; 82248; 85025; 85610

== ENCOUNTER → 2024-08-26 09:23 | Outpatient (BNV) | payer MEDICARE, MEDICAID, SELFPAY | PROVIDERS: PCP Internal Medicine; Visit Provider Internal Medicine | DX: C22.0 Liver cell carcinoma (principal) | CPT/HCPCS: 99205; 99214; G2211 ==

== ENCOUNTER → 2024-08-29 14:59 | Outpatient (BNV) | payer MEDICARE, SELFPAY | PROVIDERS: PCP Internal Medicine; Visit Provider Radiology Diagnostic Radiology | DX: R16.0 Hepatomegaly, not elsewhere classified (principal) | CPT/HCPCS: 74183 ==

== ENCOUNTER 2024-08-29 15:03 | Outpatient (REF) | payer MEDICARE, MEDICAID, SELFPAY ==
--- NOTE | ~2024-08-29 | MR_ITS ---
EXAMINATION: MR ABDOMEN WITHOUT AND WITH CONTRAST CLINICAL INFORMATION: Liver mass. Follow-up. COMPARISON: MRI dated March 11, 2024. TECHNIQUE: MR abdomen was performed without and with use of 6.5 mL intravenous gadolinium contrast without reported immediate complications. Postcontrast images are performed in multiphase dynamic sequences. Imaging was performed in 3 planes. FINDINGS: LUNG BASES: The visualized lung bases are unremarkable. LIVER, GALLBLADDER, AND BILIARY TREE: Liver measures 17 cm. Nodular surface. Heterogeneous signal abnormality with the layla hepatis hyperintense T2 signal and heterogeneous enhancement. There is a 2.5 cm peripheral arterial enhancing lesion in an exophytic posterior dome right hepatic lobe likely segment 7. Main portal vein and main hepatic veins are patent. Intrahepatic portion of the IVC is patent. There is no patency of the umbilical vein.. Gallbladder is contracted. No pericholecystic fluid collection or gallbladder wall thickening. Common bile duct measures 4 m. PANCREAS: No focal pancreatic mass. No main pancreatic ductal dilatation. No peripancreatic fluid collection. SPLEEN: Measures 14 cm. No focal mass. ADRENAL GLANDS: No nodular lesions. KIDNEYS AND URETERS: No renal mass. No hydronephrosis. Normal enhancement of the renal cortex and medulla. GASTROINTESTINAL TRACT: No intestinal obstruction pattern. Ascites, small volume.. ABDOMINAL WALL: Moderate to large volume abdominal wall defect containing nondilated small bowel bowel loops and trace of fluid. LYMPH NODES: Nonspecific prominent lymph nodes. VASCULAR: No aneurysm or dissection, abdominal aorta. No gross splenorenal shunting. Probable prominent vessels at the gastroesophageal junction.. OSSEOUS STRUCTURES: Multilevel thoracolumbar spondylosis without bone marrow signal abnormality. MR/MR abdomen wo/w con IMPRESSION: 2.5 cm exophytic lesion/mass, segment 7 right hepatic lobe concerning for hepatocellular carcinoma. No other change. Electronically signed by: Harry Villanueva MD 09/29/2024 02:03 PM EST
[2024-08-29] MEDS: gadobutroL 7.5 ML VIAL IVPUSH (16:03)
== END 2024-08-29 15:04 | disposition home or self-care (01) ==
LOC: HO.MRI 15:03
PROVIDERS: PCP Internal Medicine; Visit Provider Internal Medicine
DX: C22.0 Liver cell carcinoma (principal)
CPT/HCPCS: 74183; A9585

== ENCOUNTER 2024-10-06 12:04 | Outpatient (AMB) | payer MEDICARE, MEDICAID, SELFPAY ==
--- NOTE | 2024-10-06 12:05 | A.OFFVIS_ITS ---
Intake Visit Reasons: Inj-B/L Shoulders-last inj 07/07/24 Intake Note: Cruz is a 63 year old right hand dominant male who presents today for bilateral shoulder OA, Last injections administered bilaterally on 07/07/24. Patient would like to repeat injections today Allergies No Known Allergies Allergy (Verified 08/26/24 10:03) HPI HPI Inj-B/L Shoulders-last inj 07/07/24: Details: Cruz is a 63 year old right hand dominant male who presents today for bilateral shoulder OA, Last injections administered bilaterally on 07/07/24. Patient would like to repeat injections today. He continues to complain of bilateral shoulder pain. He is extremely active. He also has pain at night. [facility] Medical History Recurrent umbilical hernia Abdominal wall mass Incarcerated umbilical hernia COPD (chronic obstructive pulmonary disease) Diabetes Liver cirrhosis Surgical History History of umbilical hernia repair (11/07/22) History of appendectomy Family History Other No family history of coronary artery disease Social History Household Members: None Housing: Other Housing Other:: mobile home Do you presently have visiting nurse or other home services: No Alcohol intake: former Comment: previously medicated with tramadol preop Patient Tobacco Use Status: Former Tobacco user Tobacco use type: Cigarette Second Hand Smoke Exposure: Yes Current occupational status: disabled Gender identity: Male Physical Exam Extrem Other: Bilateral shoulder exam: + de la garza and Neer Negative EC 35/90/130/S1 Prominent right ACJ with min TTP No pain with XBA Office Procedures Joint Inj/Aspir; Non-Pain Clin Joint Injection/Drain Details: Injected 1 mL of Decadron and 3 mL 1% lidocaine and 3 mL of 0.25% Marcaine. Site was prepped using aseptic technique. Patient tolerated the procedure well. Approach Used: posterolateral Shoulders, Hips, Knees, Shoulder Injection Large joint : Bilateral Shoulders Coding Procedure code (CPT) selection complete Assessment & Plan Assessment & Plan (1) Bilateral shoulder bursitis: Code(s): M75.51 - Bursitis of right shoulder; M75.52 - Bursitis of left shoulder Category: Medical Plan: I injected bilateral shoulders today. He is diabetic and states the last injection was tolerable in his sugars were well controlled. I did inform of the hyperglycemic effects of steroids. (2) Diabetes: Code(s): E11.9 - Type 2 diabetes mellitus without complications Category: Medical Plan: Has been stable after injections in the past. Coding Level of Care Code Est Pt Level 4 (36935) Diagnoses Bilateral shoulder bursitis M75.51; M75.52 Diabetes E11.9 CPT Codes Shoulders, Hips, Knees, - Shoulder Injection Large joint 81390: Bilateral Shoulders ([id number])
== END 2024-10-06 12:35 | disposition home or self-care (01) ==
LOC: HO.HOS 12:04
PROVIDERS: PCP Internal Medicine; Visit Provider Orthopaedic Surgery
DX: M75.51 Bursitis of right shoulder (principal); M75.52 Bursitis of left shoulder; E11.9 Type 2 diabetes mellitus without complications
CPT/HCPCS: 20610; 99214

== ENCOUNTER → 2024-10-06 12:04 | Outpatient (BNVA) | payer MEDICARE, SELFPAY | PROVIDERS: PCP Internal Medicine; Visit Provider Orthopaedic Surgery | DX: M75.51 Bursitis of right shoulder (principal); M75.52 Bursitis of left shoulder; E11.9 Type 2 diabetes mellitus without complications | CPT/HCPCS: 20610; 99212; J0665; J1100; J2003 ==

== ENCOUNTER 2024-12-02 08:07 | Outpatient (REF) | payer MEDICARE, MEDICAID, SELFPAY ==
[2024-12-02 11:03] LABS: MANUAL DIFF FLAG NO
[2024-12-02 11:39] LABS: Basophils Absolute Auto 0.1 X10*3/uL (0.0-0.2); Basophils Percent Auto 0.8 % (0-2); Eosinophils Absolute Auto 0.4 X10*3/uL (0.0-0.4); Eosinophils Percent Auto 5.7 % (0-4); Hemoglobin 12.8 g/dl (14.0-18.0); Imm Gran Abs Auto 0.03 X10*3/uL (0.00-0.03); Imm Gran Pct Auto 0.5 % (0.0-0.4); Lymphocytes Absolute Auto 0.5 X10*3/uL (1.2-4.9); Lymphocytes Percent Auto 8.3 % (20-40); Mean Corpuscular HGB Conc 32.8 g/dl (31.0-36.0); Mean Corpuscular Hemoglobin 31.3 pg (27.0-33.0); Mean Corpuscular Volume 95.4 fL (80.0-98.0); Mean Platelet Volume 10.7 fL (9.4-12.4); Monocytes Absolute Auto 0.5 X10*3/uL (0.1-1.2); Monocytes Percent Auto 8.4 % (2-11); Neutrophils Absolute Auto 4.8 x10*3/uL (2.0-8.3); Neutrophils Percent Auto 76.3 % (45-73); Platelet Count 121 X10*3/uL (160-400); Red Blood Count 4.09 X10*6/uL (4.60-5.80); Red Cell Distribution Width 15.9 % (11.0-16.0); White Blood Count 6.3 X10*3/uL (4.8-10.8)
[2024-12-02 11:48] LABS: Estimated Average Glucose 163 mg/dL; Hemoglobin A1C 186.7507 umol/L; Hemoglobin A1c % 7.3 % (<6.0); Total Hemoglobin (HGBA1C) 3287.3747 umol/L
[2024-12-02 12:13] LABS: Alanine Aminotransferase 35 U/L (0-40); Albumin Level 3.9 g/dL (3.5-5.0); Anion Gap 12 (12-20); Aspartate Amino Transferase 40 U/L (5-37); Blood Urea Nitrogen 12 mg/dL (9-16); Calcium 10.2 mg/dL (8.4-10.2); Carbon Dioxide 31 mmol/L (22-29); Chloride 99 mmol/L (96-108); Estimated Glomerular Filt Rate > 60; Glucose Random 210 mg/dL (60-115); Potassium 4.1 mmol/L (3.3-5.1); Sodium 138 mmol/L (135-145); Total Protein 7.6 g/dL (6.5-8.0)
[2024-12-02 12:44] LABS: Alkaline Phosphatase 260 U/L (39-117)
== END 2024-12-02 08:08 | disposition home or self-care (01) ==
LOC: HO.WFDLDS 08:07
PROVIDERS: Visit Provider Internal Medicine
DX: K74.60 Unspecified cirrhosis of liver (principal); J44.9 Chronic obstructive pulmonary disease, unspecified; E11.9 Type 2 diabetes mellitus without complications
CPT/HCPCS: 36415; 80053; 83036; 85025

== ENCOUNTER 2025-01-08 11:17 | Outpatient (AMB) | payer MEDICARE, SELFPAY ==
--- NOTE | 2025-01-08 11:26 | A.OFFVIS_ITS ---
Vital Signs 01/08/25 11:27 Height 5 ft 10 in Intake Visit Reasons: Inj-B/L Shoulders-last inj 10/06/24 Intake Note: Cruz is a 64 year old right hand dominant male who presents today for repeat bilateral shoulder injections. Last injections were administered bilaterally on 10/06/2024. Patient reports that the last injections were helpful and he would like to repeat in both shoulders today as well Allergies No Known Allergies Allergy (Verified 08/26/24 10:03) HPI HPI Inj-B/L Shoulders-last inj 10/06/24: Details: Cruz is a 64 year old right hand dominant male who presents today for repeat bilateral shoulder injections. Last injections were administered bilaterally on 10/06/2024. Patient reports that the last injections were helpful and he would like to repeat in both shoulders today as well [facility] Medical History Recurrent umbilical hernia Abdominal wall mass Incarcerated umbilical hernia COPD (chronic obstructive pulmonary disease) Diabetes Liver cirrhosis Surgical History History of umbilical hernia repair (11/07/22) History of appendectomy Family History Other No family history of coronary artery disease Social History Household Members: None Housing: Other Housing Other:: mobile home Do you presently have visiting nurse or other home services: No Alcohol intake: former Comment: previously medicated with tramadol preop Patient Tobacco Use Status: Former Tobacco user Tobacco use type: Cigarette Second Hand Smoke Exposure: Yes Current occupational status: disabled Gender identity: Male Physical Exam Extrem Other: Bilateral shoulder exam: + de la garza and Neer Negative EC 35/90/130/S1 Office Procedures Joint Inj/Aspir; Non-Pain Clin Joint Injection/Drain Details: Injected 1 mL of Decadron and 3 mL 1% lidocaine and 3 mL of 0.25% Marcaine. Site was prepped using aseptic technique. Patient tolerated the procedure well. Shoulders, Hips, Knees, Shoulder Injection Large joint : Bilateral Shoulders Coding Procedure code (CPT) selection complete Assessment & Plan Assessment & Plan (1) Bilateral shoulder bursitis: Code(s): M75.51 - Bursitis of right shoulder; M75.52 - Bursitis of left shoulder Category: Medical Plan: I injected both shoulders today. May follow up in 3 months should he so desire. Coding Level of Care Code Est Pt Level 3 (97879) Diagnoses Bilateral shoulder bursitis M75.51; M75.52 CPT Codes Shoulders, Hips, Knees, - Shoulder Injection Large joint 69189: Bilateral Shoulders ([id number])
--- OUTSIDE RECORDS SUMMARY | 2025-01-08 11:56 | XMS_ITS | Clinical Summary ---
Author Organization [facility] Address [address] [place] [address] Care Team Providers Care Framing Consultant Name Role Phone Unavailable Primary Care Provider Unavailabl e Social History Tobacco Use Types Packs/Day Years Used Date Smoking Tobacco: Never Assessed Sex and Gender Information Value Date Recorded Sex Assigned at Not on file Gender Identity Not on file Sexual Orientation Not on file Plan of Treatment Health Maintenance Due Date Last Done Comments Hepatitis C Virus Screening 1959 HIV Screening 1972 DTaP/Tdap/Td Vaccines (1 - Tdap) 1978 Pneumococcal Vaccines 50+ (1 of 1 - PCV) 2009 Zoster (Shingles) Vaccine (1 of 2) 2009 COVID-19 Vaccine ( - 2023-2 5 season) 2024 RSV Vaccine 60 years and old er and Patients (1 - 1-dose 75+ series) 2034 Hepatitis B Vaccines Aged Out No long er eligible based on patient's age to complete this topic Pneumococcal Vaccine: Pediat jt (0-5 Years) and At-Risk Patients (6 to 49 Years) Aged Out No longer eligible b ased on patient's age to complete this topic
--- OUTSIDE RECORDS SUMMARY | 2025-01-08 11:56 | XMS_ITS ---
Demographics Address [address] [place] [address] [address] [place] [address] Mobile Preferred Language en Marital Status Unknown Buddhist Affiliation Unknown Race White Ethnic Group Refused to Report Author Organization [facility] Address [address] [place] [address] Care Team Providers Care Conductor Orchestra Name Role Phone Ronnie Mcclellan MD Primary Care Provider Derick Qureshi Unavailable [phone] REASON FOR VISIT appt Encounters Encounter Location Date Provider Diagnosis [facility] [address] [place] [address] 08/22/2024 Derick Morris PLAN OF TREATMENT Next Appt Details Provider Name:Derick Morris , 03/24/2025 09:50:00 AM, [address], [address], [place], [address],
--- OUTSIDE RECORDS SUMMARY | 2025-01-08 11:57 | XMS_ITS | Patient Health Record ---
Author Organization [facility] Address [address] [place] [address] Care Team Providers Care Registered Medical Assistant Name Role Phone Ronnie Mcclellan MD Primary Care Provider Derick Qureshi Unavailable [phone] ALLERGIES No Known Allergies RESULTS Component Value Reference Range Notes Basic Metabolic Panel Reviewed date:01/28/2024 11:02:02 PM Interpretation: Performing Lab:, [address] [place] [address] Notes/Report: Sodium 136 135-145 mmol/L Potassium 3.6 3.3-5.1 mmol/L Chloride 98 96-108 mmol/L Carbon Dioxide 29 22-29 mmol/L Anion Gap 13 12-20 Blood Urea Nitrogen 18 9-16 mg/dL Creatinine 0.75 0.5-1.4 mg/dL Estimated Glomerular Filt Rate > 60 NOTE: For -[place] individuals, multiply the result by 1.210. Chronic Kidney Disease: Estimated GFR < 60 mL/min/1.73m2 Severe Kidney Disease: Estimated GFR < 15 mL/min/1.73m2 Glucose Random 118 60-115 mg/dL Calcium 9.6 8.4-10.2 mg/dL Prothrombin Time INR Reviewed date:02/14/2024 06:21:52 PM Interpretation: Performing Lab:, [address] [place] [phone] Notes/Report: Prothrombin Time 14.4 11.1-13.3 SEC INTERNATIONAL NORM RATIO 1.2 0.9-1.1 INTERNATIONAL NORMALIZED RATIO (INR) REFERENCE RANGES Reference Range For patients not on anticoagulant therapy: 0.9 - 1.1 INR ranges for oral anticoagulant therapy: For prevention and treatment of venous thrombosis and pulmonary embolism: 2.0 - 3.0 For acute myocardial infarction with aspirin therapy: 2.0 - 3.0 For acute myocardial infarction without aspirin therapy: 3.0 - 4.0 For patients with mechanical prosthetic heart valves: 2.5 - 3.5 Liver Panel Reviewed date:02/14/2024 06:20:52 PM Interpretation: Performing Lab:[address] [address] Notes/Report: Bilirubin Total 0.6 0.0-1.0 mg/dL Bilirubin Direct 0.3 0.0-0.5 mg/dL Aspartate Amino Transferase 39 5-37 U/L Alanine Aminotransferase 28 0-40 U/L Total Protein 7.4 6.5-8.0 g/dL Albumin Level 3.8 3.5-5.0 g/dL Alkaline Phosphatase 267 39-117 U/L Electrolytes Reviewed date:02/14/2024 06:21:10 PM Interpretation: Performing Lab:[address] [address] Notes/Report: Sodium 139 135-145 mmol/L Potassium 3.9 3.3-5.1 mmol/L Chloride 99 96-108 mmol/L Carbon Dioxide 30 22-29 mmol/L Anion Gap 14 12-20 Blood Urea Nitrogen Reviewed date:02/14/2024 06:21:16 PM Interpretation: Performing Lab:[address] [address] Notes/Report: Blood Urea Nitrogen 15 9-16 mg/dL Creatinine Reviewed date:02/14/2024 06:21:23 PM Interpretation: Performing Lab:[address] [address] Notes/Report: Creatinine 0.64 0.5-1.4 mg/dL Estimated Glomerular Filt Rate > 60 NOTE: For -[place] individuals, multiply the result by 1.210. Chronic Kidney Disease: Estimated GFR < 60 mL/min/1.73m2 Severe Kidney Disease: Estimated GFR < 15 mL/min/1.73m2 Glucose Random Reviewed date:02/14/2024 06:21:30 PM Interpretation: Performing Lab:[address] [place] [address] Notes/Report: Glucose Random 120 60-115 mg/dL Alpha Fetoprotein Reviewed date:03/18/2024 07:32:08 PM Interpretation: Performing Lab:, [address] [place] [phone] Notes/Report: Alpha Fetoprotein 127.5 <6.1 ng/mL This test was performed using the Reynold [place] chemiluminescent method. Values obtained from different assay methods cannot be used interchangeably. AFP levels, regardless of value, should not be interpreted as absolute evidence of the presence or absence of disease. THIS TEST WAS PERFORMED AT: [facility] [address] [place] [phone] AVIVA LUIS MD MR abdomen wo/w con Reviewed date:03/22/2024 12:39:02 PM Interpretation: Performing Lab: Notes/Report: [address] [place] [address] Magnetic Resonance Report Signed Patient: Cruz Oliva MR#: [id number] [birth year] Acct:[id number] Age/Sex: 63 / M ADM Date: 03/11/24 Loc: HO.MRI Attending Dr: Derick Morris MD Ordering Physician: Derick Morris Date of Service: 03/11/24 Procedure(s): MR abdomen wo/w con Accession Number(s): [id number] cc: Ronnie Mcclellan MD; Derick Morris EXAMINATION: MR ABDOMEN WITHOUT AND WITH CONTRAST CLINICAL INFORMATION: Elevated AFP. Alcoholic cirrhosis. COMPARISON: Abdomen CT from 06/27/2023. TECHNIQUE: MR abdomen was performed on a high-field magnet without and with use of 7 mL intravenous Gadavist. Postcontrast images are performed in multiphase dynamic sequences. Imaging was performed in 3 planes. FINDINGS: LUNG BASES: Normal. No pulmonary consolidation or pleural effusion. LIVER: Cirrhotic liver has nodular contour and reticular parenchymal enhancement from fibrosis. 2.6 x 2.7 x 1.5 cm mass in the subcapsular region of the posterosuperior aspect of hepatic segment 7 is mildly hyperintense on the T2-weighted images. It exhibits arterial phase contrast enhancement with washout and pseudocapsule, LR-5 observation. GALLBLADDER AND BILIARY TREE: Gallbladder is moderately distended and measures 4.8 cm transverse and 10.5 cm in length. No gallbladder wall thickening. Question presence of very small gallstones along the posterior wall of the gallbladder (image 22, series 4). There are no dilated bile ducts. PANCREAS: Normal. SPLEEN: 14.8 cm in maximum dimension. ADRENAL GLANDS: Normal. KIDNEYS: Kidneys are normal in size and enhance symmetrically. No renal mass or hydronephrosis. BOWEL AND PERITONEUM: Stomach is unremarkable. No dilated bowel loops. Small volume of ascites is present. VASCULATURE: Abdominal aorta is normal in caliber. The left gastric artery arises independently from the aorta separate from the celiac trunk. Inferior vena cava is normal. Splenic, portal and hepatic veins are patent; no evidence of venous thrombosis. The main portal vein and splenic vein are mildly dilated and there are perisplenic varices. LYMPH NODES: No pathologic sized lymph nodes in the abdomen. SKELETAL: Unremarkable. MR/MR abdomen wo/w con IMPRESSION: * Liver cirrhosis, splenomegaly and small volume ascites. * There is a 2.6 x 2.7 x 1.5 cm LR-5 observation at the posterior superior aspect of hepatic segment 7 (consistent with hepatocellular carcinoma). * Gallbladder hydrops. Dictated By: Mamadou Valdovinos MD Signed By: <Electronically signed by Mamadou Valdovinos MD in OV> 03/18/24 0816 DD/ 1200 TD/TT: Fixing Carpenter: Basic Metabolic Panel Reviewed date:04/10/2024 04:47:58 PM Interpretation: Performing Lab:, [address] [place] [phone] Notes/Report: Sodium 142 135-145 mmol/L Potassium 3.6 3.3-5.1 mmol/L Chloride 100 96-108 mmol/L Carbon Dioxide 29 22-29 mmol/L Anion Gap 17 12-20 Blood Urea Nitrogen 19 9-16 mg/dL Creatinine 0.75 0.5-1.4 mg/dL Estimated Glomerular Filt Rate > 60 NOTE: For -[place] individuals, multiply the result by 1.210. Chronic Kidney Disease: Estimated GFR < 60 mL/min/1.73m2 Severe Kidney Disease: Estimated GFR < 15 mL/min/1.73m2 Glucose Random 157 60-115 mg/dL Calcium 9.8 8.4-10.2 mg/dL Electrolytes Reviewed date:05/01/2024 11:50:51 AM Interpretation: Performing Lab:, [address] [place] [address] Notes/Report: Sodium 138 135-145 mmol/L Potassium 3.5 3.3-5.1 mmol/L Chloride 99 96-108 mmol/L Carbon Dioxide 30 22-29 mmol/L Anion Gap 13 12-20 Blood Urea Nitrogen Reviewed date:05/01/2024 11:51:02 AM Interpretation: Performing Lab:, [address] [place] [phone] Notes/Report: Blood Urea Nitrogen 16 9-16 mg/dL Creatinine Reviewed date:05/01/2024 11:51:11 AM Interpretation: Performing Lab:, [address] [place] [phone] Notes/Report: Creatinine 0.69 0.5-1.4 mg/dL Estimated Glomerular Filt Rate > 60 NOTE: For -[place] individuals, multiply the result by 1.210. Chronic Kidney Disease: Estimated GFR < 60 mL/min/1.73m2 Severe Kidney Disease: Estimated GFR < 15 mL/min/1.73m2 Glucose Random Reviewed date:05/01/2024 11:51:18 AM Interpretation: Performing Lab:, [address] [place] [phone] Notes/Report: Glucose Random 114 60-115 mg/dL Basic Metabolic Panel Reviewed date:06/02/2024 11:16:42 PM Interpretation: Performing Lab:, [address] [place] [phone] Notes/Report: Sodium 140 135-145 mmol/L Potassium 4.0 3.3-5.1 mmol/L Chloride 103 96-108 mmol/L Carbon Dioxide 29 22-29 mmol/L Anion Gap 12 12-20 Blood Urea Nitrogen 21 9-16 mg/dL Creatinine 0.77 0.5-1.4 mg/dL Estimated Glomerular Filt Rate > 60 NOTE: For -[place] individuals, multiply the result by 1.210. Chronic Kidney Disease: Estimated GFR < 60 mL/min/1.73m2 Severe Kidney Disease: Estimated GFR < 15 mL/min/1.73m2 Glucose Random 121 60-115 mg/dL Calcium 9.7 8.4-10.2 mg/dL Basic Metabolic Panel Reviewed date:08/06/2024 06:11:00 PM Interpretation: Performing Lab:[address] [address] Notes/Report: Sodium 136 135-145 mmol/L Potassium 3.8 3.3-5.1 mmol/L Chloride 97 96-108 mmol/L Carbon Dioxide 34 22-29 mmol/L Anion Gap 9 12-20 Blood Urea Nitrogen 16 9-16 mg/dL Creatinine 0.82 0.5-1.4 mg/dL Estimated Glomerular Filt Rate > 60 NOTE: For -[place] individuals, multiply the result by 1.210. Chronic Kidney Disease: Estimated GFR < 60 mL/min/1.73m2 Severe Kidney Disease: Estimated GFR < 15 mL/min/1.73m2 Glucose Random 209 60-115 mg/dL Calcium 9.7 8.4-10.2 mg/dL Prothrombin Time INR Reviewed date:08/23/2024 08:12:44 PM Interpretation: Performing Lab:, [address] [place] [phone] Notes/Report: Prothrombin Time 13.0 10.9-12.4 SEC INTERNATIONAL NORM RATIO 1.1 0.9-1.1 INTERNATIONAL NORMALIZED RATIO (INR) REFERENCE RANGES Reference Range For patients not on anticoagulant therapy: 0.9 - 1.1 INR ranges for oral anticoagulant therapy: For prevention and treatment of venous thrombosis and pulmonary embolism: 2.0 - 3.0 For acute myocardial infarction with aspirin therapy: 2.0 - 3.0 For acute myocardial infarction without aspirin therapy: 3.0 - 4.0 For patients with mechanical prosthetic heart valves: 2.5 - 3.5 Complete Blood Count Auto Di ff Reviewed date:08/23/2024 08:09:57 PM Interpretation: Performing Lab:[address] [address] Notes/Report: White Blood Count 6.0 4.8-10.8 X10*3/uL Red Blood Count 4.24 4.60-5.80 X10*6/uL Hemoglobin 13.3 14.0-18.0 g/dl Hematocrit 39.5 42.0-52.0 % Mean Corpuscular Volume 93.2 80.0-98.0 fL Mean Corpuscular Hemoglobin 31.4 27.0-33.0 pg Mean Corpuscular HGB Conc 33.7 31.0-36.0 g/dl Red Cell Distribution Width 14.2 11.0-16.0 % Platelet Count 157 160-400 X10*3/uL Mean Platelet Volume 10.8 9.4-12.4 fL Neutrophils Percent Auto 69.1 45-73 % Imm Gran Pct Auto 0.3 0.0-0.4 % Lymphocytes Percent Auto 11.4 20-40 % Monocytes Percent Auto 9.2 2-11 % Eosinophils Percent Auto 9.2 0-4 % Basophils Percent Auto 0.8 0-2 % NRBC Pct Auto 0.0 0.0-0.2 /100WBC Neutrophils Absolute Auto 4.1 2.0-8.3 x10*3/u L Imm Gran Abs Auto 0.02 0.00-0.03 X10*3/uL Lymphocytes Absolute Auto 0.7 1.2-4.9 X10*3/u L Monocytes Absolute Auto 0.6 0.1-1.2 X10*3/uL Eosinophils Absolute Auto 0.6 0.0-0.4 X10*3/u L Basophils Absolute Auto 0.1 0.0-0.2 X10*3/uL NRBC Abs Auto 0.000 0.0-0.012 X10*3/uL Comprehensive Met. Panel Reviewed date:08/23/2024 08:12:00 PM Interpretation: Performing Lab:, [address] [place] [phone] Notes/Report: Sodium 136 135-145 mmol/L Potassium 4.4 3.3-5.1 mmol/L Chloride 100 96-108 mmol/L Carbon Dioxide 27 22-29 mmol/L Anion Gap 13 12-20 Blood Urea Nitrogen 23 9-16 mg/dL Creatinine 0.77 0.5-1.4 mg/dL Estimated Glomerular Filt Rate > 60 NOTE: For -[place] individuals, multiply the result by 1.210. Chronic Kidney Disease: Estimated GFR < 60 mL/min/1.73m2 Severe Kidney Disease: Estimated GFR < 15 mL/min/1.73m2 Glucose Random 100 60-115 mg/dL Calcium 10.1 8.4-10.2 mg/dL Bilirubin Total 1.0 0.0-1.0 mg/dL Aspartate Amino Transferase 32 5-37 U/L Alanine Aminotransferase 27 0-40 U/L Total Protein 7.7 6.5-8.0 g/dL Albumin Level 4.1 3.5-5.0 g/dL Alkaline Phosphatase 198 39-117 U/L Liver Panel Reviewed date:08/23/2024 08:12:15 PM Interpretation: Performing Lab:, [address] [place] [phone] Notes/Report: Bilirubin Direct 0.4 0.0-0.5 mg/dL Alpha Fetoprotein Reviewed date:08/25/2024 06:21:00 PM Interpretation: Performing Lab:, [address] [place] [phone] Notes/Report: Alpha Fetoprotein 202.4 <6.1 ng/mL This test was performed using the Reynold [place] chemiluminescent method. Values obtained from different assay methods cannot be used interchangeably. AFP levels, regardless of value, should not be interpreted as absolute evidence of the presence or absence of disease. THIS TEST WAS PERFORMED AT: [facility] [address] [address] AVIVA LUIS MD REASON FOR REFERRAL No Information MEDICATIONS Medication SIG (Take, Route, Frequency, Duration) Notes Start Date End Date Status Folic Acid 1 MG Oral for 90 Ac tive Vitamin D3 125 MCG (5000 UT) TAKE 1 CAPSULE BY MOUTH EVERY DAY Oral for 60 Active traMADol HCl 50 MG 1 tablet as needed O rally THREE TIMES A DAY/PRN Active metFORMIN HCl 1000 MG 1 tablet with a me al Oral TWICE A DAY Active Furosemide 20 MG TAKE 3 TABLETS BY MO UTH EVERY MORNING AND 2 TABLETS EVERY EVENING for 25 Active Potassium Chloride ER 20 MEQ Oral for 30 Active Albuterol Sulfate (2.5 MG/3ML) 0.083% INHALE 1 AMP VIA NEBULIZER MACHINE EVERY 6 HOURS NEEDED FOR WHEEZING FOR 30 DAYS Inhalation for 5 Active Ventolin HFA 108 (90 Base) MCG/ACT Inhalation for 25 Active Advair HFA 230-21 MCG/ACT Inhalation for 30 Active IMMUNIZATIONS Vaccine Route Administration Date Status Comme nts Influenza Unknown 07/27/2022 Administered Influenza Unknown 09/18/2023 Administered SOCIAL HISTORY Tobacco Use: Social History Observation Description Date Details (start date - stop date) Former Smoker NA - NA Sex Assigned At : Social History Observation Description Sex Assigned At Unknown Tobacco Use/Smoking Question Answer Notes Patient is a former smoker How long has it been since you last smoked? > 10 years Alcohol Screen Question Answer Notes Did you have a drink containing alcohol in the p ast year? 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.2) Active confirmed Serum alpha-fetoprot ein level elevated (629685464) Problem Liver mass (R16.0) Active confirmed Liver mass (322989380) Problem Abnormal MRI, liver (R93.2) Active confirmed Abnormal findings diagnostic imaging of liver and biliary tract (003036995) VITAL SIGNS Temperature 98.4 degrees Fahrenheit 04/23/2024 Blood pressure diastolic 00 mm Hg 08/19/2024 Height 68 in 08/19/2024 Blood pressure systolic 00 mm Hg 08/19/2024 Weight 148 lbs 08/19/2024 BMI 22.50 kg/m2 08/19/2024 Encounters Encounter Location Date Provider Diagnosis [facility] [address] [place] [address] 02/13/2024 Derick Morris Alcoholic cirrhosis of liver with ascites K70.31 [facility] [address] [place] [address] 08/19/2024 Derick Morris Alcoholic cirrhosis of liver with ascites K70.31 ; Elevated alpha fetoprotein R77.2 ; Liver mass R16.0 and Abnormal MRI, liver R93.2 [facility] [address] [place] [address] 04/23/2024 Derick Morris Alcoholic cirrhosis of liver with ascites K70.31 ; Elevated alpha fetoprotein R77.2 ; Liver mass R16.0 and Abnormal MRI, liver R93.2 [facility] [address] [place] [address] 01/28/2024 Derick Morris [facility] [address] [place] [address] 02/18/2024 Derick Morris Elevated alpha fetoprotein R77.2 and Alcoholic cirrhosis of liver with ascites K70.31 [facility] [address] [place] [address] 03/11/2024 Derick Morris [facility] [address] [place] [address] 03/13/2024 Derick Morris [facility] [address] [place] [address] 03/18/2024 Derick Morris [facility] [address] [place] [address] 05/01/2024 Derick Morris [facility] [address] [place] [address] 08/22/2024 Derick Morris [facility] [address] [place] [address] 11/06/2024 Derick Morris ASSESSMENTS Encounter Date Diagnosis Assessment Notes Treatment Notes Treatment Clinical Notes 02/13/2024 Alcoholic cirrhosis of liver with ascites (ICD-10 - K70.31) Continue the same regimen of the Furosemide for the ascites. I would not recommend a TIPS procedure at this time. Follow up with Dr. Reeves re: the hernia and a possible referral to a tertiary center like [facility] for surgery consideration. 08/19/2024 Alcoholic cirrhosis of liver with ascites (ICD-10 - K70.31) 08/19/2024 Elevated alpha fetoprotein (ICD-10 - R77.2) 04/23/2024 Alcoholic cirrhosis of liver with ascites (ICD-10 - K70.31) 04/23/2024 Elevated alpha fetoprotein (ICD-10 - R77.2) 02/18/2024 Alcoholic cirrhosis of liver with ascites (ICD-10 - K70.31) 02/18/2024 Elevated alpha fetoprotein (ICD-10 - R77.2) 08/19/2024 Liver mass (ICD-10 - R16.0) Appointment with Oncology for Liver mass, cirrhosis, elevated AFP, and abnormal liver MRI---? treatment options re: ablation, etc . 04/23/2024 Liver mass (ICD-10 - R16.0) Keep appt at [facility] for 05/02/2024 and keep me posted with their plans. 08/19/2024 Abnormal MRI, liver (ICD-10 - R93.2) 04/23/2024 Abnormal MRI, liver (ICD-10 - R93.2) PLAN OF TREATMENT Pending Test Test Name Order Date CHEM 7 PROFILE 08/19/2024 CHEM 7 PROFILE 02/13/2024 CHEM 7 PROFILE 08/15/2023 CHEM 7 PROFILE 04/17/2023 BUN 05/22/2023 BUN 01/18/2023 BUN 10/23/2023 BUN 06/05/2023 BUN 01/23/2023 LIVER PROFILE 05/22/2023 LIVER PROFILE 08/19/2024 LIVER PROFILE 01/18/2023 LIVER PROFILE 02/13/2024 LIVER PROFILE 04/17/2023 IRON + IBC (FE) 01/18/2023 CBC w DIFF 08/19/2024 CBC w DIFF 01/18/2023 CBC w DIFF 04/17/2023 PROTHROMBIN TIME (PT, INR) 01/18/2023 ALPHA-FETOPROTEIN,TUMOR MARKER 3 ALPHA-FETOPROTEIN,TUMOR MARKER 4 ALPHA-FETOPROTEIN,TUMOR MARKER 4 MRI ABD W&WO CONTRAST 02/18/2024 FLUOR. ANTINUCLEAR AB SCREEN (ZANA) 12/28 Electrolytes 06/05/2023 Electrolytes 01/23/2023 Electrolytes 05/22/2023 Electrolytes 10/23/2023 Creatinine 06/05/2023 Creatinine 01/23/2023 Creatinine 05/22/2023 Creatinine 10/23/2023 Hepatitis A Antibody IgG 01/18/2023 Hepatitis C Antibody 01/18/2023 US abdomen complete 02/13/2024 US abdomen complete 01/18/2023 Next Appt Details Provider Name:Derick Sandy Morris , 03/24/2025 09:50:00 AM, [address] [place] [address], [address], [place], [address], Insurance Providers Payer Name Payer Address Payer Phone Subscriber Number Group Number Insured Name Patient Relationship to Insured Coverage Start Date Coverage End Date MEDICARE OF [place] [address] DIVYA HERNÁNDEZ [id number] [phone] [id number] CRUZ OLIVA Self - patient is the insured MEDICAID OF [facility] [address] [facility] [address] [phone] [id number] CRUZ OLIVA Self - patient is the insured MEDICAL (GENERAL) HISTORY Medical History History ICD Code Alcohol-related cirrhosis wi th associated ascites and portal hypertension with varicosities seen on 10/2022 CT scan. 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 He had a negative hepatitis C antibody, negative hepatitis B surface antigen and immunity for hepatitis B, and a normal alpha-1 antitrypsin level. He has been having large-volume paracenteses with occasional albumin since July of 2022. Studies of the ascites has been negative for cytology and negative for spontaneous bacterial peritonitis. He declined an evaluation at [facility] in 2022. 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 He never came back for followup. Elevated alpha-fetoprotein l evel of 128 in January of 2024 and a MRI of the liver in February of 2024 revealed a 2.5 cm lesion consistent with hepatoma Surgical History Surgery Date(Month/Year) Incarcerated umbilical hernia repair by Dr. Reeves 11/07/2022 Appendectomy
--- OUTSIDE RECORDS SUMMARY | 2025-01-08 11:57 | XMS_ITS ---
Demographics Address [address] [place] [address] [address] [place] [address] Mobile Preferred Language en Marital Status Unknown Roman Catholic Affiliation Unknown Race White Ethnic Group Refused to Report Author Organization [facility] Address [address] [place] [address] Care Team Providers Care Threshing Department Supervisor Name Role Phone Ronnie Mcclellan MD Primary Care Provider Derick Qureshi Unavailable [phone] REASON FOR VISIT recently had TACE Encounters Encounter Location Date Provider Diagnosis [facility] [address] [place] [address] 11/06/2024 Derick Morris PLAN OF TREATMENT Next Appt Details Provider Name:Derick Morris , 03/24/2025 09:50:00 AM, [address], [address], [place], [address],
--- OUTSIDE RECORDS SUMMARY | 2025-01-08 11:57 | XMS_ITS ---
Author Organization [facility] Address [address] [place] [address] Care Team Providers Care Dry Cell Tester Name Role Phone Ronnie Mcclellan MD Primary Care Provider Derick Qureshi Unavailable [phone] ALLERGIES No Known Allergies RESULTS Component Value Reference Range Notes Prothrombin Time INR Reviewed date:08/23/2024 08:12:44 PM Interpretation: Performing Lab:[facility], [address] [place] [phone] Notes/Report: Prothrombin Time 13.0 10.9-12.4 SEC INTERNATIONAL [...] mechanical prosthetic heart valves: 2.5 - 3.5 REASON FOR VISIT Patient presents today for cirrhosis MEDICATIONS Medication SIG (Take, Route, Frequency, Duration) Notes Start Date End Date Status Folic Acid 1 MG Oral for 90 Ac tive Vitamin D3 125 MCG (5000 UT) TAKE 1 CAPSULE BY MOUTH EVERY DAY Oral for 60 Active Potassium Chloride ER 20 MEQ Oral for 30 Active Albuterol Sulfate (2.5 MG/3ML) 0.083% INHALE 1 AMP VIA NEBULIZER MACHINE EVERY 6 HOURS NEEDED FOR WHEEZING FOR 30 DAYS Inhalation for 5 Active Ventolin HFA 108 (90 Base) MCG/ACT Inhalation for 25 Active traMADol HCl 50 MG 1 tablet as needed O rally THREE TIMES A DAY/PRN Active metFORMIN HCl 1000 MG 1 tablet with a me al Oral TWICE A DAY Active Furosemide 20 MG TAKE 3 TABLETS BY [facility] EVERY MORNING AND 2 TABLETS EVERY EVENING for 25 Active Advair HFA 230-21 MCG/ACT Inhalation for 30 Active SOCIAL HISTORY Tobacco Use: Social History Observation [...] ast year? No Points 0 Interpretation Negative VITAL SIGNS BMI 22.50 kg/m2 08/19/2024 Blood pressure systolic 00 mm Hg 08/19/20 Blood pressure diastolic 00 mm Hg 024 Height 68 in 08/19/2024 Weight 148 lbs 08/19/2024 Encounters Encounter Location Date Provider Diagnosis [facility] [address] [place] [address] 08/19/2024 Derick Morris Alcoholic cirrhosis of liver with ascites K70.31 ; Elevated alpha fetoprotein R77.2 ; Liver mass R16.0 and Abnormal MRI, liver R93.2 ASSESSMENTS Encounter Date Diagnosis Assessment Notes Treatment Notes Treatment Clinical Notes 08/19/2024 Alcoholic cirrhosis of liver with ascites (ICD-10 - K70.31) 08/19/2024 Elevated alpha fetoprotein (ICD-10 - R77.2) 08/19/2024 Liver mass (ICD-10 - R16.0) Appointment with Oncology for Liver mass, cirrhosis, elevated AFP, and abnormal liver MRI---? treatment options re: ablation, etc . 08/19/2024 Abnormal MRI, liver (ICD-10 - R93.2) PLAN OF TREATMENT Treatment Notes Assessment Notes Liver mass Appointment with Onc ology for Liver mass, cirrhosis, elevated AFP, and abnormal liver MRI---? treatment options re: ablation, etc . Pending Test Test Name Order Date CHEM 7 PROFILE 08/19/2024 LIVER PROFILE 08/19/2024 CBC w DIFF 08/19/2024 ALPHA-FETOPROTEIN,TUMOR MARKER Next Appt Details Follow Up: Spring 2024, Reas on: Provider Name:Derick Morris 03/24/2025 09:50:00 AM, [address], [address], [place], [address], Progress Notes * Examination Category Sub-Category Detail Notes General Examination GENERAL APPEARANCE: Pleasant , alert, chronically ill- appearing male in no distress. He wears nasal cannula for oxygen during the visit. EYES: sclera non-icteric NECK/THYROID: no cervical lymphade nopathy, neck supple HEART: S1, S2 normal LUNGS: Diminished breath so unds bilaterally ABDOMEN: Softer abdomen. He n ow has a large protruding but nontender midline and umbilical hernia. There is no focal tenderness, rebound, nor guarding.There are no masses. No definite ascites. NEUROLOGIC: Alert and oriented, no asterixis, he answers all questions appropriately SKIN: nonjaundiced EXTREMITIES: No edema ORAL CAVITY: mucosa moist
== END 2025-01-08 11:36 | disposition home or self-care (01) ==
PROVIDERS: PCP Internal Medicine; Visit Provider Orthopaedic Surgery
DX: M75.51 Bursitis of right shoulder (principal); M75.52 Bursitis of left shoulder
CPT/HCPCS: 20610

== ENCOUNTER → 2025-01-08 11:17 | Outpatient (BNVA) | payer MEDICARE, SELFPAY | PROVIDERS: PCP Internal Medicine; Visit Provider Orthopaedic Surgery | DX: M75.51 Bursitis of right shoulder (principal); M75.52 Bursitis of left shoulder | CPT/HCPCS: 20610; J0665; J1100; J2003 ==

== ENCOUNTER 2025-01-14 11:08 | Outpatient (AMB) | payer MEDICARE, SELFPAY ==
[2025-01-14 11:09] VITALS: PULSE 82; O2SAT 95; BMI 23.2
--- NOTE | 2025-01-14 11:09 | A.OFFVIS_ITS ---
Vital Signs 01/14/25 11:09 Height 5 ft 10 in Weight 162 lb BMI 23.2 Pulse 82 Pulse Oximetry (%) 95 Oxygen Delivery Method Nasal Cannula Intake Visit Reasons: Recurrent umbilical hernia Intake Note: This patient presents for possible recurrent umbilical hernia. Pt c/o; no complaints. Help Desk Manager Required: No Accompanied by: Self / Same As Patient Allergies No Known Allergies Allergy (Verified 01/14/25 11:20) HPI HPI Recurrent umbilical hernia: Details: He is here for follow-up for his large recurrent umbilical hernia. He has known chronic liver disease with cirrhosis from EtOH. He says he had a TIPS procedure done by Interventional Radiology about 3 weeks ago. He says that he was told that this will help with this ascites and liver disease He continues to have this large recurrent umbilical hernia. He says this is bothering him and wants this repaired. Has good oral intake [facility] Medical History Recurrent umbilical hernia Abdominal wall mass Incarcerated umbilical hernia COPD (chronic obstructive pulmonary disease) Diabetes Liver cirrhosis Surgical History History of umbilical hernia repair (11/07/22) History of appendectomy Family History Other No family history of coronary artery disease Social History Household Members: None Housing: Other Housing Other:: mobile home Do you presently have visiting nurse or other home services: No Alcohol intake: former Comment: previously medicated with tramadol preop Patient Tobacco Use Status: Former Tobacco user Tobacco use type: Cigarette Second Hand Smoke Exposure: Yes Current occupational status: disabled Gender identity: Male Review of Systems Const Denies chills and Denies fever(s) Card Denies chest pain GI Denies abdominal pain Denies dysuria Physical Exam Vital Signs: Last Vital Signs Pulse 82 01/14/25 11:09 Pulse Ox 95 01/14/25 11:09 Oxygen Delivery Method Nasal Cannula 01/14/25 11:09 BMI result Body Mass Index 23.2 Const Other: Frail looking, ambulates but with some difficulty General: comfortable and no acute distress Resp Effort & Inspection: normal respiratory effort Cardio Rate: regular rate GI Other: Very protuberant and rounded, large reducible umbilical hernia with a defect about 9 cm in diameter Assessment & Plan Assessment & Plan (1) Recurrent umbilical hernia: Code(s): K42.9 - Umbilical hernia without obstruction or gangrene Category: Medical Plan: He has a large, recurrent reducible umbilical hernia. He does have multiple medical problems including chronic liver disease and cirrhosis and had a recent tips procedure He is wanting to have this large hernia repaired again. I told him that I would refer him to a tertiary care center in view of his multiple comorbid conditions especially with his chronic liver disease, ascites, portal hypertension even with his tips procedure He understands the plan. Coding Level of Care Code Est Pt Level 3 (74083) Diagnoses Recurrent umbilical hernia K42.9
--- OUTSIDE RECORDS SUMMARY | 2025-01-14 11:53 | XMS_ITS | Clinical Summary ---
Author Organization [facility] Address [address] [place] [address] Care Team Providers Care Heavy Equipment Sales Manager Name Role Phone Unavailable Primary Care Provider [...]
--- OUTSIDE RECORDS SUMMARY | 2025-01-14 11:53 | XMS_ITS ---
Author Organization [facility] Address [address] [place] [address] Care Team Providers Care Coin Purse Framer Name Role Phone Ronnie Mcclellan MD Primary Care Provider Derick Qureshi Unavailable [phone] ALLERGIES No Known Allergies RESULTS Component Value Reference Range Notes Prothrombin Time INR Reviewed date:08/23/2024 08:12:44 PM Interpretation: Performing Lab:[facility], [address] [place] [phone] Notes/Report: Prothrombin Time 13.0 10.9-12.4 SEC INTERNATIONAL [...] Furosemide 20 MG TAKE 3 TABLETS BY [facility] EVERY MORNING AND 2 TABLETS EVERY EVENING [...] 08/19/2024 Encounters Encounter Location Date Provider Diagnosis [facility] [address] [place] [address] 08/19/2024 Derick Morris Alcoholic cirrhosis of liver [...] Provider Name:Derick Morris 03/24/2025 09:50:00 AM, [address], [address], [place], [address], Progress Notes * Examination Category Sub-Category Detail [...]
--- OUTSIDE RECORDS SUMMARY | 2025-01-14 11:53 | XMS_ITS | Patient Health Record ---
Author Organization [facility] Address [address] [place] [address] Care Team Providers Care Jelly Maker Name Role Phone Ronnie Mcclellan MD Primary Care Provider Derick Qureshi Unavailable [phone] ALLERGIES No Known Allergies RESULTS Component Value Reference Range Notes Basic Metabolic Panel Reviewed date:01/28/2024 11:02:02 PM Interpretation: Performing Lab:[facility], [address] [place] [phone] Notes/Report: Sodium 136 135-145 mmol/L Potassium 3.6 3.3-5.1 mmol/L Chloride 98 96-108 mmol/L Carbon Dioxide 29 22-29 mmol/L Anion Gap 13 12-20 Blood Urea Nitrogen 18 9-16 mg/dL Creatinine 0.75 0.5-1.4 mg/dL Estimated Glomerular Filt Rate > 60 NOTE: For -Cypriot individuals, multiply the result by 1.210. Chronic Kidney Disease: Estimated GFR < 60 mL/min/1.73m2 Severe Kidney Disease: Estimated GFR < 15 mL/min/1.73m2 Glucose Random 118 60-115 mg/dL Calcium 9.6 8.4-10.2 mg/dL Prothrombin Time INR Reviewed date:02/14/2024 06:21:52 PM Interpretation: Performing Lab:[facility], [address] [place] [phone] Notes/Report: Prothrombin Time 14.4 11.1-13.3 SEC INTERNATIONAL [...] Panel Reviewed date:02/14/2024 06:20:52 PM Interpretation: Performing Lab:[address] [phone] Notes/Report: Bilirubin Total 0.6 0.0-1.0 mg/dL Bilirubin Direct 0.3 0.0-0.5 mg/dL Aspartate Amino Transferase 39 5-37 U/L Alanine Aminotransferase 28 0-40 U/L Total Protein 7.4 6.5-8.0 g/dL Albumin Level 3.8 3.5-5.0 g/dL Alkaline Phosphatase 267 39-117 U/L Electrolytes Reviewed date:02/14/2024 06:21:10 PM Interpretation: Performing Lab:[address] [phone] Notes/Report: Sodium 139 135-145 mmol/L Potassium 3.9 3.3-5.1 mmol/L Chloride 99 96-108 mmol/L Carbon Dioxide 30 22-29 mmol/L Anion Gap 14 12-20 Blood Urea Nitrogen Reviewed date:02/14/2024 06:21:16 PM Interpretation: Performing Lab:[address] [phone] Notes/Report: Blood Urea Nitrogen 15 9-16 mg/dL Creatinine Reviewed date:02/14/2024 06:21:23 PM Interpretation: Performing Lab:[address] [address] Notes/Report: Creatinine 0.64 0.5-1.4 mg/dL Estimated Glomerular Filt Rate > 60 NOTE: For -Cypriot individuals, multiply the result by 1.210. Chronic Kidney Disease: Estimated GFR < 60 mL/min/1.73m2 Severe Kidney Disease: Estimated GFR < 15 mL/min/1.73m2 Glucose Random Reviewed date:02/14/2024 06:21:30 PM Interpretation: Performing Lab:[address] [place] [address] Notes/Report: Glucose Random 120 60-115 mg/dL Alpha Fetoprotein Reviewed date:03/18/2024 07:32:08 PM Interpretation: Performing Lab:[facility], [address] [place] [phone] Notes/Report: Alpha Fetoprotein 127.5 <6.1 ng/mL This test was performed using the Reynold Alina chemiluminescent method. Values obtained from different assay methods cannot be used interchangeably. AFP levels, regardless of value, should not be interpreted as absolute evidence of the presence or absence of disease. THIS TEST WAS PERFORMED AT: [facility] [address] [place] [phone] AVIVA LUIS MD MR abdomen wo/w con Reviewed date:03/22/2024 12:39:02 PM Interpretation: Performing Lab: Notes/Report: [address] [place] [address] Magnetic Resonance Report Signed Patient: Cruz Oliva MR#: [id number] [birth year] Acct:[id number] Age/Sex: 63 / M ADM Date: 03/11/24 Loc: HO.MRI Attending Dr: Derick Morris MD Ordering Physician: Derick Morris Date of Service: 03/11/24 Procedure(s): MR abdomen wo/w con Accession Number(s): [id number] cc: Ronnie Mcclellan MD; Derick Morris EXAMINATION: [...] in OV> 03/18/24 0816 DD/ 1200 TD/TT: Food Concession Manager: Basic Metabolic Panel Reviewed date:04/10/2024 04:47:58 PM Interpretation: Performing Lab:[facility], [address] [place] [phone] Notes/Report: Sodium 142 135-145 mmol/L Potassium 3.6 3.3-5.1 mmol/L Chloride 100 96-108 mmol/L Carbon Dioxide 29 22-29 mmol/L Anion Gap 17 12-20 Blood Urea Nitrogen 19 9-16 mg/dL Creatinine 0.75 0.5-1.4 mg/dL Estimated Glomerular Filt Rate > 60 NOTE: For -Cypriot individuals, multiply the result by 1.210. Chronic Kidney Disease: Estimated GFR < 60 mL/min/1.73m2 Severe Kidney Disease: Estimated GFR < 15 mL/min/1.73m2 Glucose Random 157 60-115 mg/dL Calcium 9.8 8.4-10.2 mg/dL Electrolytes Reviewed date:05/01/2024 11:50:51 AM Interpretation: Performing Lab:[facility], [address] [place] [phone] Notes/Report: Sodium 138 135-145 mmol/L Potassium 3.5 3.3-5.1 mmol/L Chloride 99 96-108 mmol/L Carbon Dioxide 30 22-29 mmol/L Anion Gap 13 12-20 Blood Urea Nitrogen Reviewed date:05/01/2024 11:51:02 AM Interpretation: Performing Lab:[facility], [address] [place] [phone] Notes/Report: Blood Urea Nitrogen 16 9-16 mg/dL Creatinine Reviewed date:05/01/2024 11:51:11 AM Interpretation: Performing Lab:[facility], [address] [place] [phone] Notes/Report: Creatinine 0.69 0.5-1.4 mg/dL Estimated Glomerular Filt Rate > 60 NOTE: For -Cypriot individuals, multiply the result by 1.210. Chronic Kidney Disease: Estimated GFR < 60 mL/min/1.73m2 Severe Kidney Disease: Estimated GFR < 15 mL/min/1.73m2 Glucose Random Reviewed date:05/01/2024 11:51:18 AM Interpretation: Performing Lab:[facility], [address] [place] [phone] Notes/Report: Glucose Random 114 60-115 mg/dL Basic Metabolic Panel Reviewed date:06/02/2024 11:16:42 PM Interpretation: Performing Lab:[facility], [address] [place] [phone] Notes/Report: Sodium 140 135-145 mmol/L Potassium 4.0 3.3-5.1 mmol/L Chloride 103 96-108 mmol/L Carbon Dioxide 29 22-29 mmol/L Anion Gap 12 12-20 Blood Urea Nitrogen 21 9-16 mg/dL Creatinine 0.77 0.5-1.4 mg/dL Estimated Glomerular Filt Rate > 60 NOTE: For -Cypriot individuals, multiply the result by 1.210. Chronic Kidney Disease: Estimated GFR < 60 mL/min/1.73m2 Severe Kidney Disease: Estimated GFR < 15 mL/min/1.73m2 Glucose Random 121 60-115 mg/dL Calcium 9.7 8.4-10.2 mg/dL Basic Metabolic Panel Reviewed date:08/06/2024 06:11:00 PM Interpretation: Performing Lab:[address] [phone] Notes/Report: Sodium 136 135-145 mmol/L Potassium 3.8 3.3-5.1 mmol/L Chloride 97 96-108 mmol/L Carbon Dioxide 34 22-29 mmol/L Anion Gap 9 12-20 Blood Urea Nitrogen 16 9-16 mg/dL Creatinine 0.82 0.5-1.4 mg/dL Estimated Glomerular Filt Rate > 60 NOTE: For -Cypriot individuals, multiply the result by 1.210. Chronic Kidney Disease: Estimated GFR < 60 mL/min/1.73m2 Severe Kidney Disease: Estimated GFR < 15 mL/min/1.73m2 Glucose Random 209 60-115 mg/dL Calcium 9.7 8.4-10.2 mg/dL Prothrombin Time INR Reviewed date:08/23/2024 08:12:44 PM Interpretation: Performing Lab:[facility], [address] [place] [phone] Notes/Report: Prothrombin Time 13.0 10.9-12.4 SEC INTERNATIONAL [...] ff Reviewed date:08/23/2024 08:09:57 PM Interpretation: Performing Lab:[address] [phone] Notes/Report: White Blood Count 6.0 4.8-10.8 X10*3/uL [...] Panel Reviewed date:08/23/2024 08:12:00 PM Interpretation: Performing Lab:[facility], [address] [place] [phone] Notes/Report: Sodium 136 135-145 mmol/L Potassium 4.4 3.3-5.1 mmol/L Chloride 100 96-108 mmol/L Carbon Dioxide 27 22-29 mmol/L Anion Gap 13 12-20 Blood Urea Nitrogen 23 9-16 mg/dL Creatinine 0.77 0.5-1.4 mg/dL Estimated Glomerular Filt Rate > 60 NOTE: For -Cypriot individuals, multiply the result by 1.210. Chronic [...] Panel Reviewed date:08/23/2024 08:12:15 PM Interpretation: Performing Lab:[facility], [address] [place] [phone] Notes/Report: Bilirubin Direct 0.4 0.0-0.5 mg/dL Alpha Fetoprotein Reviewed date:08/25/2024 06:21:00 PM Interpretation: Performing Lab:[facility], [address] [place] [phone] Notes/Report: Alpha Fetoprotein 202.4 <6.1 ng/mL This test was performed using the Reynold Fenton chemiluminescent method. Values obtained from different assay methods cannot be used interchangeably. AFP levels, regardless of value, should not be interpreted as absolute evidence of the presence or absence of disease. THIS TEST WAS PERFORMED AT: [facility] [address] [phone] AVIVA LUIS MD REASON FOR REFERRAL No [...] of liver with ascites (K70.31) Active confirmed 592801642 Problem Lower extremity edema (R60.0) Active confirmed 442815454 Problem Elevated alpha fetoprotein (R77.2) Active confirmed Serum alpha-fetoprot ein level elevated (924043617) Problem Liver mass (R16.0) Active confirmed Liver mass (571753898) Problem Abnormal MRI, liver (R93.2) Active confirmed Abnormal findings diagnostic imaging of liver and biliary tract (303217143) VITAL SIGNS Temperature 98.4 degrees Fahrenheit 04/23/2024 Blood pressure diastolic 00 mm Hg 08/19/2024 Height 68 in 08/19/2024 Blood pressure systolic 00 mm Hg 08/19/2024 Weight 148 lbs 08/19/2024 BMI 22.50 kg/m2 08/19/2024 Encounters Encounter Location Date Provider Diagnosis [facility] [address] [place] [phone] 02/13/2024 Derick Morris Alcoholic cirrhosis of liver with ascites K70.31 [facility] [address] [place] [address] 08/19/2024 Derick Morris Alcoholic cirrhosis of liver with ascites K70.31 ; Elevated alpha fetoprotein R77.2 ; Liver mass R16.0 and Abnormal MRI, liver R93.2 [facility] [address] [place] [phone] 04/23/2024 Derick Morris Alcoholic cirrhosis of liver with ascites K70.31 ; Elevated alpha fetoprotein R77.2 ; Liver mass R16.0 and Abnormal MRI, liver R93.2 [facility] [address] [place] [phone] 01/28/2024 Derick Morris [facility] [address] [place] [address] 02/18/2024 Derick Morris Elevated alpha fetoprotein R77.2 and Alcoholic cirrhosis of liver with ascites K70.31 [facility] [address] [place] [address] 03/11/2024 Derick Morris [facility] [address] [place] [phone] 03/13/2024 Derick Morris [facility] [address] [place] [address] 03/18/2024 Derick Morris [facility] [address] [place] [address] 05/01/2024 Derick Morris [facility] [address] [place] [address] 08/22/2024 Derick Morris [facility] [address] [place] [phone] 11/06/2024 Derick Morris ASSESSMENTS Encounter Date Diagnosis Assessment Notes Treatment Notes Treatment Clinical Notes 02/13/2024 Alcoholic cirrhosis of liver with ascites (ICD-10 - K70.31) Continue the same regimen of the Furosemide for the ascites. I would not recommend a TIPS procedure at this time. Follow up with Dr. Reeves re: the hernia and a possible referral to a tertiary center like [facility] for surgery consideration. 08/19/2024 Alcoholic cirrhosis of [...] mass (ICD-10 - R16.0) Keep appt at [facility] for 05/02/2024 and keep me posted with their plans. 08/19/2024 Abnormal MRI, liver (ICD-10 - R93.2) 04/23/2024 Abnormal MRI, liver (ICD-10 - R93.2) PLAN OF TREATMENT Pending Test Test Name Order Date CHEM 7 PROFILE 08/19/2024 CHEM 7 PROFILE 02/13/2024 CHEM 7 PROFILE 08/15/2023 CHEM 7 PROFILE 04/17/2023 BUN 06/05/2023 BUN 01/23/2023 BUN 01/18/2023 BUN 05/22/2023 BUN 10/23/2023 LIVER PROFILE 08/19/2024 LIVER PROFILE 01/18/2023 LIVER PROFILE 05/22/2023 LIVER PROFILE 02/13/2024 LIVER PROFILE 04/17/2023 IRON + IBC (FE) 01/18/2023 CBC w DIFF 04/17/2023 CBC w DIFF 08/19/2024 CBC w DIFF 01/18/2023 PROTHROMBIN TIME (PT, INR) 01/18/2023 ALPHA-FETOPROTEIN,TUMOR MARKER 3 ALPHA-FETOPROTEIN,TUMOR MARKER 4 ALPHA-FETOPROTEIN,TUMOR MARKER 4 MRI ABD W&WO CONTRAST 02/18/2024 FLUOR. ANTINUCLEAR AB SCREEN (ZANA) 12/28 Electrolytes 06/05/2023 Electrolytes 01/23/2023 Electrolytes 05/22/2023 Electrolytes 10/23/2023 Creatinine 10/23/2023 Creatinine 06/05/2023 Creatinine 01/23/2023 Creatinine 05/22/2023 Hepatitis A Antibody IgG 01/18/2023 Hepatitis C Antibody 01/18/2023 US abdomen complete 02/13/2024 US abdomen complete 01/18/2023 Next Appt Details Provider Name:Derick Sandy Morris , 03/24/2025 09:50:00 AM, [address] [place] [address], [address], [place], [address], Insurance Providers Payer Name Payer Address Payer Phone Subscriber Number Group Number Insured Name Patient Relationship to Insured Coverage Start Date Coverage End Date MEDICARE OF [place] [address] DIVYA HERNÁNDEZ [id number] [phone] [id number] CRUZ OLIVA Self - patient is the insured MEDICAID OF [facility] [address] [facility] [phone] [id number] CRUZ OLIVA Self - patient is the [...] bacterial peritonitis. He declined an evaluation at [facility] in 2022. Kidney stones NIDDM COPD with intermittent use of nasal oxyg en Denies SD,CVA,renal disease Anxiety Screening colonoscopy in with the [...]
--- OUTSIDE RECORDS SUMMARY | 2025-01-14 11:53 | XMS_ITS ---
Demographics Address [address] [place] [address] [address] [place] [address] Mobile Preferred Language en Marital Status Unknown Adventist Affiliation Unknown Race White Ethnic Group Refused to Report Author Organization [facility] Address [address] [place] [address] Care Team Providers Care Graphic Illustrator Name Role Phone Ronnie Mcclellan MD Primary Care Provider Derick Qureshi Unavailable [phone] REASON FOR VISIT recently had TACE Encounters Encounter Location Date Provider Diagnosis [facility] [address] [place] [address] 11/06/2024 Derick Morris PLAN OF TREATMENT Next Appt Details Provider Name:Derick Morris , 03/24/2025 09:50:00 AM, [address], [address], [place], [address],
--- OUTSIDE RECORDS SUMMARY | 2025-01-14 11:53 | XMS_ITS ---
Demographics Address [address] [place] [address] [address] [place] [address] Mobile Preferred Language en Marital Status Unknown Cheondoism Affiliation Unknown Race White Ethnic Group Refused to Report Author Organization [facility] Address [address] [place] [address] Care Team Providers Care Paperboard Box Maker Name Role Phone Ronnie Mcclellan MD Primary Care Provider Derick Qureshi Unavailable [phone] REASON FOR VISIT appt Encounters Encounter Location Date Provider Diagnosis [facility] [address] [place] [address] 08/22/2024 Derick Morris PLAN OF TREATMENT Next Appt Details Provider Name:Derick Morris , 03/24/2025 09:50:00 AM, [address], [address], [place], [address],
== END 2025-01-14 11:36 | disposition home or self-care (01) ==
PROVIDERS: PCP Internal Medicine; Visit Provider Surgery
DX: K42.9 Umbilical hernia without obstruction or gangrene (principal)
CPT/HCPCS: 99213

== ENCOUNTER → 2025-01-14 11:08 | Outpatient (BNVA) | payer MEDICARE, SELFPAY | PROVIDERS: PCP Internal Medicine; Visit Provider Surgery | DX: K42.9 Umbilical hernia without obstruction or gangrene (principal) | CPT/HCPCS: 99212 ==

== ENCOUNTER 2025-02-12 09:48 | Outpatient (AMB) | payer MEDICARE, SELFPAY ==
[2025-02-12 10:04] VITALS: BP 120/70; PULSE 94; RESP 16; TEMP 36.6; O2SAT 96; BMI 24.4
--- NOTE | 2025-02-12 10:04 | A.OFFPC_ITS ---
Vital Signs 02/12/25 10:04 Height 5 ft 10 in Weight 170 lb BMI 24.4 BP 120/70 Respiration 16 Pulse 94 Pulse Source Pulse Oximeter Temp 97.9 F Temp Source Temporal Artery Scan Pulse Oximetry (%) 96 Oxygen Delivery Method Nasal Cannula Oxygen Flow Rate 2 Intake Visit Reasons: Routine Behavioral Health Aide Required: No Accompanied by: Self / Same As Patient Allergies No Known Allergies Allergy (Verified 02/12/25 10:05) Tobacco use date assessed: 02/12/25 Fall risk assessment: 2 + Falls in past year Last assessed Fall Risk: 02/12/25 (slipped on ice multiple times, no injuries) Dental Screening Dental Screen Date: 02/12/25 Did you have a dental visit in the last 12 months?: Yes Did you have a dental problem in the last 6 months where you did not have access to dental care?: No HPI HPI Comments History of Present Illness0 Details 63-year-old male patient with a past med ical history of diabetes, peripheral neuropathy, alcoholic cirrhosis, chronic kidney disease and COPD, history of bilateral foot ulcers. Following with Dr Morris for HCC, liver cirrhosis. previously was requiring frequent paracentesis. Consultation with [facility] for hernia upcoming COPD on o2 3 pulse to 2L exertional. Not using at rest. Diabetes-last a17 7.3 November. sees podiatry. has rx for diabetic shoes, Dr Rubi. Needs letter that still diabetic. continues dayron metformin Chronic pain-has been on tramadol. recent refill. Keeps getting message re interactions. Would like to change to similar. ROS CONSTITUTIONAL: Denies weight loss, fever and chills. HEENT: Denies changes in vision and hearing. RESPIRATORY: Denies SOB and cough. CV: Denies palpitations and CP GI: Denies abdominal pain, nausea, vomiting and diarrhea. : Denies dysuria and urinary frequency. MSK: Denies new myalgia and joint pain. SKIN: Denies rash and pruritus. NEUROLOGICAL: Denies headache PSYCHIATRIC: Denies recent changes in mood. PHYSICAL EXAM: GENERAL: Alert and oriented x 3. NAD EYES: EOMI. Anicteric. HENT: Moist mucous membranes. No scleral icterus. No cervical lymphadenopathy. LUNGS: Clear to auscultation bilaterally. CARDIOVASCULAR: Regular rate and rhythm. No murmur. No JVD. ABDOMEN: Soft, non-tender +bs EXTREMITIES: No edema. Non-tender. SKIN: No rashes or lesions. Warm. NEUROLOGIC: No focal neurological deficits. CN II-XII grossly intact PSYCHIATRIC: Cooperative. Appropriate mood and affect FORMERLY [facility] Medical History Recurrent umbilical hernia Abdominal wall mass Incarcerated umbilical hernia COPD (chronic obstructive pulmonary disease) Diabetes Liver cirrhosis Surgical History History of umbilical hernia repair (11/07/22) History of appendectomy Family History Other No family history of coronary artery disease Social History Household Members: None Housing: Other Housing Other:: mobile home Do you presently have visiting nurse or other home services: No Alcohol intake: former Comment: previously medicated with tramadol preop Patient Tobacco Use Status: Former Tobacco user Tobacco use type: Cigarette Second Hand Smoke Exposure: Yes service: No Current occupational status: retired Gender identity: Male Cognitive needs: Yes (oxygen tank) Hearing needs: No Vision needs: Yes (rx glasses) Questionnaire PHQ-9 Over the last 2 weeks, how often have you been bothered by any of the following problems? 1. Little interest or pleasure in doing things: not at all 2. Feeling down, depressed, or hopeless: not at all 3. Trouble falling or staying asleep, or sleeping too much: not at all 4. Feeling tired or having little energy: not at all 5. Poor appetite or overeating: not at all 6. Feeling bad about yourself - or that you are a failure or have let yourself or your family down: not at all 7. Trouble concentrating on things, such as reading the newspaper or watching television: not at all 8. Moving or speaking so slowly that other people could have noticed. Or the opposite - being so fidgety or restless that you have been moving around a lot more than usual: not at all 9. Thoughts that you would be better off or of hurting yourself in some way: not at all Total score: 0 Depression Screening Interpretation: Negative Depression Screening Done: Yes 85824 - PHQ-9 Billing: Yes Source: Developed by Drs. Derick Almanza, Ashwin Valdivia and colleagues, with an educational mary alice from [employer]. Thrive Questionnaire Date Thrive assessed: 02/12/25 I am a: Patient What is your living situation today?: I have a steady place to live Within the past 12 months, did the food you bought not last and you didn't have the money to get more?: Never true Within the past 12 months, did you worry whether your food would run out before you got money to buy more?: Never true Do you have trouble paying for medicines?: No Do you have trouble getting transportation to medical appointments?: No Do you have trouble paying your heating and electricity bill?: No Do you have trouble taking care of your child, family member or friend?: No Do you have trouble with day-to-day activities such as bathing, preparing meals, shopping, managing finances, etc.?: No Are you currently unemployed and looking for a job?: No Are you interested in more education?: No Please select the resources that you would like help with: None THRIVE Score: 0 AUDIT C Alcohol Use Questionnaire (AUDIT-C) 1. How often do you have a drink containing alcohol?: Never 3. How often do you have six or more drinks on one occasion?: Never Total Score: 0 MIGUEL-7 AMB Questionnaire MIGUEL-7 Date MIGUEL - 7 assessed: 02/12/25 Feeling nervous, anxious, or on edge: 0 = Not at all Not being able to stop or control worryin = Not at all Worrying too much about different things: 0 = Not at all Trouble relaxin = Not at all Being so restless that it is hard to sit still: 0 = Not at all Becoming easily annoyed or irritable: 0 = Not at all Feeling afraid as if something awful might happen: 0 = Not at all Total MIGUEL-7 score (0-4 normal; 5-9 mild; 10-14 moderate; 15-21 severe): 0 Source: Developed by Drs. Derick Almanza, Ashwin Valdivia and colleagues, with an educational mary alice from [employer]. Physical exam (Primary Care) Vital Signs: Last Vital Signs Temp 97.9 F 02/12/25 10:04 Pulse 94 02/12/25 10:04 Resp 16 02/12/25 10:04 BP 120/70 02/12/25 10:04 Pulse Ox 96 02/12/25 10:04 Oxygen Delivery Method Nasal Cannula 02/12/25 10:04 Oxygen Flow Rate 2 02/12/25 10:04 BMI result Body Mass Index 24.4 Tobacco/Smoking Status: Tobacco use Status Tobacco use date assessed 02/12/25 02/12/25 10:15 Patient Tobacco Use Status Former Tobacco user 02/12/25 10:15 Tobacco use type Cigarette 02/12/25 10:15 PHQ-9: PHQ-9 Score PHQ-9: Total score 0 02/12/25 10:25 Depression Screening Interpretation: Negative Thrive Assessment: Date of Thrive Assessment Date Thrive assessed 02/12/25 02/12/25 10:15 Coding Level of Care Code New Pt Level 4 (67571) Complex EM visit Add On G2211 Diagnoses Diabetic polyneuropathy associated with type 2 diabetes mellitus E11.42 Diabetes mellitus type: type 2 Diabetes mellitus complication detail: diabetic polyneuropathy Alcoholic cirrhosis of liver with ascites K70.31 Hepatic cirrhosis type: alcoholic cirrhosis Ascites presence: with ascites Additional Codes PHQ-9 - 33721 - PHQ-9 Billing: Yes ([id number]) Assessment & Plan Assessment & Plan (1) Diabetic neuropathy: Code(s): E11.40 - Type 2 diabetes mellitus with diabetic neuropathy, unspecified Category: Medical Qualifiers: Diabetes mellitus type: type 2 Diabetes mellitus complication detail: d iabetic polyneuropathy Qualified Code(s): E11.42 - Type 2 diabetes mellitus with diabetic polyneuropathy (2) Cirrhosis of liver: Code(s): K74.60 - Unspecified cirrhosis of liver Category: Medical Qualifiers: Hepatic cirrhosis type: alcoholic cirrhosis Ascites presence: with ascites Qualified Code(s): K70.31 - Alcoholic cirrhosis of liver with ascites Plan 64 y/o to establish care reviewed medical history medication Diabetes-slight suboptimal control. Will see in 3 months for diabetic follow up Shoes rx and letter given. Labs prior to appt Orders: Orders Microalbumin, Random (w Creat) 12 Weeks E11.9 - Type 2 diabetes mellitus without complications, K70.31 - Alcoholic cirrhosis of liver with ascites Hemoglobin A1c 12 Weeks E11.9 - Type 2 diabetes mellitus without complications, K70.31 - Alcoholic cirrhosis of liver with ascites Comprehensive Met. Panel 12 Weeks E11.9 - Type 2 diabetes mellitus without complications, K70.31 - Alcoholic cirrhosis of liver with ascites Lipid Panel 12 Weeks E11.9 - Type 2 diabetes mellitus without complications, K70.31 - Alcoholic cirrhosis of liver with ascites Complete Blood Count Auto Diff 12 Weeks E11.9 - Type 2 diabetes mellitus without complications, K70.31 - Alcoholic cirrhosis of liver with ascites Medications: New [Diabetic shoes and inserts] As directed 1 ea 0RF E11.40 - Type 2 diabetes mellitus with diabetic neuropathy, unspecified, E11.621 - Type 2 diabetes mellitus with foot ulcer, E11.9 - Type 2 diabetes mellitus without complications, L97.512 - Non-pressure chronic ulcer of other part of right foot with fat layer exposed oxycodone Partial Fill upon patient request. 5 mg PO .q8 hour PRN 84 tabs 0RF pain 28 days
== END 2025-02-12 10:48 | disposition home or self-care (01) ==
LOC: HO.HMCHD 09:48
PROVIDERS: PCP Internal Medicine; Visit Provider Internal Medicine
DX: E11.42 Type 2 diabetes mellitus with diabetic polyneuropathy (principal); K70.31 Alcoholic cirrhosis of liver with ascites

== ENCOUNTER → 2025-02-12 09:48 | Outpatient (BNVA) | payer MEDICARE, SELFPAY | PROVIDERS: PCP Internal Medicine; Visit Provider Internal Medicine | DX: E11.42 Type 2 diabetes mellitus with diabetic polyneuropathy (principal); E11.22 Type 2 diabetes mellitus with diabetic chronic kidney disease; E11.621 Type 2 diabetes mellitus with foot ulcer; L97.512 Non-pressure chronic ulcer of other part of right foot with fat layer exposed; K70.31 Alcoholic cirrhosis of liver with ascites; N18.9 Chronic kidney disease, unspecified; J44.9 Chronic obstructive pulmonary disease, unspecified; Z86.31 Personal history of diabetic foot ulcer | CPT/HCPCS: 96127; 99202 ==

== ENCOUNTER 2025-03-19 11:38 | Outpatient (REF) | payer MEDICARE, SELFPAY ==
--- OUTSIDE RECORDS SUMMARY | 2025-03-19 14:01 | XMS_ITS | Clinical Summary ---
Author Organization [facility] Address [address] [place] [address] Care Team Providers Care Engineering Faculty Member Name Role Phone Unavailable Primary Care Provider Unavailabl e Social History Tobacco Use Types Packs/Day Years Used Date Smoking Tobacco: Never Assessed Sex and Gender Information Value Date Recorded Sex Assigned at Not on file Legal Sex Male 2:41 PM EDT Gender Identity Not on file Sexual Orientation [...]
[2025-03-19 14:14] LABS: MANUAL DIFF FLAG NO
[2025-03-19 14:27] LABS: Basophils Absolute Auto 0.1 X10*3/uL (0.0-0.2); Basophils Percent Auto 1.2 % (0-2); Eosinophils Absolute Auto 0.2 X10*3/uL (0.0-0.4); Hematocrit 39.6 % (42.0-52.0); Hemoglobin 13.1 g/dl (14.0-18.0); Imm Gran Abs Auto 0.02 X10*3/uL (0.00-0.03); Imm Gran Pct Auto 0.5 % (0.0-0.4); Lymphocytes Absolute Auto 0.5 X10*3/uL (1.2-4.9); Lymphocytes Percent Auto 11.9 % (20-40); Mean Corpuscular HGB Conc 33.1 g/dl (31.0-36.0); Mean Corpuscular Hemoglobin 30.5 pg (27.0-33.0); Mean Corpuscular Volume 92.3 fL (80.0-98.0); Monocytes Absolute Auto 0.3 X10*3/uL (0.1-1.2); Monocytes Percent Auto 7.6 % (2-11); Neutrophils Absolute Auto 3.1 x10*3/uL (2.0-8.3); Neutrophils Percent Auto 73.8 % (45-73); Platelet Count 141 X10*3/uL (160-400); Red Blood Count 4.29 X10*6/uL (4.60-5.80); Red Cell Distribution Width 14.4 % (11.0-16.0); White Blood Count 4.2 X10*3/uL (4.8-10.8)
[2025-03-19 14:32] LABS: INTERNATIONAL NORM RATIO 1.1 (0.9-1.1); Prothrombin Time 13.2 SEC (10.9-12.4)
[2025-03-19 14:48] LABS: Alanine Aminotransferase 46 U/L (0-40); Albumin Level 3.8 g/dL (3.5-5.0); Alkaline Phosphatase 290 U/L (39-117); Anion Gap 13 (12-20); Aspartate Amino Transferase 48 U/L (5-37); Bilirubin Direct 0.4 mg/dL (0.0-0.5); Bilirubin Total 0.9 mg/dL (0.0-1.0); Blood Urea Nitrogen 18 mg/dL (9-16); Carbon Dioxide 27 mmol/L (22-29); Chloride 96 mmol/L (96-108); Estimated Glomerular Filt Rate > 60; Glucose Random 484 mg/dL (60-115); Potassium 3.9 mmol/L (3.3-5.1); Sodium 132 mmol/L (135-145); Total Protein 7.4 g/dL (6.5-8.0)
[2025-03-27 11:09] LABS: Alpha Fetoprotein 278.1 ng/mL (<6.1)
== END 2025-03-19 11:39 | disposition home or self-care (01) ==
LOC: HO.WFDLDS 11:38
PROVIDERS: Visit Provider Internal Medicine
DX: K74.60 Unspecified cirrhosis of liver (principal)
CPT/HCPCS: 36415; 80051; 80076; 82105; 82565; 82947; 84520; 85025; 85610

== ENCOUNTER 2025-04-09 10:49 | Outpatient (AMB) | payer MEDICARE, SELFPAY ==
--- NOTE | 2025-04-09 10:56 | A.OFFVIS_ITS ---
Vital Signs 04/09/25 11:03 Height 5 ft 10 in Weight 170 lb BMI 24.4 Intake Visit Reasons: Inj-B/L Shoulders-last inj 01/08/25 Intake Note: Cruz is a 64 year old right hand dominant male who presents today for an injection only appointment for his Bilateral shoulder Bursitis. Last injections administered bilaterally on 01/08/25. Allergies No Known Allergies Allergy (Verified 02/12/25 10:05) HPI HPI Inj-B/L Shoulders-last inj 01/08/25: Details: Here with continued bilateral shoulder pain. He has benefitted from injections and would like to receive another injection today. He has been taking Aufbv1u and states he has been having less pain late. [facility] Medical History Recurrent umbilical hernia Abdominal wall mass Incarcerated umbilical hernia COPD (chronic obstructive pulmonary disease) Diabetes Liver cirrhosis Surgical History History of umbilical hernia repair (11/07/22) History of appendectomy Family History Other No family history of coronary artery disease Social History Household Members: None Housing: Other Housing Other:: mobile home Do you presently have visiting nurse or other home services: No Alcohol intake: former Comment: previously medicated with tramadol preop Patient Tobacco Use Status: Former Tobacco user Tobacco use type: Cigarette Second Hand Smoke Exposure: Yes service: No Current occupational status: retired Gender identity: Male Cognitive needs: Yes (oxygen tank) Hearing needs: No Vision needs: Yes (rx glasses) Physical Exam Vital Signs: BMI result Body Mass Index 24.4 Extrem Other: Bilateral shoulder exam: + de la garza and Neer Negative EC 35/90/130/S1 Office Procedures Joint Inj/Aspir; Non-Pain Clin Joint Injection/Drain Details: Injected 1 mL of Decadron and 3 mL 1% lidocaine and 3 mL of 0.25% Marcaine. Site was prepped using aseptic technique. Patient tolerated the procedure well. Shoulders, Hips, Knees, Shoulder Injection Large joint 12357: Bilateral Shoulders Coding Procedure code (CPT) selection complete Assessment & Plan Assessment & Plan (1) Bilateral shoulder bursitis: Code(s): M75.51 - Bursitis of right shoulder; M75.52 - Bursitis of left shoulder Category: Medical Plan: This is a 64-year-old with bilateral shoulder pain. I injected both shoulders today. I would like him to try to abstain from injections for a while and work on activity modification and physical therapy exercises. Coding Level of Care Code Est Pt Level 3 (32748) Diagnoses Bilateral shoulder bursitis M75.51; M75.52 CPT Codes Shoulders, Hips, Knees, - Shoulder Injection Large joint 01769: Bilateral Shoulders ([id number])
[2025-04-09 11:03] VITALS: BMI 24.4
--- OUTSIDE RECORDS SUMMARY | 2025-04-09 11:56 | XMS_ITS ---
Author Organization [facility] Address [address] [place] [address] Care Team Providers Care Well Service Floorperson Name Role Phone Ronnie Mcclellan MD Primary Care Provider Derick Qureshi [phone] REASON FOR VISIT glucose Encounters Encounter Location Date Provider Diagnosis [facility] [address] [place] [address] 03/19/2025 Derick Morris Plan Of Treatment Next Appt Details Provider Name:Derick Morris , 09/22/2025 09:10:00 AM, [address], [address], [place], [address], Progress Notes * RUSLAN OLIVA LDOB: [birth year] (64 yo M)Acc No.[id number]:03/19/2025 Patient:?RUSLAN OLIVA :1960???Age:64 Y???Sex:Male Address:[address] [place] [address] [address], [place] [address] * true * Date:? Generated for Hernandez damian/Jamel/eTransmitting on:?04/09/2025 11:56 AM EDT
--- OUTSIDE RECORDS SUMMARY | 2025-04-09 11:56 | XMS_ITS | Clinical Summary ---
Author Organization [facility] Address [address] [place] [address] Care Team Providers Care Machine Welder Name Role Phone Unavailable Primary Care Provider [...]
--- OUTSIDE RECORDS SUMMARY | 2025-04-09 11:56 | XMS_ITS ---
Author Organization [facility] Address [address] [place] [address] Care Team Providers Care Signal System Testing Maintainer Name Role Phone Ronnie Mcclellan MD Primary Care Provider Derick Qureshi Unavailable [phone] Allergies No Known Allergies REASON FOR VISIT Patient presents today for cirrhosis Medications Medication SIG (Take, Route, Frequency, Duration) Notes Start Date End Date Status Almond 3 Active Vitamin D3 125 MCG (5000 UT) TAKE 1 CAPSULE BY MOUTH EVERY DAY Oral for 60 Active metFORMIN HCl 1000 MG 1 tablet with a me al Oral TWICE A DAY Active Potassium Chloride ER 20 MEQ 1 tablet with food Oral Once a day for 30 days Active Ventolin HFA 108 (90 Base) MCG/ACT Inhalation for 25 Active oxyCODONE HCl 5 MG Oral for 28 Days Active Furosemide 20 MG TAKE 3 TABLETS BY MO UTH EVERY MORNING AND TAKE 2 TABLETS BY MOUTH EVERY EVENING for 30 Active Albuterol Sulfate (2.5 MG/3ML) 0.083% INHALE 1 AMP VIA NEBULIZER MACHINE EVERY 6 HOURS NEEDED FOR WHEEZING FOR 30 DAYS Inhalation for 5 Active Social History Tobacco Use: Social History Observation Description Date Details (start date - stop date) Former Smoker NA - NA Tobacco Use/Smoking Question Answer Notes Patient is a former smoker How long has it been since you last smoked? > 10 years Alcohol Screen Question Answer Notes Did you have a drink containing alcohol in the p ast year? No Points 0 Interpretation Negative Section Notes: QUIT DRINKING JULY 01, 2022 Quit smoking 2009 Vital Signs Blood pressure systolic 111 mm Hg 03/24/20 25 Blood pressure diastolic 77 mm Hg 025 Height 68 in 03/24/2025 Weight 165 lbs 03/24/2025 BMI 25.09 kg/m2 03/24/2025 Encounters Encounter Location Date Provider Diagnosis [facility] [address] [place] [address] 03/24/2025 Derick Morris Cirrhosis of liver with ascites K74.60 ; Elevated alpha fetoprotein R77.2 ; Abnormal MRI, liver R93.2 ; Liver mass R16.0 and Alcoholic cirrhosis of liver with ascites K70.31 Assessments Encounter Date Diagnosis (ICD Code) Assessment Notes Treatment Notes Treatment Clinical Notes Section Notes 03/24/2025 Cirrhosis of liver with ascites (ICD-10 - K74.60) CONTINUE THE FUROSEMIDE BUT YOU CAN ADJUST YOU SEE FIT, BUT MONITOR FLUID STATUS AND WEIGHT Overall, Cruz appears remarkably well given the underlying significant liver disease and hepatoma. We did review his current status and I recommended he continue his same regimen of the furosemide although he is inclined to try to decrease it somewhat. I did advise him that he could try decreasing it to 40 mg twice a day and see how he does with that by monitoring his abdominal girth and his weight. I advised him that based on his laboratories he otherwise seems to be tolerating the diuretics quite well and I would be inclined to have him continue that given the problems he had with ascites in the past. I did advise him to continue to watch his salt intake. I did advise him to increase the diuretics again to 60 mg in the morning and 40 mg in the evening if the ascites becomes problematic again. In regard to the hepatoma I did advise him to continue close follow-up with Dr. Quinonez. I do not think he needs any intervention on my part in that regard. His liver disease otherwise appears to be stable without any signs of jaundice, encephalopathy, GI bleeding, or spontaneous bacterial peritonitis. I did caution him about undergoing abdominal wall hernia repair given his increased risk for complications both in regard to the surgery itself and the potential for liver decompensation. He reports that he will continue to be followed at [facility] and will then make a decision with those surgeons there. If things remain stable I advised him to see me in 6 months for a follow-up visit. I did advise him to contact me sooner if he has any problems or questions I can be of assistance with. Cruz was comfortable with this plan. Thank you again for allowing me to participate in Cruz's care. I shall continue to keep you advised of his progress. 03/24/2025 Elevated alpha fetoprotein (ICD-10 - R77.2) Overall, Cruz appears remarkably well given the underlying significant liver disease and hepatoma. We did review his current status and I recommended he continue his same regimen of the furosemide although he is inclined to try to decrease it somewhat. I did advise him that he could try decreasing it to 40 mg twice a day and see how he does with that by monitoring his abdominal girth and his weight. I advised him that based on his laboratories he otherwise seems to be tolerating the diuretics quite well and I would be inclined to have him continue that given the problems he had with ascites in the past. I did advise him to continue to watch his salt intake. I did advise him to increase the diuretics again to 60 mg in the morning and 40 mg in the evening if the ascites becomes problematic again. In regard to the hepatoma I did advise him to continue close follow-up with Dr. Quinonez. I do not think he needs any intervention on my part in that regard. His liver disease otherwise appears to be stable without any signs of jaundice, encephalopathy, GI bleeding, or spontaneous bacterial peritonitis. I did caution him about undergoing abdominal wall hernia repair given his increased risk for complications both in regard to the surgery itself and the potential for liver decompensation. He reports that he will continue to be followed at [facility] and will then make a decision with those surgeons there. If things remain stable I advised him to see me in 6 months for a follow-up visit. I did advise him to contact me sooner if he has any problems or questions I can be of assistance with. Cruz was comfortable with this plan. Thank you again for allowing me to participate in Cruz's care. I shall continue to keep you advised of his progress. 03/24/2025 Abnormal MRI, liver (ICD-10 - R93.2) Overall, Cruz appears remarkably well given the underlying significant liver disease and hepatoma. We did review his current status and I recommended he continue his same regimen of the furosemide although he is inclined to try to decrease it somewhat. I did advise him that he could try decreasing it to 40 mg twice a day and see how he does with that by monitoring his abdominal girth and his weight. I advised him that based on his laboratories he otherwise seems to be tolerating the diuretics quite well and I would be inclined to have him continue that given the problems he had with ascites in the past. I did advise him to continue to watch his salt intake. I did advise him to increase the diuretics again to 60 mg in the morning and 40 mg in the evening if the ascites becomes problematic again. In regard to the hepatoma I did advise him to continue close follow-up with Dr. Quinonez. I do not think he needs any intervention on my part in that regard. His liver disease otherwise appears to be stable without any signs of jaundice, encephalopathy, GI bleeding, or spontaneous bacterial peritonitis. I did caution him about undergoing abdominal wall hernia repair given his increased risk for complications both in regard to the surgery itself and the potential for liver decompensation. He reports that he will continue to be followed at [facility] and will then make a decision with those surgeons there. If things remain stable I advised him to see me in 6 months for a follow-up visit. I did advise him to contact me sooner if he has any problems or questions I can be of assistance with. Cruz was comfortable with this plan. Thank you again for allowing me to participate in Cruz's care. I shall continue to keep you advised of his progress. 03/24/2025 Liver mass (ICD-10 - R16.0) FOLLOW WITH DR. QUINONEZ FROM ONCOLOGY Overall, Cruz appears remarkably well given the underlying significant liver disease and hepatoma. We did review his current status and I recommended he continue his same regimen of the furosemide although he is inclined to try to decrease it somewhat. I did advise him that he could try decreasing it to 40 mg twice a day and see how he does with that by monitoring his abdominal girth and his weight. I advised him that based on his laboratories he otherwise seems to be tolerating the diuretics quite well and I would be inclined to have him continue that given the problems he had with ascites in the past. I did advise him to continue to watch his salt intake. I did advise him to increase the diuretics again to 60 mg in the morning and 40 mg in the evening if the ascites becomes problematic again. In regard to the hepatoma I did advise him to continue close follow-up with Dr. Quinonez. I do not think he needs any intervention on my part in that regard. His liver disease otherwise appears to be stable without any signs of jaundice, encephalopathy, GI bleeding, or spontaneous bacterial peritonitis. I did caution him about undergoing abdominal wall hernia repair given his increased risk for complications both in regard to the surgery itself and the potential for liver decompensation. He reports that he will continue to be followed at [facility] and will then make a decision with those surgeons there. If things remain stable I advised him to see me in 6 months for a follow-up visit. I did advise him to contact me sooner if he has any problems or questions I can be of assistance with. Cruz was comfortable with this plan. Thank you again for allowing me to participate in Cruz's care. I shall continue to keep you advised of his progress. 03/24/2025 Alcoholic cirrhosis of liver with ascites (ICD-10 - K70.31) Overall, Cruz appears remarkably well given the underlying significant liver disease and hepatoma. We did review his current status and I recommended he continue his same regimen of the furosemide although he is inclined to try to decrease it somewhat. I did advise him that he could try decreasing it to 40 mg twice a day and see how he does with that by monitoring his abdominal girth and his weight. I advised him that based on his laboratories he otherwise seems to be tolerating the diuretics quite well and I would be inclined to have him continue that given the problems he had with ascites in the past. I did advise him to continue to watch his salt intake. I did advise him to increase the diuretics again to 60 mg in the morning and 40 mg in the evening if the ascites becomes problematic again. In regard to the hepatoma I did advise him to continue close follow-up with Dr. Quinonez. I do not think he needs any intervention on my part in that regard. His liver disease otherwise appears to be stable without any signs of jaundice, encephalopathy, GI bleeding, or spontaneous bacterial peritonitis. I did caution him about undergoing abdominal wall hernia repair given his increased risk for complications both in regard to the surgery itself and the potential for liver decompensation. He reports that he will continue to be followed at [facility] and will then make a decision with those surgeons there. If things remain stable I advised him to see me in 6 months for a follow-up visit. I did advise him to contact me sooner if he has any problems or questions I can be of assistance with. Cruz was comfortable with this plan. Thank you again for allowing me to participate in Cruz's care. I shall continue to keep you advised of his progress. Plan Of Treatment Medication Medication Name Sig Start Date Stop Date Notes Potassium Chloride ER 20 MEQ 1 tablet wi th food Oral Once a day for 30 days Treatment Notes Assessment Notes Cirrhosis of liver with ascites CONTINUE THE FUROSEMIDE BUT YOU CAN ADJUST YOU SEE FIT, BUT MONITOR FLUID STATUS AND WEIGHT Liver mass FOLLOW WITH DR. ROMAN ARANGO FROM ONCOLOGY Next Appt Details Follow Up: 6 Months, Reason: Provider Name:Derick Morris , 09/22/2025 09:10:00 AM, [address] [place] [address], [address], [place], [address], Progress Notes * CRUZ OLIVA LDOB: [birth year] (64 yo M)Acc No.[id number]:03/24/2025 Progress Notes Patient:?CRUZ OLIVA Provider:?Derick Morris MD :1960???Age:64 Y???Sex:Male Sabino e:03/24/2025 Address:[address] [place] [address] [id number] Pcp:Ronnie Mcclellan MD Subjective: * Chief Complaints: * ???Patient presents today fo r cirrhosis * HPI: ???incontinence:? I saw Cruz in follow-up today regard to his alcohol-related cirrhosis with associated ascites and underlying hepatoma. Since I last saw Cruz in July 2024 he reports that things have been quite stable and he has been feeling well. He continues to be followed by Dr. Quinonez for the hepatoma and underwent a chemoembolization procedure at [facility] in September of 2024. He reports tolerating this well and has had some follow-up scans at [facility]. He presently denies any signs of jaundice, increasing abdominal girth, nor edema. He describes that he is eating comfortably and denies any significant heartburn or dysphagia. He reports that his bowel movements been regular and without any signs of bleeding. He denies any episodes of confusion. He is presently using furosemide 60 mg each morning and 40 mg each evening with good control of his ascites. Prior to starting diuretics he had been having almost weekly paracenteses. He is interested in trying to decrease the furosemide regimen. He is also using 1 potassium daily. Laboratories done just last week revealed a white blood cell count of 4.2, hemoglobin 13.1, MCV 92, platelets 141,000, total bilirubin 0.9, AST 48, ALT 46, albumin 3.8, alk phos 290, sodium 132, potassium 3.9, BUN of 18, creatinine 0.8, and PT of 13.2 with an INR 1.1. His blood sugar was elevated at 484 but he reports having followed up with you about this. He is still bothered by his large abdominal wall hernia and reports that he is currently being followed at [facility] surgery by Dr. Freed. He reports that they are discussing potential surgical repair of that but are still doing some preoperative evaluations. In the past both I and Dr. Reeves did not feel he would be a good surgical candidate for this given the underlying significant liver disease, previous abdominal surgeries, and potential for complications including increasing ascites. * ROS:?General/Constitutional:?Change in appetite?denies.?Chills?denies.?Fatigue?admits.?Ophthalmologic:?Comments?all negative.?ENT:?Comments?all negative.?Respiratory:?hemoptysis?denies.?Cough?denies.?Cardiovascular:?Chest pain?denies.?Orthopnea?denies.?Gastrointestinal:?Comments?See HPI for details.?Genitourinary:?Hematuria?denies.?Dysuria?denies.?Musculoskeletal:?Painful joints?denies.?Weakness?denies.?Skin:?Itching?denies.?Rash?denies.?Neurologic:?Headache?denies.?Seizures?denies.?Psychiatric:?Comments?all negative.? * Medical History:? * Surgical History:?Incarcerat ed umbilical hernia repair by Dr. Reeves 11/07/2022ppendectomy Currently being followed by Dr. Freed at [facility] surgery in regard to the abdominal wall hernia as of the February, office visit * Hospitalization/Major Diagno stic Procedure:?No Hospitalization History. * Family History:?Father: dece ased.?Mother: .? No known hx of colorectal cancer nor liver disease, other than a father who may have had a history of alcohol abuse. * Social History:?Tobacco Use:?Tobacco Use/Smoking?Patient is a?former smoker,?How long has it been since you last smoked??> 10 years.?Drugs/Alcohol:?Alcohol Screen?Did you have a drink containing alcohol in the past year??No,?Points?0,?Interpretation?Negative.?Miscellaneous:?Marital status: single. Occupation: Presently on disability. ???QUIT DRINKING JULY 01, 2022 Quit smoking 2009. * Medications:?TakingOmega 3 m etFORMIN HCl 1000 MG Tablet 1 tablet with a meal Oral TWICE A DAY Vitamin D3 125 MCG (5000 UT) Capsule TAKE 1 CAPSULE BY MOUTH EVERY DAY Oral Ventolin HFA 108 (90 Base) MCG/ACT Aerosol Solution Inhalation Albuterol Sulfate (2.5 MG/3ML) 0.083% Nebulization Solution INHALE 1 AMP VIA NEBULIZER MACHINE EVERY 6 HOURS NEEDED FOR WHEEZING FOR 30 DAYS Inhalation Potassium Chloride ER 20 MEQ Tablet Extended Release Oral Furosemide 20 MG Tablet TAKE 3 TABLETS BY MOUTH EVERY MORNING AND TAKE 2 TABLETS BY MOUTH EVERY EVENING oxyCODONE HCl 5 MG Tablet Oral Taking Almond 3 Taking metFORMIN HCl 1000 MG Tablet 1 tablet with a meal Oral TWICE A DAY Taking Vitamin D3 125 MCG (5000 UT) Capsule TAKE 1 CAPSULE BY MOUTH EVERY DAY Oral Taking Ventolin HFA 108 (90 Base) MCG/ACT Aerosol Solution Inhalation Taking Albuterol Sulfate (2.5 MG/3ML) 0.083% Nebulization Solution INHALE 1 AMP VIA NEBULIZER MACHINE EVERY 6 HOURS NEEDED FOR WHEEZING FOR 30 DAYS Inhalation Taking Potassium Chloride ER 20 MEQ Tablet Extended Release Oral Taking Furosemide 20 MG Tablet TAKE 3 TABLETS BY MOUTH EVERY MORNING AND TAKE 2 TABLETS BY MOUTH EVERY EVENING Taking oxyCODONE HCl 5 MG Tablet Oral DiscontinuedtraMADol HCl 50 MG Tablet 1 tablet as needed Orally THREE TIMES A DAY/PRN Folic Acid 1 MG Tablet Oral Advair HFA 230-21 MCG/ACT Aerosol Inhalation Medication List reviewed and reconciled with the patientDiscontinued traMADol HCl 50 MG Tablet 1 tablet as needed Orally THREE TIMES A DAY/PRN Discontinued Folic Acid 1 MG Tablet Oral Discontinued Advair HFA 230-21 MCG/ACT Aerosol Inhalation Medication List reviewed and reconciled with the patient * Allergies:?N.K.D.A.yes[Aller gies Verified] Objective: * Vitals:?Wt:165lbs, Ht: 68 in , BMI:25.09Index, BP:111/77mm Hg, Wt-k.84. * Examination: ???General Examination: ?GENERAL APPEARANCE:?Pleasant, alert, chronically ill-appearing male in no distress. He wears nasal cannula for oxygen during the visit..?EYES:?sclera non-icteric.?ORAL CAVITY:?mucosa moist.?NECK/THYROID:?no cervical lymphadenopathy, neck supple.?SKIN:?nonjaundiced.?HEART:?S1, S2 normal.?LUNGS:?Diminished breath sounds bilaterally.?ABDOMEN:?Softer abdomen.?He now has a large protruding but nontender midline and umbilical hernia. There is no focal tenderness, rebound, nor guarding.There are no masses. No definite ascites.?.?EXTREMITIES:?No edema.?NEUROLOGIC:?Alert and oriented, no asterixis, he answers all questions appropriately.? Assessment: * Assessment: 1.?Cirrhosis of liver with a scites - K74.60 (Primary)???2.?Elevated alpha fetoprotein - R77.2???3.?Abnormal MRI, liver - R93.2???4.?Liver mass - R16.0???5.?Alcoholic cirrhosis of liver with ascites - K70.31??? Overall, Cruz appears remar kably well given the underlying significant liver disease and hepatoma. We did review his current status and I recommended he continue his same regimen of the furosemide although he is inclined to try to decrease it somewhat. I did advise him that he could try decreasing it to 40 mg twice a day and see how he does with that by monitoring his abdominal girth and his weight. I advised him that based on his laboratories he otherwise seems to be tolerating the diuretics quite well and I would be inclined to have him continue that given the problems he had with ascites in the past. I did advise him to continue to watch his salt intake. I did advise him to increase the diuretics again to 60 mg in the morning and 40 mg in the evening if the ascites becomes problematic again. In regard to the hepatoma I did advise him to continue close follow-up with Dr. Quinonez. I do not think he needs any intervention on my part in that regard. His liver disease otherwise appears to be stable without any signs of jaundice, encephalopathy, GI bleeding, or spontaneous bacterial peritonitis. I did caution him about undergoing abdominal wall hernia repair given his increased risk for complications both in regard to the surgery itself and the potential for liver decompensation. He reports that he will continue to be followed at [facility] and will then make a decision with those surgeons there. If things remain stable I advised him to see me in 6 months for a follow-up visit. I did advise him to contact me sooner if he has any problems or questions I can be of assistance with. Cruz was comfortable with this plan. Thank you again for allowing me to participate in Cruz's care. I shall continue to keep you advised of his progress. Plan: * Treatment: 2.?Liver mass? Notes: FOLLOW WITH DR. QUINONEZ FROM ONCOLOGY?? 3.?Others? Refill Potassium Chloride ER Tablet Extended Release, 20 MEQ, 1 tablet with food, Oral, Once a day, 30 days, 30 Tablet, Refills 11.?? * Procedure Codes:?G9711 PT W/ DX PAST HX TOTAL COLECTOMY/[id number] TOBACCO NON- [id number] BP SCR NOT PRFRM REC REASON NOS * Preventive Medicine:? ??Counseling:?Care goal follow-up plan:?Above Normal BMI Follow-up?Exercise promotion: stretching,?BMI management provided?Yes.? ??Screenings:?Fall Risk Screening?Fall Risk Assessment:?No falls in the past year,?Screening:?No falls in the past year,?Assessment:?Not performed, no reason specified,?Plan of Care:?Not documented, no reason specified.? * Follow Up:?6 Months * * Sign off status: Completed true * Provider:?Derick Morris MD Date:? 025 Generated for Hernandez damian/Jamel/eTransmitting on:?04/09/2025 11:56 AM EDT History and Physical Notes * HPI (History of Present Illness) Category Sub-Category Detail Notes Category Not es incontinence I saw Cruz in follow-up today regard to his alcohol-related cirrhosis with associated ascites and underlying hepatoma. Since I last saw Cruz in July 2024 he reports that things have been quite stable and he has been feeling well. He continues to be followed by Dr. Quinonez for the hepatoma and underwent a chemoembolization procedure at [facility] in September of 2024. He reports tolerating this well and has had some follow-up scans at [facility]. He presently denies any signs of jaundice, increasing abdominal girth, nor edema. He describes that he is eating comfortably and denies any significant heartburn or dysphagia. He reports that his bowel movements been regular and without any signs of bleeding. He denies any episodes of confusion. He is presently using furosemide 60 mg each morning and 40 mg each evening with good control of his ascites. Prior to starting diuretics he had been having almost weekly paracenteses. He is interested in trying to decrease the furosemide regimen. He is also using 1 potassium daily. Laboratories done just last week revealed a white blood cell count of 4.2, hemoglobin 13.1, MCV 92, platelets 141,000, total bilirubin 0.9, AST 48, ALT 46, albumin 3.8, alk phos 290, sodium 132, potassium 3.9, BUN of 18, creatinine 0.8, and PT of 13.2 with an INR 1.1. His blood sugar was elevated at 484 but he reports having followed up with you about this. He is still bothered by his large abdominal wall hernia and reports that he is currently being followed at [facility] surgery by Dr. Freed. He reports that they are discussing potential surgical repair of that but are still doing some preoperative evaluations. In the past both I and Dr. Reeves did not feel he would be a good surgical candidate for this given the underlying significant liver disease, previous abdominal surgeries, and potential for complications including increasing ascites. Examination Category Sub-Category Detail Notes Category Not es General Examination GENERAL APPEARANCE: Pleasant , alert, chronically ill-appearing male in no distress. He wears nasal [...]
--- OUTSIDE RECORDS SUMMARY | 2025-04-09 11:56 | XMS_ITS ---
Author Organization [facility] Address [address] [place] [address] Care Team Providers Care Payroll And Benefits Analyst Name Role Phone Ronnie Mcclellan MD Primary Care Provider Derick Qureshi [phone] Results Component Value Reference Range Notes Prothrombin Time INR Reviewed date:03/20/2025 01:50:23 PM Interpretation: Performing Lab:[facility], [address] [place] [id number] Notes/Report: Prothrombin Time 13.2 10.9-12.4 SEC INTERNATIONAL [...] confirmed Encounters Encounter Location Date Provider Diagnosis [facility] [address] [place] [address] 03/14/2025 Derick Morris Cirrhosis of liver with [...] 09:10:00 AM, [address], [address], [place], [address], Progress Notes * RUSLAN OLIVA LDOB: [birth year] (64 yo M)Acc No.[id number]:03/14/2025 Patient:?RUSLAN OLIVA :1960???Age:64 Y???Sex:Male Address:[address] [place] [address] [address], [place] [address] Subjective: * Chief Complaints: * ??? * Medical History:? * Surgical History:? * Hospitalization/Major Diagno stic Procedure:? * Medications:? Objective: * Vitals:? * Physical Examination:? 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 Plan: * Treatment: ? Value Reference Range ?Prothrombin Time 13.2 H 10.9-1 2.4 - SEC * ?INTERNATIONAL NORM RATIO 1.1 0.9-1.1 - * Procedure Codes:? * true * Date:? Generated for Hernandez damian/Jamel/eTransmitting on:?04/09/2025 11:56 AM EDT
--- OUTSIDE RECORDS SUMMARY | 2025-04-09 11:57 | XMS_ITS | Patient Health Record ---
Author Organization [facility] Address [address] [place] [address] Care Team Providers Care Software Product Manager Name Role Phone Ronnie Mcclellan MD Primary Care Provider Derick Qureshi Unavailable [phone] Allergies No Known Allergies Results Component Value Reference Range Notes Prothrombin Time INR Reviewed date:08/23/2024 08:12:44 PM Interpretation: Performing Lab:[facility], [address] [place] [phone] Notes/Report: Prothrombin Time 13.0 10.9-12.4 SEC [employer] [...] mechanical prosthetic heart valves: 2.5 - 3.5 Prothrombin Time INR Reviewed date:03/20/2025 01:50:23 PM Interpretation: Performing Lab:[facility], [address] [place] [phone] Notes/Report: Prothrombin Time 13.2 10.9-12.4 [employer] [...] mechanical prosthetic heart valves: 2.5 - 3.5 Basic Metabolic Panel Reviewed date:04/10/2024 04:47:58 PM Interpretation: Performing Lab:[facility], [address] [place] [phone] Notes/Report: Sodium 142 135-145 mmol/L Potassium 3.6 3.3-5.1 mmol/L Chloride 100 96-108 mmol/L Carbon Dioxide 29 22-29 mmol/L Anion Gap 17 12-20 Blood Urea Nitrogen 19 9-16 mg/dL Creatinine 0.75 0.5-1.4 mg/dL Estimated Glomerular Filt Rate > 60 NOTE: For -[place] individuals, multiply the result by 1.210. Chronic Kidney Disease: Estimated GFR < 60 mL/min/1.73m2 Severe Kidney Disease: Estimated GFR < 15 mL/min/1.73m2 Glucose Random 157 60-115 mg/dL Calcium 9.8 8.4-10.2 mg/dL Electrolytes Reviewed date:05/01/2024 11:50:51 AM Interpretation: Performing Lab:[facility], [address] [place] [phone] Notes/Report: Sodium 138 135-145 mmol/L Potassium 3.5 3.3-5.1 mmol/L Chloride 99 96-108 mmol/L Carbon Dioxide 30 22-29 mmol/L Anion Gap 13 12-20 Blood Urea Nitrogen Reviewed date:05/01/2024 11:51:02 AM Interpretation: Performing Lab:[facility], [address] [place] [phone] Notes/Report: Blood Urea Nitrogen 16 9-16 mg/dL Creatinine Reviewed date:05/01/2024 11:51:11 AM Interpretation: Performing Lab:[facility], [address] [place] [phone] Notes/Report: Creatinine 0.69 0.5-1.4 mg/dL Estimated Glomerular Filt Rate > 60 NOTE: For -[place] individuals, multiply the result by 1.210. Chronic Kidney Disease: Estimated GFR < 60 mL/min/1.73m2 Severe Kidney Disease: Estimated GFR < 15 mL/min/1.73m2 Glucose Random Reviewed date:05/01/2024 11:51:18 AM Interpretation: Performing Lab:[address] [phone] Notes/Report: Glucose Random 114 60-115 mg/dL Basic Metabolic Panel Reviewed date:06/02/2024 11:16:42 PM Interpretation: Performing Lab:[facility], [address] [place] [phone] Notes/Report: Sodium 140 135-145 mmol/L Potassium 4.0 3.3-5.1 mmol/L Chloride 103 96-108 mmol/L Carbon Dioxide 29 22-29 mmol/L Anion Gap 12 12-20 Blood Urea Nitrogen 21 9-16 mg/dL Creatinine 0.77 0.5-1.4 mg/dL Estimated Glomerular Filt Rate > 60 NOTE: For -[place] individuals, multiply the result by 1.210. Chronic Kidney Disease: Estimated GFR < 60 mL/min/1.73m2 Severe Kidney Disease: Estimated GFR < 15 mL/min/1.73m2 Glucose Random 121 60-115 mg/dL Calcium 9.7 8.4-10.2 mg/dL Basic Metabolic Panel Reviewed date:08/06/2024 06:11:00 PM Interpretation: Performing Lab:[address] [phone] Notes/Report: Sodium 136 135-145 mmol/L Potassium 3.8 3.3-5.1 mmol/L Chloride 97 96-108 mmol/L Carbon Dioxide 34 22-29 mmol/L Anion Gap 9 12-20 Blood Urea Nitrogen 16 9-16 mg/dL Creatinine 0.82 0.5-1.4 mg/dL Estimated Glomerular Filt Rate > 60 NOTE: For -[place] individuals, multiply the result by 1.210. Chronic Kidney Disease: Estimated GFR < 60 mL/min/1.73m2 Severe Kidney Disease: Estimated GFR < 15 mL/min/1.73m2 Glucose Random 209 60-115 mg/dL Calcium 9.7 8.4-10.2 mg/dL Complete Blood Count Auto Di ff Reviewed date:08/23/2024 08:09:57 PM Interpretation: Performing Lab:[facility], [address] [place] [phone] Notes/Report: White Blood Count 6.0 4.8-10.8 X10*3/uL [...] Panel Reviewed date:08/23/2024 08:12:00 PM Interpretation: Performing Lab:[facility], [address] [place] [phone] Notes/Report: Sodium 136 135-145 mmol/L Potassium 4.4 3.3-5.1 mmol/L Chloride 100 96-108 mmol/L Carbon Dioxide 27 22-29 mmol/L Anion Gap 13 12-20 Blood Urea Nitrogen 23 9-16 mg/dL Creatinine 0.77 0.5-1.4 mg/dL Estimated Glomerular Filt Rate > 60 NOTE: For -[place] individuals, multiply the result by 1.210. Chronic [...] Panel Reviewed date:08/23/2024 08:12:15 PM Interpretation: Performing Lab:[address] [phone] Notes/Report: Bilirubin Direct 0.4 0.0-0.5 mg/dL Alpha Fetoprotein Reviewed date:08/25/2024 06:21:00 PM Interpretation: Performing Lab:[facility], [address] [place] [phone] Notes/Report: Alpha Fetoprotein 202.4 <6.1 ng/mL This test was performed using the Reynold Fulton chemiluminescent method. Values obtained from different assay methods cannot be used interchangeably. AFP levels, regardless of value, should not be interpreted as absolute evidence of the presence or absence of disease. THIS TEST WAS PERFORMED AT: [facility] [address] [place] [phone] AVIVA LUIS MD Complete Blood Count Auto Di ff Reviewed date:03/24/2025 12:03:29 AM Interpretation: Performing Lab:[address] [phone] Notes/Report: White Blood Count 4.2 4.8-10.8 X10*3/uL Red Blood Count 4.29 4.60-5.80 X10*6/uL Hemoglobin 13.1 14.0-18.0 g/dl Hematocrit 39.6 42.0-52.0 % Mean Corpuscular Volume 92.3 80.0-98.0 fL Mean Corpuscular Hemoglobin 30.5 27.0-33.0 pg Mean Corpuscular HGB Conc 33.1 31.0-36.0 g/dl Red Cell Distribution Width 14.4 11.0-16.0 % Platelet Count 141 160-400 X10*3/uL Mean Platelet Volume 11.0 9.4-12.4 fL Neutrophils Percent Auto 73.8 45-73 % Imm Gran Pct Auto 0.5 0.0-0.4 % Lymphocytes Percent Auto 11.9 20-40 % Monocytes Percent Auto 7.6 2-11 % Eosinophils Percent Auto 5.0 0-4 % Basophils Percent Auto 1.2 0-2 % NRBC Pct Auto 0.0 0.0-0.2 /100WBC Neutrophils Absolute Auto 3.1 2.0-8.3 x10*3/u L Imm Gran Abs Auto 0.02 0.00-0.03 X10*3/uL Lymphocytes Absolute Auto 0.5 1.2-4.9 X10*3/u L Monocytes Absolute Auto 0.3 0.1-1.2 X10*3/uL Eosinophils Absolute Auto 0.2 0.0-0.4 X10*3/u L Basophils Absolute Auto 0.1 0.0-0.2 X10*3/uL NRBC Abs Auto 0.000 0.0-0.012 X10*3/uL Liver Panel Reviewed date:03/24/2025 12:03:14 AM Interpretation: Performing Lab:[facility], [address] [place] [phone] Notes/Report: Bilirubin Total 0.9 0.0-1.0 mg/dL Bilirubin Direct 0.4 0.0-0.5 mg/dL Aspartate Amino Transferase 48 5-37 U/L Alanine Aminotransferase 46 0-40 U/L Total Protein 7.4 6.5-8.0 g/dL Albumin Level 3.8 3.5-5.0 g/dL Alkaline Phosphatase 290 39-117 U/L Electrolytes Reviewed date:03/20/2025 02:53:44 PM Interpretation: Performing Lab:[facility], [address] [place] [phone] Notes/Report: Sodium 132 135-145 mmol/L Potassium 3.9 3.3-5.1 mmol/L Chloride 96 96-108 mmol/L Carbon Dioxide 27 22-29 mmol/L Anion Gap 13 12-20 Blood Urea Nitrogen Reviewed date:03/20/2025 02:53:55 PM Interpretation: Performing Lab:[facility], [address] [place] [phone] Notes/Report: Blood Urea Nitrogen 18 9-16 mg/dL Creatinine Reviewed date:03/19/2025 04:50:20 PM Interpretation: Performing Lab:[facility], [address] [place] [phone] Notes/Report: Creatinine 0.84 0.5-1.4 mg/dL Estimated Glomerular Filt Rate > 60 Chronic Kidney Disease: Estimated GFR < 60 mL/min/1.73m2 Severe Kidney Disease: Estimated GFR < 15 mL/min/1.73m2 Glucose Random Reviewed date:03/23/2025 11:02:13 PM Interpretation:High blood sugar Performing Lab:[facility], [address] [place] [phone] Notes/Report: Glucose Random 484 60-115 mg/dL Critical value for GLU: Results called to and read back by: SURYA rDaper Person calling: LUCY Date: 03-19-25 Time: 1447 Alpha Fetoprotein Reviewed date:03/29/2025 12:56:10 AM Interpretation: Performing Lab:[address] [phone] Notes/Report: Alpha Fetoprotein 278.1 <6.1 ng/mL This test was performed using the Reynold Alina chemiluminescent method. Values obtained from different assay methods cannot be used interchangeably. AFP levels, regardless of value, should not be interpreted as absolute evidence of the presence or absence of disease. THIS TEST WAS PERFORMED AT: [facility] [address] [place] [phone] AVIVA LUIS MD Reason For Referral No Information Medications Medication SIG (Take, Route, Frequency, Duration) Notes Start Date End Date Status [place] 3 Active oxyCODONE HCl 5 MG Oral for 28 Days Active Furosemide 20 MG TAKE 3 TABLETS BY MO UTH EVERY MORNING AND TAKE 2 TABLETS BY MOUTH EVERY EVENING for 30 Active Vitamin D3 125 MCG (5000 UT) TAKE 1 CAPSULE BY MOUTH EVERY DAY Oral for 60 Active metFORMIN HCl 1000 MG 1 tablet with a me al Oral TWICE A DAY Active Potassium Chloride ER 20 MEQ 1 tablet with food Oral Once a day for 30 days Active Albuterol Sulfate (2.5 MG/3ML) 0.083% INHALE 1 AMP VIA NEBULIZER MACHINE EVERY 6 HOURS NEEDED FOR WHEEZING FOR 30 DAYS Inhalation for 5 Active Ventolin HFA 108 (90 Base) MCG/ACT Inhalation for 25 Active Immunizations Vaccine Route Administration Date Status Comme nts Influenza Unknown 07/27/2022 Administered Influenza Unknown 09/18/2023 Administered Social History Tobacco Use: Social History Observation [...] DRINKING JULY 01, 2022 Quit smoking 2009 QUIT DRINKING JULY 01, 2022 Quit smoking 2009 QUIT DRINKING JULY 01, 2022 Quit smoking 2009 QUIT DRINKING JULY 01, 2022 Quit smoking 2009 QUIT DRINKING JULY 01, 2022 Quit smoking 2009 QUIT DRINKING JULY 01, 2022 Quit smoking 2009 QUIT DRINKING JULY 01, 2022 Quit smoking 2009 Problems Problem Type SNOMED Code ICD Code Onset Dates Problem Status W/U Status Risk Notes Problem 867236324 Alcoholic cirrhosis of liver with ascites (K70.31) Active confirmed Problem Liver mass (266756944) Liver mass (R16.0) Active confirmed Problem Serum alpha-fetoprote in level elevated (569844469) Elevated alpha fetoprotein (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.2) Active confirmed Problem Abnormal findings diagnostic imaging of liver and biliary tract (030082567) Abnormal MRI, liver (R93.2) Active confirmed Problem Cirrhosis of liver with ascites (K74.60) Active confirmed Problem 838131950 Lower extremity edema (R60.0) Active confirmed Vital Signs Temperature 98.4 degrees Fahrenheit 04/23/2024 Blood pressure diastolic 77 mm Hg 03/24/2025 Height 68 in 03/24/2025 Blood pressure systolic 111 mm Hg 03/24/2025 Weight 165 lbs 03/24/2025 BMI 25.09 kg/m2 03/24/2025 Encounters Encounter Location Date Provider Diagnosis [facility] [address] [place] [phone] 04/23/2024 Derick Morris Alcoholic cirrhosis of liver with ascites K70.31 ; Elevated alpha fetoprotein R77.2 ; Liver mass R16.0 and Abnormal MRI, liver R93.2 [facility] [address] [place] [phone] 08/19/2024 Derick Morris Alcoholic cirrhosis of liver with ascites K70.31 ; Elevated alpha fetoprotein R77.2 ; Liver mass R16.0 and Abnormal MRI, liver R93.2 [facility] [address] [place] [phone] 03/24/2025 Derick Morris Cirrhosis of liver with ascites K74.60 ; Elevated alpha fetoprotein R77.2 ; Abnormal MRI, liver R93.2 ; Liver mass R16.0 and Alcoholic cirrhosis of liver with ascites K70.31 [facility] [address] [place] [phone] 05/01/2024 Derick Morris [facility] [address] [place] [phone] 08/22/2024 Derick Morris [facility] [address] [place] [phone] 11/06/2024 Derick Morris [facility] [address] [place] [phone] 03/14/2025 Derick Morris Cirrhosis of liver with ascites K74.60 [facility] [address] [place] [phone] 03/19/2025 Derick Morris Assessments Encounter Date Diagnosis (ICD Code) Assessment Notes Treatment Notes Treatment Clinical Notes Section Notes 04/23/2024 Alcoholic cirrhosis of liver with ascites (ICD-10 - K70.31) Overall, Cruz's advanced cirrhosis remains stable in regard to his ascites on the current diuretic regimen. 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 I did advise him to certainly keep his appointment next week at [facility] for their opinion regarding the lesion and to see if they would recommend any treatment options such as ablation of the tumor. He clearly is not a transplant candidate given his other medical issues, as well as the fact that he would not want to have that done anyway. Given his significant lung disease and liver disease, I'm not entirely sure as to whether or not Brando Nielsen will recommend any type of treatment for the relatively small liver lesion. I did advise him to call me after he meets with them to let me know the plans. I advised him to otherwise continue his current regimen of the furosemide. He does have an appointment to see me in July but I did advise him to certainly call me in the interim if need be. Cruz was comfortable with this plan. Thank again for allowing me to participate in Cruz's care. I shall continue to keep you advised of his progress. 04/23/2024 Elevated alpha fetoprotein (ICD-10 - R77.2) Overall, Cruz's advanced cirrhosis remains stable in regard to his ascites on the current diuretic regimen. 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 I did advise him to certainly keep his appointment next week at [facility] for their opinion regarding the lesion and to see if they would recommend any treatment options such as ablation of the tumor. He clearly is not a transplant candidate given his other medical issues, as well as the fact that he would not want to have that done anyway. Given his significant lung disease and liver disease, I'm not entirely sure as to whether or not Brando Nielsen will recommend any type of treatment for the relatively small liver lesion. I did advise him to call me after he meets with them to let me know the plans. I advised him to otherwise continue his current regimen of the furosemide. He does have an appointment to see me in July but I did advise him to certainly call me in the interim if need be. Cruz was comfortable with this plan. Thank again for allowing me to participate in Cruz's care. I shall continue to keep you advised of his progress. 08/19/2024 Alcoholic cirrhosis of liver with ascites (ICD-10 - K70.31) Overall, [place] cirrhosis remains compensated at the present time. He is not showing any signs of worsening ascites, jaundice, encephalopathy, GI bleeding, nor edema. As such, he'll continue his current medical regimen including his furosemide. He will continue to have his electrolytes and renal function checked periodically. At this point, since he has not been able to make it to [facility] for an appointment, I shall refer him to Oncology locally for their opinion regarding any potential treatment options including ablation procedures. 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 I shall repeat laboratories today including an alpha-fetoprote in level. I don't think he needs a repeat imaging study from my standpoint but I will leave that up to the oncologist. I did advise him that I would agree with Dr. Reeves in regard to trying to hold off on surgery for the abdominal wall hernia given his high risk in relation to his liver disease. I will plan to see Cruz again in the Spring, but I advised him to contact me prior to that if he has any problems or questions I can be of assistance with. Cruz was comfortable with this plan. Thank you again for allowing me to participate in Cruz's care. I shall continue to keep you advised of his progress. 08/19/2024 Elevated alpha fetoprotein (ICD-10 - R77.2) Overall, Cruz's cirrhosis remains compensated at the present time. He is not showing any signs of worsening ascites, jaundice, encephalopathy, GI bleeding, nor edema. As such, he'll continue his current medical regimen including his furosemide. He will continue to have his electrolytes and renal function checked periodically. At this point, since he has not been able to make it to [facility] for an appointment, I shall refer him to Oncology locally for their opinion regarding any potential treatment options including ablation procedures. 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 I shall repeat laboratories today including an alpha-fetoprote in level. I don't think he needs a repeat imaging study from my standpoint but I will leave that up to the oncologist. I did advise him that I would agree with Dr. Reeves in regard to trying to hold off on surgery for the abdominal wall hernia given his high risk in relation to his liver disease. I will plan to see Cruz again in the Spring, but I advised him to contact me prior to that if he has any problems or questions I can be of assistance with. Cruz was comfortable with this plan. Thank you again for allowing me to participate in Cruz's care. I shall continue to keep you advised of his progress. 03/24/2025 Cirrhosis of liver with ascites (ICD-10 [...] him to continue close follow-up with Dr. Ram. I do not think he needs any [...] he will continue to be followed at [facility] and will then make a decision with [...] to keep you advised of his progress. 03/14/2025 Cirrhosis of liver with ascites (ICD-10 - K74.60) 04/23/2024 Liver mass (ICD-10 - R16.0) Keep appt at [facility] for 05/02/2024 and keep me posted with their plans. Overall, Cruz's advanced cirrhosis remains stable in regard to his ascites on the current diuretic regimen. 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 I did advise him to certainly keep his appointment next week at [facility] for their opinion regarding the lesion and to see if they would recommend any treatment options such as ablation of the tumor. He clearly is not a transplant candidate given his other medical issues, as well as the fact that he would not want to have that done anyway. Given his significant lung disease and liver disease, I'm not entirely sure as to whether or not Brando Nielsen will recommend any type of treatment for the relatively small liver lesion. I did advise him to call me after he meets with them to let me know the plans. I advised him to otherwise continue his current regimen of the furosemide. He does have an appointment to see me in July but I did advise him to certainly call me in the interim if need be. Cruz was comfortable with this plan. Thank again for allowing me to participate in Cruz's care. I shall continue to keep you advised of his progress. 08/19/2024 Liver mass (ICD-10 - R16.0) Appointment with Oncology for Liver mass, cirrhosis, elevated AFP, and abnormal liver MRI---? treatment options re: ablation, etc . Overall, Cruz's cirrhosis remains compensated at the present time. He is not showing any signs of worsening ascites, jaundice, encephalopathy, GI bleeding, nor edema. As such, he'll continue his current medical regimen including his furosemide. He will continue to have his electrolytes and renal function checked periodically. At this point, since he has not been able to make it to [facility] for an appointment, I shall refer him to Oncology locally for their opinion regarding any potential treatment options including ablation procedures. 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 I shall repeat laboratories today including an alpha-fetoprote in level. I don't think he needs a repeat imaging study from my standpoint but I will leave that up to the oncologist. I did advise him that I would agree with Dr. Reeves in regard to trying to hold off on surgery for the abdominal wall hernia given his high risk in relation to his liver disease. I will plan to see Cruz again in the Spring, but I advised him to contact me prior to that if he has any problems or questions [...] him to continue close follow-up with Dr. Ram. I do not think he needs any [...] he will continue to be followed at [facility] and will then make a decision with [...] to keep you advised of his progress. 04/23/2024 Abnormal MRI, liver (ICD-10 - R93.2) Overall, Cruz's advanced cirrhosis remains stable in regard to his ascites on the current diuretic regimen. 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 I did advise him to certainly keep his appointment next week at [facility] for their opinion regarding the lesion and to see if they would recommend any treatment options such as ablation of the tumor. He clearly is not a transplant candidate given his other medical issues, as well as the fact that he would not want to have that done anyway. Given his significant lung disease and liver disease, I'm not entirely sure as to whether or not Mariia. Morales will recommend any type of treatment for the relatively small liver lesion. I did advise him to call me after he meets with them to let me know the plans. I advised him to otherwise continue his current regimen of the furosemide. He does have an appointment to see me in July but I did advise him to certainly call me in the interim if need be. Cruz was comfortable with this plan. Thank again for allowing me to participate in Cruz's care. I shall continue to keep you advised of his progress. 08/19/2024 Abnormal MRI, liver (ICD-10 - R93.2) Overall, Cruz's cirrhosis remains compensated at the present time. He is not showing any signs of worsening ascites, jaundice, encephalopathy, GI bleeding, nor edema. As such, he'll continue his current medical regimen including his furosemide. He will continue to have his electrolytes and renal function checked periodically. At this point, since he has not been able to make it to [facility] for an appointment, I shall refer him to Oncology locally for their opinion regarding any potential treatment options including ablation procedures. 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 I shall repeat laboratories today including an alpha-fetoprote in level. I don't think he needs a repeat imaging study from my standpoint but I will leave that up to the oncologist. I did advise him that I would agree with Dr. Reeves in regard to trying to hold off on surgery for the abdominal wall hernia given his high risk in relation to his liver disease. I will plan to see Cruz again in the Spring, but I advised him to contact me prior to that if he has any problems or questions [...] him to continue close follow-up with Dr. Ram. I do not think he needs any [...] he will continue to be followed at [facility] and will then make a decision with [...] mass (ICD-10 - R16.0) FOLLOW WITH DR. RAM FROM ONCOLOGY Overall, Cruz appears remarkably well [...] him to continue close follow-up with Dr. Ram. I do not think he needs any [...] he will continue to be followed at [facility] and will then make a decision with [...] him to continue close follow-up with Dr. Ram. I do not think he needs any [...] he will continue to be followed at [facility] and will then make a decision with [...] advised of his progress. Plan Of Treatment Pending Test Test Name Order Date CHEM 7 PROFILE 08/15/2023 CHEM 7 PROFILE 03/14/2025 CHEM 7 PROFILE 08/19/2024 CHEM 7 PROFILE 02/13/2024 CHEM 7 PROFILE 04/17/2023 BUN 01/23/2023 BUN 01/18/2023 BUN 10/23/2023 BUN 06/05/2023 BUN 05/22/2023 LIVER PROFILE 03/14/2025 LIVER PROFILE 08/19/2024 LIVER PROFILE 01/18/2023 LIVER PROFILE 02/13/2024 LIVER PROFILE 04/17/2023 LIVER PROFILE 05/22/2023 IRON + IBC (FE) 01/18/2023 CBC w DIFF 03/14/2025 CBC w DIFF 08/19/2024 CBC w DIFF 04/17/2023 CBC w DIFF 01/18/2023 PROTHROMBIN TIME (PT, INR) 01/18/2023 ALPHA-FETOPROTEIN,TUMOR MARKER 3 ALPHA-FETOPROTEIN,TUMOR MARKER 4 ALPHA-FETOPROTEIN,TUMOR MARKER 5 ALPHA-FETOPROTEIN,TUMOR MARKER 4 MRI ABD W&WO CONTRAST 02/18/2024 FLUOR. ANTINUCLEAR AB SCREEN (ZANA) 12/28 Electrolytes 05/22/2023 Electrolytes 01/23/2023 Electrolytes 10/23/2023 Electrolytes 06/05/2023 Creatinine 05/22/2023 Creatinine 01/23/2023 Creatinine 10/23/2023 Creatinine 06/05/2023 Hepatitis A Antibody IgG 01/18/2023 Hepatitis C Antibody 01/18/2023 US abdomen complete 01/18/2023 US abdomen complete 02/13/2024 Next Appt Details Provider Name:Derick Morris , 09/22/2025 09:10:00 AM, [address] [place] [address], [place] [address], [place], [address], Insurance Providers Payer Name Payer Address Payer Phone Subscriber Number Group Number Insured Name Patient Relationship to Insured Coverage Start Date Coverage End Date MEDICARE OF [employer] [address] [place] [id number] [id number] HAAS Self - patient is the insured Medical (General) History Medical History History ICD Code Alcohol-related cirrhosis [...] bacterial peritonitis. He declined an evaluation at [facility] in 2022. Kidney stones NIDDM COPD with intermittent use of nasal oxyg en Denies OR,CVA,renal disease Anxiety Screening colonoscopy in with the [...] a 2.5 cm lesion consistent with hepatoma Chemoembolization TACE proce merlin at [facility] in October 2024 for his hepatoma. He is continuing to be followed by Dr. Ram. Surgical History Surgery Date(Month/Year) Currently being followed by Dr. Freed at [facility] surgery in regard to the abdominal wall hernia as of the February, office visit Appendectomy Incarcerated umbilical hernia repair by Dr. Reeves 11/07/2022
== END 2025-04-09 11:22 | disposition home or self-care (01) ==
PROVIDERS: PCP Internal Medicine; Visit Provider Orthopaedic Surgery
DX: M75.51 Bursitis of right shoulder (principal); M75.52 Bursitis of left shoulder
CPT/HCPCS: 20610

== ENCOUNTER → 2025-04-09 10:49 | Outpatient (BNVA) | payer MEDICARE, SELFPAY | PROVIDERS: PCP Internal Medicine; Visit Provider Orthopaedic Surgery | DX: M75.51 Bursitis of right shoulder (principal); M75.52 Bursitis of left shoulder | CPT/HCPCS: 20610; J0665; J1100; J2003 ==

== ENCOUNTER 2025-05-14 08:58 | Outpatient (AMB) | payer MEDICARE, SELFPAY ==
--- OUTSIDE RECORDS SUMMARY | 2025-03-14 18:54 | XMS_ITS ---
[facility] Address [address] [place] [address] Care Team Providers Care Director [facility] Name Role Phone Ronnie Mcclellan MD Primary Care Provider Derick Qureshi [phone] Results Component Value Reference Range Notes Prothrombin Time INR Reviewed date:03/20/2025 01:50:23 PM Interpretation: Performing Lab:[facility], [address] [place] [id number] Notes/Report: Prothrombin Time 13.2 10.9-12.4 SEC INTERNATIONAL NORM RATIO 1.1 0.9-1.1 [...] mechanical prosthetic heart valves: 2.5 - 3.5 Problems Problem Type SNOMED Code ICD Code Onset Dates Problem Status W/U Status Risk Notes Problem Cirrhosis of liver with ascites (K74.60) Active confirmed Encounters Encounter Location Date Provider Diagnosis [facility] [address] [place] [address] 03/14/2025 Derick Morris Cirrhosis of liver with ascites K74.60 Assessments Encounter Date Diagnosis (ICD Code) Assessment Notes Treatment Notes Treatment Clinical Notes Section Notes 03/14/2025 Cirrhosis of liver with ascites (ICD-10 - K74.60) Plan Of Treatment Pending Test Test Name Order Date CHEM 7 PROFILE 03/14/2025 LIVER PROFILE 03/14/2025 CBC w DIFF 03/14/2025 ALPHA-FETOPROTEIN,TUMOR MARKER Next Appt Details Provider Name:Derick Morris , 09/22/2025 09:10:00 AM, [address], [address], [place], [address], Progress Notes * RUSLAN OLIVA LDOB: [birth year] (64 yo M)Acc No.[id number]:03/14/2025 Patient: RUSLAN GARCÍA :1960 A ge:64 Y S ex:Male Address:[address] [place] [address] [address], [place] [address] Subjective: * Chief Complaints: * * Medical History: * Surgical History: * Hospitalization/Major Diagno stic Procedure: * Medications: Objective: * Vitals: * Physical Examination: Assessment: * Assessment: 1. C irrhosis of liver with ascites - K74.60 (Primary) Plan: * Treatment: Value Reference Range P rothrombin Time 13.2 H 10.9-12.4 - SEC * I NTERNATIONAL NORM RATIO 1.1 0.9-1.1 - * Procedure Codes: * true * Date: Generated for Hernandez damian/Jamel/eThowarditting on: 0 05/14/2025 09:33 AM EDT
[2025-05-14 09:09] VITALS: BP 122/70; PULSE 72; TEMP 36.3; O2SAT 96; BMI 24.0
--- NOTE | 2025-05-14 09:09 | MHC.PC.OV ---
Vital Signs 05/14/25 09:09 Height 5 ft 10 in Weight 167 lb BMI 24.0 BP 122/70 Blood Pressure Location Lt brachial Position Sitting Pulse 72 Pulse Source Pulse Oximeter Temp 97.3 F Temp Source Axillary Pulse Oximetry (%) 96 Oxygen Delivery Method Room Air Intake Visit Reasons: Routine - see comments License Registration Examiner Required: No Accompanied by: Self / Same As Patient Allergies No Known Allergies Allergy (Verified 05/14/25 09:10) Tobacco use date assessed: 05/14/25 Fall risk assessment: No Falls in past year Last assessed Fall Risk: 05/14/25 Dental Screening Dental Screen Date: 05/14/25 Did you have a dental visit in the last 12 months?: Yes Did you have a dental problem in the last 6 months where you did not have access to dental care?: No HPI HPI Comments History of Present Illness Details 63-year-old male patient with a past medical history of diabetes, peripheral neuropathy, alcoholic cirrhosis, chronic kidney disease and COPD, history of bilateral foot ulcers presenting for follow up GI: with Dr Morris for HCC, liver cirrhosis. previously was requiring frequent paracentesis. [facility]. Surgeon thinks too high risk for surgery. Constipation increased COPD on o2 3 pulse to 2L exertional. Not using at rest. Diabetes-last a17 -7.3 November. sees podiatry. has rx for diabetic shoes, Dr Rubi. Needs letter that still diabetic. continues on metformin. He is due for A1C he will have this today Chronic pain-has been on tramadol, this has been switched to oxycodone as he was suboptimally controlled. Colonoscopy per GI ROS CONSTITUTIONAL: Denies weight loss, fever and chills. HEENT: Denies changes in vision and hearing. RESPIRATORY: Denies SOB and cough. CV: Denies palpitations and CP GI: Denies abdominal pain, nausea, vomiting and diarrhea. : Denies dysuria and urinary frequency. MSK: Denies new myalgia and joint pain. SKIN: Denies rash and pruritus. NEUROLOGICAL: Denies headache PSYCHIATRIC: Denies recent changes in mood. PHYSICAL EXAM: GENERAL: Alert and oriented x 3. NAD EYES: EOMI. Anicteric. HENT: Moist mucous membranes. No scleral icterus. No cervical lymphadenopathy. LUNGS: Clear to auscultation bilaterally. CARDIOVASCULAR: Regular rate and rhythm. No murmur. No JVD. ABDOMEN: Soft, non-tender +bs EXTREMITIES: No edema. Non-tender. SKIN: No rashes or lesions. Warm. NEUROLOGIC: No focal neurological deficits. CN II-XII grossly intact PSYCHIATRIC: Cooperative. Appropriate mood and affect [facility] Medical History Recurrent umbilical hernia Abdominal wall mass Incarcerated umbilical hernia COPD (chronic obstructive pulmonary disease) Diabetes Liver cirrhosis Surgical History History of umbilical hernia repair (11/07/22) History of appendectomy Family History Mother No problems noted. Father No problems noted. Other No family history of coronary artery disease Social History Household Members: None Housing: Other Housing Other:: mobile home Do you presently have visiting nurse or other home services: No Alcohol intake: former Comment: previously medicated with tramadol preop Patient Tobacco Use Status: Former Tobacco user Tobacco use type: Cigarette e-Cigarette/Vaping Use: Former Use Second Hand Smoke Exposure: Yes service: No Current occupational status: retired Gender identity: Male Cognitive needs: No Hearing needs: No Vision needs: Yes (rx glasses) Questionnaire PHQ-9 Over the last 2 weeks, how often have you been bothered by any of the following problems? 1. Little interest or pleasure in doing things: not at all 2. Feeling down, depressed, or hopeless: not at all 3. Trouble falling or staying asleep, or sleeping too much: not at all 4. Feeling tired or having little energy: not at all 5. Poor appetite or overeating: not at all 6. Feeling bad about yourself - or that you are a failure or have let yourself or your family down: not at all 7. Trouble concentrating on things, such as reading the newspaper or watching television: not at all 8. Moving or speaking so slowly that other people could have noticed. Or the opposite - being so fidgety or restless that you have been moving around a lot more than usual: not at all 9. Thoughts that you would be better off or of hurting yourself in some way: not at all Total score: 0 Depression Screening Interpretation: Negative Depression Screening Done: Yes 12307 - PHQ-9 Billing: Yes Source: Developed by Drs. Derick Almanza, Ashwin Valdivia and colleagues, with an educational mary alice from [employer]. Thrive Questionnaire Date Thrive assessed: 05/14/25 I am a: Patient Within the past 12 months, did the food you bought not last and you didn't have the money to get more?: Never true Within the past 12 months, did you worry whether your food would run out before you got money to buy more?: Never true Do you have trouble paying for medicines?: No Do you have trouble getting transportation to medical appointments?: No Do you have trouble paying your heating and electricity bill?: No Do you have trouble taking care of your child, family member or friend?: No Do you have trouble with day-to-day activities such as bathing, preparing meals, shopping, managing finances, etc.?: No Are you currently unemployed and looking for a job?: No Are you interested in more education?: No THRIVE Score: 0 AUDIT C Alcohol Use Questionnaire (AUDIT-C) 1. How often do you have a drink containing alcohol?: Never 3. How often do you have six or more drinks on one occasion?: Never Total Score: 0 MIGUEL-7 AMB Questionnaire MIGUEL-7 Date MIGUEL - 7 assessed: 05/14/25 Feeling nervous, anxious, or on edge: 0 = Not at all Not being able to stop or control worryin = Not at all Worrying too much about different things: 0 = Not at all Trouble relaxin = Not at all Being so restless that it is hard to sit still: 0 = Not at all Becoming easily annoyed or irritable: 0 = Not at all Feeling afraid as if something awful might happen: 0 = Not at all Total MIGUEL-7 score (0-4 normal; 5-9 mild; 10-14 moderate; 15-21 severe): 0 Source: Developed by Drs. Derick Almanza, Ashwin Valdivia and colleagues, with an educational mary alice from [employer]. Physical exam (Primary Care) Vital Signs: Last Vital Signs Temp 97.3 F 05/14/25 09:09 Pulse 72 05/14/25 09:09 BP 122/70 05/14/25 09:09 Pulse Ox 96 05/14/25 09:09 Oxygen Delivery Method Room Air 05/14/25 09:09 BMI result Body Mass Index 24.0 Tobacco/Smoking Status: Tobacco use Status Tobacco use date assessed 05/14/25 05/14/25 09:11 Patient Tobacco Use Status Former Tobacco user 05/14/25 09:11 Tobacco use type Cigarette 05/14/25 09:11 e-Cigarette/Vaping Use Former Use 05/14/25 09:11 PHQ-9: PHQ-9 Score PHQ-9: Total score 0 05/14/25 09:19 Depression Screening Interpretation: Negative Thrive Assessment: Date of Thrive Assessment Date Thrive assessed 05/14/25 05/14/25 09:11 Coding Level of Care Code Est Pt Level 4 (40698) Complex EM visit Add On G2211 Diagnoses Type 2 diabetes mellitus with hyperglycemia, without long-term current use of insulin E11.65 Diabetes mellitus type: type 2 Diabetes mellitus intermediate frame tender insulin use: without intermediate frame tender use Diabetes mellitus complication status: with hyperglycemia Alcoholic cirrhosis, unspecified whether ascites present K70.30 Hepatic cirrhosis type: alcoholic cirrhosis Ascites presence: unspecified Additional Codes PHQ-9 - 16222 - PHQ-9 Billing: Yes ([id number]) Assessment & Plan Assessment & Plan (1) Diabetes: Code(s): E11.9 - Type 2 diabetes mellitus without complications Category: Medical Qualifiers: Diabetes mellitus type: type 2 Diabetes mellitus intermediate frame tender insulin use: without intermediate frame tender use Diabetes mellitus complication status: with hyperglycemia Qualified Code(s): E11.65 - Type 2 diabetes mellitus with hyperglycemia (2) Liver cirrhosis: Code(s): K74.60 - Unspecified cirrhosis of liver Category: Medical Qualifiers: Hepatic cirrhosis type: alcoholic cirrhosis Ascites presence: unspecified Qualified Code(s): K70.30 - Alcoholic cirrhosis of liver without ascites Plan DM-A1C due. Uncontrolled per last A1C. Med changes pending labs. Cirrhosis-continue GI follow up Hernia-not a surgical candidate Chronic pain-stable on oxycodone Constipation-start linzess Orders: Orders LDL Cholesterol Direct Today E11.9 - Type 2 diabetes mellitus without complications Medications: New Linzess (linaclotide) 145 mcg PO DAILY 90 caps 3RF NS
== END 2025-05-14 09:44 | disposition home or self-care (01) ==
LOC: HO.HMCHD 08:59
PROVIDERS: PCP Internal Medicine; Visit Provider Internal Medicine
DX: E11.65 Type 2 diabetes mellitus with hyperglycemia (principal); K70.30 Alcoholic cirrhosis of liver without ascites

== ENCOUNTER → 2025-05-14 08:58 | Outpatient (BNVA) | payer MEDICARE, SELFPAY | PROVIDERS: PCP Internal Medicine; Visit Provider Internal Medicine | DX: E11.65 Type 2 diabetes mellitus with hyperglycemia (principal); K70.30 Alcoholic cirrhosis of liver without ascites; G89.29 Other chronic pain; K59.00 Constipation, unspecified; J44.9 Chronic obstructive pulmonary disease, unspecified; E11.42 Type 2 diabetes mellitus with diabetic polyneuropathy; Z79.84 Long term (current) use of oral hypoglycemic drugs; Z79.891 Long term (current) use of opiate analgesic; Z13.31 Encounter for screening for depression; Z13.30 Encounter for screening examination for mental health and behavioral disorders, unspecified | CPT/HCPCS: 96127; 99212 ==

== ENCOUNTER 2025-05-14 09:54 | Outpatient (REF) | payer MEDICARE, SELFPAY ==
[2025-05-14 10:39] LABS: MANUAL DIFF FLAG NO
[2025-05-14 10:46] LABS: Eosinophils Absolute Auto 0.2 X10*3/uL (0.0-0.4); Hematocrit 40.2 % (42.0-52.0); Hemoglobin 13.5 g/dl (14.0-18.0); Imm Gran Abs Auto 0.01 X10*3/uL (0.00-0.03); Imm Gran Pct Auto 0.2 % (0.0-0.4); Lymphocytes Absolute Auto 0.5 X10*3/uL (1.2-4.9); Lymphocytes Percent Auto 12.4 % (20-40); Mean Corpuscular HGB Conc 33.6 g/dl (31.0-36.0); Mean Corpuscular Hemoglobin 30.3 pg (27.0-33.0); Mean Corpuscular Volume 90.1 fL (80.0-98.0); Mean Platelet Volume 10.6 fL (9.4-12.4); Monocytes Absolute Auto 0.4 X10*3/uL (0.1-1.2); Monocytes Percent Auto 10.7 % (2-11); Neutrophils Absolute Auto 2.8 x10*3/uL (2.0-8.3); Neutrophils Percent Auto 69.7 % (45-73); Platelet Count 133 X10*3/uL (160-400); Red Blood Count 4.46 X10*6/uL (4.60-5.80); Red Cell Distribution Width 14.3 % (11.0-16.0)
[2025-05-14 10:51] LABS: Estimated Average Glucose 306 mg/dL; Hemoglobin A1c % 12.3 % (<6.0); Total Hemoglobin (HGBA1C) 3512.0846 umol/L
[2025-05-14 11:31] LABS: Alanine Aminotransferase 34 U/L (0-40); Albumin Level 4.1 g/dL (3.5-5.0); Alkaline Phosphatase 240 U/L (39-117); Anion Gap 13 (12-20); Aspartate Amino Transferase 43 U/L (5-37); Bilirubin Total 0.9 mg/dL (0.0-1.0); Blood Urea Nitrogen 11 mg/dL (9-16); Calcium 9.7 mg/dL (8.4-10.2); Carbon Dioxide 30 mmol/L (22-29); Chloride 101 mmol/L (96-108); Estimated Glomerular Filt Rate > 60; Glucose Random 147 mg/dL (60-115); Potassium 3.6 mmol/L (3.3-5.1); Sodium 140 mmol/L (135-145); Total Protein 7.4 g/dL (6.5-8.0)
[2025-05-14 11:55] LABS: Creatinine Urine 31.08 mg/dL; Microalbum/Creatinine Ratio Ur 730.3 ug/mg cr (<30)
[2025-05-18 07:13] LABS: LDL Cholesterol Direct 92 mg/dL (<100)
== END 2025-05-14 09:55 | disposition home or self-care (01) ==
LOC: HO.10HDL 09:54
PROVIDERS: Visit Provider Internal Medicine
DX: E11.9 Type 2 diabetes mellitus without complications (principal); K70.31 Alcoholic cirrhosis of liver with ascites
CPT/HCPCS: 36415; 80053; 82043; 82570; 83036; 83721; 85025

== ENCOUNTER 2025-08-21 09:02 | Outpatient (AMB) | payer MEDICARE, SELFPAY ==
--- NOTE | 2025-08-21 09:06 | A.OFFPC_ITS ---
Vital Signs 08/21/25 09:10 Height 5 ft 10 in Weight 167 lb 6 oz BMI 24.0 BP 116/60 Blood Pressure Location Rt brachial Position Sitting Respiration 14 Pulse 45 L Pulse Source Pulse Oximeter Pulse Oximetry (%) 97 Oxygen Delivery Method Room Air Intake Visit Reasons: diabetes f/u and KENNETH from [address] Intake Note: Transfer of care. Diabetes follow up Mixer Wet Pour Required: No Allergies No Known Allergies Allergy (Verified 08/21/25 09:07) Tobacco use date assessed: 08/21/25 Fall risk assessment: 2 + Falls in past year Last assessed Fall Risk: 08/21/25 Dental Screening Dental Screen Date: 05/14/25 HPI HPI Comments History of Present Illness Details 64-year-old male patient with a past med ical history of diabetes, peripheral neuropathy, alcoholic cirrhosis, hepatocellular carcinoma, chronic kidney disease and COPD, history of bilateral foot ulcers presenting for follow up GI: with Dr Morris for HCC, liver cirrhosis. previously was requiring frequent paracentesis. Saw general surgery for [facility] for hernia. Surgeon thinks too high risk for surgery. Constipation increased-did not try the linzess but does want to-resent COPD on o2 3 pulse to 2L exertional. Not using at rest. Diabetes-A1C 8.2 from 12.3 from 7.3 November. Patient he had really messed up his diet previously. Says still has some room for improvement. On metformin 1000mg twice daily. sees podiatry. has rx for diabetic shoes, Dr Rubi. Chronic pain-stable on oxycodone. Heme/Onc-Hepatocellular carcinoma. Upcoming microwave ablation at [facility] Colonoscopy per GI ROS see HPI PHYSICAL EXAM: GENERAL: Alert and oriented x 3. NAD EYES: EOMI. Anicteric. HENT: Moist mucous membranes. No scleral icterus. No cervical lymphadenopathy. LUNGS: Clear to auscultation bilaterally. CARDIOVASCULAR: Regular rate and rhythm. No murmur. No JVD. ABDOMEN: Soft, non-tender +bs. Large abdominal hernia EXTREMITIES: No edema. Non-tender. SKIN: No rashes or lesions. Warm. NEUROLOGIC: No focal neurological deficits. CN II-XII grossly intact PSYCHIATRIC: Cooperative. Appropriate mood and affect [facility] Medical History (Updated 08/21/25 @ 09:36 by Corrina Galan MD) Recurrent umbilical hernia Abdominal wall mass Incarcerated umbilical hernia COPD (chronic obstructive pulmonary disease) Diabetes Liver cirrhosis Surgical History History of umbilical hernia repair (11/07/22) History of appendectomy Family History Mother No problems noted. Father No problems noted. Other No family history of coronary artery disease Social History Household Members: None Housing: Other Housing Other:: mobile home Do you presently have visiting nurse or other home services: No Alcohol intake: former Comment: previously medicated with tramadol preop Patient Tobacco Use Status: Former Tobacco user Tobacco use type: Cigarette e-Cigarette/Vaping Use: Former Use Second Hand Smoke Exposure: Yes service: No Current occupational status: retired Gender identity: Male Cognitive needs: No Hearing needs: No Vision needs: Yes (rx glasses) Questionnaire PHQ-9 Over the last 2 weeks, how often have you been bothered by any of the following problems? 1. Little interest or pleasure in doing things: not at all 2. Feeling down, depressed, or hopeless: not at all 3. Trouble falling or staying asleep, or sleeping too much: several days 4. Feeling tired or having little energy: several days 5. Poor appetite or overeating: not at all 6. Feeling bad about yourself - or that you are a failure or have let yourself or your family down: not at all 7. Trouble concentrating on things, such as reading the newspaper or watching television: not at all 8. Moving or speaking so slowly that other people could have noticed. Or the opposite - being so fidgety or restless that you have been moving around a lot more than usual: not at all 9. Thoughts that you would be better off or of hurting yourself in some way: not at all Total score: 2 Depression Screening Interpretation: Negative Depression Screening Done: Yes 77894 - PHQ-9 Billing: Yes Source: Developed by Drs. Derick Almanza, Sohpia Bustillos, Ashwin Fernandez and colleagues, with an educational mary alice from [employer]. Thrive Questionnaire Date Thrive assessed: 05/14/25 I am a: Patient What is your living situation today?: I have a steady place to live Within the past 12 months, did the food you bought not last and you didn't have the money to get more?: Sometimes True Within the past 12 months, did you worry whether your food would run out before you got money to buy more?: Sometimes True Do you have trouble paying for medicines?: Yes Do you have trouble getting transportation to medical appointments?: No Do you have trouble paying your heating and electricity bill?: Yes Do you have trouble taking care of your child, family member or friend?: No Do you have trouble with day-to-day activities such as bathing, preparing meals, shopping, managing finances, etc.?: No Are you currently unemployed and looking for a job?: No Are you interested in more education?: I choose not to answer this question Please select the resources that you would like help with: Food, Paying for medicine and Utilities Currently or been in a relationship where the following occur: No concerns reported THRIVE Score: 3 AUDIT C Alcohol Use Questionnaire (AUDIT-C) 1. How often do you have a drink containing alcohol?: Never 3. How often do you have six or more drinks on one occasion?: Never Total Score: 0 MIGUEL-7 AMB Questionnaire MIGUEL-7 Date MIGUEL - 7 assessed: 05/14/25 Feeling nervous, anxious, or on edge: 1 = Several days Not being able to stop or control worryin = Several days Worrying too much about different things: 1 = Several days Trouble relaxin = Several days Being so restless that it is hard to sit still: 2 = More than half the days Becoming easily annoyed or irritable: 0 = Not at all Feeling afraid as if something awful might happen: 0 = Not at all Total MIGUEL-7 score (0-4 normal; 5-9 mild; 10-14 moderate; 15-21 severe): 6 Source: Developed by Drs. Derick Almanza, Sophia Bustillos, Ashwin Fernandez and colleagues, with an educational mary alice from [employer]. Physical exam (Primary Care) Vital Signs: Last Vital Signs Pulse 45 L 08/21/25 09:10 Resp 14 08/21/25 09:10 BP 116/60 08/21/25 09:10 Pulse Ox 97 08/21/25 09:10 Oxygen Delivery Method Room Air 08/21/25 09:10 BMI result Body Mass Index 24.0 Tobacco/Smoking Status: Tobacco use Status Tobacco use date assessed 05/14/25 05/22/25 13:58 Patient Tobacco Use Status Former Tobacco user 05/22/25 13:58 Tobacco use type Cigarette 05/22/25 13:58 e-Cigarette/Vaping Use Former Use 05/22/25 13:58 Depression Screening Interpretation: Negative Thrive Assessment: Date of Thrive Assessment Date Thrive assessed 05/14/25 05/22/25 13:58 Currently or been in a relationship where the following occur: No concerns reported Coding Level of Care Code Est Pt Level 4 (70779) Complex EM visit Add On G2211 Diagnoses Type 2 diabetes mellitus with hyperglycemia, without long-term current use of insulin E11.65 Diabetes mellitus type: type 2 Diabetes mellitus ad terminal makeup operator insulin use: without chcf use Diabetes mellitus complication status: with hyperglycemia Alcoholic cirrhosis, unspecified whether ascites present K70.30 Hepatic cirrhosis type: alcoholic cirrhosis Ascites presence: unspecified HCC (hepatocellular carcinoma) C22.0 Diabetic polyneuropathy associated with type 2 diabetes mellitus E11.42 Diabetes mellitus type: type 2 Diabetes mellitus complication detail: diabetic polyneuropathy Chronic obstructive pulmonary disease, unspecified COPD type J44.9 COPD type: unspecified COPD Additional Codes PHQ-9 - 30912 - PHQ-9 Billing: Yes ([id number]) Assessment & Plan Assessment & Plan (1) Diabetes: Code(s): E11.9 - Type 2 diabetes mellitus without complications Category: Medical Qualifiers: Diabetes mellitus type: type 2 Diabetes mellitus chcf insulin use: without ad terminal makeup operator use Diabetes mellitus complication status: with hyperglycemia Qualified Code(s): E11.65 - Type 2 diabetes mellitus with hyperglycemia (2) Liver cirrhosis: Code(s): K74.60 - Unspecified cirrhosis of liver Category: Medical Qualifiers: Hepatic cirrhosis type: alcoholic cirrhosis Ascites presence: unspecified Qualified Code(s): K70.30 - Alcoholic cirrhosis of liver without ascites (3) HCC (hepatocellular carcinoma): Code(s): C22.0 - Liver cell carcinoma Category: Medical (4) Diabetic neuropathy: Code(s): E11.40 - Type 2 diabetes mellitus with diabetic neuropathy, unspecified Category: Medical Qualifiers: Diabetes mellitus type: type 2 Diabetes mellitus complication detail: diabetic polyneuropathy Qualified Code(s): E11.42 - Type 2 diabetes mellitus with diabetic polyneuropathy (5) COPD (chronic obstructive pulmonary disease): Code(s): J44.9 - Chronic obstructive pulmonary disease, unspecified Category: Medical Qualifiers: COPD type: unspecified COPD Qualified Code(s): J44.9 - Chronic obstructive pulmonary disease, unspecified Plan 64 year old male for follow up DM Improving control. Would like to see him atleast less than 7.5%, less than 7.0% if no hypoglycemia. He is going to try even harder with diet. If after one month glucose is still elevated he will start Actos CSA signed today for tramadol Constipation-linzess resent Orders: Orders Hemoglobin A1c 3 Months E11.65 - Type 2 diabetes mellitus with hyperglycemia, K70.30 - Alcoholic cirrhosis of liver without ascites AMB Hemoglobin A1c Today E11.42 - Type 2 diabetes mellitus with diabetic polyneuropathy Comprehensive Met. Panel 3 Months E11.65 - Type 2 diabetes mellitus with hyperglycemia, K70.30 - Alcoholic cirrhosis of liver without ascites Lipid Panel 3 Months E11.65 - Type 2 diabetes mellitus with hyperglycemia, K70.30 - Alcoholic cirrhosis of liver without ascites Microalbumin, Random (w Creat) 3 Months E11.65 - Type 2 diabetes mellitus with hyperglycemia, K70.30 - Alcoholic cirrhosis of liver without ascites Medications: New pioglitazone 30 mg PO DAILY 90 tabs 3RF Refilled Linzess (linaclotide) 145 mcg PO DAILY 90 caps 3RF NS
[2025-08-21 09:10] VITALS: BP 116/60; PULSE 45; RESP 14; O2SAT 97; BMI 24.0
--- OUTSIDE RECORDS SUMMARY | 2025-08-21 09:40 | XMS_ITS | Clinical Summary ---
Author Organization [facility] Address [address] [place] [address] Care Team Providers Care Reweaver Name Role Phone Unavailable Primary Care Provider Unavailabl e Social History Tobacco Use Types Packs/Day Years Used Date Smoking Tobacco: Never Assessed Sex and Gender Information Value Date Recorded Sex Assigned at Not on file Legal Sex Male 2:41 PM EDT Gender Identity Not on file Sexual Orientation Not on file Plan of Treatment Health Maintenance Due Date Last Done Comments Advance Care Planning 1960 Hepatitis C Virus Screening 1959 HIV Screening 1972 DTaP/Tdap/Td Vaccines (1 - Tdap) 1978 Pneumococcal Vaccines 50+ (1 of 1 - PCV) 2009 Zoster (Shingles) Vaccine (1 of 2) 2009 COVID-19 Vaccine (2023-2 5 season) 2025 RSV Vaccine 60 years and old er and Patients (1 - 1-dose 75+ series) 2034 Hepatitis B Vaccines Aged Out No long er eligible based on patient's age to complete this topic
--- OUTSIDE RECORDS SUMMARY | 2025-08-21 09:41 | XMS_ITS | Patient Health Record ---
Author Organization [facility] Address [address] [place] [address] Care Team Providers Care Master Barber Name Role Phone Vy (RETIRED) Ronnie SOTO Primary Care Provide r Derick Reese Unavailable [phone] Allergies No Known Allergies Results Component Value Reference Range Notes Prothrombin Time INR Reviewed date:03/20/2025 01:50:23 PM Interpretation: Performing Lab:[facility], [address] [place] [phone] Notes/Report: Prothrombin Time 13.2 10.9-12.4 SEC [employer] [...] ff Reviewed date:08/23/2024 08:09:57 PM Interpretation: Performing Lab:[facility], [address] [place] [phone] Notes/Report: White Blood Count 6.0 4.8-10.8 X10*3/uL [...] Panel Reviewed date:08/23/2024 08:12:00 PM Interpretation: Performing Lab:[facility], [address] [place] [phone] Notes/Report: Sodium 136 135-145 mmol/L Potassium 4.4 3.3-5.1 mmol/L Chloride 100 96-108 mmol/L Carbon Dioxide 27 22-29 mmol/L Anion Gap 13 12-20 Blood Urea Nitrogen 23 9-16 mg/dL Creatinine 0.77 0.5-1.4 mg/dL Estimated Glomerular Filt Rate > 60 NOTE: For -[place] individuals, multiply the result by 1.210. Chronic [...] Panel Reviewed date:08/23/2024 08:12:15 PM Interpretation: Performing Lab:[facility], [address] [place] [phone] Notes/Report: Bilirubin Direct 0.4 0.0-0.5 mg/dL Alpha Fetoprotein Reviewed date:08/25/2024 06:21:00 PM Interpretation: Performing Lab:[address] [phone] Notes/Report: Alpha Fetoprotein 202.4 <6.1 ng/mL This test was performed using the [employer] chemiluminescent method. Values obtained from different assay methods cannot be used interchangeably. AFP levels, regardless of value, should not be interpreted as absolute evidence of the presence or absence of disease. THIS TEST WAS PERFORMED AT: [facility] [address] [place] [phone] AVIVA LUIS MD Complete Blood Count Auto Di ff Reviewed date:03/24/2025 12:03:29 AM Interpretation: Performing Lab:[address] [phone] Notes/Report: White Blood Count 4.2 4.8-10.8 X10*3/uL [...] Panel Reviewed date:03/24/2025 12:03:14 AM Interpretation: Performing Lab:[address] [phone] Notes/Report: Bilirubin Total 0.9 0.0-1.0 mg/dL Bilirubin Direct 0.4 0.0-0.5 mg/dL Aspartate Amino Transferase 48 5-37 U/L Alanine Aminotransferase 46 0-40 U/L Total Protein 7.4 6.5-8.0 g/dL Albumin Level 3.8 3.5-5.0 g/dL Alkaline Phosphatase 290 39-117 U/L Electrolytes Reviewed date:03/20/2025 02:53:44 PM Interpretation: Performing Lab:[facility], [address] [place] [phone] Notes/Report: Sodium 132 135-145 mmol/L Potassium 3.9 3.3-5.1 mmol/L Chloride 96 96-108 mmol/L Carbon Dioxide 27 22-29 mmol/L Anion Gap 13 12-20 Blood Urea Nitrogen Reviewed date:03/20/2025 02:53:55 PM Interpretation: Performing Lab:[facility], [address] [place] [phone] Notes/Report: Blood Urea Nitrogen 18 9-16 mg/dL Creatinine Reviewed date:03/19/2025 04:50:20 PM Interpretation: Performing Lab:[facility], [address] [place] [phone] Notes/Report: Creatinine 0.84 0.5-1.4 mg/dL Estimated Glomerular Filt Rate > 60 Chronic Kidney Disease: Estimated GFR < 60 mL/min/1.73m2 Severe Kidney Disease: Estimated GFR < 15 mL/min/1.73m2 Glucose Random Reviewed date:03/23/2025 11:02:13 PM Interpretation:High blood sugar Performing Lab:[facility], [address] [place] [phone] Notes/Report: Glucose Random 484 60-115 mg/dL Critical value for GLU: Results called to and read back by: SURYA Draper Person calling: LUCY Date: 03-19-25 Time: 1447 Alpha Fetoprotein Reviewed date:03/29/2025 12:56:10 AM Interpretation: Performing Lab:[facility], [address] [place] [phone] Notes/Report: Alpha Fetoprotein 278.1 <6.1 ng/mL This test was performed using the [employer] chemiluminescent method. Values obtained from different assay methods cannot be used interchangeably. AFP levels, regardless of value, should not be interpreted as absolute evidence of the presence or absence of disease. 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) Active confirmed Problem Abnormal findings diagnostic imaging of liver and biliary tract (437746044) Abnormal MRI, liver (R93.2) Active confirmed Problem Cirrhosis - non-alcoholic (325157147) Cirrhosis of liver with ascites (K74.60) Active confirmed Problem 040030210 Lower extremity edema (R60.0) Active confirmed Vital Signs Blood pressure diastolic 77 mm Hg 03/24/2025 Height 68 in 03/24/2025 Blood pressure systolic 111 mm Hg 03/24/2025 Weight 165 lbs 03/24/2025 BMI 25.09 kg/m2 03/24/2025 Encounters Encounter Location Date Provider Diagnosis [facility] [address] [place] [id number] 03/24/2025 Derick Morris Cirrhosis of liver with ascites K74.60 ; Elevated alpha fetoprotein R77.2 ; Abnormal MRI, liver R93.2 ; Liver mass R16.0 and Alcoholic cirrhosis of liver with ascites K70.31 [facility] [address] [place] [phone] 08/22/2024 Derick Morris [facility] [address] [place] [address] 11/06/2024 Derick Morris [facility] [address] [place] [address] 03/14/2025 Derick Morris Cirrhosis of liver with ascites K74.60 [facility] [address] [place] [address] 03/19/2025 Derick Morris Assessments Encounter Date Diagnosis [...] he will continue to be followed at [facility] and will then make a decision with [...] of liver with ascites (ICD-10 - K74.60) 03/24/2025 Elevated alpha fetoprotein (ICD-10 - R77.2) [...] he will continue to be followed at [facility] and will then make a decision with [...] he will continue to be followed at [facility] and will then make a decision with [...] he will continue to be followed at [facility] and will then make a decision with [...] he will continue to be followed at [facility] and will then make a decision with [...] Provider Name:Derick Morris , 09/22/2025 09:10:00 AM, [address] [place] [address], [address], [place], [address], Insurance Providers Payer Name Payer Address Payer Phone Subscriber Number Group Number Insured Name Patient Relationship to Insured Coverage Start Date Coverage End Date [employer]ARE [employer] [address] [place] [address] [id number] Self - patient is the [...] peritonitis. He declined an evaluation at [facility] in 2022. 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 He is continuing to be followed by Dr. Ram. Surgical History Surgery Date(Month/Year) Currently being followed by Dr. Freed at [facility] surgery in regard to the abdominal wall hernia as of the February, office visit Appendectomy Incarcerated umbilical hernia repair by Dr. Reeves 11/07/2022
== END 2025-08-21 09:33 | disposition home or self-care (01) ==
LOC: HO.HMCFM 09:03
PROVIDERS: PCP Internal Medicine; Visit Provider Internal Medicine
DX: E11.65 Type 2 diabetes mellitus with hyperglycemia (principal); K70.30 Alcoholic cirrhosis of liver without ascites; C22.0 Liver cell carcinoma; E11.42 Type 2 diabetes mellitus with diabetic polyneuropathy; J44.9 Chronic obstructive pulmonary disease, unspecified

== ENCOUNTER → 2025-08-21 09:02 | Outpatient (BNVA) | payer MEDICARE, SELFPAY | PROVIDERS: PCP Internal Medicine; Visit Provider Internal Medicine | DX: E11.65 Type 2 diabetes mellitus with hyperglycemia (principal); E11.42 Type 2 diabetes mellitus with diabetic polyneuropathy; K70.30 Alcoholic cirrhosis of liver without ascites; C22.0 Liver cell carcinoma; J44.9 Chronic obstructive pulmonary disease, unspecified; G89.29 Other chronic pain; Z79.84 Long term (current) use of oral hypoglycemic drugs; Z79.891 Long term (current) use of opiate analgesic; Z13.31 Encounter for screening for depression | CPT/HCPCS: 96127; 99212 ==